=== PATIENT | male | born 1935 | race Caucasian/White ===

== ENCOUNTER 2020-04-25 17:16 | Outpatient (REF) | payer MEDICARE, OTHER, SELFPAY ==
[2020-04-25 17:30] LABS: MANUAL DIFF FLAG NO
[2020-04-25 17:33] LABS: Basophils Percent Auto 0.5 % (0-2); Eosinophils Percent Auto 12.3 % (0-4); Hematocrit 34.7 % (42-52); Hemoglobin 11.3 g/dl (14.0-18.0); Imm Gran Abs Auto 0.02 X10*3/uL (0.00-0.03); Imm Gran Pct Auto 0.3 % (0.0-0.4); Lymphocytes Absolute Auto 1.8 X10*3/uL (1.2-4.9); Lymphocytes Percent Auto 22.7 % (20-40); Mean Corpuscular HGB Conc 32.6 g/dl (31.0-36.0); Mean Corpuscular Hemoglobin 30.3 pg (27.0-33.0); Mean Platelet Volume 9.1 fL (9.4-12.4); Monocytes Absolute Auto 0.8 X10*3/uL (0.1-1.2); Monocytes Percent Auto 10.4 % (2-11); Neutrophils Absolute Auto 4.2 X10*3/uL (2.0-8.3); Neutrophils Percent Auto 53.8 % (45-73); Platelet Count 225 X10*3/uL (160-400); Red Blood Count 3.73 X10*6/uL (4.60-5.80); Red Cell Distribution Width 13.9 % (11.0-16.0); White Blood Count 7.8 X10*3/uL (4.8-10.8)
[2020-04-25 20:28] LABS: Influenza A PCR NEGATIVE (Negative); Influenza B PCR NEGATIVE (Negative)
[2020-04-25 20:31] LABS: SARS COV2 PCR INHOUSE NEGATIVE (Negative)
[2020-04-25 20:32] LABS: Resp Syncy Virus RNA Qual PCR NEGATIVE (Negative)
== END 2020-04-25 17:17 | disposition home or self-care (01) ==
LOC: HO.HSH3N 17:16
PROVIDERS: PCP Internal Medicine Medical Oncology; Visit Provider Internal Medicine Medical Oncology
DX: R50.9 Fever, unspecified (principal)
CPT/HCPCS: 36415; 85025; 87071; 87631; 87635

== ENCOUNTER 2020-05-18 06:49 | Outpatient (REF) | payer MEDICARE, OTHER, SELFPAY ==
[2020-05-18 08:34] LABS: MANUAL DIFF FLAG NO
[2020-05-18 08:38] LABS: Basophils Percent Auto 0.5 % (0-2); Eosinophils Percent Auto 12.2 % (0-4); Hemoglobin 10.8 g/dl (14.0-18.0); Imm Gran Abs Auto 0.02 X10*3/uL (0.00-0.03); Imm Gran Pct Auto 0.3 % (0.0-0.4); Lymphocytes Absolute Auto 1.7 X10*3/uL (1.2-4.9); Lymphocytes Percent Auto 21.7 % (20-40); Mean Corpuscular HGB Conc 32.7 g/dl (31.0-36.0); Mean Corpuscular Hemoglobin 30.8 pg (27.0-33.0); Mean Platelet Volume 9.2 fL (9.4-12.4); Monocytes Absolute Auto 0.8 X10*3/uL (0.1-1.2); Monocytes Percent Auto 10.7 % (2-11); Neutrophils Absolute Auto 4.3 X10*3/uL (2.0-8.3); Neutrophils Percent Auto 54.6 % (45-73); Platelet Count 174 X10*3/uL (160-400); Red Blood Count 3.51 X10*6/uL (4.60-5.80); Red Cell Distribution Width 13.6 % (11.0-16.0); White Blood Count 7.9 X10*3/uL (4.8-10.8)
== END 2020-05-18 06:50 | disposition home or self-care (01) ==
LOC: HO.HSH3N 06:49
PROVIDERS: Visit Provider Internal Medicine
DX: D64.9 Anemia, unspecified (principal)
CPT/HCPCS: 36415; 85025

== ENCOUNTER 2020-05-25 06:20 | Outpatient (REF) | payer MEDICARE, OTHER, SELFPAY ==
[2020-05-25 09:18] LABS: Alanine Aminotransferase 11 U/L (0-40); Albumin Level 3.3 g/dL (3.5-5.0); Alkaline Phosphatase 62 U/L (39-117); Anion Gap 10 (12-20); Aspartate Amino Transferase 17 U/L (5-37); Bilirubin Total 0.5 mg/dL (0.0-1.0); Blood Urea Nitrogen 25 mg/dL (9-16); Calcium 8.5 mg/dL (8.4-10.2); Carbon Dioxide 29 mmol/L (22-29); Chloride 106 mmol/L (96-108); Estimated Glomerular Filt Rate > 60; Glucose Fasting 85 mg/dL (60-99); Potassium 4.4 mmol/l (3.3-5.1); Sodium 141 mmol/L (135-145); Total Protein 6.8 g/dL (6.5-8.0)
== END 2020-05-25 06:21 | disposition home or self-care (01) ==
LOC: HO.HSH3N 06:20
PROVIDERS: Visit Provider Internal Medicine
DX: J44.9 Chronic obstructive pulmonary disease, unspecified (principal)
CPT/HCPCS: 80053

== ENCOUNTER 2020-07-07 08:43 | Outpatient (REF) | payer MEDICARE, OTHER, SELFPAY ==
[2020-07-07 09:07] LABS: Basophils Absolute Auto 0.1 X10*3/uL (0.0-0.2); Basophils Percent Auto 0.2 % (0-2); Eosinophils Absolute Auto 0.1 X10*3/uL (0.0-0.4); Eosinophils Percent Auto 0.5 % (0-4); Hematocrit 34.3 % (42-52); Hemoglobin 11.4 g/dl (14.0-18.0); Imm Gran Abs Auto 0.21 X10*3/uL (0.00-0.03); Imm Gran Pct Auto 0.9 % (0.0-0.4); Lymphocytes Absolute Auto 0.8 X10*3/uL (1.2-4.9); Lymphocytes Percent Auto 3.6 % (20-40); MANUAL DIFF FLAG SCAN; Mean Corpuscular HGB Conc 33.2 g/dl (31.0-36.0); Mean Corpuscular Hemoglobin 30.2 pg (27.0-33.0); Mean Platelet Volume 9.1 fL (9.4-12.4); Monocytes Absolute Auto 1.2 X10*3/uL (0.1-1.2); Monocytes Percent Auto 5.4 % (2-11); Neutrophils Absolute Auto 20.2 X10*3/uL (2.0-8.3); Neutrophils Percent Auto 89.4 % (45-73); Platelet Count 191 X10*3/uL (160-400); Red Blood Count 3.77 X10*6/uL (4.60-5.80); Red Cell Distribution Width 12.8 % (11.0-16.0); SCAN SMEAR FLAG 1; White Blood Count 22.6 X10*3/uL (4.8-10.8)
[2020-07-07 09:47] LABS: Alanine Aminotransferase 11 U/L (0-40); Albumin Level 3.4 g/dL (3.5-5.0); Alkaline Phosphatase 69 U/L (39-117); Anion Gap 12 (12-20); Aspartate Amino Transferase 15 U/L (5-37); Bilirubin Total 0.8 mg/dL (0.0-1.0); Blood Urea Nitrogen 24 mg/dL (9-16); Carbon Dioxide 27 mmol/L (22-29); Chloride 102 mmol/L (96-108); Estimated Glomerular Filt Rate > 60; Glucose Random 102 mg/dL (60-115); Potassium 3.8 mmol/l (3.3-5.1); Sodium 137 mmol/L (135-145); Total Protein 7.1 g/dL (6.5-8.0)
[2020-07-07 10:18] LABS: SLIDE REVIEW VERIFIED
== END 2020-07-07 08:44 | disposition home or self-care (01) ==
LOC: HO.HSH3E 08:43
PROVIDERS: Visit Provider Internal Medicine Medical Oncology
DX: Z13.89 Encounter for screening for other disorder (principal)
CPT/HCPCS: 36415; 80053; 85025

== ENCOUNTER 2020-07-07 12:26 | Inpatient (IN) | payer MEDICARE, OTHER, SELFPAY ==
[2020-07-07 12:49] VITALS: BP 107/49; PULSE 82; RESP 20; TEMP 37.9; O2SAT 96; BMI 20.9
--- NOTE | 2020-07-07 13:00 | XR_ITS ---
EXAMINATION: XR CHEST CLINICAL INFORMATION: Weakness and lethargy. COMPARISON: Chest 03/05/2020 TECHNIQUE: Frontal view of the chest was obtained. FINDINGS: The lungs are well-expanded and clear. The heart size and pulmonary vascularity is normal. There is moderate spondylosis dorsal spine but no lytic process. XR/XR chest 1V IMPRESSION: No acute process seen. There is moderate spondylosis dorsal spine.
--- NOTE | 2020-07-07 13:00 | ECG_ITS ---
Test Reason : WEAKNESS Blood Pressure : / mmHG Vent. Rate : 078 BPM Atrial Rate : 078 BPM P-R Int : 194 ms QRS Dur : 074 ms QT Int : 362 ms P-R-T Axes : 077 059 068 degrees QTc Int : 412 ms Normal sinus rhythm Normal ECG When compared with ECG of 05-MAR-2020 12:12, No significant change was found Referred By: Olinda Gordon Electronically Signed By:LINDA DELATORRE
--- NOTE | 2020-07-07 13:10 | ED.WEAKNESS ---
HPI - Weakness General Chief complaint: Weakness Stated complaint: lethargic,covid recovered Time Seen by Provider: 07/07/20 12:50 Source: EMS Mode of arrival: EMS Limitations: no limitations History of Present Illness HPI Narrative: 84-year-old male coming from the [facility] in [place] with a past medical history of COPD, osteoporosis, dementia, anemia, depression here with lethargy, fever in the last 24 hours. Per nursing report the patient has baseline mental status is alert but confused. Staff was concerned that the patient was more lethargic, falling asleep easily and not as alert as is normal. He received his 1st dose of COVID vaccine yet yesterday 07/06. He was noted to have a low-grade fever 99.9 at the [place] [facility] this morning. He received Tylenol at 10:30. He had outpatient labs done this morning which showed a WBC count of 22.6. MD Complaint: generalized weakness (lethargy) Onset (ago): hour(s) Duration: constant Location: generalized Migration: none Severity: mild Relieving factors: none Exacerbating factors: none Associated symptoms: denies other symptoms Related Data Allergies Allergy/AdvReac Type Severity Reaction Status Date / Time No Known Allergies Allergy Verified 07/07/20 12:59 [No Known Allergies*] Review of Systems Review of Systems: Yes all other systems are reviewed and are negative and Unobtainable due to mental status (limited d/t dementia ) Constitutional: Constitutional: Reports no additional constitutional complaints, Denies body ache(s), Denies chills, Reports fever(s) (low grade, max temp 99.9), Denies headache(s) and Reports weakness Eyes: Eyes: Reports no additional eye complaints and Denies change in vision ENT: Reports system reviewed and no additional complaints, except as documented, Denies dizziness, Denies headache(s), Denies nasal congestion, Denies nasal discharge and Denies neck pain Cardiovascular: Cardiovascular: Reports no additional cardiovascular complaints, Denies chest pain, Denies leg edema and Denies dyspnea Respiratory: Respiratory: Reports no additional respiratory complaints, Denies cough and Denies dyspnea Gastrointestinal: Gastrointestinal: Reports no additional gastrointestinal complaints, Denies abdominal pain, Denies diarrhea, Denies nausea and Denies vomiting Genitourinary: Genitourinary: Denies urinary incontinence Musculoskeletal: Musculoskeletal: Reports no additional musculoskeletal complaints, Denies back pain, Denies arthralgias, Denies joint swelling, Denies neck pain, Denies numbness and Denies tingling Integumentary/Breasts: Skin/Breast: Reports system reviewed and no additional complaints, except as docu and Denies rash Neurologic: Reports system reviewed and no additional complaints, except as documented, Denies Abnormal speech present, Reports confusion, Denies dizziness, Denies headache(s), Denies numbness, Denies tingling and Reports weakness Psychiatric: Psychiatric: Reports confusion [facility] Past Medical History Attestation statement: The following information was validated with the patient. Source: old records reviewed and nursing notes reviewed Medical History COPD (chronic obstructive pulmonary disease) Dementia Major depressive disorder Social History Social History Smoking Status: Unknown if ever smoked Use of substances other than those prescribed or required for medical reasons: Unknown Advance Directives: No Advance Directives Information Provided: No Physical Exam Vital Signs: Vital Signs: Last Vital Signs Temp 100.2 F 07/07/20 12:49 Pulse 82 07/07/20 15:13 Resp 18 07/07/20 15:13 BP 114/59 L 07/07/20 15:13 Pulse Ox 98 07/07/20 15:13 Body Mass Index 20.9 Const: Other: Eyes closed, response to verbal, follows simple commands General: cooperative, comfortable, no acute distress and confusion Orientation/consciousness: oriented to person and confusion Limitations: no limitations HENMT: Head: Yes normal to inspection Ears: hearing grossly normal bilaterally General nose exam: Normal external nose present Face and sinus: Yes normal facial exam Mouth: Normal oral and palatal mucosa present Throat: Yes posterior oropharynx normal Eyes: General: appearance normal, both eyes and all related structures Pupils: Equal, round and reactive pupils present Neck: Neck: Yes normal visual inspection Chest: Chest palpation & inspection: normal inspection of the chest Resp: Effort & Inspection: normal respiratory effort Auscultation: clear to auscultation bilaterally Cardio: Rate: regular rate Rhythm: regular rhythm Peripheral pulses: Peripheral pulses 2+ throughout GI: Inspection: Yes normal to inspection Palpation (GI): Soft to palpation and nontender Auscultation: normal bowel sounds Back/Spine/Pelvis: Thoracic/Lumbar Spine: thoracic and lumbar spine normal to inspection Skin: General skin exam: no rashes or lesions noted Neuro: General: oriented to person, no focal motor deficits, normal sensation to monofilament, confusion and Unable to assess gait Cranial nerves: Yes Equal, round and reactive pupils present Speech: No Abnormal speech present Gait exam (Neuro): Unable to assess gait Sensory Exam: Normal double simultaneous stimulation for sensation Extrem: General: Yes normal to inspection Course Course Course Narrative: 84-year-old male coming from a [place] [facility] with lethargy and low-grade temps for the last 24 hours. On arrival the patient tells me he has a mild headache but he has had this for 5 years. He has no other complaints. He does have his eyes closed toe response to verbal and follows simple commands. He is oriented to self only. No overt neurological deficits. Also noted to have a WBC count 22.6 drawn this morning. Will check labs including blood cultures and lactic acid, chest x-ray, EKG, UA, CT head, respiratory panel. 1600-labs show a white blood cell count 20.7. Slightly improved from earlier. Negative lactic acid. All other labs are unremarkable. Urine and chest x-ray are negative. CT shows some chronic changes but no acute changes. Patient has no complaints. Stable vital signs. No NUGENT, neck pain, rash with mental status which appears to be at baseline so low concern for meningitis. Leukocytosis but no other clinical s/s for sepsis. Likely from a viral source. Ct chest/abdomen and pelvis to r/o underlying infectious process as patient is not a reliable historian. 1999-CT concerning for left lower lobe pneumonia. At this time infection is suspected. Antibiotics ordered. CT also shows a 1.4 centimetre left obstructing kidney stone with moderate to severe hydroureteronephrosis. Normal renal function. UA negative for infection. Patient has no complaints of pain. Discussed with Dr Garrett who accepted admission. MDM - Weakness MDM Narrative Medical decision making narrative: Underlying infectious process (PNA, UTI), Adverse side effect from vaccine Metabolic cause, acs, CVA vs ICH Medical Records Attestation: I reviewed the patient's medical records. Lab Data Attestation: I reviewed the patient's lab results. Result diagrams: 07/07/20 13:35 12/30/20 13:35 Labs: Lab Results 07/07/20 07/07/20 07/07/20 Range/Units 13:35 13:35 13:35 WBC 20.7 H (4.8-10.8) X10*3/uL RBC 3.85 L (4.60-5.80) X10*6/uL Hgb 11.7 L (14.0-18.0) g/dl Hct 35.6 L (42-52) % MCV 92.5 (80-98) fL MCH 30.4 (27.0-33.0) pg MCHC 32.9 (31.0-36.0) g/dl RDW 12.8 (11.0-16.0) % Plt Count 209 (160-400) X10*3/uL MPV 9.1 L (9.4-12.4) fL Immature Gran % (Auto) 0.7 H (0.0-0.4) % Neut % (Auto) 88.9 H (45-73) % Lymph % (Auto) 5.4 L (20-40) % [place] % (Auto) 4.5 (2-11) % Eos % (Auto) 0.3 (0-4) % Baso % (Auto) 0.2 (0-2) % Lymph # (Auto) 1.1 L (1.2-4.9) X10*3/uL [place] # (Auto) 0.9 (0.1-1.2) X10*3/uL Eos # (Auto) 0.1 (0.0-0.4) X10*3/uL Baso # (Auto) 0.1 (0.0-0.2) X10*3/uL Abs Immat Gran (auto) 0.14 H (0.00-0.03) X10*3/uL Absolute Neuts (auto) 18.4 H (2.0-8.3) X10*3/uL Absolute Nucleated RBC 0.000 (0.0-0.012) X10*3/uL Nucleated RBC % (auto) 0.0 (0.0-0.2) /100WBC PT 14.1 H (10.8-13.0) SEC INR 1.2 H (0.9-1.1) Sodium 139 (135-145) mmol/L Potassium 4.0 (3.3-5.1) mmol/l Chloride 102 (96-108) mmol/L Carbon Dioxide 29 (22-29) mmol/L Anion Gap 12 (12-20) BUN 25 H (9-16) mg/dL Creatinine 1.00 (0.5-1.4) mg/dL Estim Creat Clear Calc 58.0 Estimated GFR > 60 Random Glucose 101 (60-115) mg/dL Lactic Acid (0.5-2.0) mmol/L Calcium 9.1 (8.4-10.2) mg/dL Magnesium 1.9 (1.6-2.6) mg/dL Total Bilirubin 0.8 (0.0-1.0) mg/dL Direct Bilirubin 0.4 (0.0-0.5) mg/dL AST 19 (5-37) U/L ALT 14 (0-40) U/L Alkaline Phosphatase 72 (39-117) U/L Troponin I High Sens (<3.5-35.0) ng/L Total Protein 7.2 (6.5-8.0) g/dL Albumin 3.5 (3.5-5.0) g/dL Urine Color Urine Appearance Urine pH (5.0-8.0) Ur Specific [place] (1.005-1.025) Urine Protein (NEG-TRACE) MG/DL Urine Glucose (UA) (NEG) MG/DL Urine Ketones (NEG) MG/DL Urine Blood (NEG) Urine Nitrite (NEG) Ur Leukocyte Esterase (NEG) Urine RBC (0) /HPF Urine WBC (0-4) /HPF Ur Squamous Epith Cells /LPF Urine Bacteria /LPF Coronavirus (PCR) (Negative) Influenza Type A (PCR) (Negative) Influenza Type B (PCR) (Negative) RSV RNA Qual (PCR) (Negative) 07/07/20 07/07/20 07/07/20 Range/Units 13:35 13:35 15:26 WBC (4.8-10.8) X10*3/uL RBC (4.60-5.80) X10*6/uL Hgb (14.0-18.0) g/dl Hct (42-52) % MCV (80-98) fL MCH (27.0-33.0) pg MCHC (31.0-36.0) g/dl RDW (11.0-16.0) % Plt Count (160-400) X10*3/uL MPV (9.4-12.4) fL Immature Gran % (Auto) (0.0-0.4) % Neut % (Auto) (45-73) % Lymph % (Auto) (20-40) % [place] % (Auto) (2-11) % Eos % (Auto) (0-4) % Baso % (Auto) (0-2) % Lymph # (Auto) (1.2-4.9) X10*3/uL [place] # (Auto) (0.1-1.2) X10*3/uL Eos # (Auto) (0.0-0.4) X10*3/uL Baso # (Auto) (0.0-0.2) X10*3/uL Abs Immat Gran (auto) (0.00-0.03) X10*3/uL Absolute Neuts (auto) (2.0-8.3) X10*3/uL Absolute Nucleated RBC (0.0-0.012) X10*3/uL Nucleated RBC % (auto) (0.0-0.2) /100WBC PT (10.8-13.0) SEC INR (0.9-1.1) Sodium (135-145) mmol/L Potassium (3.3-5.1) mmol/l Chloride (96-108) mmol/L Carbon Dioxide (22-29) mmol/L Anion Gap (12-20) BUN (9-16) mg/dL Creatinine (0.5-1.4) mg/dL Estim Creat Clear Calc Estimated GFR Random Glucose (60-115) mg/dL Lactic Acid 1.5 (0.5-2.0) mmol/L Calcium (8.4-10.2) mg/dL Magnesium (1.6-2.6) mg/dL Total Bilirubin (0.0-1.0) mg/dL Direct Bilirubin (0.0-0.5) mg/dL AST (5-37) U/L ALT (0-40) U/L Alkaline Phosphatase (39-117) U/L Troponin I High Sens < 3.5 (<3.5-35.0) ng/L Total Protein (6.5-8.0) g/dL Albumin (3.5-5.0) g/dL Urine Color YELLOW Urine Appearance CLEAR Urine pH 6.5 (5.0-8.0) Ur Specific [place] 1.015 (1.005-1.025) Urine Protein NEG (NEG-TRACE) MG/DL Urine Glucose (UA) NEG (NEG) MG/DL Urine Ketones NEG (NEG) MG/DL Urine Blood 1+ H (NEG) Urine Nitrite NEG (NEG) Ur Leukocyte Esterase NEG (NEG) Urine RBC 5-9 H (0) /HPF Urine WBC 0 (0-4) /HPF Ur Squamous Epith Cells NONE /LPF Urine Bacteria 1+ /LPF Coronavirus (PCR) (Negative) Influenza Type A (PCR) (Negative) Influenza Type B (PCR) (Negative) RSV RNA Qual (PCR) (Negative) 07/07/20 Range/Units 16:53 WBC (4.8-10.8) X10*3/uL RBC (4.60-5.80) X10*6/uL Hgb (14.0-18.0) g/dl Hct (42-52) % MCV (80-98) fL MCH (27.0-33.0) pg MCHC (31.0-36.0) g/dl RDW (11.0-16.0) % Plt Count (160-400) X10*3/uL MPV (9.4-12.4) fL Immature Gran % (Auto) (0.0-0.4) % Neut % (Auto) (45-73) % Lymph % (Auto) (20-40) % [place] % (Auto) (2-11) % Eos % (Auto) (0-4) % Baso % (Auto) (0-2) % Lymph # (Auto) (1.2-4.9) X10*3/uL [place] # (Auto) (0.1-1.2) X10*3/uL Eos # (Auto) (0.0-0.4) X10*3/uL Baso # (Auto) (0.0-0.2) X10*3/uL Abs Immat Gran (auto) (0.00-0.03) X10*3/uL Absolute Neuts (auto) (2.0-8.3) X10*3/uL Absolute Nucleated RBC (0.0-0.012) X10*3/uL Nucleated RBC % (auto) (0.0-0.2) /100WBC PT (10.8-13.0) SEC INR (0.9-1.1) Sodium (135-145) mmol/L Potassium (3.3-5.1) mmol/l Chloride (96-108) mmol/L Carbon Dioxide (22-29) mmol/L Anion Gap (12-20) BUN (9-16) mg/dL Creatinine (0.5-1.4) mg/dL Estim Creat Clear Calc Estimated GFR Random Glucose (60-115) mg/dL Lactic Acid (0.5-2.0) mmol/L Calcium (8.4-10.2) mg/dL Magnesium (1.6-2.6) mg/dL Total Bilirubin (0.0-1.0) mg/dL Direct Bilirubin (0.0-0.5) mg/dL AST (5-37) U/L ALT (0-40) U/L Alkaline Phosphatase (39-117) U/L Troponin I High Sens (<3.5-35.0) ng/L Total Protein (6.5-8.0) g/dL Albumin (3.5-5.0) g/dL Urine Color Urine Appearance Urine pH (5.0-8.0) Ur Specific [place] (1.005-1.025) Urine Protein (NEG-TRACE) MG/DL Urine Glucose (UA) (NEG) MG/DL Urine Ketones (NEG) MG/DL Urine Blood (NEG) Urine Nitrite (NEG) Ur Leukocyte Esterase (NEG) Urine RBC (0) /HPF Urine WBC (0-4) /HPF Ur Squamous Epith Cells /LPF Urine Bacteria /LPF Coronavirus (PCR) NEGATIVE (Negative) Influenza Type A (PCR) NEGATIVE (Negative) Influenza Type B (PCR) NEGATIVE (Negative) RSV RNA Qual (PCR) NEGATIVE (Negative) Imaging Data Chest x-ray: Attestation: I personally reviewed and interpreted this imaging study as follows: Radiologist's impression: [address] [address] XRay Report Signed Patient: Radhames Galan MMR#: [id number] : 8Acct:[id number] Age/Sex: 84 / MADM Date: 07/07/20 Loc: HO.ED Attending Dr: Ordering Physician: RAKEL LUJAN NP Date of Service: 07/07/20 Procedure(s): XR chest 1V Accession Number(s): [id number] cc: RAKEL LUJAN NP~ EXAMINATION: XR CHEST CLINICAL INFORMATION: Weakness and lethargy. COMPARISON: Chest 03/05/2020 TECHNIQUE: Frontal view of the chest was obtained. FINDINGS: The lungs are well-expanded and clear. The heart size and pulmonary vascularity is normal. There is moderate spondylosis dorsal spine but no lytic process. XR/XR chest 1V IMPRESSION: No acute process seen. There is moderate spondylosis dorsal spine. CT scan - head: Attestation: I personally reviewed and interpreted this imaging study as follows: Radiologist's impression: [place] [address] CT Scan Report Signed Patient: Radhames Galan MMR#: [id number] : 8Acct:[id number] Age/Sex: 84 / MADM Date: 07/07/20 Loc: .ED Attending Dr: Ordering Physician: RAKEL LUJAN NP Date of Service: 07/07/20 Procedure(s): CT head/brain wo con Accession Number(s): [id number] cc: RAKEL LUJAN NP~ EXAMINATION: CT HEAD WITHOUT CONTRAST CLINICAL INFORMATION: Headache and AMS. COMPARISON: None TECHNIQUE: Contiguous axial imaging was performed from the skull base to vertex without intravenous administration of contrast. This CT examination was performed using dose optimization techniques as appropriate, variously including the following: *Automated exposure control *Adjustment of mA and/or kV according to patient size (this includes techniques or standardized protocols for targeted exams where dose is matched to indication/reason for exam; i.e. extremities or head) *Use of iterative reconstruction technique DLP: 1287 mGy-cm FINDINGS: There is no evidence of acute intracranial hemorrhage or territorial infarction. No abnormal mass effect or midline shift is seen. Chun to white matter differentiation is well preserved. No extra-axial fluid collections are identified. The lateral ventricles are enlarged but symmetrical. There is diffuse periventricular hypodensity in both cerebral hemispheres without mass effect. The chun to white matter differentiation is maintained. The osseous structures and soft tissues are normal. The mastoid air cells and visualized portions of the paranasal sinuses are well aerated. CT/CT head/brain wo con IMPRESSION: No acute intracranial process seen. Age-related cerebral volume loss with chronic small vessel ischemic changes in both cerebral hemispheres. ECG Data Attestation: I personally reviewed and interpreted this ECG as follows: ECG interpretation date: 07/07/20 ECG interpretation time: 13:26 Interpretation: Normal sinus rhythm rate 78, normal [place], normal QRS, normal QT Discharge Plan Discharge Clinical Impression: Renal colic on left side Pneumonia Qualifiers: Pneumonia type: due to unspecified organism Laterality: left Lung location: lower lobe of lung Qualified Code(s): J18.9 - Pneumonia, unspecified organism Leukocytosis Qualifiers: Leukocytosis type: unspecified Qualified Code(s): D72.829 - Elevated white blood cell count, unspecified Patient Disposition: Admitted As Inpatient
--- NOTE | 2020-07-07 13:43 | PC.NURSE ---
pt's daughter jennifer ahuja ) called [facility] and was updated on pt's status. jennifer is asking that all communication/calls be sent to her. pt aware that his daughter had called.
[2020-07-07 13:44] VITALS: BP 105/51; PULSE 80; RESP 15; O2SAT 95
[2020-07-07 13:57] LABS: MANUAL DIFF FLAG NO
[2020-07-07 14:00] LABS: Basophils Absolute Auto 0.1 X10*3/uL (0.0-0.2); Basophils Percent Auto 0.2 % (0-2); Eosinophils Absolute Auto 0.1 X10*3/uL (0.0-0.4); Eosinophils Percent Auto 0.3 % (0-4); Hematocrit 35.6 % (42-52); Hemoglobin 11.7 g/dl (14.0-18.0); Imm Gran Abs Auto 0.14 X10*3/uL (0.00-0.03); Imm Gran Pct Auto 0.7 % (0.0-0.4); Lymphocytes Absolute Auto 1.1 X10*3/uL (1.2-4.9); Lymphocytes Percent Auto 5.4 % (20-40); Mean Corpuscular HGB Conc 32.9 g/dl (31.0-36.0); Mean Corpuscular Hemoglobin 30.4 pg (27.0-33.0); Mean Corpuscular Volume 92.5 fL (80-98); Mean Platelet Volume 9.1 fL (9.4-12.4); Monocytes Absolute Auto 0.9 X10*3/uL (0.1-1.2); Monocytes Percent Auto 4.5 % (2-11); Neutrophils Absolute Auto 18.4 X10*3/uL (2.0-8.3); Neutrophils Percent Auto 88.9 % (45-73); Platelet Count 209 X10*3/uL (160-400); Red Blood Count 3.85 X10*6/uL (4.60-5.80); Red Cell Distribution Width 12.8 % (11.0-16.0); White Blood Count 20.7 X10*3/uL (4.8-10.8)
[2020-07-07 14:10] LABS: INTERNATIONAL NORM RATIO 1.2 (0.9-1.1); Lactic Acid 1.5 mmol/L (0.5-2.0); Prothrombin Time 14.1 SEC (10.8-13.0)
[2020-07-07 14:32] LABS: Alanine Aminotransferase 14 U/L (0-40); Albumin Level 3.5 g/dL (3.5-5.0); Alkaline Phosphatase 72 U/L (39-117); Anion Gap 12 (12-20); Aspartate Amino Transferase 19 U/L (5-37); Bilirubin Direct 0.4 mg/dL (0.0-0.5); Bilirubin Total 0.8 mg/dL (0.0-1.0); Blood Urea Nitrogen 25 mg/dL (9-16); Calcium 9.1 mg/dL (8.4-10.2); Carbon Dioxide 29 mmol/L (22-29); Chloride 102 mmol/L (96-108); Estimated Glomerular Filt Rate > 60; Glucose Random 101 mg/dL (60-115); Magnesium 1.9 mg/dL (1.6-2.6); Sodium 139 mmol/L (135-145); Total Protein 7.2 g/dL (6.5-8.0)
[2020-07-07 14:34] LABS: Troponin-I High Sensitivity < 3.5 ng/L (<3.5-35.0)
[2020-07-07 15:13] VITALS: BP 114/59; PULSE 82; RESP 18; O2SAT 98
[2020-07-07 15:36] LABS: Glucose Urine UA NEG (NEG); Leukocyte Esterase Urine NEG (NEG); Nitrite Urine NEG (NEG); PH 6.5 (5.0-8.0); Specific Gravity - Urine 1.015 (1.005-1.025); Urine Blood 1+ (NEG); Urine Ketones NEG (NEG); Urine Protein NEG (NEG-TRACE)
[2020-07-07 15:39] LABS: Appearance Urine CLEAR; Color Urine YELLOW
[2020-07-07 15:46] LABS: Bacteria Urine 1+ /LPF; WBC Urine 0 /HPF (0-4)
[2020-07-07 16:23] LABS: Adenovirus PCR Not Detected (Not Detect.); Bordetella parapertussis PCR Not Detected (Not Detect.); Bordetella pertussis PCR Not Detected (Not Detect.); Chlamydia pneumoniae PCR Not Detected (Not Detect.); Coronavirus 229E PCR Not Detected (Not Detect.); Coronavirus HKU1 PCR Not Detected (Not Detect.); Coronavirus NL63 PCR Not Detected (Not Detect.); Coronavirus OC43 PCR Not Detected (Not Detect.); Human metapneumovirus PCR Not Detected (Not Detect.); Influenza A PCR Not Detected (Not Detect.); Influenza B PCR Not Detected (Not Detect.); Mycoplasma pneumoniae PCR Not Detected (Not Detect.); Parainfluenza 1 PCR Not Detected (Not Detect.); Parainfluenza 2 PCR Not Detected (Not Detect.); Parainfluenza 3 PCR Not Detected (Not Detect.); Parainfluenza 4 PCR Not Detected (Not Detect.); RSV PCR Not Detected (Not Detect.); Rhino/Enterovirus PCR Not Detected (Not Detect.); SARS-CoV-2 PCR Not Detected (Not Detect.)
--- NOTE | 2020-07-07 16:30 | PC.NURSE ---
PLAN OF CARE FOR RESP PANEL & D/C BACK TO [facility]
[2020-07-07 17:38] LABS: Influenza A PCR NEGATIVE (Negative); Influenza B PCR NEGATIVE (Negative); Resp Syncy Virus RNA Qual PCR NEGATIVE (Negative); SARS COV2 PCR INHOUSE NEGATIVE (Negative)
--- NOTE | 2020-07-07 17:52 | CT_ITS ---
EXAM: CT scan of the chest, abdomen, and pelvis. INDICATION: Elevated white blood cell count and confusion. Evaluation for infection requested. COMPARISON: Same day chest x-ray TECHNIQUE: Multidetector helical imaging of the chest, abdomen, and pelvis was obtained from the thoracic inlet through the pubic symphysis. Coronal and sagittal reformatted images that were obtained were also reviewed. Today's examination is limited secondary to motion artifact. DLP: 1169 mGy-cm FINDINGS: CHEST: Central airways are patent. Filling defect within the right mainstem bronchus and within segmental and subsegmental airways particularly within the left lower lobe are most suggestive of mucus impaction. Lungs are mildly hyperinflated consistent with emphysematous changes. There is subtle patchy airspace disease of the dependent left lower lobe with trace pleural thickening. There is biapical scarring demonstrated. No lobar consolidation. No pneumothorax. Evaluation for pulmonary nodules is suboptimal given motion artifact. The heart is normal in size. Coronary artery calcifications are present. Mitral annulus calcifications. Mildly prominent main pulmonary artery suggesting pulmonary arterial hypertension. No pericardial effusion. A few mildly prominent but not pathologically enlarged mediastinal lymph nodes are demonstrated. Nonaneurysmal thoracic aorta. ABDOMEN/PELVIS: The liver and gallbladder are normal in appearance. Calcifications within the pancreas are nonspecific but suspected to be vascular in nature. The spleen is unremarkable. Mild hypertrophy of the adrenal glands. There is moderate to severe hydroureteronephrosis of the left kidney secondary to a 1.4 cm stone within the mid left ureter. There are a few subcentimeter nonobstructing calculi of the right kidney without right-sided hydronephrosis. There is approximately 3.8 cm cyst of the right kidney. The stomach is decompressed and therefore not accurately evaluated. Normal caliber loops of small and large bowel. Moderate stool burden throughout the colon. Normal appendix. Nonaneurysmal abdominal aorta which demonstrates moderate to severe atherosclerotic disease. The bladder is decompressed but demonstrates mild diffuse bladder wall thickening. Prostate gland is mildly enlarged. OSSEOUS STRUCTURES Diffuse osteopenia. Scattered moderate to severe degenerative changes of the spine. L4 compression deformity, age indeterminate. CT/CT abdomen pelvis wo con IMPRESSION: 1. Moderate to severe left-sided hydroureteronephrosis secondary to a 1.4 cm stone within the left mid ureter. 2. Nonobstructing calculi of the right kidney. 3. Moderate stool burden throughout the colon suggesting constipation. 4. L4 compression deformity, age indeterminate. 5. Patchy airspace disease dependently within the left lower lobe. Findings are most suggestive of atelectasis, however, developing infiltrate is not excluded. Ultimately, today's examination is suboptimal due to appreciable motion artifact. Follow-up imaging can be obtained as clinically indicated. This CT examination was performed using dose optimization techniques as appropriate, variously including the following: *Automated exposure control *Adjustment of mA and/or kV according to patient size (this includes techniques or standardized protocols for targeted exams where dose is matched to indication/reason for exam; i.e. extremities or head) *Use of iterative reconstruction technique
[2020-07-07 18:00] VITALS: BP 108/51; PULSE 82; RESP 14; TEMP 37.3; O2SAT 98
[2020-07-07 20:00] VITALS: BP 103/51; PULSE 75; RESP 12; O2SAT 97
--- NOTE | 2020-07-07 20:49 | PM.IMHP ---
History of Present Illness Date of Service: 07/07/20 Chief Complaint: Increased lethargy This is a 84-year-old male with past medical history of COPD, dementia, depression who is the [facility] resident presents to the hospital with increased lethargy and leukocytosis. Patient is somnolent but arousable on unable to give much history therefore history is obtained from ED PA and EMR. It appears the patient was more lethargic today at the detention and had increased weakness therefore labs were drawn and his WBC was found to be 22,000. He apparently also had a fever of 100 point no at the detention. Therefore he was brought in to the hospital. I am unable to obtain any review of system otherwise as patient is a poor historian due to baseline dementia and is very somnolent at this time On arrival to the ED hemodynamically stable with a temperature of a 100.2?, pulse rate of 82, respiratory rate 20, blood pressure 107/49 improved to 1 14/59 currently, satting 96% on room air Labs are significant for WBC count 20.7, hemoglobin of 11.7, hematocrit 35.6, PT of 14.1, INR of 1.2, BUN of 25, creatinine of 1.0, sodium of 139, potassium 4.0 UA that is negative for any infection, complete respiratory panel is pending but COVID PCR negative (patient was positive in November 2019) Chest CT shows patchy airspace disease dependently within the left lower lobe as well as abdominal/pelvic CT showing moderate to severe left-sided hydroureteronephrosis secondary to 1.4 cm stone within the left mid ureter Past medical history is obtained from chart as patient is too lethargic/somnolent to give any history and has baseline dementia Past medical history: COPD, dementia, depression, COVID positive in November 2019 Past surgical history: Tonsillectomy Family history: Father of an [place] in his 60s, mother had a history of COPD Social history: The patient resides at [facility], he ambulates with the use of a walker or wheelchair, and he has no history of tobacco alcohol or drug use Review of Systems Review of Systems: Yes Unobtainable due to mental condition and Unobtainable due to mental status Constitutional: Constitutional: Denies headache(s) and Reports weakness ENT: Denies dizziness and Denies headache(s) Musculoskeletal: Musculoskeletal: Denies numbness and Denies tingling Neurologic: Reports system reviewed and no additional complaints, except as documented, Reports confusion, Denies dizziness, Denies headache(s), Denies numbness, Denies tingling and Reports weakness Psychiatric: Psychiatric: Reports confusion PMFSH Medical History COPD (chronic obstructive pulmonary disease) Dementia Major depressive disorder Social History Smoking Status: Unknown if ever smoked Use of substances other than those prescribed or required for medical reasons: Unknown Advance Directives: No Advance Directives Information Provided: No Meds Allergies Allergy/AdvReac Type Severity Reaction Status Date / Time No Known Allergies Allergy Verified 07/07/20 12:59 [No Known Allergies*] Home Medications Medication Instructions Recorded Confirmed Type acetaminophen 650 mg PO BID 07/07/20 07/07/20 History alendronate [Fosamax] 70 mg PO QWEEK 07/07/20 07/07/20 History cholecalciferol (vitamin D3) 25 mcg PO DAILY 07/07/20 07/07/20 History [Vitamin D3] docusate sodium [Colace] 100 mg PO DAILY 07/07/20 07/07/20 History escitalopram oxalate [Lexapro] 5 mg PO DAILY 07/07/20 07/07/20 History fluticasone propion-salmeterol 1 inh INHALATION BID 07/07/20 07/07/20 History [Advair Diskus] ipratropium bromide 1 spray INTRANASAL BID 07/07/20 07/07/20 History levalbuterol tartrate 2 puff INHALATION Q4H PRN 07/07/20 07/07/20 History loratadine [Claritin] 10 mg PO DAILY 07/07/20 07/07/20 History sennosides [senna] 8.6 mg PO BEDTIME 07/07/20 07/07/20 History trazodone 37.5 mg PO DAILY@1400 07/07/20 07/07/20 History Physical Exam Vital Signs and Narrative: Vital Signs: Last Vital Signs Temp 100.2 F 07/07/20 12:49 Pulse 82 07/07/20 15:13 Resp 18 07/07/20 15:13 BP 114/59 L 07/07/20 15:13 Pulse Ox 98 07/07/20 15:13 Body Mass Index 20.9 Const: General: confusion and patient obtunded Orientation/consciousness: confusion and patient obtunded Eyes: General: appearance normal, both eyes and all related structures Resp: Effort & Inspection: normal respiratory effort Cardio: Rate: regular rate Rhythm: regular rhythm GI: Palpation (GI): Soft to palpation Auscultation: normal bowel sounds Neuro: General: confusion and patient obtunded Extrem: General: Yes normal to inspection Results Labs CBC and Chem 7: 07/07/20 13:35 07/07/20 13:35 Labs: Laboratory Results - last 24 hr 07/07/20 07/07/20 07/07/20 13:35 13:35 13:35 MCV 92.5 MCH 30.4 MCHC 32.9 RDW 12.8 Plt Count 209 MPV 9.1 L Immature Gran % (Auto) 0.7 H Neut % (Auto) 88.9 H Lymph % (Auto) 5.4 L [place] % (Auto) 4.5 Eos % (Auto) 0.3 Baso % (Auto) 0.2 Lymph # (Auto) 1.1 L [place] # (Auto) 0.9 Eos # (Auto) 0.1 Baso # (Auto) 0.1 Abs Immat Gran (auto) 0.14 H Absolute Neuts (auto) 18.4 H Absolute Nucleated RBC 0.000 Nucleated RBC % (auto) 0.0 PT 14.1 H INR 1.2 H Anion Gap 12 Estim Creat Clear Calc 58.0 Estimated GFR > 60 Random Glucose 101 Lactic Acid Calcium 9.1 Magnesium 1.9 Total Bilirubin 0.8 Direct Bilirubin 0.4 AST 19 ALT 14 Alkaline Phosphatase 72 Troponin I High Sens Total Protein 7.2 Albumin 3.5 Urine Color Urine Appearance Urine pH Ur Specific [place] Urine Protein Urine Glucose (UA) Urine Ketones Urine Blood Urine Nitrite Ur Leukocyte Esterase Urine RBC Urine WBC Ur Squamous Epith Cells Urine Bacteria Coronavirus (PCR) Influenza Type A (PCR) Influenza Type B (PCR) RSV RNA Qual (PCR) 07/07/20 07/07/20 07/07/20 13:35 13:35 15:26 MCV MCH MCHC RDW Plt Count MPV Immature Gran % (Auto) Neut % (Auto) Lymph % (Auto) [place] % (Auto) Eos % (Auto) Baso % (Auto) Lymph # (Auto) [place] # (Auto) Eos # (Auto) Baso # (Auto) Abs Immat Gran (auto) Absolute Neuts (auto) Absolute Nucleated RBC Nucleated RBC % (auto) PT INR Anion Gap Estim Creat Clear Calc Estimated GFR Random Glucose Lactic Acid 1.5 Calcium Magnesium Total Bilirubin Direct Bilirubin AST ALT Alkaline Phosphatase Troponin I High Sens < 3.5 Total Protein Albumin Urine Color YELLOW Urine Appearance CLEAR Urine pH 6.5 Ur Specific [place] 1.015 Urine Protein NEG Urine Glucose (UA) NEG Urine Ketones NEG Urine Blood 1+ H Urine Nitrite NEG Ur Leukocyte Esterase NEG Urine RBC 5-9 H Urine WBC 0 Ur Squamous Epith Cells NONE Urine Bacteria 1+ Coronavirus (PCR) Influenza Type A (PCR) Influenza Type B (PCR) RSV RNA Qual (PCR) 07/07/20 16:53 MCV MCH MCHC RDW Plt Count MPV Immature Gran % (Auto) Neut % (Auto) Lymph % (Auto) [place] % (Auto) Eos % (Auto) Baso % (Auto) Lymph # (Auto) [place] # (Auto) Eos # (Auto) Baso # (Auto) Abs Immat Gran (auto) Absolute Neuts (auto) Absolute Nucleated RBC Nucleated RBC % (auto) PT INR Anion Gap Estim Creat Clear Calc Estimated GFR Random Glucose Lactic Acid Calcium Magnesium Total Bilirubin Direct Bilirubin AST ALT Alkaline Phosphatase Troponin I High Sens Total Protein Albumin Urine Color Urine Appearance Urine pH Ur Specific [place] Urine Protein Urine Glucose (UA) Urine Ketones Urine Blood Urine Nitrite Ur Leukocyte Esterase Urine RBC Urine WBC Ur Squamous Epith Cells Urine Bacteria Coronavirus (PCR) NEGATIVE Influenza Type A (PCR) NEGATIVE Influenza Type B (PCR) NEGATIVE RSV RNA Qual (PCR) NEGATIVE Imaging Radiologist's Impressions: Impressions Chest X-Ray 07/07/20 13:00 IMPRESSION: No acute process seen. There is moderate spondylosis dorsal spine. Head CT 07/07/20 13:09 IMPRESSION: No acute intracranial process seen. Age-related cerebral volume loss with chronic small vessel ischemic changes in both cerebral hemispheres. Abdomen/Pelvis CT 07/07/20 17:52 IMPRESSION: 1. Moderate to severe left-sided hydroureteronephrosis secondary to a 1.4 cm stone within the left mid ureter. 2. Nonobstructing calculi of the right kidney. 3. Moderate stool burden throughout the colon suggesting constipation. 4. L4 compression deformity, age indeterminate. 5. Patchy airspace disease dependently within the left lower lobe. Findings are most suggestive of atelectasis, however, developing infiltrate is not excluded. Ultimately, today's examination is suboptimal due to appreciable motion artifact. Follow-up imaging can be obtained as clinically indicated. This CT examination was performed using dose optimization techniques as appropriate, variously including the following: *Automated exposure control *Adjustment of mA and/or kV according to patient size (this includes techniques or standardized protocols for targeted exams where dose is matched to indication/reason for exam; i.e. extremities or head) *Use of iterative reconstruction technique Chest CT 07/07/20 17:52 IMPRESSION: 1. Moderate to severe left-sided hydroureteronephrosis secondary to a 1.4 cm stone within the left mid ureter. 2. Nonobstructing calculi of the right kidney. 3. Moderate stool burden throughout the colon suggesting constipation. 4. L4 compression deformity, age indeterminate. 5. Patchy airspace disease dependently within the left lower lobe. Findings are most suggestive of atelectasis, however, developing infiltrate is not excluded. Ultimately, today's examination is suboptimal due to appreciable motion artifact. Follow-up imaging can be obtained as clinically indicated. This CT examination was performed using dose optimization techniques as appropriate, variously including the following: *Automated exposure control *Adjustment of mA and/or kV according to patient size (this includes techniques or standardized protocols for targeted exams where dose is matched to indication/reason for exam; i.e. extremities or head) *Use of iterative reconstruction technique Assessment and Plan (1) Encephalopathy: Status: Acute (2) Pneumonia: Qualifiers: Laterality: left Lung location: lower lobe of lung Pneumonia type: due to unspecified organism Qualified Code(s): J18.9 - Pneumonia, unspecified organism Status: Acute (3) Renal colic on left side: Status: Acute (4) Leukocytosis: Qualifiers: Leukocytosis type: unspecified Qualified Code(s): D72.829 - Elevated white blood cell count, unspecified Status: Acute This is an 84-year-old male with baseline dementia, COPD, who presents from [facility] with increased lethargy and leukocytosis # encephalopathy - secondary to acute infection - has leukocytosis, febrile with a left-sided infiltrate on CT scan - COVID negative Plan: -will stop patient was ceftriaxone and azithromycin - monitor mental status # community-acquired pneumonia - febrile, leukocytosis, has infiltrate on CT scan - unable to obtain complete review of system otherwise - received cefepime and vancomycin in the ED, will start him on ceftriaxone and azithromycin- has had no recent hospitalization - follow blood cultures, complete respiratory panel as well as strep and Legionella urine antigens # leukocytosis - secondary to above - follow CBC # urolithiasis - has a 1.4 cm kidney stone - unable to obtain any history from patient regards to pain - UA is negative and there is no evidence of cystitis or pyelonephritis - will consult Urology DVT prophylaxis: Heparin subQ
[2020-07-07] MEDS: cefEPime HCl 1 GM in 0.9 % Sodium Chloride 50 ML IV (20:56)
[2020-07-07] MEDS: vancomycin HCL 1,000 MG in 0.9 % Sodium Chloride 250 ML 270 MG IV (22:14)
[2020-07-07 23:56] VITALS: BP 120/64; PULSE 74; RESP 14; TEMP 36.8; O2SAT 93
[2020-07-08 03:54] VITALS: BP 105/50; PULSE 66; RESP 18; O2SAT 96
[2020-07-08 06:00] VITALS: BP 124/72; PULSE 75; TEMP 36.8; O2SAT 95
--- NOTE | 2020-07-08 06:48 | PC.NURSE ---
PT EXPERIENCED EPISODE OF INCONTINENCE, PATIENT SKIN CLEANSED, NEW LINEN PLACED AND REPOSITIONED FOR COMFORT.
[2020-07-08 07:22] VITALS: BP 104/51; PULSE 67; RESP 14; TEMP 36.4; O2SAT 97
[2020-07-08 07:42] LABS: Basophils Percent Auto 0.2 % (0-2); Eosinophils Absolute Auto 0.5 X10*3/uL (0.0-0.4); Eosinophils Percent Auto 4.6 % (0-4); Hematocrit 35.9 % (42-52); Hemoglobin 11.9 g/dl (14.0-18.0); Imm Gran Abs Auto 0.02 X10*3/uL (0.00-0.03); Imm Gran Pct Auto 0.2 % (0.0-0.4); Lymphocytes Absolute Auto 1.1 X10*3/uL (1.2-4.9); Lymphocytes Percent Auto 11.2 % (20-40); MANUAL DIFF FLAG NO; Mean Corpuscular HGB Conc 33.1 g/dl (31.0-36.0); Mean Corpuscular Hemoglobin 30.6 pg (27.0-33.0); Mean Corpuscular Volume 92.3 fL (80-98); Mean Platelet Volume 8.6 fL (9.4-12.4); Monocytes Absolute Auto 0.9 X10*3/uL (0.1-1.2); Monocytes Percent Auto 8.6 % (2-11); Neutrophils Absolute Auto 7.6 X10*3/uL (2.0-8.3); Neutrophils Percent Auto 75.2 % (45-73); Platelet Count 168 X10*3/uL (160-400); Red Blood Count 3.89 X10*6/uL (4.60-5.80); Red Cell Distribution Width 13.1 % (11.0-16.0); White Blood Count 10.1 X10*3/uL (4.8-10.8)
[2020-07-08 08:07] LABS: Anion Gap 13 (12-20); Blood Urea Nitrogen 25 mg/dL (9-16); Calcium 8.8 mg/dL (8.4-10.2); Carbon Dioxide 25 mmol/L (22-29); Chloride 104 mmol/L (96-108); Creatinine Clr Calc Pharmacy 63.7; Estimated Glomerular Filt Rate > 60; Glucose Random 85 mg/dL (60-115); Potassium 3.9 mmol/l (3.3-5.1); Sodium 138 mmol/L (135-145)
[2020-07-08] MEDS: cefTRIAXone sodium 1 GM in 0.9 % Sodium Chloride 50 ML IV (08:09)
[2020-07-08] MEDS: Cholecalciferol (Vitamin D3) 25 MCG TABLET PO (08:10)
[2020-07-08] MEDS: Loratadine 10 MG TABLET PO (08:10)
[2020-07-08] MEDS: Docusate Sodium 100 MG CAPSULE PO ×3 (08:10→22:35)
[2020-07-08] MEDS: Escitalopram Oxalate 5 MG TABLET PO (08:10)
[2020-07-08] MEDS: Azithromycin 500 MG in 0.9 % Sodium Chloride 250 ML 125 MG IV (09:22)
--- NOTE | 2020-07-08 12:05 | PC.NURSE ---
pt assisted to use urinal, voided 100cc dark yellow urine
--- NOTE | 2020-07-08 14:31 | PC.NURSE ---
pt cleaned up and repositioned. linen and hospital gown changed.
--- NOTE | 2020-07-08 14:46 | P.PNIM_ITS ---
Subjective Subjective Date of Service: 07/08/20 Interval History: Pneumonia, toxic metabolic encephalopathy. Review of Systems Mental status mazariegos seems improving, denies any shortness of breath or cough or sputum. Physical Exam Vital Signs: Vital Signs: Last Vital Signs Temp 97.5 F 07/08/20 07:22 Pulse 67 07/08/20 07:22 Resp 14 07/08/20 07:22 BP 104/51 L 07/08/20 07:22 Pulse Ox 97 07/08/20 07:22 Body Mass Index 20.9 Physical exam: Constitutional: Not in acute distress, pleasant HEENT: Eyes are anicteric, no discharge Cvs: [id number], [id number] , no murmur res: fair air entry slightly diminshed at bases, no rales or wheezing abd: no rebound or guarding ,nt, bs present. ext pulses present , no cyanosis neuro: nonfocal. Objective Data Current Medications Generic Name Dose Route Start Last Admin Trade Name Freq PRN Reason Stop Dose Admin Acetaminophen 650 mg 07/08/20 06:55 Acetaminophen 325 Mg Tablet PO Q6H PRN Pain, Mild (Pain Scale 1-3) Acetaminophen 650 mg 07/08/20 07:25 Acetaminophen 325 Mg Tablet PO BID PRN pain Alendronate Sodium 70 mg 07/14/20 08:00 Alendronate Sodium 70 Mg Tablet PO We GERALDO Docusate Sodium 100 mg 07/08/20 06:55 Docusate Sodium 100 Mg Capsule PO DAILY PRN Constipation Docusate Sodium 100 mg 07/08/20 09:00 07/08/20 08:10 Docusate Sodium 100 Mg Capsule PO 100 mg DAILY GERALDO Administration Escitalopram Oxalate 5 mg 07/08/20 09:00 07/08/20 08:10 Escitalopram Oxalate 5 Mg Tablet PO 5 mg DAILY GERALDO Administration Fluticasone/Vilanterol 1 puff 07/08/21 08:00 Fluticasone/Vilanterol 100/25 Blst.W.Dev INHALE RDAILY [facility] Heparin Sodium (Porcine) 5,000 unit 07/08/20 06:55 07/08/20 08:19 Heparin Sodium,Porcine 5,000 Unit/Ml Vial SUBCUT Not Given Q12H [facility] Ceftriaxone Sodium 1 gm/ 50 mls @ 100 mls/hr 07/08/20 06:55 07/08/20 08:40 Sodium Chloride IV Infused Q24H GERALDO Infusion Azithromycin 500 mg/ Sodium 250 mls @ 125 mls/hr 07/08/20 06:55 07/08/20 11:21 Chloride IV Infused Q24H GERALDO Infusion Loratadine 10 mg 07/08/20 09:00 07/08/20 08:10 Loratadine 10 Mg Tablet PO 10 mg DAILY GERALDO Administration Ondansetron HCl 4 mg 07/08/20 06:55 Ondansetron Hcl 4 Mg/2 Ml Vial IVPUSH Q8H PRN Nausea and Vomiting Pharmacy Consult 1 each 07/07/20 20:10 Consult Rx Perform Med Rec MISCELLANE ONCE PRN Consult order Senna 8.6 mg 07/08/20 21:00 Sennosides 8.6 Mg Tablet PO BEDTIME GERALDO Sodium Chloride 3 ml 07/08/20 07:25 07/08/20 09:24 0.9 % Sodium Chloride Flush 3 Ml Syringe IVFLUSH Not Given QSHIFT GERALDO Trazodone HCl 37.5 mg 07/08/20 14:00 Trazodone Hcl 50 Mg Tablet PO DAILY@1400 [facility] Vitamin D 25 mcg 07/08/20 09:00 07/08/20 08:10 Cholecalciferol (Vitamin D3) 25 Mcg Tablet PO 25 mcg DAILY GERALDO Administration Labs CBC & Chem 7: 07/08/20 07:36 07/08/20 07:36 Assessment and Plan (1) Pneumonia: Status: Acute (2) Encephalopathy: Status: Acute Assessment and Plan: 84-year-old male with baseline dementia, COPD, who presents from [facility] with increased lethargy and leukocytosis 1 toxic metabolic encephalopathy secondary to acute infection leukocytosis seems to be improved, febrile with a left-sided infiltrate on CT scan Mental status is also improving. 2. community-acquired pneumonia: COVID negative, blood culture pending Overnight had low-grade fever, leukocytosis resolved, has infiltrate on CT scan unable to obtain complete review of system otherwise received cefepime and vancomycin in the ED. on ceftriaxone and azithromycin day1 follow blood cultures, complete respiratory panel as well as strep and Legionella urine antigens 3.leukocytosis secondary to above, resolved. follow CBC 4. urolithiasis- has a 1.4 cm kidney stone unable to obtain any history from patient regards to pain, does not say any pain, renal function seems fine. UA is negative and there is no evidence of cystitis or pyelonephritis consult Urology
--- NOTE | 2020-07-08 16:25 | PC.NURSE ---
CALL TO [facility] FOR REPORT
--- NOTE | 2020-07-08 16:28 | PC.NURSE ---
REPORT GIVEN TO MELE ON MED SURG. DAUGHTER JUSTO MADE AWARE OF TRANSFER TO FLOOR.
[2020-07-08] MEDS: Heparin Sodium,Porcine 5,000 UNIT/ML VIAL 5000 UNIT SUBCUT (18:01)
[2020-07-08] MEDS: polyethylene glycoL 3350 17 GM POWD.PACK PO (18:02)
[2020-07-08 19:16] VITALS: BP 124/81; PULSE 69; RESP 20; TEMP 36.7; O2SAT 97
[2020-07-08] MEDS: Sennosides 8.6 MG TABLET PO (22:34)
[2020-07-09] VITALS (7 sets, daily range): BP systolic 99–151; BP diastolic 58–82; PULSE 63–77; RESP 16–18; TEMP 36.3–36.7; O2SAT 94–98
[2020-07-09] MEDS: 0.9 % Sodium Chloride Flush 3 ML SYRINGE IVFLUSH ×4 (00:03→20:50)
[2020-07-09] MEDS: cefTRIAXone sodium 1 GM in 0.9 % Sodium Chloride 50 ML IV (06:25)
[2020-07-09] MEDS: Docusate Sodium 100 MG CAPSULE PO ×2 (07:50→20:50)
[2020-07-09] MEDS: Heparin Sodium,Porcine 5,000 UNIT/ML VIAL 5000 UNIT SUBCUT ×2 (07:50→17:59)
[2020-07-09] MEDS: Escitalopram Oxalate 5 MG TABLET PO (07:51)
[2020-07-09] MEDS: Azithromycin 500 MG in 0.9 % Sodium Chloride 250 ML 150 MG IV (07:51)
[2020-07-09] MEDS: polyethylene glycoL 3350 17 GM POWD.PACK PO (07:52)
[2020-07-09] MEDS: Cholecalciferol (Vitamin D3) 25 MCG TABLET PO (07:52)
[2020-07-09] MEDS: Loratadine 10 MG TABLET PO (07:52)
--- NOTE | 2020-07-09 07:53 | HO.PM.IMPN ---
Subjective Subjective Date of Service: 07/09/20 Interval History: Pneumonia Review of Systems Shortness of breath improving and denies any chest pain or abdominal pain or fever or chills. Physical Exam Vital Signs: Vital Signs: Last Vital Signs Temp 97.5 F 07/09/20 04:27 Pulse 64 07/09/20 04:27 Resp 18 07/09/20 04:27 BP 114/65 07/09/20 04:27 Pulse Ox 97 07/09/20 04:27 Body Mass Index 20.9 Physical exam: Constitutional: Not in acute distress, pleasant HEENT: Eyes are anicteric, no discharge Cvs: [id number], [id number] , no murmur res: fair air entry slightly diminshed at bases, no rales or wheezing abd: no rebound or guarding ,nt, bs present. ext pulses present , no cyanosis neuro: nonfocal. Objective Data Current Medications Generic Name Dose Route Start Last Admin Trade Name Freq PRN Reason Stop Dose Admin Acetaminophen 650 mg 07/08/20 06:55 Acetaminophen 325 Mg Tablet PO Q6H PRN Pain, Mild (Pain Scale 1-3) Acetaminophen 650 mg 07/08/20 07:25 Acetaminophen 325 Mg Tablet PO BID PRN pain Alendronate Sodium 70 mg 07/14/20 08:00 Alendronate Sodium 70 Mg Tablet PO We GERALDO Docusate Sodium 100 mg 07/08/20 06:55 Docusate Sodium 100 Mg Capsule PO DAILY PRN Constipation Docusate Sodium 100 mg 07/08/20 09:00 07/08/20 08:10 Docusate Sodium 100 Mg Capsule PO 100 mg DAILY GERALDO Administration Docusate Sodium 100 mg 07/08/20 16:06 07/08/20 22:35 Docusate Sodium 100 Mg Capsule PO 100 mg BID GERALDO Administration Escitalopram Oxalate 5 mg 07/08/20 09:00 07/08/20 08:10 Escitalopram Oxalate 5 Mg Tablet PO 5 mg DAILY GERALDO Administration Fluticasone/Vilanterol 1 puff 07/08/21 08:00 Fluticasone/Vilanterol 100/25 Blst.W.Dev INHALE RDAILY GERALDO Heparin Sodium (Porcine) 5,000 unit 07/08/20 06:55 07/08/20 18:01 Heparin Sodium,Porcine 5,000 Unit/Ml Vial SUBCUT 5,000 unit Q12H GERALDO Administration Ceftriaxone Sodium 1 gm/ 50 mls @ 100 mls/hr 07/08/20 06:55 07/09/20 06:25 Sodium Chloride IV 100 mls/hr Q24H GERALDO Administration Azithromycin 500 mg/ Sodium 250 mls @ 125 mls/hr 07/08/20 06:55 07/08/20 11:21 Chloride IV Infused Q24H GERALDO Infusion Loratadine 10 mg 07/08/20 09:00 07/08/20 08:10 Loratadine 10 Mg Tablet PO 10 mg DAILY GERALDO Administration Ondansetron HCl 4 mg 07/08/20 06:55 Ondansetron Hcl 4 Mg/2 Ml Vial IVPUSH Q8H PRN Nausea and Vomiting Pharmacy Consult 1 each 07/07/20 20:10 Consult Rx Perform Med Rec MISCELLANE ONCE PRN Consult order Polyethylene Glycol 17 gm 07/08/20 16:06 07/08/20 18:02 Polyethylene Glycol 3350 17 Gm Powd.Pack PO 17 gm DAILY GERALDO Administration Senna 8.6 mg 07/08/20 21:00 07/08/20 22:34 Sennosides 8.6 Mg Tablet PO 8.6 mg BEDTIME GERALDO Administration Sodium Chloride 3 ml 07/08/20 07:25 07/09/20 00:03 0.9 % Sodium Chloride Flush 3 Ml Syringe IVFLUSH 3 ml QSHIFT GERALDO Administration Trazodone HCl 37.5 mg 07/08/20 14:00 07/08/20 15:18 Trazodone Hcl 50 Mg Tablet PO Not Given DAILY@1400 GERALDO Vitamin D 25 mcg 07/08/20 09:00 07/08/20 08:10 Cholecalciferol (Vitamin D3) 25 Mcg Tablet PO 25 mcg DAILY GERALDO Administration Labs CBC & Chem 7: 07/08/20 07:36 07/08/20 07:36 Microbiology Microbiology Results: Microbiology 07/07/20 13:59 Blood - Venous Blood Culture - Preliminary No growth after 24 hours. 07/07/20 13:37 Blood - Venous Blood Culture - Preliminary No growth after 24 hours. Assessment and Plan (1) Pneumonia: Status: Acute (2) Encephalopathy: Status: Acute Assessment and Plan: 84-year-old male with baseline dementia, COPD, who presents from [facility] with increased lethargy and leukocytosis 1.Toxic metabolic encephalopathy secondary to acute infection leukocytosis seems to be improved, febrile with a left-sided infiltrate on CT scan Mental status is also improving. 2. community-acquired pneumonia: COVID negative, complete respiratory panel -negative. blood culture neg @ 48 hrs. no fevers , leukocytosis resolved, has infiltrate on CT scan unable to obtain complete review of system otherwise received cefepime and vancomycin in the ED. on ceftriaxone and azithromycin day2 3.leukocytosis secondary to above, resolved. follow CBC 4. urolithiasis- has a 1.4 cm kidney stone unable to obtain any history from patient regards to pain, does not say any pain, renal function seems fine. UA is negative and there is no evidence of cystitis or pyelonephritis Urology eval pending (3) Leukocytosis: Status: Acute
--- NOTE | 2020-07-09 11:29 | P.CNUR_ITS ---
History of Present Illness Consult details Consult date: 07/09/20 Narrative: [facility]SP re nephrolithiasis CT with mid/distal left 1.2 cm stone Creatine stable No pain Admit for pneumonia Stone appears chronic - should be addressed Could so procedure Sunday and allow recovery from pneumonia over weekend Review of Systems Constitutional: Constitutional: Denies headache(s) and Reports weakness ENT: Denies dizziness and Denies headache(s) Musculoskeletal: Musculoskeletal: Denies numbness and Denies tingling Neurologic: Reports system reviewed and no additional complaints, except as documented, Denies Abnormal speech present, Reports confusion, Denies dizziness, Denies headache(s), Denies numbness, Denies tingling and Reports weakness Psychiatric: Psychiatric: Reports confusion PMFSH Past Medical History Medical History COPD (chronic obstructive pulmonary disease) Dementia Major depressive disorder Social History Social History Household Members: Caregiver and Other Household Members Other:: snf Housing: Skilled Nursing Do you presently have visiting nurse or other home services: No Smoking Status: Unknown if ever smoked Use of substances other than those prescribed or required for medical reasons: No Currently Displaying Signs/Symptoms of Drug Intoxication Withdrawal: No Have you been hit, kicked, punched, or otherwise hurt by someone within the past year? If so, by whom?: No Do you feel safe in your current relationship?: No Current Relationship Is there a partner from a previous relationship who is making you feel unsafe now?: No Are you made to feel afraid or neglected: No Advance Directives: No Advance Directives Information Provided: No Do you have thoughts of harming others: None Do you have a plan to hurt others: No Plan Recently lost weight without trying: No Meds Allergies Allergy/AdvReac Type Severity Reaction Status Date / Time No Known Allergies Allergy Verified 07/07/20 12:59 [No Known Allergies*] Home Medications Medication Instructions Recorded Confirmed Type acetaminophen 650 mg PO BID PRN 07/07/20 07/07/20 History alendronate [Fosamax] 70 mg PO QWEEK 07/07/20 07/07/20 History cholecalciferol (vitamin D3) 25 mcg PO DAILY 07/07/20 07/07/20 History [Vitamin D3] docusate sodium [Colace] 100 mg PO DAILY 07/07/20 07/07/20 History escitalopram oxalate [Lexapro] 5 mg PO DAILY 07/07/20 07/07/20 History fluticasone propion-salmeterol 1 inh INHALATION BID 07/07/20 07/07/20 History [Advair Diskus] ipratropium bromide 1 spray INTRANASAL BID 07/07/20 07/07/20 History levalbuterol tartrate 2 puff INHALATION Q4H PRN 07/07/20 07/07/20 History loratadine [Claritin] 10 mg PO DAILY 07/07/20 07/07/20 History sennosides [senna] 8.6 mg PO BEDTIME 07/07/20 07/07/20 History trazodone 37.5 mg PO DAILY@1400 07/07/20 07/07/20 History Physical Exam Vital Signs: Vital Signs: Last Vital Signs Temp 97.4 F 07/09/20 08:00 Pulse 77 07/09/20 08:00 Resp 16 07/09/20 08:00 BP 151/82 H 07/09/20 08:00 Pulse Ox 98 07/09/20 08:00 Body Mass Index 20.9 Const: General: confusion Nutritional Appearance: average body habitus Orientation/consciousness: confusion Eyes: General: appearance normal, both eyes and all related structures Chest: Chest palpation & inspection: normal inspection of the chest Resp: Effort & Inspection: normal respiratory effort Cardio: Rate: regular rate GI: Inspection: Yes normal to inspection Skin: Hair: normal Neuro: General: confusion Speech: No Abnormal speech present Extrem: General: Yes normal to inspection Results Labs Result diagrams: 07/08/20 07:36 07/08/20 07:36 Labs: Urine 07/07/20 Range/Units 15:26 Urine Color YELLOW Urine Appearance CLEAR Urine pH 6.5 (5.0-8.0) Ur Specific [place] 1.015 (1.005-1.025) Urine Protein NEG (NEG-TRACE) MG/DL Urine Glucose (UA) NEG (NEG) MG/DL All other labs normal. There is moderate to severe hydroureteronephrosis of the left kidney secondary to a 1.4 cm stone within the mid left ureter. There are a few subcentimeter nonobstructing calculi of the right kidney without right-sided hydronephrosis. There is approximately 3.8 cm cyst of the right kidney. Assessment and Plan (1) Nephrolithiasis: Status: Acute (2) Hydronephrosis: Status: Acute Supportive care for pnx Plan stone intervention for Sunday
[2020-07-09] MEDS: traZODone HCL 50 MG TABLET 37.5 MG PO (14:07)
--- NOTE | 2020-07-09 14:48 | MHC.CM.PN ---
NURSE PHYSICAL THERAPY INSTRUCTOR NOTE ELECTRONIC MEDICAL RECORD REVIEWED ALONG WITH CASE DISCUSSED WITH STAFF NURSE , THE [facility] NURSE RAMILA ON [address] [place] [address] THE UNIT IN WHICH THE PATIENT RESIDES ON. AND HIS DAUGHTER JUSTO [phone] BY PHONE REVIEWED THE MEDICARE MESSAGE WITH HU BY PHONE AND THEN JUSTO CALLED BACK . PATIENT HAS BEEN A RESIDENT OF THE [facility]. 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 HIS DAUGHTER JUSTO IN FORMED ME THAT ON SUNDAY AT 4PM HE RECEIVED THE COVID -19 VACCINE, LABS WERE DONE AND SHE WAS TOLD HE HAD A ELEVATED WHITE BLOOD CELL COUNT, THEN DEVELOPED ALTERED MENTA STATUS AND CONFUSION AND WAS THEN SENT TO THE HOSPITAL. HE HAS BEEN INCONTINENT URINE AND STOOL. DISCHARGE PLAN RETURN TO THE [address] TRANSPORT [facility]IA [facility] AT TIME OF DISCHARGE HEALTH CARE PROXY ON FILE CONFIRMED MEDICARE IMM ADDENDUM PAPERWORK COMPLETED AND WILL BE SENT TO PATIENTS DAUGHTER JUSTO
[2020-07-09] MEDS: Sennosides 8.6 MG TABLET PO (20:49)
[2020-07-10 04:00] VITALS: BP 127/70; PULSE 66; RESP 16; TEMP 36.5; O2SAT 97
[2020-07-10] MEDS: cefTRIAXone sodium 1 GM in 0.9 % Sodium Chloride 50 ML IV (05:53)
[2020-07-10] MEDS: Azithromycin 500 MG in 0.9 % Sodium Chloride 250 ML 125 MG IV (06:38)
[2020-07-10] MEDS: Heparin Sodium,Porcine 5,000 UNIT/ML VIAL 5000 UNIT SUBCUT ×2 (06:43→18:08)
[2020-07-10 07:46] VITALS: BP 130/69; PULSE 63; RESP 18; TEMP 36.8; O2SAT 95
[2020-07-10] MEDS: polyethylene glycoL 3350 17 GM POWD.PACK PO (10:17)
[2020-07-10] MEDS: Cholecalciferol (Vitamin D3) 25 MCG TABLET PO (10:18)
[2020-07-10] MEDS: Escitalopram Oxalate 5 MG TABLET PO (10:18)
[2020-07-10] MEDS: Loratadine 10 MG TABLET PO (10:18)
[2020-07-10] MEDS: 0.9 % Sodium Chloride Flush 3 ML SYRINGE IVFLUSH ×3 (10:18→20:21)
[2020-07-10] MEDS: Docusate Sodium 100 MG CAPSULE PO ×2 (10:18→20:21)
[2020-07-10 11:03] VITALS: BP 109/57; PULSE 62; RESP 18; TEMP 36.6; O2SAT 93
--- NOTE | 2020-07-10 12:47 | HO.PM.IMPN ---
Subjective Subjective Date of Service: 07/10/20 Interval History: pneumonia, toxic / metabolic encephalopathy Physical Exam Vital Signs: Vital Signs: Last Vital Signs Temp 97.9 F 07/10/20 11:03 Pulse 62 07/10/20 11:03 Resp 18 07/10/20 11:03 BP 109/57 L 07/10/20 11:03 Pulse Ox 93 07/10/20 11:03 Body Mass Index 20.9 Physical exam: Constitutional: Not in acute distress, pleasant HEENT: Eyes are anicteric, no discharge Cvs: rrr, [id number] , no murmur res: fair air entry slightly diminshed at bases, no rales or wheezing abd: no rebound or guarding ,nt, bs present. ext pulses present , no cyanosis neuro: more awke knows his name , able to answer simple question,nonfocal. Objective Data Current Medications Generic Name Dose Route Start Last Admin Trade Name Freq PRN Reason Stop Dose Admin Acetaminophen 650 mg 07/08/20 06:55 Acetaminophen 325 Mg Tablet PO Q6H PRN Pain, Mild (Pain Scale 1-3) Acetaminophen 650 mg 07/08/20 07:25 Acetaminophen 325 Mg Tablet PO BID PRN pain Alendronate Sodium 70 mg 07/14/20 08:00 Alendronate Sodium 70 Mg Tablet PO We GERALDO Docusate Sodium 100 mg 07/08/20 06:55 Docusate Sodium 100 Mg Capsule PO DAILY PRN Constipation Docusate Sodium 100 mg 07/08/20 09:00 07/10/20 10:18 Docusate Sodium 100 Mg Capsule PO 100 mg DAILY GERALDO Administration Docusate Sodium 100 mg 07/08/20 16:06 07/10/20 10:18 Docusate Sodium 100 Mg Capsule PO Not Given BID GERALDO Escitalopram Oxalate 5 mg 07/08/20 09:00 07/10/20 10:18 Escitalopram Oxalate 5 Mg Tablet PO 5 mg DAILY GERALDO Administration Fluticasone/Vilanterol 1 puff 07/08/21 08:00 Fluticasone/Vilanterol 100/25 Blst.W.Dev INHALE RDAILY GERALDO Heparin Sodium (Porcine) 5,000 unit 07/08/20 06:55 07/10/20 06:43 Heparin Sodium,Porcine 5,000 Unit/Ml Vial SUBCUT 5,000 unit Q12H GERALDO Administration Ceftriaxone Sodium 1 gm/ 50 mls @ 100 mls/hr 07/08/20 06:55 07/10/20 06:30 Sodium Chloride IV Infused Q24H GERALDO Infusion Azithromycin 500 mg/ Sodium 250 mls @ 125 mls/hr 07/08/20 06:55 07/10/20 10:18 Chloride IV Infused Q24H GERALDO Infusion Loratadine 10 mg 07/08/20 09:00 07/10/20 10:18 Loratadine 10 Mg Tablet PO 10 mg DAILY GERALDO Administration Ondansetron HCl 4 mg 07/08/20 06:55 Ondansetron Hcl 4 Mg/2 Ml Vial IVPUSH Q8H PRN Nausea and Vomiting Pharmacy Consult 1 each 07/07/20 20:10 Consult Rx Perform Med Rec MISCELLANE ONCE PRN Consult order Polyethylene Glycol 17 gm 07/08/20 16:06 07/10/20 10:17 Polyethylene Glycol 3350 17 Gm Powd.Pack PO 17 gm DAILY GERALDO Administration Senna 8.6 mg 07/08/20 21:00 07/09/20 20:49 Sennosides 8.6 Mg Tablet PO 8.6 mg BEDTIME GERALDO Administration Sodium Chloride 3 ml 07/08/20 07:25 07/10/20 10:18 0.9 % Sodium Chloride Flush 3 Ml Syringe IVFLUSH 3 ml QSHIFT GERALDO Administration Trazodone HCl 37.5 mg 07/08/20 14:00 07/09/20 14:07 Trazodone Hcl 50 Mg Tablet PO 37.5 mg DAILY@1400 GERALDO Administration Vitamin D 25 mcg 07/08/20 09:00 07/10/20 10:18 Cholecalciferol (Vitamin D3) 25 Mcg Tablet PO 25 mcg DAILY GERALDO Administration Labs CBC & Chem 7: 07/08/20 07:36 07/08/20 07:36 Microbiology Microbiology Results: Microbiology 07/07/20 13:59 Blood - Venous Blood Culture - Preliminary No growth after 48 hours. 07/07/20 13:37 Blood - Venous Blood Culture - Preliminary No growth after 48 hours. Assessment and Plan (1) Encephalopathy: Status: Acute Assessment and Plan: 84-year-old male with baseline dementia, COPD, who presents from [facility] with increased lethargy and leukocytosis 1.Toxic metabolic encephalopathy secondary to acute infection leukocytosis seems to be improved, febrile with a left-sided infiltrate on CT scan Mental status is also improving. 2. community-acquired pneumonia: COVID negative, complete respiratory panel -negative. blood culture neg @ 48 hrs. no fevers , leukocytosis resolved, has infiltrate on CT scan unable to obtain complete review of system otherwise received cefepime and vancomycin in the ED. on ceftriaxone and azithromycin day3 3.leukocytosis secondary to above, resolved. follow CBC 4. urolithiasis- has a 1.4 cm kidney stone unable to obtain any history from patient regards to pain, does not say any pain, renal function seems fine. UA is negative and there is no evidence of cystitis or pyelonephritis Urology eval noted-planning for procedure on sunday. (2) Pneumonia: Status: Acute (3) Leukocytosis: Status: Acute
[2020-07-10] MEDS: traZODone HCL 50 MG TABLET 37.5 MG PO (14:10)
--- NOTE | 2020-07-10 15:00 | P.CNID_ITS ---
History of Present Illness Data of Consult Service Date: 07/10/20 Primary Care Provider: Unknown Physician HPI Reason for consult: sepsis He presents to hospital with lethargy He has temperature to 100 and tachycardia He has no nausea,vomiting or diarrhea He is [facility] He received COVID vaccine 07/06 He is COVID negative Review of Systems Review of Systems: Yes Unobtainable due to mental status Constitutional: Constitutional: Denies headache(s) and Reports weakness ENT: Denies dizziness and Denies headache(s) Musculoskeletal: Musculoskeletal: Denies numbness and Denies tingling Neurologic: Reports system reviewed and no additional complaints, except as documented, Denies Abnormal speech present, Reports confusion, Denies dizziness, Denies headache(s), Denies numbness, Denies tingling and Reports weakness Psychiatric: Psychiatric: Reports confusion PMFSH Past Medical History Medical History COPD (chronic obstructive pulmonary disease) Dementia Major depressive disorder Family History Family history: reviewed and not pertinent Social History Social History Household Members: Caregiver and Other Household Members Other:: snf Housing: [facility] Do you presently have visiting nurse or other home services: No Smoking Status: Unknown if ever smoked Use of substances other than those prescribed or required for medical reasons: No Currently Displaying Signs/Symptoms of Drug Intoxication Withdrawal: No Have you been hit, kicked, punched, or otherwise hurt by someone within the past year? If so, by whom?: No Do you feel safe in your current relationship?: No Current Relationship Is there a partner from a previous relationship who is making you feel unsafe now?: No Are you made to feel afraid or neglected: No Advance Directives: No Advance Directives Information Provided: No Do you have thoughts of harming others: None Do you have a plan to hurt others: No Plan Recently lost weight without trying: No service: Yes Current occupational status: retired [employer] Allergies Allergy/AdvReac Type Severity Reaction Status Date / Time No Known Allergies Allergy Verified 07/07/20 12:59 [No Known Allergies*] Home Medications Medication Instructions Recorded Confirmed Type acetaminophen 650 mg PO BID PRN 07/07/20 07/07/20 History alendronate [Fosamax] 70 mg PO QWEEK 07/07/20 07/07/20 History cholecalciferol (vitamin D3) 25 mcg PO DAILY 07/07/20 07/07/20 History [Vitamin D3] docusate sodium [Colace] 100 mg PO DAILY 07/07/20 07/07/20 History escitalopram oxalate [Lexapro] 5 mg PO DAILY 07/07/20 07/07/20 History fluticasone propion-salmeterol 1 inh INHALATION BID 07/07/20 07/07/20 History [Advair Diskus] ipratropium bromide 1 spray INTRANASAL BID 07/07/20 07/07/20 History levalbuterol tartrate 2 puff INHALATION Q4H PRN 07/07/20 07/07/20 History loratadine [Claritin] 10 mg PO DAILY 07/07/20 07/07/20 History sennosides [senna] 8.6 mg PO BEDTIME 07/07/20 07/07/20 History trazodone 37.5 mg PO DAILY@1400 07/07/20 07/07/20 History Physical Exam Vital Signs: Vital Signs: Last Vital Signs Temp 97.9 F 07/10/20 11:03 Pulse 62 07/10/20 11:03 Resp 18 07/10/20 11:03 BP 109/57 L 07/10/20 11:03 Pulse Ox 93 07/10/20 11:03 Body Mass Index 20.9 Const: General: confusion Orientation/consciousness: confusion HENMT: Head: Yes normal to inspection Resp: Effort & Inspection: normal respiratory effort Cardio: Rate: regular rate Rhythm: regular rhythm GI: Inspection: Yes normal to inspection Palpation (GI): nontender Skin: General skin exam: no rashes or lesions noted Neuro: General: confusion Speech: No Abnormal speech present Extrem: General: Yes normal to inspection Assessment and Plan (1) Nephrolithiasis: Status: Acute (2) Encephalopathy: Problem details: Likely due to hydronephrosis Urinary infection concern Less likely pneumonia,not on oxygen Not believed reaction to COVID vaccine Status: Acute May use Ceftriaxone Await urine culture Urology help Stop Azithromycin (3) Hydronephrosis: Status: Acute (4) Leukocytosis: Qualifiers: Leukocytosis type: unspecified Qualified Code(s): D72.829 - Elevated white blood cell count, unspecified Status: Acute Results Labs CBC & Chem 7: 07/08/20 07:36 07/08/20 07:36 Microbiology Microbiology Results: Microbiology 07/07/20 13:59 Blood - Venous Blood Culture - Preliminary No growth after 48 hours. 07/07/20 13:37 Blood - Venous Blood Culture - Preliminary No growth after 48 hours.
[2020-07-10 15:47] VITALS: BP 139/79; PULSE 65; RESP 18; TEMP 36.9; O2SAT 96
[2020-07-10 19:18] VITALS: BP 111/62; PULSE 75; RESP 16; TEMP 36.6; O2SAT 96
[2020-07-10] MEDS: Sennosides 8.6 MG TABLET PO (20:21)
[2020-07-10 23:32] VITALS: BP 124/77; PULSE 72; RESP 18; TEMP 36.9; O2SAT 95
[2020-07-11 03:17] VITALS: BP 136/70; PULSE 76; RESP 18; TEMP 36.7; O2SAT 96
[2020-07-11] MEDS: cefTRIAXone sodium 1 GM in 0.9 % Sodium Chloride 50 ML IV (05:55)
[2020-07-11] MEDS: Heparin Sodium,Porcine 5,000 UNIT/ML VIAL 5000 UNIT SUBCUT ×2 (05:55→18:12)
[2020-07-11 07:16] VITALS: BP 107/51; PULSE 62; RESP 18; TEMP 36.5; O2SAT 97
[2020-07-11] MEDS: 0.9 % Sodium Chloride Flush 3 ML SYRINGE IVFLUSH ×3 (07:20→21:19)
[2020-07-11 08:49] LABS: Anion Gap 15 (12-20); Blood Urea Nitrogen 16 mg/dL (9-16); Calcium 8.4 mg/dL (8.4-10.2); Carbon Dioxide 20 mmol/L (22-29); Chloride 107 mmol/L (96-108); Creatinine Clr Calc Pharmacy 72.5; Estimated Glomerular Filt Rate > 60; Glucose Random 81 mg/dL (60-115); Potassium 4.2 mmol/l (3.3-5.1); Sodium 138 mmol/L (135-145)
[2020-07-11] MEDS: Docusate Sodium 100 MG CAPSULE PO (09:00)
[2020-07-11] MEDS: Loratadine 10 MG TABLET PO (09:00)
[2020-07-11] MEDS: Cholecalciferol (Vitamin D3) 25 MCG TABLET PO (09:00)
[2020-07-11] MEDS: Escitalopram Oxalate 5 MG TABLET PO (09:00)
[2020-07-11] MEDS: polyethylene glycoL 3350 17 GM POWD.PACK PO (09:01)
--- NOTE | 2020-07-11 09:38 | HO.PM.IMPN ---
Subjective Subjective Date of Service: 07/11/20 Interval History: Metabolic toxic encephalopathy, pneumonia Review of Systems Seems mental status slowly improving could able to tell his name and could able to answer few simple questions. Denies any chest pain or shortness of breath or abdominal pain Physical Exam Vital Signs: Vital Signs: Last Vital Signs Temp 97.7 F 07/11/20 07:16 Pulse 62 07/11/20 07:16 Resp 18 07/11/20 07:16 BP 107/51 L 07/11/20 07:16 Pulse Ox 97 07/11/20 07:16 Body Mass Index 20.9 Physical exam: Constitutional: Not in acute distress, pleasant HEENT: Eyes are anicteric, no discharge Cvs: rrr, [id number] , no murmur res: fair air entry slightly diminshed at bases, no rales or wheezing abd: no rebound or guarding ,nt, bs present. ext pulses present , no cyanosis neuro: more awake knows his name , able to answer simple questions,nonfocal. Objective Data Current Medications Generic Name Dose Route Start Last Admin Trade Name Zahida PRN Reason Stop Dose Admin Acetaminophen 650 mg 07/08/20 06:55 Acetaminophen 325 Mg Tablet PO Q6H PRN Pain, Mild (Pain Scale 1-3) Acetaminophen 650 mg 07/08/20 07:25 Acetaminophen 325 Mg Tablet PO BID PRN pain Alendronate Sodium 70 mg 07/14/20 08:00 Alendronate Sodium 70 Mg Tablet PO We GERALDO Docusate Sodium 100 mg 07/08/20 06:55 Docusate Sodium 100 Mg Capsule PO DAILY PRN Constipation Docusate Sodium 100 mg 07/08/20 09:00 07/11/20 09:00 Docusate Sodium 100 Mg Capsule PO 100 mg DAILY GERALDO Administration Docusate Sodium 100 mg 07/08/20 16:06 07/11/20 09:00 Docusate Sodium 100 Mg Capsule PO Not Given BID GERALDO Escitalopram Oxalate 5 mg 07/08/20 09:00 07/11/20 09:00 Escitalopram Oxalate 5 Mg Tablet PO 5 mg DAILY GERALDO Administration Fluticasone/Vilanterol 1 puff 07/08/21 08:00 Fluticasone/Vilanterol 100/25 Blst.W.Dev INHALE RDAILY GERALDO Heparin Sodium (Porcine) 5,000 unit 07/08/20 06:55 07/11/20 05:55 Heparin Sodium,Porcine 5,000 Unit/Ml Vial SUBCUT 5,000 unit Q12H GERALDO Administration Ceftriaxone Sodium 1 gm/ 50 mls @ 100 mls/hr 07/08/20 06:55 07/11/20 07:19 Sodium Chloride IV Infused Q24H GERALDO Infusion Loratadine 10 mg 07/08/20 09:00 07/11/20 09:00 Loratadine 10 Mg Tablet PO 10 mg DAILY GERALDO Administration Ondansetron HCl 4 mg 07/08/20 06:55 Ondansetron Hcl 4 Mg/2 Ml Vial IVPUSH Q8H PRN Nausea and Vomiting Pharmacy Consult 1 each 07/07/20 20:10 Consult Rx Perform Med Rec MISCELLANE ONCE PRN Consult order Polyethylene Glycol 17 gm 07/08/20 16:06 07/11/20 09:01 Polyethylene Glycol 3350 17 Gm Powd.Pack PO 17 gm DAILY GERALDO Administration Senna 8.6 mg 07/08/20 21:00 07/10/20 20:21 Sennosides 8.6 Mg Tablet PO 8.6 mg BEDTIME GERALDO Administration Sodium Chloride 3 ml 07/08/20 07:25 07/11/20 07:20 0.9 % Sodium Chloride Flush 3 Ml Syringe IVFLUSH 3 ml QSHIFT GERALDO Administration Trazodone HCl 37.5 mg 07/08/20 14:00 07/10/20 14:10 Trazodone Hcl 50 Mg Tablet PO 37.5 mg DAILY@1400 GERALDO Administration Vitamin D 25 mcg 07/08/20 09:00 07/11/20 09:00 Cholecalciferol (Vitamin D3) 25 Mcg Tablet PO 25 mcg DAILY GERALDO Administration Labs CBC & Chem 7: 07/08/20 07:36 07/11/20 07:49 Microbiology Microbiology Results: Microbiology 07/07/20 13:59 Blood - Venous Blood Culture - Preliminary No growth after 48 hours. 07/07/20 13:37 Blood - Venous Blood Culture - Preliminary No growth after 48 hours. Assessment and Plan (1) Nephrolithiasis: Status: Acute (2) Encephalopathy: Problem details: Likely due to hydronephrosis Urinary infection concern Less likely pneumonia,not on oxygen Not believed reaction to COVID vaccine Status: Acute Assessment and Plan: 84-year-old male with baseline dementia, COPD, who presents from [facility] with increased lethargy and leukocytosis 1.Toxic metabolic encephalopathy secondary to acute infection leukocytosis seems to be improved, febrile with a left-sided infiltrate on CT scan. Mental status is also improving slowly. 2. community-acquired pneumonia: COVID negative, complete respiratory panel -negative. blood culture neg @ 48 hrs. no fevers , leukocytosis resolved, has infiltrate on CT scan unable to obtain complete review of system otherwise received cefepime and vancomycin in the ED. on ceftriaxone and azithromycin day3 3.leukocytosis secondary to above, resolved. follow CBC 4. urolithiasis- has a 1.4 cm kidney stone unable to obtain any history from patient regards to pain, does not say any pain, renal function seems fine. UA is negative and there is no evidence of cystitis or pyelonephritis Urology eval noted-planning for procedure on sunday. family requesting urology to call before procedure. (3) Pneumonia: Status: Acute (4) Leukocytosis: Status: Acute
[2020-07-11 11:41] VITALS: BP 128/71; PULSE 75; RESP 18; TEMP 37; O2SAT 96
--- NOTE | 2020-07-11 12:36 | MHC.CM.PN ---
NURSE PIPE FITTER AMMONIA NOTE ELECTRONIC RECORD REVIEWED , PER DOCUMENTATION DIAGNOSIS (METABOLIC ENCEPHALOPATHY, PNEUMONIA AND RENAL STONE )CASE DISCUSSED WITH STAFF NURSE , PATIENT MORE ALERT TODAY TO HIS NAME AND A FEW SHORT QUESTIONS. PANS ARE FOR PATIENT TO HAVE A UROLOGIC PROCEDURE TOMORROW 07/12/20 FAMILY REQUESTING THAT THE UROLOGIST CALL BEFORE THE PROCEDURE DISCHARGE PLAN RETURN BACK TO [facility] , WILL NEED [facility]SP[facility]
[2020-07-11] MEDS: traZODone HCL 50 MG TABLET 37.5 MG PO (13:33)
[2020-07-11 15:24] VITALS: BP 145/87; PULSE 66; RESP 19; TEMP 36.1; O2SAT 97
[2020-07-11 19:53] VITALS: BP 113/71; PULSE 69; RESP 18; TEMP 36.4; O2SAT 95
[2020-07-11] MEDS: Sennosides 8.6 MG TABLET PO (21:18)
[2020-07-11 23:39] VITALS: BP 106/41; PULSE 86; RESP 19; TEMP 36.9; O2SAT 94
[2020-07-12] VITALS (11 sets, daily range): BP systolic 102–143; BP diastolic 47–74; PULSE 68–98; RESP 10–20; TEMP 36.2–36.9; O2SAT 94–100
[2020-07-12] MEDS: cefTRIAXone sodium 1 GM in 0.9 % Sodium Chloride 50 ML IV (06:38)
[2020-07-12] MEDS: Heparin Sodium,Porcine 5,000 UNIT/ML VIAL 5000 UNIT SUBCUT ×2 (06:38→19:55)
[2020-07-12 07:11] LABS: Anion Gap 16 (12-20); Blood Urea Nitrogen 15 mg/dL (9-16); Calcium 8.4 mg/dL (8.4-10.2); Carbon Dioxide 21 mmol/L (22-29); Chloride 106 mmol/L (96-108); Creatinine Clr Calc Pharmacy 70.7; Estimated Glomerular Filt Rate > 60; Glucose Random 81 mg/dL (60-115); Potassium 3.9 mmol/l (3.3-5.1); Sodium 139 mmol/L (135-145)
--- NOTE | 2020-07-12 07:41 | PC.NURSE ---
Dr. Brandt into see patient, came out and called Ruthie Reese patients daughter, explained procedure to daughter and obtained consent, I also spoke with daughter to sign consent with Dr. Brandt. All of the daughters questions were answered
--- NOTE | 2020-07-12 07:55 | PM.UROPN ---
Subjective Subjective Date of Service: 07/12/20 Interval history: Seen this morning Stable Some recovery from pneumonia Discussed case with daughter planning for left-sided ureteroscopy laser lithotripsy stent placement She is in agreement Consent with 1st Physical Exam Vital Signs: Vital Signs: Last Vital Signs Temp 98.3 F 07/12/20 07:01 Pulse 68 07/12/20 07:01 Resp 18 07/12/20 07:01 BP 105/61 07/12/20 07:01 Pulse Ox 97 07/12/20 07:01 Body Mass Index 20.9 Const: General: cooperative, healthy appearing, comfortable and no acute distress Nutritional Appearance: average body habitus Orientation/consciousness: oriented to person, oriented to place and oriented to time Eyes: General: appearance normal, both eyes and all related structures Chest: Chest palpation & inspection: normal inspection of the chest Resp: Effort & Inspection: normal respiratory effort Cardio: Rate: regular rate GI: Inspection: Yes normal to inspection Skin: Hair: normal Neuro: General: oriented to person, oriented to place and oriented to time Extrem: General: Yes normal to inspection Urology Results Labs CBC & Chem 7: 07/08/20 07:36 07/12/20 06:21 Labs: Laboratory Results - last 24 hr 07/11/20 07/12/20 07:49 06:21 Sodium 138 139 Potassium 4.2 3.9 Chloride 107 106 Carbon Dioxide 20 L 21 L Anion Gap 15 16 BUN 16 15 Creatinine 0.80 0.82 Estim Creat Clear Calc 72.5 70.7 Estimated GFR > 60 > 60 Random Glucose 81 81 Calcium 8.4 8.4 Progress Note: A&P Assessment and plan (1) Nephrolithiasis: Status: Acute Assessment and Plan: Plan for left-sided retrograde ureteroscopy laser lithotripsy stent placement Fall Risk Details Current Medications: Current Medications Generic Name Dose Route Start Last Admin Trade Name Freq PRN Reason Stop Dose Admin Acetaminophen 650 mg 07/08/20 06:55 Acetaminophen 325 Mg Tablet PO Q6H PRN Pain, Mild (Pain Scale 1-3) Acetaminophen 650 mg 07/08/20 07:25 Acetaminophen 325 Mg Tablet PO BID PRN pain Alendronate Sodium 70 mg 07/14/20 08:00 Alendronate Sodium 70 Mg Tablet PO We GERALDO Docusate Sodium 100 mg 07/08/20 06:55 Docusate Sodium 100 Mg Capsule PO DAILY PRN Constipation Docusate Sodium 100 mg 07/08/20 09:00 07/11/20 09:00 Docusate Sodium 100 Mg Capsule PO 100 mg DAILY GERALDO Administration Docusate Sodium 100 mg 07/08/20 16:06 07/11/20 21:24 Docusate Sodium 100 Mg Capsule PO Not Given BID GERALDO Escitalopram Oxalate 5 mg 07/08/20 09:00 07/11/20 09:00 Escitalopram Oxalate 5 Mg Tablet PO 5 mg DAILY GERALDO Administration Fluticasone/Vilanterol 1 puff 07/08/21 08:00 Fluticasone/Vilanterol 100/25 Blst.W.Dev INHALE RDAILY GERALDO Heparin Sodium (Porcine) 5,000 unit 07/08/20 06:55 07/12/20 06:38 Heparin Sodium,Porcine 5,000 Unit/Ml Vial SUBCUT 5,000 unit Q12H GERALDO Administration Ceftriaxone Sodium 1 gm/ 50 mls @ 100 mls/hr 07/08/20 06:55 07/12/20 07:47 Sodium Chloride IV Infused Q24H GERALDO Infusion Loratadine 10 mg 07/08/20 09:00 07/11/20 09:00 Loratadine 10 Mg Tablet PO 10 mg DAILY GERALDO Administration Ondansetron HCl 4 mg 07/08/20 06:55 Ondansetron Hcl 4 Mg/2 Ml Vial IVPUSH Q8H PRN Nausea and Vomiting Pharmacy Consult 1 each 07/07/20 20:10 Consult Rx Perform Med Rec MISCELLANE ONCE PRN Consult order Polyethylene Glycol 17 gm 07/08/20 16:06 07/11/20 09:01 Polyethylene Glycol 3350 17 Gm Powd.Pack PO 17 gm DAILY GERALDO Administration Senna 8.6 mg 07/08/20 21:00 07/11/20 21:18 Sennosides 8.6 Mg Tablet PO 8.6 mg BEDTIME GERALDO Administration Sodium Chloride 3 ml 07/08/20 07:25 07/11/20 21:19 0.9 % Sodium Chloride Flush 3 Ml Syringe IVFLUSH 3 ml QSHIFT GERALDO Administration Trazodone HCl 37.5 mg 07/08/20 14:00 07/11/20 13:33 Trazodone Hcl 50 Mg Tablet PO 37.5 mg DAILY@1400 GERALDO Administration Vitamin D 25 mcg 07/08/20 09:00 07/11/20 09:00 Cholecalciferol (Vitamin D3) 25 Mcg Tablet PO 25 mcg DAILY GERALDO Administration Time Spent With Patient Time: Total time spent is greater than 50% in coordination of care (as documented) at patient's floor/unit and/or counseling patient: Time with patient: less than 15 minutes
[2020-07-12] MEDS: 0.9 % Sodium Chloride Flush 3 ML SYRINGE IVFLUSH ×2 (08:03→17:05)
--- NOTE | 2020-07-12 08:09 | FL_ITS ---
EXAMINATION: XR FLUOROSCOPY WITH IMAGES CLINICAL INFORMATION: Left ureteral stone COMPARISON: Previous CT of the abdomen and pelvis 07/07/2020 TECHNIQUE: Fluoroscopy performed by Dr. Matthew Brandt. Fluoroscopy time: 103 seconds Total dose: 24 mgy Images: 4 FINDINGS: Initial image demonstrates contrast opacification of the left distal ureter. There is question of a stone overlying the left side of the sacrum. Later images demonstrate placement of a left internal ureteral stent in satisfactory position. FL/FL guidance in OR IMPRESSION: Fluoroscopy guidance for left retrograde exam and internal ureteral stent placement.
--- NOTE | 2020-07-12 08:19 | MHC.SHP ---
Pre-Procedural Eval Section A The patient is an INPATIENT: Yes Changes since office visit: Yes Cold of Flu in the past 2 weeks The History & Physical has been completed within 30 days and I have reviewed it.: Yes Section B Chief Complaint: PNA Allergies: Allergies Allergy/AdvReac Type Severity Reaction Status Date / Time No Known Allergies Allergy Verified 07/07/20 12:59 [No Known Allergies*] Plan I have reviewed the history and physical and performed a pertinent physical examination on my patient. No changes have occurred unless specified.
[2020-07-12] MEDS: levoFLOXacin/D5W 500 MG/100 ML PIGGYBACK 100 MG IV (08:20)
--- NOTE | 2020-07-12 08:41 | P.CONAN_ITS ---
[facility] Past Medical History Medical History COPD (chronic obstructive pulmonary disease) Dementia Major depressive disorder Social History Social History Household Members: Caregiver and Other Household Members Other:: snf Housing: Halfway Do you presently have visiting nurse or other home services: No Smoking Status: Unknown if ever smoked Use of substances other than those prescribed or required for medical reasons: No Currently Displaying Signs/Symptoms of Drug Intoxication Withdrawal: No Have you been hit, kicked, punched, or otherwise hurt by someone within the past year? If so, by whom?: No Do you feel safe in your current relationship?: No Current Relationship Is there a partner from a previous relationship who is making you feel unsafe now?: No Are you made to feel afraid or neglected: No Advance Directives: No Advance Directives Information Provided: No Do you have thoughts of harming others: None Do you have a plan to hurt others: No Plan Recently lost weight without trying: No service: Yes Current occupational status: [employer] Allergies Allergy/AdvReac Type Severity Reaction Status Date / Time No Known Allergies Allergy Verified 07/07/20 12:59 [No Known Allergies*] Home Medications Medication Instructions Recorded Confirmed Type acetaminophen 650 mg PO BID PRN 07/07/20 07/07/20 History alendronate [Fosamax] 70 mg PO QWEEK 07/07/20 07/07/20 History cholecalciferol (vitamin D3) 25 mcg PO DAILY 07/07/20 07/07/20 History [Vitamin D3] docusate sodium [Colace] 100 mg PO DAILY 07/07/20 07/07/20 History escitalopram oxalate [Lexapro] 5 mg PO DAILY 07/07/20 07/07/20 History fluticasone propion-salmeterol 1 inh INHALATION BID 07/07/20 07/07/20 History [Advair Diskus] ipratropium bromide 1 spray INTRANASAL BID 07/07/20 07/07/20 History levalbuterol tartrate 2 puff INHALATION Q4H PRN 07/07/20 07/07/20 History loratadine [Claritin] 10 mg PO DAILY 07/07/20 07/07/20 History sennosides [senna] 8.6 mg PO BEDTIME 07/07/20 07/07/20 History trazodone 37.5 mg PO DAILY@1400 07/07/20 07/07/20 History Exam Exam Date and Time: July 12, 2020 0841 Height,Weight and Vital Signs: Height 6 ft 1 in Weight 72 kg Last Vital Signs Temp 98.3 F 07/12/20 07:01 Pulse 68 07/12/20 07:01 Resp 18 07/12/20 07:01 BP 105/61 07/12/20 07:01 Pulse Ox 97 07/12/20 07:01 Pertinent Lab Results Pertinent Lab Results: Laboratory Tests 07/07/20 07/07/20 07/07/20 13:35 13:35 13:35 WBC 20.7 H RBC 3.85 L Hgb 11.7 L Hct 35.6 L MCV 92.5 MCH 30.4 MCHC 32.9 RDW 12.8 Plt Count 209 MPV 9.1 L Immature Gran % (Auto) 0.7 H Neut % (Auto) 88.9 H Lymph % (Auto) 5.4 L Power % (Auto) 4.5 Eos % (Auto) 0.3 Baso % (Auto) 0.2 Lymph # (Auto) 1.1 L Power # (Auto) 0.9 Eos # (Auto) 0.1 Baso # (Auto) 0.1 Abs Immat Gran (auto) 0.14 H Absolute Neuts (auto) 18.4 H Absolute Nucleated RBC 0.000 Nucleated RBC % (auto) 0.0 PT 14.1 H INR 1.2 H Sodium 139 Potassium 4.0 Chloride 102 Carbon Dioxide 29 Anion Gap 12 BUN 25 H Creatinine 1.00 Estim Creat Clear Calc 58.0 Estimated GFR > 60 Random Glucose 101 Lactic Acid Calcium 9.1 Magnesium 1.9 Total Bilirubin 0.8 Direct Bilirubin 0.4 AST 19 ALT 14 Alkaline Phosphatase 72 Troponin I High Sens Total Protein 7.2 Albumin 3.5 Urine Color Urine Appearance Urine pH Ur Specific [place] Urine Protein Urine Glucose (UA) Urine Ketones Urine Blood Urine Nitrite Ur Leukocyte Esterase Urine RBC Urine WBC Ur Squamous Epith Cells Urine Bacteria Respiratory Panel [place] Adenovirus (Rapid PCR) B.pert (TEM-PCR) B.parapertussis DNA PCR C. pneumoniae DNA (PCR) Coronavirus (PCR) Coronavirus OC43 (PCR) Coronavirus HKU1 (PCR) Coronavirus 229E (PCR) Coronavirus NL63 (PCR) Human Metapneumovir PCR Influenza A (RT-PCR) Influenza Type A (PCR) Influenza B (RT-PCR) Influenza Type B (PCR) M. pneumoniae (PCR) Parainfluenza 1 (PCR) Parainfluenza 2 (PCR) Parainfluenza 3 (PCR) Parainfluenza 4 (PCR) RSV (PCR) RSV RNA Qual (PCR) Entero/Rhino (PCR) SARS-CoV-2 RNA (RT-PCR) 07/07/20 07/07/20 07/07/20 13:35 13:35 15:26 WBC RBC Hgb Hct MCV MCH MCHC RDW Plt Count MPV Immature Gran % (Auto) Neut % (Auto) Lymph % (Auto) Power % (Auto) Eos % (Auto) Baso % (Auto) Lymph # (Auto) Power # (Auto) Eos # (Auto) Baso # (Auto) Abs Immat Gran (auto) Absolute Neuts (auto) Absolute Nucleated RBC Nucleated RBC % (auto) PT INR Sodium Potassium Chloride Carbon Dioxide Anion Gap BUN Creatinine Estim Creat Clear Calc Estimated GFR Random Glucose Lactic Acid 1.5 Calcium Magnesium Total Bilirubin Direct Bilirubin AST ALT Alkaline Phosphatase Troponin I High Sens < 3.5 Total Protein Albumin Urine Color YELLOW Urine Appearance CLEAR Urine pH 6.5 Ur Specific [place] 1.015 Urine Protein NEG Urine Glucose (UA) NEG Urine Ketones NEG Urine Blood 1+ H Urine Nitrite NEG Ur Leukocyte Esterase NEG Urine RBC 5-9 H Urine WBC 0 Ur Squamous Epith Cells NONE Urine Bacteria 1+ Respiratory Panel [place] Adenovirus (Rapid PCR) B.pert (TEM-PCR) B.parapertussis DNA PCR C. pneumoniae DNA (PCR) Coronavirus (PCR) Coronavirus OC43 (PCR) Coronavirus HKU1 (PCR) Coronavirus 229E (PCR) Coronavirus NL63 (PCR) Human Metapneumovir PCR Influenza A (RT-PCR) Influenza Type A (PCR) Influenza B (RT-PCR) Influenza Type B (PCR) M. pneumoniae (PCR) Parainfluenza 1 (PCR) Parainfluenza 2 (PCR) Parainfluenza 3 (PCR) Parainfluenza 4 (PCR) RSV (PCR) RSV RNA Qual (PCR) Entero/Rhino (PCR) SARS-CoV-2 RNA (RT-PCR) 07/07/20 07/07/20 07/08/20 16:08 16:53 07:36 WBC 10.1 RBC 3.89 L Hgb 11.9 L Hct 35.9 L MCV 92.3 MCH 30.6 MCHC 33.1 RDW 13.1 Plt Count 168 MPV 8.6 L Immature Gran % (Auto) 0.2 Neut % (Auto) 75.2 H Lymph % (Auto) 11.2 L Power % (Auto) 8.6 Eos % (Auto) 4.6 H Baso % (Auto) 0.2 Lymph # (Auto) 1.1 L Power # (Auto) 0.9 Eos # (Auto) 0.5 H Baso # (Auto) 0.0 Abs Immat Gran (auto) 0.02 Absolute Neuts (auto) 7.6 Absolute Nucleated RBC 0.000 Nucleated RBC % (auto) 0.0 PT INR Sodium Potassium Chloride Carbon Dioxide Anion Gap BUN Creatinine Estim Creat Clear Calc Estimated GFR Random Glucose Lactic Acid Calcium Magnesium Total Bilirubin Direct Bilirubin AST ALT Alkaline Phosphatase Troponin I High Sens Total Protein Albumin Urine Color Urine Appearance Urine pH Ur Specific [place] Urine Protein Urine Glucose (UA) Urine Ketones Urine Blood Urine Nitrite Ur Leukocyte Esterase Urine RBC Urine WBC Ur Squamous Epith Cells Urine Bacteria Respiratory Panel [place] See Note Adenovirus (Rapid PCR) Not Detected B.pert (TEM-PCR) Not Detected B.parapertussis DNA PCR Not Detected C. pneumoniae DNA (PCR) Not Detected Coronavirus (PCR) NEGATIVE Coronavirus OC43 (PCR) Not Detected Coronavirus HKU1 (PCR) Not Detected Coronavirus 229E (PCR) Not Detected Coronavirus NL63 (PCR) Not Detected Human Metapneumovir PCR Not Detected Influenza A (RT-PCR) Not Detected Influenza Type A (PCR) NEGATIVE Influenza B (RT-PCR) Not Detected Influenza Type B (PCR) NEGATIVE M. pneumoniae (PCR) Not Detected Parainfluenza 1 (PCR) Not Detected Parainfluenza 2 (PCR) Not Detected Parainfluenza 3 (PCR) Not Detected Parainfluenza 4 (PCR) Not Detected RSV (PCR) Not Detected RSV RNA Qual (PCR) NEGATIVE Entero/Rhino (PCR) Not Detected SARS-CoV-2 RNA (RT-PCR) Not Detected 07/08/20 07/11/20 07/12/20 07:36 07:49 06:21 WBC RBC Hgb Hct MCV MCH MCHC RDW Plt Count MPV Immature Gran % (Auto) Neut % (Auto) Lymph % (Auto) Power % (Auto) Eos % (Auto) Baso % (Auto) Lymph # (Auto) Power # (Auto) Eos # (Auto) Baso # (Auto) Abs Immat Gran (auto) Absolute Neuts (auto) Absolute Nucleated RBC Nucleated RBC % (auto) PT INR Sodium 138 138 139 Potassium 3.9 4.2 3.9 Chloride 104 107 106 Carbon Dioxide 25 20 L 21 L Anion Gap 13 15 16 BUN 25 H 16 15 Creatinine 0.91 0.80 0.82 Estim Creat Clear Calc 63.7 72.5 70.7 Estimated GFR > 60 > 60 > 60 Random Glucose 85 81 81 Lactic Acid Calcium 8.8 8.4 8.4 Magnesium Total Bilirubin Direct Bilirubin AST ALT Alkaline Phosphatase Troponin I High Sens Total Protein Albumin Urine Color Urine Appearance Urine pH Ur Specific [place] Urine Protein Urine Glucose (UA) Urine Ketones Urine Blood Urine Nitrite Ur Leukocyte Esterase Urine RBC Urine WBC Ur Squamous Epith Cells Urine Bacteria Respiratory Panel [place] Adenovirus (Rapid PCR) B.pert (TEM-PCR) B.parapertussis DNA PCR C. pneumoniae DNA (PCR) Coronavirus (PCR) Coronavirus OC43 (PCR) Coronavirus HKU1 (PCR) Coronavirus 229E (PCR) Coronavirus NL63 (PCR) Human Metapneumovir PCR Influenza A (RT-PCR) Influenza Type A (PCR) Influenza B (RT-PCR) Influenza Type B (PCR) M. pneumoniae (PCR) Parainfluenza 1 (PCR) Parainfluenza 2 (PCR) Parainfluenza 3 (PCR) Parainfluenza 4 (PCR) RSV (PCR) RSV RNA Qual (PCR) Entero/Rhino (PCR) SARS-CoV-2 RNA (RT-PCR) Airway Mallampati Class: II TM Dist: >3cm Neck ROM: Full Denture: Upper and Lower Heart: [id number] Lungs: cta b/l Assessment and Plan Assessment Anesthesia Assessment: Anesthesia Plan Discussed and Chart Reviewed Final Anesthetic Review NPO: Yes ASA Class: III Final Preanesthetic Review: No Changes in Pt Med Stat, Meds/Allgs Chart Reviewed and Anes Risks/Benef Reviewed Patient Risk: Intermediate Procedure Risk: Low Assessment/Block/Sedation in SS: Assess/Block/Sedation-SS Anesthetic Plan Anesthetic Plan: GA Disposition: Standard PACU
--- NOTE | 2020-07-12 08:51 | PC.NURSE ---
ANESTHESIA AWARE OF IV SLIGHTLY REDDENED AND SOME DISCOMFORT. OK'D TO GO IN TO SURGERY WITH IT. NOT WANTED RESTARTED AT THIS TIME.
[2020-07-12] MEDS: Lactated Ringers 1,000 ML 50 ML IVCONT (08:52)
--- NOTE | 2020-07-12 12:05 | P.CDIC_ITS ---
CDI Concurrent Query Service Date: 07/12/20 Documentation Clarification: Please clarify if you are treating a proba ble/suspected/likely or confirmed: Sepsis (txt, rule out, poa) Sirs Please specify if known Provider Response: Sepsis PLEASE DO NOT DELETE/MODIFY EXISTING CONTENT Additional information is needed in order to code to the highest accuracy and appropriate Severity of Illness (SOI). Please clarify the information noted below in your progress notes and discharge summary. Risk Factors/Clinical Indicators/Treatments ID: 07/10 - HPI - Reasons for consult: Sepsis Temp 100.2 WBC 22.6 Tachycardia RR 20 HR 69 BP 106/41 Urinary infection is a concern, Ceftriaxone, Azithromycin. CDS: Cristina Ingram CCS, CDIS Contact Number: [phone] Please Review the information above and exercise your independent professional judgment in responding to the query. If you concur, pleas document in the PROGRESS NOTES and DISCHARGE SUMMARY. If you do not agree with the query, please document in the query above. THIS QUERY IS PART OF THE PERMANENT MEDICAL RECORD
--- NOTE | 2020-07-12 12:20 | PM.OP ---
Brief Operative Note Date of Service: 07/12/20 Pre-op diagnosis: Left mid ureter impacted stone Post-op diagnosis: same Procedure: 1. Cystoscopy left retrograde 2. Dilatation left ureteric orifice with fluoroscopy 3. Left ureteroscopy, laser lithotripsy, stone basketing 4. Left stent placement Implants: Left 6 [place] by 24 cm double-J stent Surgeon: Matthew Brandt MD Anesthesia: GLMA Estimated blood loss (mL): 0 Pathology: other (Stones) Condition: stable Disposition: floor
--- NOTE | 2020-07-12 12:21 | W.PM.OPN ---
Operative Note Operative Note Date of Service: 07/12/20 Narrative: PreOperative Diagnosis: Left mid ureteric stone large 1.4 cm Post Operative Diagnosis: Same Procedure: - cystoscopy, left retrograde - dilatation of ureteric orifice under fluoroscopy - ureteroscopy, laser lithotripsy, stone basketing - left stent placement Surgeon: Dr Matthew Brandt Anesthesia: General Indications for procedure: This is an 82-year-old male. Admitted for pneumonia. On CT scan was found of 1.4 cm stone with hydroureteronephrosis on the left side to the mid ureter. Recommendation was for intervention after pneumonia management Procedure: After informed consent was verified patient was brought to the operating placed in supine position. Anesthesia was administered per protocol. Patient was placed in modified dorsal lithotomy position and prepped and draped in a sterile fashion. Safety pause time-out and side of surgery confirmed. Antibiotics confirmed. Twenty-two [place] cystoscope was inserted per urethra. The bladder was examined it is entirety. Both ureteric orifices normal position. Minimal sized prostate. The left ureteric orifice was cannulated retrograde examination performed. Filling defects seen in mid ureter with no passage of urine. Unable to pass wire passed stone. Wire was left at the level of the stone. Ureter was dilated with internal portion of an access sheath. Semi rigid ureteral scope was placed alongside the wire and stone was encountered. Stone was then slowly broken. This was performed with a 365 nm laser fiber. This took approximately 1 hour which is 100% longer than typical due to the size of the stone. We 1st had to bore a hole through the middle of the stone. We then were able to place the wire up to level renal pelvis. We then went back in slowly removed each edge with stone angling with the semi rigid ureteroscopy. The stone was eventually able to be broken into some small pieces and these were removed with a basket. Six [place] by 24 cm double-J ureteric stent was placed with without difficulty. A string was left so can be removed later. Tolerated procedure well was extubated in the operating room and transferred in stable condition to the recovery area. Pathology: Stones Drains: Stent as described above
--- NOTE | 2020-07-12 12:24 | MHC.CM.PN ---
PER PHYSICIAN ROUNDS, PATIENT HAS UROLOGY PROCEDURE TODAY. PLAN [facility] TO [facility] Sunday07/13/2020
--- NOTE | 2020-07-12 12:33 | MHC.CM.PN ---
PROGRESS NOTES AND VITALS SENT TO [facility] [address] [facility] [facility] ([phone]) ATTENTION : [facility] UNIT CONTACT, SCAR, AWARE THAT PLAN IS FOR PATIENT TO RETURN TOMORROW (07/13/2020)
[2020-07-12] MEDS: traZODone HCL 50 MG TABLET 37.5 MG PO (14:39)
--- NOTE | 2020-07-12 17:09 | HO.PM.IMPN ---
Subjective Subjective Date of Service: 07/12/20 Interval History: went to OR today with Dr Brandt for: - cystoscopy, left retrograde - dilatation of ureteric orifice under fluoroscopy - ureteroscopy, laser lithotripsy, stone basketing - left stent placement postop, pt has no c/o but ROS is limited by dementia Physical Exam Vital Signs: Vital Signs: Last Vital Signs Temp 97.3 F 07/12/20 11:40 Pulse 85 07/12/20 11:40 Resp 18 07/12/20 11:40 BP 130/62 07/12/20 11:40 Pulse Ox 94 07/12/20 11:40 Body Mass Index 20.9 Gen: in no acute distress HEENT: sclera anicteric, moist mucus membranes Neck: supple Lungs: clear to auscultation bilaterally Heart: regular rate and rhythm, no murmurs Abd: soft, non-tender, non-distended Ext: no edema Skin: warm/well-perfused Neuro: disoriented Psych: impaired insight Objective Data Current Medications Generic Name Dose Route Start Last Admin Trade Name Kevinq PRN Reason Stop Dose Admin Acetaminophen 650 mg 07/08/20 06:55 Acetaminophen 325 Mg Tablet PO Q6H PRN Pain, Mild (Pain Scale 1-3) Acetaminophen 650 mg 07/08/20 07:25 Acetaminophen 325 Mg Tablet PO BID PRN pain Alendronate Sodium 70 mg 07/14/20 08:00 Alendronate Sodium 70 Mg Tablet PO We GERALDO Docusate Sodium 100 mg 07/08/20 06:55 Docusate Sodium 100 Mg Capsule PO DAILY PRN Constipation Docusate Sodium 100 mg 07/08/20 09:00 07/12/20 08:40 Docusate Sodium 100 Mg Capsule PO Not Given DAILY GERALDO Docusate Sodium 100 mg 07/08/20 16:06 07/12/20 08:41 Docusate Sodium 100 Mg Capsule PO Not Given BID GERALDO Escitalopram Oxalate 5 mg 07/08/20 09:00 07/12/20 08:41 Escitalopram Oxalate 5 Mg Tablet PO Not Given DAILY GERALDO Fentanyl 25 mcg 07/12/20 08:43 Fentanyl Citrate/Pf 100 Mcg/2 Ml Vial IVPUSH Q5M PRN Pain, Moderate (Pain Scale 4-6 Fluticasone/Vilanterol 1 puff 07/08/21 08:00 Fluticasone/Vilanterol 100/25 Blst.W.Dev INHALE RDAILY [facility] Heparin Sodium (Porcine) 5,000 unit 07/08/20 06:55 07/12/20 06:38 Heparin Sodium,Porcine 5,000 Unit/Ml Vial SUBCUT 5,000 unit Q12H [facility] Administration Ceftriaxone Sodium 1 gm/ 50 mls @ 100 mls/hr 07/08/20 06:55 07/12/20 07:47 Sodium Chloride IV Infused Q24H [facility] Infusion Lactated Ringer's 1,000 mls @ 50 mls/hr 07/12/20 08:45 07/12/20 08:52 Lr IVCONT 50 mls/hr .Q20H GERALDO Administration Loratadine 10 mg 07/08/20 09:00 07/12/20 08:41 Loratadine 10 Mg Tablet PO Not Given DAILY [facility] Ondansetron HCl 4 mg 07/08/20 06:55 Ondansetron Hcl 4 Mg/2 Ml Vial IVPUSH Q8H PRN Nausea and Vomiting Ondansetron HCl 4 mg 07/12/20 08:43 Ondansetron Hcl 4 Mg/2 Ml Vial IVPUSH ONCE PRN Nausea and Vomiting Pharmacy Consult 1 each 07/07/20 20:10 Consult Rx Perform Med Rec MISCELLANE ONCE PRN Consult order Polyethylene Glycol 17 gm 07/08/20 16:06 07/12/20 08:41 Polyethylene Glycol 3350 17 Gm Powd.Pack PO Not Given DAILY [facility] Senna 8.6 mg 07/08/20 21:00 07/11/20 21:18 Sennosides 8.6 Mg Tablet PO 8.6 mg BEDTIME [facility] Administration Sodium Chloride 3 ml 07/08/20 07:25 07/12/20 17:05 0.9 % Sodium Chloride Flush 3 Ml Syringe IVFLUSH 3 ml QSHIFT [facility] Administration Trazodone HCl 37.5 mg 07/08/20 14:00 07/12/20 14:39 Trazodone Hcl 50 Mg Tablet PO 37.5 mg DAILY@1400 [facility] Administration Vitamin D 25 mcg 07/08/20 09:00 07/12/20 08:40 Cholecalciferol (Vitamin D3) 25 Mcg Tablet PO Not Given DAILY [facility] Labs CBC & Chem 7: 07/08/20 07:36 07/12/20 06:21 Microbiology Microbiology Results: Microbiology 07/07/20 13:59 Blood - Venous Blood Culture - Final No growth after 5 days. 07/07/20 13:37 Blood - Venous Blood Culture - Final No growth after 5 days. Assessment and Plan (1) Nephrolithiasis: Status: Acute (2) Encephalopathy: Problem details: Likely due to hydronephrosis Urinary infection concern Less likely pneumonia,not on oxygen Not believed reaction to COVID vaccine Status: Acute Assessment and Plan: hospital d#6 84yo M with dementia, COPD, depression admitted for [facility] with AMS, CAP, urolithiasis # toxic-metabolic encephalopathy - due to infection, superimposed on dementia # CAP - COVID negative [previously positive in November], respiratory virus panel negative - ID following, ceftriaxone d#5, azithromycin d/c'ed. leukocytosis resolved # urolithiasis, 1.4 cm kidney stone - POD #0 intervention # COPD, not in acute exacerbation - continue ICS/LABA # depression - continue escitalopram # dispo - will go back to [facility] (3) Pneumonia: Status: Acute (4) Leukocytosis: Status: Acute
[2020-07-12] MEDS: Docusate Sodium 100 MG CAPSULE PO (19:55)
[2020-07-12] MEDS: Sennosides 8.6 MG TABLET PO (19:55)
[2020-07-12] MEDS: Acetaminophen 325 MG TABLET 650 MG PO (20:00)
[2020-07-13] VITALS (7 sets, daily range): BP systolic 106–148; BP diastolic 48–71; PULSE 64–79; RESP 15–19; TEMP 36.2–36.7; O2SAT 96–98
[2020-07-13] MEDS: Lactated Ringers 1,000 ML 50 ML IVCONT (05:02)
[2020-07-13] MEDS: Heparin Sodium,Porcine 5,000 UNIT/ML VIAL 5000 UNIT SUBCUT ×2 (06:09→20:03)
[2020-07-13] MEDS: cefTRIAXone sodium 1 GM in 0.9 % Sodium Chloride 50 ML IV (06:18)
[2020-07-13 06:51] LABS: MANUAL DIFF FLAG SCAN; PLT CLUMP 1; SCAN SMEAR FLAG 1
[2020-07-13 06:54] LABS: Basophils Percent Auto 0.5 % (0-2); Eosinophils Absolute Auto 0.6 X10*3/uL (0.0-0.4); Eosinophils Percent Auto 9.1 % (0-4); Hematocrit 38.6 % (42-52); Hemoglobin 12.4 g/dl (14.0-18.0); Imm Gran Abs Auto 0.02 X10*3/uL (0.00-0.03); Imm Gran Pct Auto 0.3 % (0.0-0.4); Lymphocytes Absolute Auto 1.1 X10*3/uL (1.2-4.9); Mean Corpuscular HGB Conc 32.1 g/dl (31.0-36.0); Mean Corpuscular Hemoglobin 29.6 pg (27.0-33.0); Mean Corpuscular Volume 92.1 fL (80-98); Monocytes Absolute Auto 0.7 X10*3/uL (0.1-1.2); Monocytes Percent Auto 9.9 % (2-11); Neutrophils Absolute Auto 4.2 X10*3/uL (2.0-8.3); Neutrophils Percent Auto 63.2 % (45-73); Red Blood Count 4.19 X10*6/uL (4.60-5.80); Red Cell Distribution Width 12.6 % (11.0-16.0); White Blood Count 6.6 X10*3/uL (4.8-10.8)
[2020-07-13 07:23] LABS: Anion Gap 17 (12-20); Blood Urea Nitrogen 14 mg/dL (9-16); Calcium 8.2 mg/dL (8.4-10.2); Carbon Dioxide 19 mmol/L (22-29); Chloride 107 mmol/L (96-108); Creatinine Clr Calc Pharmacy 62.3; Estimated Glomerular Filt Rate > 60; Glucose Random 78 mg/dL (60-115); Sodium 139 mmol/L (135-145)
[2020-07-13 08:31] LABS: SLIDE REVIEW VERIFIED
--- NOTE | 2020-07-13 09:41 | PM.UROPN ---
Subjective Subjective Date of Service: 07/13/20 Interval history: Underwent ureteroscopy laser lithotripsy stent placement yesterday Minimal change in laboratories Definitely less confusion this morning Nursing staff tell me significant improvement in orientation Has stent in place Can be removed at [facility] next Sunday or Sunday Can see me in 6 weeks with follow-up ultrasound Physical Exam Vital Signs: Vital Signs: Last Vital Signs Temp 97.4 F 07/13/20 08:00 Pulse 70 07/13/20 08:00 Resp 16 07/13/20 08:00 BP 133/63 07/13/20 08:00 Pulse Ox 98 07/13/20 08:00 Body Mass Index 20.9 Const: General: cooperative, healthy appearing, comfortable and no acute distress Nutritional Appearance: average body habitus Orientation/consciousness: oriented to person, oriented to place and oriented to time Eyes: General: appearance normal, both eyes and all related structures Chest: Chest palpation & inspection: normal inspection of the chest Resp: Effort & Inspection: normal respiratory effort Cardio: Rate: regular rate GI: Inspection: Yes normal to inspection Skin: Hair: normal Neuro: General: oriented to person, oriented to place and oriented to time Extrem: General: Yes normal to inspection Urology Results Labs CBC & Chem 7: 07/13/20 06:16 07/13/20 06:16 Labs: Laboratory Results - last 24 hr 07/13/20 07/13/20 06:16 06:16 WBC 6.6 RBC 4.19 L Hgb 12.4 L Hct 38.6 L MCV 92.1 MCH 29.6 MCHC 32.1 RDW 12.6 Plt Count TNP MPV Not Reportable Immature Gran % (Auto) 0.3 Neut % (Auto) 63.2 Lymph % (Auto) 17.0 L [place] % (Auto) 9.9 Eos % (Auto) 9.1 H Baso % (Auto) 0.5 Lymph # (Auto) 1.1 L [place] # (Auto) 0.7 Eos # (Auto) 0.6 H Baso # (Auto) 0.0 Abs Immat Gran (auto) 0.02 Absolute Neuts (auto) 4.2 Absolute Nucleated RBC 0.000 Nucleated RBC % (auto) 0.0 Smear Tech's Comments VERIFIED Sodium 139 Potassium 4.0 Chloride 107 Carbon Dioxide 19 L Anion Gap 17 BUN 14 Creatinine 0.93 Estim Creat Clear Calc 62.3 Estimated GFR > 60 Random Glucose 78 Calcium 8.2 L Progress Note: A&P Assessment and plan (1) Nephrolithiasis: Problem details: Obstructing stone managed See in 6 weeks for imaging Status: Acute Fall Risk Details Current Medications: Current Medications Generic Name Dose Route Start Last Admin Trade Name Freq PRN Reason Stop Dose Admin Acetaminophen 650 mg 07/08/20 06:55 07/12/20 20:00 Acetaminophen 325 Mg Tablet PO 650 mg Q6H PRN Administration Pain, Mild (Pain Scale 1-3) Acetaminophen 650 mg 07/08/20 07:25 Acetaminophen 325 Mg Tablet PO BID PRN pain Alendronate Sodium 70 mg 07/14/20 08:00 Alendronate Sodium 70 Mg Tablet PO We GERALDO Docusate Sodium 100 mg 07/08/20 06:55 Docusate Sodium 100 Mg Capsule PO DAILY PRN Constipation Docusate Sodium 100 mg 07/08/20 09:00 07/12/20 08:40 Docusate Sodium 100 Mg Capsule PO Not Given DAILY GERALDO Docusate Sodium 100 mg 07/08/20 16:06 07/12/20 19:55 Docusate Sodium 100 Mg Capsule PO 100 mg BID GERALDO Administration Escitalopram Oxalate 5 mg 07/08/20 09:00 07/12/20 08:41 Escitalopram Oxalate 5 Mg Tablet PO Not Given DAILY COUNT INCLUDES THE [facility] Fentanyl 25 mcg 07/12/20 08:43 Fentanyl Citrate/Pf 100 Mcg/2 Ml Vial IVPUSH Q5M PRN Pain, Moderate (Pain Scale 4-6 Fluticasone/Vilanterol 1 puff 07/08/21 08:00 Fluticasone/Vilanterol 100/25 Blst.W.Dev INHALE RDAILY COUNT INCLUDES THE [facility] Heparin Sodium (Porcine) 5,000 unit 07/08/20 06:55 07/13/20 06:09 Heparin Sodium,Porcine 5,000 Unit/Ml Vial SUBCUT 5,000 unit Q12H GERALDO Administration Ceftriaxone Sodium 1 gm/ 50 mls @ 100 mls/hr 07/08/20 06:55 07/13/20 06:49 Sodium Chloride IV Infused Q24H GERALDO Infusion Lactated Ringer's 1,000 mls @ 50 mls/hr 07/12/20 08:45 07/13/20 06:49 Lr IVCONT 50 mls/hr .Q20H GERALDO Infusion Loratadine 10 mg 12/31/20 09:00 07/12/20 08:41 Loratadine 10 Mg Tablet PO Not Given DAILY GERALDO Ondansetron HCl 4 mg 07/08/20 06:55 Ondansetron Hcl 4 Mg/2 Ml Vial IVPUSH Q8H PRN Nausea and Vomiting Ondansetron HCl 4 mg 07/12/20 08:43 Ondansetron Hcl 4 Mg/2 Ml Vial IVPUSH ONCE PRN Nausea and Vomiting Pharmacy Consult 1 each 07/07/20 20:10 Consult Rx Perform Med Rec MISCELLANE ONCE PRN Consult order Polyethylene Glycol 17 gm 07/08/20 16:06 07/12/20 08:41 Polyethylene Glycol 3350 17 Gm Powd.Pack PO Not Given DAILY GERALDO Senna 8.6 mg 07/08/20 21:00 07/12/20 19:55 Sennosides 8.6 Mg Tablet PO 8.6 mg BEDTIME GERALDO Administration Sodium Chloride 3 ml 07/08/20 07:25 07/12/20 23:48 0.9 % Sodium Chloride Flush 3 Ml Syringe IVFLUSH Not Given QSHIFT GERALDO Trazodone HCl 37.5 mg 07/08/20 14:00 07/12/20 14:39 Trazodone Hcl 50 Mg Tablet PO 37.5 mg DAILY@1400 GERALDO Administration Vitamin D 25 mcg 07/08/20 09:00 07/12/20 08:40 Cholecalciferol (Vitamin D3) 25 Mcg Tablet PO Not Given DAILY GERALDO Time Spent With Patient Time: Total time spent is greater than 50% in coordination of care (as documented) at patient's floor/unit and/or counseling patient: Time with patient: less than 15 minutes
[2020-07-13] MEDS: Docusate Sodium 100 MG CAPSULE PO (09:56)
[2020-07-13] MEDS: Loratadine 10 MG TABLET PO (09:56)
[2020-07-13] MEDS: Escitalopram Oxalate 5 MG TABLET PO (09:57)
[2020-07-13] MEDS: Cholecalciferol (Vitamin D3) 25 MCG TABLET PO (09:57)
[2020-07-13] MEDS: polyethylene glycoL 3350 17 GM POWD.PACK PO (09:58)
--- NOTE | 2020-07-13 11:26 | MHC.CM.PN ---
FOLLOWING PHYSICIAN ROUNDS, SON (ETIENNE [phone]) AND [facility] [address] ([phone]) MADE AWARE OF ANTICIPATED DISCHARGE BACK TO FACILITY ON Sunday07/14/2020
--- NOTE | 2020-07-13 13:45 | HO.POSTANES ---
Post Anesthesia Evaluation Post Anesthesia Evaluation Vital Signs: Vital Signs Temp Pulse Resp BP Pulse Ox 07/13/20 11:13 98.0 F 73 15 111/58 L 96 07/13/20 08:00 97.4 F 70 16 133/63 98 07/13/20 04:00 98.1 F 78 19 148/70 H 96 Anesthesia: General Mental Status: Awake Pain Control: Satisfactory Nausea/Vomiting: None Hydration: Adequate Anesthesia-Related Issues: No Anes. Related Issues
--- NOTE | 2020-07-13 14:54 | HO.PM.IMPN ---
Subjective Subjective Date of Service: 07/13/20 Interval History: no new events denies dyspnea or cough but ROS somewhat limited by dementia Physical Exam Vital Signs: Vital Signs: Last Vital Signs Temp 98.0 F 07/13/20 11:13 Pulse 73 07/13/20 11:13 Resp 15 07/13/20 11:13 BP 111/58 L 07/13/20 11:13 Pulse Ox 96 07/13/20 11:13 Body Mass Index 20.9 Gen: in no acute distress HEENT: sclera anicteric, moist mucus membranes Neck: supple Lungs: clear to auscultation bilaterally Heart: regular rate and rhythm, no murmurs Abd: soft, non-tender, non-distended Ext: no edema Skin: warm/well-perfused Neuro: disoriented Psych: impaired insight Objective Data Current Medications Generic Name Dose Route Start Last Admin Trade Name Freq PRN Reason Stop Dose Admin Acetaminophen 650 mg 07/08/20 06:55 07/12/20 20:00 Acetaminophen 325 Mg Tablet PO 650 mg Q6H PRN Administration Pain, Mild (Pain Scale 1-3) Acetaminophen 650 mg 07/08/20 07:25 Acetaminophen 325 Mg Tablet PO BID PRN pain Alendronate Sodium 70 mg 07/14/20 08:00 Alendronate Sodium 70 Mg Tablet PO We GERALDO Docusate Sodium 100 mg 07/08/20 06:55 Docusate Sodium 100 Mg Capsule PO DAILY PRN Constipation Docusate Sodium 100 mg 07/08/20 09:00 07/13/20 09:56 Docusate Sodium 100 Mg Capsule PO Not Given DAILY [facility] Docusate Sodium 100 mg 07/08/20 16:06 07/13/20 09:56 Docusate Sodium 100 Mg Capsule PO 100 mg BID GERALDO Administration Escitalopram Oxalate 5 mg 07/08/20 09:00 07/13/20 09:57 Escitalopram Oxalate 5 Mg Tablet PO 5 mg DAILY GERALDO Administration Fentanyl 25 mcg 07/12/20 08:43 Fentanyl Citrate/Pf 100 Mcg/2 Ml Vial IVPUSH Q5M PRN Pain, Moderate (Pain Scale 4-6 Fluticasone/Vilanterol 1 puff 07/08/21 08:00 Fluticasone/Vilanterol 100/25 Blst.W.Dev INHALE RDAILY [facility] Heparin Sodium (Porcine) 5,000 unit 07/08/20 06:55 07/13/20 06:09 Heparin Sodium,Porcine 5,000 Unit/Ml Vial SUBCUT 5,000 unit Q12H GERALDO Administration Ceftriaxone Sodium 1 gm/ 50 mls @ 100 mls/hr 07/08/20 06:55 07/13/20 06:49 Sodium Chloride IV Infused Q24H GERALDO Infusion Lactated Ringer's 1,000 mls @ 50 mls/hr 07/12/20 08:45 07/13/20 06:49 Lr IVCONT 50 mls/hr .Q20H GERALDO Infusion Loratadine 10 mg 07/08/20 09:00 07/13/20 09:56 Loratadine 10 Mg Tablet PO 10 mg DAILY GERALDO Administration Ondansetron HCl 4 mg 07/08/20 06:55 Ondansetron Hcl 4 Mg/2 Ml Vial IVPUSH Q8H PRN Nausea and Vomiting Ondansetron HCl 4 mg 07/12/20 08:43 Ondansetron Hcl 4 Mg/2 Ml Vial IVPUSH ONCE PRN Nausea and Vomiting Pharmacy Consult 1 each 07/07/20 20:10 Consult Rx Perform Med Rec MISCELLANE ONCE PRN Consult order Polyethylene Glycol 17 gm 07/08/20 16:06 07/13/20 09:58 Polyethylene Glycol 3350 17 Gm Powd.Pack PO 17 gm DAILY GERALDO Administration Senna 8.6 mg 07/08/20 21:00 07/12/20 19:55 Sennosides 8.6 Mg Tablet PO 8.6 mg BEDTIME GERALDO Administration Sodium Chloride 3 ml 07/08/20 07:25 07/13/20 09:58 0.9 % Sodium Chloride Flush 3 Ml Syringe IVFLUSH Not Given QSHIFT GERALDO Trazodone HCl 37.5 mg 07/08/20 14:00 07/12/20 14:39 Trazodone Hcl 50 Mg Tablet PO 37.5 mg DAILY@1400 GERALDO Administration Vitamin D 25 mcg 07/08/20 09:00 07/13/20 09:57 Cholecalciferol (Vitamin D3) 25 Mcg Tablet PO 25 mcg DAILY GERALDO Administration Labs CBC & Chem 7: 07/13/20 06:16 07/13/20 06:16 Microbiology Microbiology Results: Microbiology 07/07/20 13:59 Blood - Venous Blood Culture - Final No growth after 5 days. 07/07/20 13:37 Blood - Venous Blood Culture - Final No growth after 5 days. Assessment and Plan (1) Nephrolithiasis: Status: Acute (2) Encephalopathy: Status: Acute (3) Pneumonia: Status: Acute (4) Leukocytosis: Status: Acute Assessment and Plan: hospital d#7 84yo M with dementia, COPD, depression admitted for [facility] with sepsis + encephalopathy due to CAP + urolithiasis # toxic-metabolic encephalopathy - due to infection, superimposed on dementia. improving. # CAP - COVID negative [previously positive in November], respiratory virus panel negative - ID following, ceftriaxone d#6, azithromycin d/c'ed. leukocytosis resolved # urolithiasis, 1.4 cm kidney stone - POD #1 ureteroscopy, laser lithotripsy, and stent placement; stent removal in 1 wk # COPD, not in acute exacerbation - continue ICS/LABA # depression - continue escitalopram # dispo - will go back to [facility] likely tomorrow
[2020-07-13] MEDS: traZODone HCL 50 MG TABLET 37.5 MG PO (14:59)
[2020-07-14] MEDS: 0.9 % Sodium Chloride Flush 3 ML SYRINGE IVFLUSH ×2 (00:21→09:39)
[2020-07-14] MEDS: Lactated Ringers 1,000 ML 50 ML IVCONT (02:48)
[2020-07-14 03:52] VITALS: BP 117/63; PULSE 72; RESP 16; TEMP 36.3; O2SAT 94
[2020-07-14] MEDS: Heparin Sodium,Porcine 5,000 UNIT/ML VIAL 5000 UNIT SUBCUT (06:17)
[2020-07-14] MEDS: cefTRIAXone sodium 1 GM in 0.9 % Sodium Chloride 50 ML IV (06:17)
[2020-07-14 07:25] VITALS: BP 126/62; PULSE 69; RESP 15; TEMP 36.2; O2SAT 98
[2020-07-14] MEDS: polyethylene glycoL 3350 17 GM POWD.PACK PO (09:38)
[2020-07-14] MEDS: Cholecalciferol (Vitamin D3) 25 MCG TABLET PO (09:39)
[2020-07-14] MEDS: Escitalopram Oxalate 5 MG TABLET PO (09:39)
[2020-07-14] MEDS: Loratadine 10 MG TABLET PO (09:39)
[2020-07-14] MEDS: Docusate Sodium 100 MG CAPSULE PO (09:39)
[2020-07-14 09:45] LABS: Anion Gap 16 (12-20); Blood Urea Nitrogen 13 mg/dL (9-16); Calcium 8.4 mg/dL (8.4-10.2); Carbon Dioxide 22 mmol/L (22-29); Chloride 105 mmol/L (96-108); Creatinine Clr Calc Pharmacy 71.6; Estimated Glomerular Filt Rate > 60; Glucose Random 73 mg/dL (60-115); Potassium 4.4 mmol/l (3.3-5.1); Sodium 139 mmol/L (135-145)
--- NOTE | 2020-07-14 11:15 | MHC.CM.PN ---
PER CONVERSATION WITH SHABNAM OF [facility], 14:00 FROM HERE IS A GOOD TIME FOR TRANSPORT. CURRENTLY AWAITING COVID RESULTS. DC SUMMARY AND RESULTS TO BE FAXED TO [phone] PRIOR TO HIS TRANSPORT. IMM 07/14 IN CHART
[2020-07-14 11:25] VITALS: BP 139/69; PULSE 67; RESP 16; TEMP 36.7; O2SAT 99
[2020-07-14 11:47] LABS: IDNOW Serial# 9DD0AD1C
[2020-07-14 11:48] LABS: COVID-19 Test Negative (Negative)
--- NOTE | 2020-07-14 13:14 | P.DS_ITS ---
DS: Providers Provider Date of Service: 07/14/20 Date of admission: 07/07/20 20:48 Primary care physician: Zia Carmen Consults: 07/08/20 07:24 Consult to Urology Routine Consulting Provider: Christopher Jeffrey III Reason for consultation: urolithiasis Has provider been notified: No 07/09/20 15:41 Consult to Infectious Diseases Routine Consulting Provider: Ashia Nava Reason for consultation: CAP, as per family got covid vaccine on sunday Has provider been notified: No DS: Diagnosis Discharge Diagnosis (1) Nephrolithiasis: Status: Acute (2) Encephalopathy: Status: Acute (3) Pneumonia: Status: Acute (4) Leukocytosis: Status: Acute DS: Medications Discharge Medications Home Medications: Home Medications Medication Instructions Recorded Confirmed acetaminophen 650 mg PO BID PRN 07/07/20 07/07/20 alendronate [Fosamax] 70 mg PO QWEEK 07/07/20 07/07/20 cholecalciferol (vitamin D3) 25 mcg PO DAILY 07/07/20 07/07/20 [Vitamin D3] docusate sodium [Colace] 100 mg PO DAILY 07/07/20 07/07/20 escitalopram oxalate [Lexapro] 5 mg PO DAILY 07/07/20 07/07/20 fluticasone propion-salmeterol 1 inh INHALATION BID 07/07/20 07/07/20 [Advair Diskus] ipratropium bromide 1 spray INTRANASAL BID 07/07/20 07/07/20 levalbuterol tartrate 2 puff INHALATION Q4H PRN 07/07/20 07/07/20 loratadine [Claritin] 10 mg PO DAILY 07/07/20 07/07/20 sennosides [senna] 8.6 mg PO BEDTIME 07/07/20 07/07/20 trazodone 37.5 mg PO DAILY@1400 07/07/20 07/07/20 Previous Rx's Medication Instructions Recorded polyethylene glycol 3350 17 g PO DAILY PRN #30 ea 07/14/20 DS: Summary Hospital Course Hospital Course: The patient was admitted to the medical/surgical floor. He tested negative for COVID by molecular study. He was treated with 7 days of IV ceftriaxone for pneumonia. Blood cultures were negative. He was not hypoxic. Leukocytosis resolved. He underwent ureteroscopy, laser lithotripsy, and stent placement by Dr Matthew Brandt on 07/12/20 and will need the stent removed in one week. He was discharged back to the [facility]. Time Spent with Patient Time attestation: Total time spent providing and/or coordinating discharge services: 40 Physical Exam Vital Signs: Vital Signs: Last Vital Signs Temp 98.0 F 07/14/20 11:25 Pulse 67 07/14/20 11:25 Resp 16 07/14/20 11:25 BP 139/69 07/14/20 11:25 Pulse Ox 99 07/14/20 11:25 Body Mass Index 20.9 Gen: in no acute distress HEENT: sclera anicteric, moist mucus membranes Neck: supple Lungs: clear to auscultation bilaterally Heart: regular rate and rhythm, no murmurs Abd: soft, non-tender, non-distended Ext: no edema Skin: warm/well-perfused Neuro: disoriented Psych: impaired insight DS: Data Data Completed and Pending Completed studies during hospitalization [Text1]: Pending at discharge 07/12/20 10:46 Surgical [PTH] Stat Labs on day of discharge: Laboratory Results WBC 6.6 X10*3/uL (4.8-10.8) 07/13/20 06:16 RBC 4.19 X10*6/uL (4.60-5.80) L 07/13/20 06:16 Hgb 12.4 g/dl (14.0-18.0) L 07/13/20 06:16 Hct 38.6 % (42-52) L 07/13/20 06:16 MCV 92.1 fL (80-98) 07/13/20 06:16 MCH 29.6 pg (27.0-33.0) 07/13/20 06:16 MCHC 32.1 g/dl (31.0-36.0) 07/13/20 06:16 RDW 12.6 % (11.0-16.0) 07/13/20 06:16 Plt Count TNP 07/13/20 06:16 MPV Not Reportable 07/13/20 06:16 Immature Gran % (Auto) 0.3 % (0.0-0.4) 07/13/20 06:16 Neut % (Auto) 63.2 % (45-73) 07/13/20 06:16 Lymph % (Auto) 17.0 % (20-40) L 07/13/20 06:16 [place] % (Auto) 9.9 % (2-11) 07/13/20 06:16 Eos % (Auto) 9.1 % (0-4) H 07/13/20 06:16 Baso % (Auto) 0.5 % (0-2) 07/13/20 06:16 Lymph # (Auto) 1.1 X10*3/uL (1.2-4.9) L 07/13/20 06:16 [place] # (Auto) 0.7 X10*3/uL (0.1-1.2) 07/13/20 06:16 Eos # (Auto) 0.6 X10*3/uL (0.0-0.4) H 07/13/20 06:16 Baso # (Auto) 0.0 X10*3/uL (0.0-0.2) 07/13/20 06:16 Abs Immat Gran (auto) 0.02 X10*3/uL (0.00-0.03) 07/13/20 06:16 Absolute Neuts (auto) 4.2 X10*3/uL (2.0-8.3) 07/13/20 06:16 Absolute Nucleated RBC 0.000 X10*3/uL (0.0-0.012) 07/13/20 06:16 Nucleated RBC % (auto) 0.0 /100WBC (0.0-0.2) 07/13/20 06:16 Smear Tech's Comments VERIFIED 07/13/20 06:16 PT 14.1 SEC (10.8-13.0) H 07/07/20 13:35 INR 1.2 (0.9-1.1) H 07/07/20 13:35 Sodium 139 mmol/L (135-145) 07/14/20 08:52 Potassium 4.4 mmol/l (3.3-5.1) 07/14/20 08:52 Chloride 105 mmol/L (96-108) 07/14/20 08:52 Carbon Dioxide 22 mmol/L (22-29) 07/14/20 08:52 Anion Gap 16 (12-20) 07/14/20 08:52 BUN 13 mg/dL (9-16) 07/14/20 08:52 Creatinine 0.81 mg/dL (0.5-1.4) 07/14/20 08:52 Estim Creat Clear Calc 71.6 07/14/20 08:52 Estimated GFR > 60 07/14/20 08:52 Random Glucose 73 mg/dL (60-115) 07/14/20 08:52 Lactic Acid 1.5 mmol/L (0.5-2.0) 07/07/20 13:35 Calcium 8.4 mg/dL (8.4-10.2) 07/14/20 08:52 Magnesium 1.9 mg/dL (1.6-2.6) 07/07/20 13:35 Total Bilirubin 0.8 mg/dL (0.0-1.0) 07/07/20 13:35 Direct Bilirubin 0.4 mg/dL (0.0-0.5) 07/07/20 13:35 AST 19 U/L (5-37) 07/07/20 13:35 ALT 14 U/L (0-40) 07/07/20 13:35 Alkaline Phosphatase 72 U/L (39-117) 07/07/20 13:35 Troponin I High Sens < 3.5 ng/L (<3.5-35.0) 07/07/20 13:35 Total Protein 7.2 g/dL (6.5-8.0) 07/07/20 13:35 Albumin 3.5 g/dL (3.5-5.0) 07/07/20 13:35 Urine Color YELLOW 07/07/20 15:26 Urine Appearance CLEAR 07/07/20 15:26 Urine pH 6.5 (5.0-8.0) 07/07/20 15:26 Ur Specific [place] 1.015 (1.005-1.025) 07/07/20 15:26 Urine Protein NEG MG/DL (NEG-TRACE) 07/07/20 15:26 Urine Glucose (UA) NEG MG/DL (NEG) 07/07/20 15:26 Urine Ketones NEG MG/DL (NEG) 07/07/20 15:26 Urine Blood 1+ (NEG) H 07/07/20 15:26 Urine Nitrite NEG (NEG) 07/07/20 15:26 Ur Leukocyte Esterase NEG (NEG) 07/07/20 15:26 Urine RBC 5-9 /HPF (0) H 07/07/20 15:26 Urine WBC 0 /HPF (0-4) 07/07/20 15:26 Ur Squamous Epith Cells NONE /LPF 07/07/20 15:26 Urine Bacteria 1+ /LPF 07/07/20 15:26 Respiratory Panel Cardenas See Note 07/07/20 16:08 Adenovirus (Rapid PCR) Not Detected (Not Detect.) 07/07/20 16:08 B.pert (TEM-PCR) Not Detected (Not Detect.) 07/07/20 16:08 B.parapertussis DNA PCR Not Detected (Not Detect.) 07/07/20 16:08 C. pneumoniae DNA (PCR) Not Detected (Not Detect.) 07/07/20 16:08 Coronavirus (PCR) NEGATIVE (Negative) 07/07/20 16:53 Coronavirus OC43 (PCR) Not Detected (Not Detect.) 07/07/20 16:08 Coronavirus HKU1 (PCR) Not Detected (Not Detect.) 07/07/20 16:08 Coronavirus 229E (PCR) Not Detected (Not Detect.) 07/07/20 16:08 COVID-19 (CECELIA) Negative (Negative) 07/14/20 11:20 COVID-19 Clin Com See Note 07/14/20 11:20 Coronavirus NL63 (PCR) Not Detected (Not Detect.) 07/07/20 16:08 Human Metapneumovir PCR Not Detected (Not Detect.) 07/07/20 16:08 Influenza A (RT-PCR) Not Detected (Not Detect.) 07/07/20 16:08 Influenza Type A (PCR) NEGATIVE (Negative) 07/07/20 16:53 Influenza B (RT-PCR) Not Detected (Not Detect.) 07/07/20 16:08 Influenza Type B (PCR) NEGATIVE (Negative) 07/07/20 16:53 M. pneumoniae (PCR) Not Detected (Not Detect.) 07/07/20 16:08 Parainfluenza 1 (PCR) Not Detected (Not Detect.) 07/07/20 16:08 Parainfluenza 2 (PCR) Not Detected (Not Detect.) 07/07/20 16:08 Parainfluenza 3 (PCR) Not Detected (Not Detect.) 07/07/20 16:08 Parainfluenza 4 (PCR) Not Detected (Not Detect.) 07/07/20 16:08 RSV (PCR) Not Detected (Not Detect.) 07/07/20 16:08 RSV RNA Qual (PCR) NEGATIVE (Negative) 07/07/20 16:53 Entero/Rhino (PCR) Not Detected (Not Detect.) 07/07/20 16:08 SARS-CoV-2 RNA (RT-PCR) Not Detected (Not Detect.) 07/07/20 16:08 Impressions Chest X-Ray 07/07/20 13:00 IMPRESSION: No acute process seen. There is moderate spondylosis dorsal spine. Head CT 07/07/20 13:09 IMPRESSION: No acute intracranial process seen. Age-related cerebral volume loss with chronic small vessel ischemic changes in both cerebral hemispheres. Abdomen/Pelvis CT 07/07/20 17:52 IMPRESSION: 1. Moderate to severe left-sided hydroureteronephrosis secondary to a 1.4 cm stone within the left mid ureter. 2. Nonobstructing calculi of the right kidney. 3. Moderate stool burden throughout the colon suggesting constipation. 4. L4 compression deformity, age indeterminate. 5. Patchy airspace disease dependently within the left lower lobe. Findings are most suggestive of atelectasis, however, developing infiltrate is not excluded. Ultimately, today's examination is suboptimal due to appreciable motion artifact. Follow-up imaging can be obtained as clinically indicated. This CT examination was performed using dose optimization techniques as appropriate, variously including the following: *Automated exposure control *Adjustment of mA and/or kV according to patient size (this includes techniques or standardized protocols for targeted exams where dose is matched to indication/reason for exam; i.e. extremities or head) *Use of iterative reconstruction technique Chest CT 07/07/20 17:52 IMPRESSION: 1. Moderate to severe left-sided hydroureteronephrosis secondary to a 1.4 cm stone within the left mid ureter. 2. Nonobstructing calculi of the right kidney. 3. Moderate stool burden throughout the colon suggesting constipation. 4. L4 compression deformity, age indeterminate. 5. Patchy airspace disease dependently within the left lower lobe. Findings are most suggestive of atelectasis, however, developing infiltrate is not excluded. Ultimately, today's examination is suboptimal due to appreciable motion artifact. Follow-up imaging can be obtained as clinically indicated. This CT examination was performed using dose optimization techniques as appropriate, variously including the following: *Automated exposure control *Adjustment of mA and/or kV according to patient size (this includes techniques or standardized protocols for targeted exams where dose is matched to indication/reason for exam; i.e. extremities or head) *Use of iterative reconstruction technique Guidance Fluoroscopy 07/12/20 08:09 IMPRESSION: Fluoroscopy guidance for left retrograde exam and internal ureteral stent placement. Discharge Plan Discharge Anticipated Discharge Date/Time: 07/14/20 13:05 Patient Disposition: Xfer Other Referrals: [facility] [place] [Outside] (PATIENT IS DISCHARGED BACK TO [address] [place] [address] OF [facility]. TIME SCHEDULED FOR 14:00.) Matthew Brandt MD [Physician] - (1 week ) Zia Carmen MD [Physician] - Discharge Medications: New polyethylene glycol 3350 17 gram Powder In Packet 17 g PO DAILY PRN (Reason: constipation) Qty: 30 RF: 0 Continued fluticasone propion-salmeterol [Advair Diskus] 250-50 mcg/dose Blister With Device 1 inh INHALATION BID RF: 0 sennosides [senna] 8.6 mg Tablet 8.6 mg PO BEDTIME RF: 0 acetaminophen 325 mg Tablet 650 mg PO BID PRN (Reason: pain) RF: 0 trazodone 50 mg Tablet 37.5 mg PO DAILY@1400 RF: 0 alendronate [Fosamax] 70 mg Tablet 70 mg PO QWEEK RF: 0 docusate sodium [Colace] 100 mg Capsule 100 mg PO DAILY RF: 0 ipratropium bromide 42 mcg (0.06 %) [place],Non-Aerosol 1 spray INTRANASAL BID RF: 0 loratadine [Claritin] 10 mg Tablet 10 mg PO DAILY RF: 0 escitalopram oxalate [Lexapro] 5 mg Tablet 5 mg PO DAILY RF: 0 levalbuterol tartrate 45 mcg/actuation Hfa Aerosol Inhaler 2 puff INHALATION Q4H PRN (Reason: Shortness Of Breath Or Wheezing) RF: 0 cholecalciferol (vitamin D3) [Vitamin D3] 25 mcg (1,000 unit) Tablet 25 mcg PO DAILY RF: 0 Discharge Orders: Discharge Order (Routine); Ordered 07/14/20 Ordered By: Steph Peterson Diet: advance to usual diet Activity on Discharge: As tolerated Patient Instructions: Kidney Stones (DC), Pneumonia (DC) Visit Report Forms: Patient Portal Discharge page Care Plan Goals: improvement in breathing and mental status Health Concerns: pneumonia, encephalopathy, and kidney stone Plan of Treatment: completed 7 days of antibiotics ureteroscopy, laser lithotripsy, and stent placement done on 07/12/20; follow up with Dr Brandt [Urology] in 1 week for stent removal
[2020-07-14] MEDS: traZODone HCL 50 MG TABLET 37.5 MG PO (13:43)
== END 2020-07-14 18:00 | disposition other institution (70) | DRG 987 ==
LOC: HO.ED 20:13 → HO.S3 07-08 15:52
PROVIDERS: Internal Medicine; Nurse Practitioner Family; Urology; Admitting Provider Internal Medicine; Emergency Provider Emergency Medicine Emergency Medical Services; PCP Family Medicine; Visit Provider Family Medicine
PROC: 0TJB8ZZ Inspection of Bladder, Via Natural or Artificial Opening Endoscopic (ICD-10-PCS; CPT 52000; principal; 2020-07-12 08:30)
DX: J18.9 Pneumonia, unspecified organism (principal); G92 Toxic encephalopathy; N13.2 Hydronephrosis with renal and ureteral calculous obstruction; F03.90 Unspecified dementia, unspecified severity, without behavioral disturbance, psychotic disturbance, mood disturbance, and anxiety; F32.9 Major depressive disorder, single episode, unspecified; D72.89 Other specified disorders of white blood cells; Z86.16 Personal history of COVID-19; Z87.442 Personal history of urinary calculi; Z79.51 Long term (current) use of inhaled steroids; Z79.899 Other long term (current) drug therapy
CPT/HCPCS: 0241U; 36415; 70450; 71045; 71250; 74176; 80048; 80053; 80076; 81001; 82365; 83605; 83735; 84484; 85025; 85610; 87040; 87633; 87635; 88300; 93005; 96365; 99285; C1769; C1894; C2617; J0456; J0692; J0696; J1956; J2405; J3010; J3370; Q9967

== ENCOUNTER → 2020-07-21 12:35 | Outpatient (BNVA) | payer MEDICARE, OTHER, SELFPAY | PROVIDERS: Visit Provider Urology | DX: Z76.89 Persons encountering health services in other specified circumstances (principal) ==

== ENCOUNTER 2020-07-26 11:11 | Day surgery (SDC) | payer MEDICARE, OTHER, SELFPAY ==
[2020-07-26 11:28] VITALS: BP 115/67; PULSE 73; RESP 18; TEMP 37.2; O2SAT 97
--- NOTE | 2020-07-26 12:02 | PC.NURSE ---
PT LOCAL. NO IV NEEDED. CONSENT DONE WITH DTR OVER PHONE WHO IS HCP.
[2020-07-26] MEDS: levoFLOXacin 500 MG TABLET PO (12:03)
--- NOTE | 2020-07-26 13:13 | MHC.SHP ---
Pre-Procedural Eval Section B Chief Complaint: Calculus of kidney Details of Present Illness: Left sided ureteric stent removal Relevant Family History (Specify if Yes): No Relevant Social History: None Present Medications: see Short Stay Collaborative assessment Medical History: Significant History History of Previous Operations: Relevant previous surgery/procedure and date(s) Allergies: Allergies Allergy/AdvReac Type Severity Reaction Status Date / Time No Known Allergies Allergy Verified 07/07/20 12:59 [No Known Allergies*] Review of Systems Sugical H&P ROS: Negative: Constitution, Cardiovascular, Respiratory, Neurological, Psychiatric, Hem-Onc, Allergic/Immunologic, Gastrointestinal, Genitourinary, Musculoskeletal, Integumentary, Endocrine and Eyes/Ears/Nose/Throat Exam Surgical H&P Exam: Normal: HEENT, Normal: Heart, Normal: Lungs, Normal: Extremities, Normal: Abdomen, Normal: Skin and Normal: Neurological Plan Diagnosis/Plan: Unchanged I have reviewed the history and physical and performed a pertinent physical examination on my patient. No changes have occurred unless specified. Plan for flexible cystoscopy with stent removal on OR bed
--- NOTE | 2020-07-26 13:32 | P.OP_ITS ---
Operative Note Operative Note Date of Service: 07/26/20 Narrative: PreOperative Diagnosis: Indwelling left ureteric stent Post Operative Diagnosis: Indwelling left ureteric stent Procedure: Cystoscopy stent removal Surgeon: Dr Matthew Brandt Anesthesia: Local Indications for procedure: 84-year-old male who comes from [facility] is demented. Had prior stone procedure last week and is here for stent removal. Unable to in office as he is not able to get onto the examination table. Procedure: After informed consent was verified the patient was brought to the operating room and placed in a supine position. anesthesia was administered per protocol. Eighteen Turkish flexible cystoscope inserted. The stent had a wire that was visible in the urethra. Was grasped and brought to meatus. The wire was then used to rim moved the stent which came out intact in 1 piece He tolerated procedure and was transported to the recovery area Pathology: None Drains: None
--- NOTE | 2020-07-26 13:32 | PM.OP ---
Brief Operative Note Date of Service: 07/26/20 Pre-op diagnosis: Indwelling ureteric stent Post-op diagnosis: same Procedure: Cystoscopy stent removal Implants: Ureteric stent Surgeon: Matthew Brandt MD Anesthesia: local Estimated blood loss (mL): 0 Pathology: none sent Condition: stable Disposition: same day
[2020-07-26 13:35] VITALS: BP 118/69; PULSE 74; RESP 16; TEMP 36.6; O2SAT 96
== END 2020-07-26 15:08 | disposition home or self-care (01) ==
PROVIDERS: Visit Provider Urology
PROC: (CPT 52310; principal; 2020-07-26 12:20)
DX: N20.0 Calculus of kidney (principal); Z96.0 Presence of urogenital implants; F03.90 Unspecified dementia, unspecified severity, without behavioral disturbance, psychotic disturbance, mood disturbance, and anxiety; G93.40 Encephalopathy, unspecified; F32.9 Major depressive disorder, single episode, unspecified; Z66 Do not resuscitate
CPT/HCPCS: 52310

== ENCOUNTER 2020-08-16 09:58 | Outpatient (REF) | payer MEDICARE, OTHER, SELFPAY ==
--- NOTE | ~2020-08-16 | US_ITS ---
EXAMINATION: US RETROPERITONEAL LIMITED (RENAL ONLY) CLINICAL INFORMATION: Calculus of kidney. COMPARISON: CT abdomen and pelvis 07/07/2020. TECHNIQUE: Real-time imaging of the kidneys. Technically difficult study secondary to the patient's limited mobility, scanning was performed upright in a wheelchair. FINDINGS: RIGHT KIDNEY: 10.7 x 4.7 x 5.5 cm (SAG x AP x TRV). The kidney is normal in size, contour, and echogenicity. Renal cortical thickness is normal. There is a 3.2 x 2.6 x 2.7 cm cyst in the medial midpole. The multiple right renal stones seen by CT June 2020 are not well visualized by ultrasound. No hydronephrosis. LEFT KIDNEY: 11.5 x 5.1 x 5.3 cm (SAG x AP x TRV). The kidney is normal in size, contour, and echogenicity. Renal cortical thickness is normal. There is moderate left hydronephrosis. This is slightly improved compared to previous CT scan. No stone or focal parenchymal lesions. US/US renal BI IMPRESSION: Right: 3 cm medial mid to lower pole cyst. Right renal stones seen by CT are not well visualized by ultrasound. Left: Moderate left hydronephrosis. This is slightly improved from June 2020 exam.
== END 2020-08-16 09:59 | disposition home or self-care (01) ==
LOC: HO.US 09:58
PROVIDERS: Visit Provider Urology
DX: N20.0 Calculus of kidney (principal)
CPT/HCPCS: 76775

== ENCOUNTER → 2020-09-08 11:05 | Outpatient (BNVA) | payer MEDICARE, OTHER, SELFPAY | PROVIDERS: Visit Provider Urology | DX: N20.0 Calculus of kidney (principal) | CPT/HCPCS: 99212 ==

== ENCOUNTER 2020-09-14 19:16 | Inpatient (IN) | payer MEDICARE, OTHER, SELFPAY ==
--- NOTE | ~2020-09-14 | XR_ITS ---
EXAMINATION: CHEST 2 VIEWS CLINICAL INFORMATION: fever cough . COMPARISON: 07/07/2020. TECHNIQUE: PA and lateral views of the chest obtained. FINDINGS: Lungs well-expanded. Patchy airspace disease is seen bilaterally. Some these changes are chronic to the prior study although some are more acute appearing. Early infiltrate versus basilar atelectasis. Small bilateral pleural effusions best seen on the lateral film. No overt edema or pneumothorax. Cardiac and mediastinal silhouettes within normal limits for size. Degenerative changes in the spine and shoulders. XR/XR chest 2V IMPRESSION: Mild patchy airspace disease is seen bilaterally. Some of this is chronic from the prior study. Mild basilar atelectasis would be suspected with tiny effusions best seen on the lateral film.
[2020-09-14 20:00] VITALS: BP 110/54; PULSE 79; RESP 16; TEMP 37.3; O2SAT 94; BMI 23.3
--- NOTE | 2020-09-14 20:06 | PC.NURSE ---
PT TO ED VIA AMBULANCE AFTER HAVING A FEVER SINCE 3PM. PT CONFUSED AT BASELINE. PT ARRIVES ALERT, YOCHA DEHE. PT AWAITING FOR MD'S EVAL.
--- NOTE | 2020-09-14 20:18 | ED_ITS ---
HPI - Fever General Chief Complaint: Fever <Pamela Lloyd PA-C - Last Filed: 09/15/20 17:22> Stated Complaint: AMS <BENITO Lujan Last Filed: 09/15/20 17:22> Time Seen by Provider: 09/14/20 19:59 <BENITO Lujan Last Filed: 09/15/20 17:22> Source: other ([facility]) <BENITO Lujan Last Filed: 09/15/20 17:22> Mode of arrival: EMS <BENITO Lujan Last Filed: 09/15/20 17:22> Limitations: altered mental status <BENITO Lujan Last Filed: 09/15/20 17:22> History of Present Illness HPI Narrative: Patient is an 84-year-old male who has a past med hx of COPD, nephrolithiasis, dementia and depression. He comes from the [facility]. They report he had a fever of 99.6 today so they medicated him with Tylenol. They are requesting labs and a chest x-ray. No other information is available. Patient has no complaints and states that he feels fine <Pamela mccullough PA-C - Last Filed: 09/15/20 17:22> MD elicited complaint: fever <BENITO Lujan Last Filed: 09/15/20 17:22> Related Data Home Medications: Home Medications Medication Instructions Recorded Confirmed acetaminophen 650 mg PO BID 07/07/20 09/15/20 alendronate [Fosamax] 70 mg PO WE@0630 07/07/20 09/15/20 cholecalciferol (vitamin D3) 25 mcg PO DAILY 07/07/20 09/15/20 [Vitamin D3] docusate sodium [Colace] 100 mg PO DAILY 07/07/20 09/15/20 escitalopram oxalate [Lexapro] 5 mg PO DAILY 07/07/20 09/15/20 fluticasone propion-salmeterol 1 inh INHALATION BID 07/07/20 09/15/20 [Advair Diskus] ipratropium bromide 1 spray INTRANASAL BID 07/07/20 09/15/20 levalbuterol tartrate 2 puff INHALATION Q4H PRN 07/07/20 09/15/20 loratadine [Claritin] 10 mg PO DAILY 07/07/20 09/15/20 sennosides [senna] 8.6 mg PO BEDTIME 07/07/20 09/15/20 trazodone 37.5 mg PO DAILY@1400 07/07/20 09/15/20 acetaminophen 325 mg PO Q4H PRN 09/15/20 09/15/20 bisacodyl 10 mg DC DAILY PRN 09/15/20 09/15/20 dextromethorphan-guaifenesin 10 ml PO Q6H PRN 09/15/20 09/15/20 [Guaifenesin DM] magnesium hydroxide [Milk of 30 ml PO BEDTIME PRN 09/15/20 09/15/20 Magnesia] nystatin 1 appl TOPICAL BID PRN 09/15/20 09/15/20 polyethylene glycol 3350 17 g PO DAILY 09/15/20 09/15/20 saliva stimulant comb. no.3 1 appl MUCOUS MEMBRANE Q1H PRN 09/15/20 09/15/20 [Biotene Moisturizing Mouth] saliva stimulant comb. no.3 1 appl MUCOUS MEMBRANE TID 09/15/20 09/15/20 [Biotene Moisturizing Mouth] sodium phosphates [Fleet Enema] 118 ml DC DAILY PRN 09/15/20 09/15/20 <Pamela Lloyd PA-C - Last Filed: 09/15/20 17:22> Allergies/Adverse Reactions: Allergies Allergy/AdvReac Type Severity Reaction Status Date / Time diazepam Allergy Unknown Verified 09/15/20 09:28 lidocaine Allergy Unknown Verified 09/15/20 09:28 lisinopril Allergy Unknown Verified 09/15/20 09:28 <Pamela Lloyd PA-C - Last Filed: 09/15/20 17:22> Review of Systems Review of Systems: Yes all other systems are reviewed and are negative <Pamela Lloyd PA-C - Last Filed: 09/15/20 17:22> PMFSH Past Medical History Medical History: Medical History COPD (chronic obstructive pulmonary disease) Dementia Encephalopathy Hydronephrosis Leukocytosis Major depressive disorder Nephrolithiasis Pneumonia Renal colic on left side <Pamela Lloyd PA-C - Last Filed: 09/15/20 17:22> Social History Social History: Social History (Updated 09/15/20 @ 09:27 by Shelby Aldrich RN) Household Members: Unknown / Unable to assess Housing: Longterm Housing Other:: [facility] Smoking Status: Former smoker Tobacco Type: Cigar Smoked in Last 30 Days: No Use of substances other than those prescribed or required for medical reasons: No Currently Displaying Signs/Symptoms of Drug Intoxication Withdrawal: No Advance Directives Information Provided: Yes Do you have thoughts of harming others: None Do you have a plan to hurt others: No Plan Recently lost weight without trying: Unsure service: Yes Current occupational status: retired <Pamela Lloyd PA-C - Last Filed: 09/15/20 17:22> Physical Exam Vital Signs: Vital Signs: Last Vital Signs Temp 98.4 F 09/15/20 15:41 Pulse 69 09/15/20 15:41 Resp 19 09/15/20 15:41 BP 115/77 09/15/20 15:41 Pulse Ox 90 L 09/15/20 15:41 Body Mass Index 23.3 <Pamela Lloyd PA-C - Last Filed: 09/15/20 17:22> Vital Signs: Last Vital Signs Temp 98.4 F 09/15/20 15:41 Pulse 69 09/15/20 15:41 Resp 19 09/15/20 15:41 BP 115/77 09/15/20 15:41 Pulse Ox 90 L 09/15/20 15:41 Body Mass Index 23.3 <Peggy Medley NP - Last Filed: 09/15/20 01:02> Const: General: healthy appearing, comfortable, no acute distress and well developed <Pamela Lloyd PA-C - Last Filed: 09/15/20 17:22> Orientation/consciousness: oriented to person, oriented to place and No oriented to time <Pamela Lloyd PA-C - Last Filed: 09/15/20 17:22> Limitations: no limitations <Pamela Lloyd PA-C - Last Filed: 09/15/20 17:22> HENMT: Head: Yes normal to inspection <BENITO Lujan Last Fi led: 09/15/20 17:22> Eyes: General: appearance normal, both eyes and all related structures <Pamela Lloyd PA-C - Last Filed: 09/15/20 17:22> Neck: Neck: Yes normal visual inspection and Yes full ROM <Pamela Lloyd PA-C - Last Filed: 09/15/20 17:22> Resp: Effort & Inspection: normal respiratory effort and able to speak in complete sentences <Pamela Lloyd PA-C - Last Filed: 09/15/20 17:22> Auscultation: clear to auscultation bilaterally and wheezes scattered wheezes <Pamela Lloyd PA-C - Last Filed: 09/15/20 17:22> Cardio: Rate: regular rate <Pamela Lloyd PA-C - Last Filed: 09/15/20 17:22> Rhythm: regular rhythm <Pamela Lloyd PA-C - Last Filed: 09/15/20 17:22> Heart sounds: normal S1 and S2 <Pamela Lloyd PA-C - Last Filed: 09/15 17:22> GI: Inspection: Yes normal to inspection <Pamela Lloyd PA-C - Last Filed: 09/15/20 17:22> Palpation (GI): Soft to palpation and nontender <Pamela Lloyd PA-C - Last Filed: 09/15/20 17:22> Skin: General skin exam: no rashes or lesions noted and dry skin <Pamela Lloyd PA-C - Last Filed: 09/15/20 17:22> Neuro: General: oriented to person, oriented to place and No oriented to time <Pamela Lloyd PA-C - Last Filed: 09/15/20 17:22> Extrem: General: Yes normal to inspection <Pamela Lloyd PA-C - Last Filed: 09/15/20 17:22> Course Course Course Narrative: Upon arrival, patient's vital signs are stable and he is afebrile however he was just given Tylenol approximately 4 hours ago. Patient satting at 94% on room air. Will get an lab panel to rule out infection and COVID (will do covid labs as well as PCR test) and CXR. 09/14/2020 9pm Sign out to Peggy Medley NP <Pamela Lloyd PA-C - Last Filed: 09/15/20 17:22> 9:50 p.m. discussion with lost charge card clerk regarding pending urinalysis. Patient does have leukocytosis per past medical history, white count was 6.6 in July and is currently 16.2 today. H&H is 11.0/33.2 which is consistent with prior values. BUN is 25, was 13 in July of 2020. At time 12:22 a.m. urinalysis shows rbc's however patient was straight cathed for urine. <Peggy Medley NP - Last Filed: 09/15/20 01:02> MDM - Fever Differential Diagnosis Differential diagnosis: Likely fever of unknown origin, community acquired pneumonia, pyeloneph ritis, viral infection, sepsis and influenza <Peggy Medley NP - Last Filed: 09/15/20 01:02> Medical Records Attestation: I reviewed the patient's medical records. <Peggy Medley NP - Last F iled: 09/15/20 01:02> Lab Data Attestation: I reviewed the patient's lab results. <Peggy Medley NP - Last Filed: 09/15/20 01:02> Result diagrams: : 09/15/20 09:08 09/14/20 20:29 <Pamela Lloyd PA-C - Last Filed: 09/15/20 17:22> Labs: Lab Results 09/14/20 09/14/20 09/14/20 Range/Units 20:28 20:29 20:29 WBC (4.8-10.8) X10*3/uL RBC (4.60-5.80) X10*6/uL Hgb (14.0-18.0) g/dl Hct (42-52) % MCV (80-98) fL MCH (27.0-33.0) pg MCHC (31.0-36.0) g/dl RDW (11.0-16.0) % Plt Count (160-400) X10*3/uL MPV (9.4-12.4) fL Immature Gran % (Auto) (0.0-0.4) % Neut % (Auto) (45-73) % Lymph % (Auto) (20-40) % [place] % (Auto) (2-11) % Eos % (Auto) (0-4) % Baso % (Auto) (0-2) % Lymph # (Auto) (1.2-4.9) X10*3/uL [place] # (Auto) (0.1-1.2) X10*3/uL Eos # (Auto) (0.0-0.4) X10*3/uL Baso # (Auto) (0.0-0.2) X10*3/uL Abs Immat Gran (auto) (0.00-0.03) X10*3/uL Absolute Neuts (auto) (2.0-8.3) X10*3/uL Absolute Nucleated RBC (0.0-0.012) X10*3/uL Nucleated RBC % (auto) (0.0-0.2) /100WBC PT 14.2 H (10.8-13.0) SEC INR 1.2 H (0.9-1.1) APTT 33.5 (24.1-38.0) SEC Sodium 139 (135-145) mmol/L Potassium 4.1 (3.3-5.1) mmol/L Chloride 102 (96-108) mmol/L Carbon Dioxide 29 (22-29) mmol/L Anion Gap 12 (12-20) BUN 25 H D (9-16) mg/dL Creatinine 0.99 (0.5-1.4) mg/dL Estim Creat Clear Calc 63.1 Estimated GFR > 60 Random Glucose 125 H D (60-115) mg/dL Lactic Acid (0.5-2.0) mmol/L Calcium 9.3 D (8.4-10.2) mg/dL Magnesium 2.1 (1.6-2.6) mg/dL Total Bilirubin 0.5 (0.0-1.0) mg/dL Direct Bilirubin 0.3 (0.0-0.5) mg/dL AST 17 (5-37) U/L ALT 12 (0-40) U/L Alkaline Phosphatase 73 (39-117) U/L Lactate Dehydrogenase 174 (118-273) U/L Total Creatine Kinase (38-174) U/L Troponin I High Sens (<3.5-35.0) ng/L C-Reactive Protein 7.71 H (< or = 0.50) mg/dL Total Protein 7.0 (6.5-8.0) g/dL Albumin 3.3 L (3.5-5.0) g/dL Lipase 14 (8-78) U/L Procalcitonin 0.18 ng/mL Urine Color Urine Appearance Urine pH (5.0-8.0) Ur Specific [place] (1.005-1.025) Urine Protein (NEG-TRACE) MG/DL Urine Glucose (UA) (NEG) MG/DL Urine Ketones (NEG) MG/DL Urine Blood (NEG) Urine Nitrite (NEG) Ur Leukocyte Esterase (NEG) Urine RBC (0) /HPF Urine WBC (0-4) /HPF Ur Squamous Epith Cells /LPF Urine Bacteria /LPF Urine Mucus /LPF COVID-19 ([facility]) (Negative) COVID-19 Clin Com 09/14/20 09/14/20 09/14/20 Range/Units 20:29 20:30 20:30 WBC 16.2 H (4.8-10.8) X10*3/uL RBC 3.61 L (4.60-5.80) X10*6/uL Hgb 11.0 L (14.0-18.0) g/dl Hct 33.2 L (42-52) % MCV 92.0 (80-98) fL MCH 30.5 (27.0-33.0) pg MCHC 33.1 (31.0-36.0) g/dl RDW 13.3 (11.0-16.0) % Plt Count 226 D (160-400) X10*3/uL MPV 9.1 L (9.4-12.4) fL Immature Gran % (Auto) 0.2 (0.0-0.4) % Neut % (Auto) 82.1 H (45-73) % Lymph % (Auto) 7.9 L (20-40) % [place] % (Auto) 8.8 (2-11) % Eos % (Auto) 0.8 (0-4) % Baso % (Auto) 0.2 (0-2) % Lymph # (Auto) 1.3 (1.2-4.9) X10*3/uL [place] # (Auto) 1.4 H (0.1-1.2) X10*3/uL Eos # (Auto) 0.1 (0.0-0.4) X10*3/uL Baso # (Auto) 0.0 (0.0-0.2) X10*3/uL Abs Immat Gran (auto) 0.04 H (0.00-0.03) X10*3/uL Absolute Neuts (auto) 13.3 H (2.0-8.3) X10*3/uL Absolute Nucleated RBC 0.000 (0.0-0.012) X10*3/uL Nucleated RBC % (auto) 0.0 (0.0-0.2) /100WBC PT (10.8-13.0) SEC INR (0.9-1.1) APTT (24.1-38.0) SEC Sodium (135-145) mmol/L Potassium (3.3-5.1) mmol/L Chloride (96-108) mmol/L Carbon Dioxide (22-29) mmol/L Anion Gap (12-20) BUN (9-16) mg/dL Creatinine (0.5-1.4) mg/dL Estim Creat Clear Calc Estimated GFR Random Glucose (60-115) mg/dL Lactic Acid (0.5-2.0) mmol/L Calcium (8.4-10.2) mg/dL Magnesium (1.6-2.6) mg/dL Total Bilirubin (0.0-1.0) mg/dL Direct Bilirubin (0.0-0.5) mg/dL AST (5-37) U/L ALT (0-40) U/L Alkaline Phosphatase (39-117) U/L Lactate Dehydrogenase (118-273) U/L Total Creatine Kinase 107 (38-174) U/L Troponin I High Sens 4.6 (<3.5-35.0) ng/L C-Reactive Protein (< or = 0.50) mg/dL Total Protein (6.5-8.0) g/dL Albumin (3.5-5.0) g/dL Lipase (8-78) U/L Procalcitonin ng/mL Urine Color Urine Appearance Urine pH (5.0-8.0) Ur Specific [place] (1.005-1.025) Urine Protein (NEG-TRACE) MG/DL Urine Glucose (UA) (NEG) MG/DL Urine Ketones (NEG) MG/DL Urine Blood (NEG) Urine Nitrite (NEG) Ur Leukocyte Esterase (NEG) Urine RBC (0) /HPF Urine WBC (0-4) /HPF Ur Squamous Epith Cells /LPF Urine Bacteria /LPF Urine Mucus /LPF COVID-19 ([facility]) (Negative) COVID-19 Clin Com 09/14/20 09/14/20 09/15/20 Range/Units 21:32 21:39 00:22 WBC (4.8-10.8) X10*3/uL RBC (4.60-5.80) X10*6/uL Hgb (14.0-18.0) g/dl Hct (42-52) % MCV (80-98) fL MCH (27.0-33.0) pg MCHC (31.0-36.0) g/dl RDW (11.0-16.0) % Plt Count (160-400) X10*3/uL MPV (9.4-12.4) fL Immature Gran % (Auto) (0.0-0.4) % Neut % (Auto) (45-73) % Lymph % (Auto) (20-40) % [place] % (Auto) (2-11) % Eos % (Auto) (0-4) % Baso % (Auto) (0-2) % Lymph # (Auto) (1.2-4.9) X10*3/uL [place] # (Auto) (0.1-1.2) X10*3/uL Eos # (Auto) (0.0-0.4) X10*3/uL Baso # (Auto) (0.0-0.2) X10*3/uL Abs Immat Gran (auto) (0.00-0.03) X10*3/uL Absolute Neuts (auto) (2.0-8.3) X10*3/uL Absolute Nucleated RBC (0.0-0.012) X10*3/uL Nucleated RBC % (auto) (0.0-0.2) /100WBC PT (10.8-13.0) SEC INR (0.9-1.1) APTT (24.1-38.0) SEC Sodium (135-145) mmol/L Potassium (3.3-5.1) mmol/L Chloride (96-108) mmol/L Carbon Dioxide (22-29) mmol/L Anion Gap (12-20) BUN (9-16) mg/dL Creatinine (0.5-1.4) mg/dL Estim Creat Clear Calc Estimated GFR Random Glucose (60-115) mg/dL Lactic Acid 1.2 (0.5-2.0) mmol/L Calcium (8.4-10.2) mg/dL Magnesium (1.6-2.6) mg/dL Total Bilirubin (0.0-1.0) mg/dL Direct Bilirubin (0.0-0.5) mg/dL AST (5-37) U/L ALT (0-40) U/L Alkaline Phosphatase (39-117) U/L Lactate Dehydrogenase (118-273) U/L Total Creatine Kinase (38-174) U/L Troponin I High Sens (<3.5-35.0) ng/L C-Reactive Protein (< or = 0.50) mg/dL Total Protein (6.5-8.0) g/dL Albumin (3.5-5.0) g/dL Lipase (8-78) U/L Procalcitonin ng/mL Urine Color YELLOW Urine Appearance CLEAR Urine pH 6.5 (5.0-8.0) Ur Specific [place] 1.020 (1.005-1.025) Urine Protein NEG (NEG-TRACE) MG/DL Urine Glucose (UA) NEG (NEG) MG/DL Urine Ketones NEG (NEG) MG/DL Urine Blood TRACE (NEG) Urine Nitrite NEG (NEG) Ur Leukocyte Esterase NEG (NEG) Urine RBC 5-9 H (0) /HPF Urine WBC 1-4 (0-4) /HPF Ur Squamous Epith Cells 1+ /LPF Urine Bacteria 1+ /LPF Urine Mucus 1+ /LPF COVID-19 ([facility]) Negative (Negative) COVID-19 Clin Com See Note <Pamela Lloyd PA-C - Last Filed: 09/15/20 17:22> Lab Results 09/14/20 09/14/20 09/14/20 Range/Units 20:28 20:29 20:29 WBC (4.8-10.8) X10*3/uL RBC (4.60-5.80) X10*6/uL Hgb (14.0-18.0) g/dl Hct (42-52) % MCV (80-98) fL MCH (27.0-33.0) pg MCHC (31.0-36.0) g/dl RDW (11.0-16.0) % Plt Count (160-400) X10*3/uL MPV (9.4-12.4) fL Immature Gran % (Auto) (0.0-0.4) % Neut % (Auto) (45-73) % Lymph % (Auto) (20-40) % [place] % (Auto) (2-11) % Eos % (Auto) (0-4) % Baso % (Auto) (0-2) % Lymph # (Auto) (1.2-4.9) X10*3/uL [place] # (Auto) (0.1-1.2) X10*3/uL Eos # (Auto) (0.0-0.4) X10*3/uL Baso # (Auto) (0.0-0.2) X10*3/uL Abs Immat Gran (auto) (0.00-0.03) X10*3/uL Absolute Neuts (auto) (2.0-8.3) X10*3/uL Absolute Nucleated RBC (0.0-0.012) X10*3/uL Nucleated RBC % (auto) (0.0-0.2) /100WBC PT 14.2 H (10.8-13.0) SEC INR 1.2 H (0.9-1.1) APTT 33.5 (24.1-38.0) SEC Sodium 139 (135-145) mmol/L Potassium 4.1 (3.3-5.1) mmol/L Chloride 102 (96-108) mmol/L Carbon Dioxide 29 (22-29) mmol/L Anion Gap 12 (12-20) BUN 25 H D (9-16) mg/dL Creatinine 0.99 (0.5-1.4) mg/dL Estim Creat Clear Calc 63.1 Estimated GFR > 60 Random Glucose 125 H D (60-115) mg/dL Lactic Acid (0.5-2.0) mmol/L Calcium 9.3 D (8.4-10.2) mg/dL Magnesium 2.1 (1.6-2.6) mg/dL Total Bilirubin 0.5 (0.0-1.0) mg/dL Direct Bilirubin 0.3 (0.0-0.5) mg/dL AST 17 (5-37) U/L ALT 12 (0-40) U/L Alkaline Phosphatase 73 (39-117) U/L Lactate Dehydrogenase 174 (118-273) U/L Total Creatine Kinase (38-174) U/L Troponin I High Sens (<3.5-35.0) ng/L C-Reactive Protein 7.71 H (< or = 0.50) mg/dL Total Protein 7.0 (6.5-8.0) g/dL Albumin 3.3 L (3.5-5.0) g/dL Lipase 14 (8-78) U/L Procalcitonin 0.18 ng/mL Urine Color Urine Appearance Urine pH (5.0-8.0) Ur Specific [place] (1.005-1.025) Urine Protein (NEG-TRACE) MG/DL Urine Glucose (UA) (NEG) MG/DL Urine Ketones (NEG) MG/DL Urine Blood (NEG) Urine Nitrite (NEG) Ur Leukocyte Esterase (NEG) Urine RBC (0) /HPF Urine WBC (0-4) /HPF Ur Squamous Epith Cells /LPF Urine Bacteria /LPF Urine Mucus /LPF COVID-19 ([facility]) (Negative) COVID-19 Clin Com 09/14/20 09/14/20 09/14/20 Range/Units 20:29 20:30 20:30 WBC 16.2 H (4.8-10.8) X10*3/uL RBC 3.61 L (4.60-5.80) X10*6/uL Hgb 11.0 L (14.0-18.0) g/dl Hct 33.2 L (42-52) % MCV 92.0 (80-98) fL MCH 30.5 (27.0-33.0) pg MCHC 33.1 (31.0-36.0) g/dl RDW 13.3 (11.0-16.0) % Plt Count 226 D (160-400) X10*3/uL MPV 9.1 L (9.4-12.4) fL Immature Gran % (Auto) 0.2 (0.0-0.4) % Neut % (Auto) 82.1 H (45-73) % Lymph % (Auto) 7.9 L (20-40) % [place] % (Auto) 8.8 (2-11) % Eos % (Auto) 0.8 (0-4) % Baso % (Auto) 0.2 (0-2) % Lymph # (Auto) 1.3 (1.2-4.9) X10*3/uL [place] # (Auto) 1.4 H (0.1-1.2) X10*3/uL Eos # (Auto) 0.1 (0.0-0.4) X10*3/uL Baso # (Auto) 0.0 (0.0-0.2) X10*3/uL Abs Immat Gran (auto) 0.04 H (0.00-0.03) X10*3/uL Absolute Neuts (auto) 13.3 H (2.0-8.3) X10*3/uL Absolute Nucleated RBC 0.000 (0.0-0.012) X10*3/uL Nucleated RBC % (auto) 0.0 (0.0-0.2) /100WBC PT (10.8-13.0) SEC INR (0.9-1.1) APTT (24.1-38.0) SEC Sodium (135-145) mmol/L Potassium (3.3-5.1) mmol/L Chloride (96-108) mmol/L Carbon Dioxide (22-29) mmol/L Anion Gap (12-20) BUN (9-16) mg/dL Creatinine (0.5-1.4) mg/dL Estim Creat Clear Calc Estimated GFR Random Glucose (60-115) mg/dL Lactic Acid (0.5-2.0) mmol/L Calcium (8.4-10.2) mg/dL Magnesium (1.6-2.6) mg/dL Total Bilirubin (0.0-1.0) mg/dL Direct Bilirubin (0.0-0.5) mg/dL AST (5-37) U/L ALT (0-40) U/L Alkaline Phosphatase (39-117) U/L Lactate Dehydrogenase (118-273) U/L Total Creatine Kinase 107 (38-174) U/L Troponin I High Sens 4.6 (<3.5-35.0) ng/L C-Reactive Protein (< or = 0.50) mg/dL Total Protein (6.5-8.0) g/dL Albumin (3.5-5.0) g/dL Lipase (8-78) U/L Procalcitonin ng/mL Urine Color Urine Appearance Urine pH (5.0-8.0) Ur Specific [place] (1.005-1.025) Urine Protein (NEG-TRACE) MG/DL Urine Glucose (UA) (NEG) MG/DL Urine Ketones (NEG) MG/DL Urine Blood (NEG) Urine Nitrite (NEG) Ur Leukocyte Esterase (NEG) Urine RBC (0) /HPF Urine WBC (0-4) /HPF Ur Squamous Epith Cells /LPF Urine Bacteria /LPF Urine Mucus /LPF COVID-19 ([facility]) (Negative) COVID-19 Clin Com 09/14/20 09/14/20 09/15/20 Range/Units 21:32 21:39 00:22 WBC (4.8-10.8) X10*3/uL RBC (4.60-5.80) X10*6/uL Hgb (14.0-18.0) g/dl Hct (42-52) % MCV (80-98) fL MCH (27.0-33.0) pg MCHC (31.0-36.0) g/dl RDW (11.0-16.0) % Plt Count (160-400) X10*3/uL MPV (9.4-12.4) fL Immature Gran % (Auto) (0.0-0.4) % Neut % (Auto) (45-73) % Lymph % (Auto) (20-40) % [place] % (Auto) (2-11) % Eos % (Auto) (0-4) % Baso % (Auto) (0-2) % Lymph # (Auto) (1.2-4.9) X10*3/uL [place] # (Auto) (0.1-1.2) X10*3/uL Eos # (Auto) (0.0-0.4) X10*3/uL Baso # (Auto) (0.0-0.2) X10*3/uL Abs Immat Gran (auto) (0.00-0.03) X10*3/uL Absolute Neuts (auto) (2.0-8.3) X10*3/uL Absolute Nucleated RBC (0.0-0.012) X10*3/uL Nucleated RBC % (auto) (0.0-0.2) /100WBC PT (10.8-13.0) SEC INR (0.9-1.1) APTT (24.1-38.0) SEC Sodium (135-145) mmol/L Potassium (3.3-5.1) mmol/L Chloride (96-108) mmol/L Carbon Dioxide (22-29) mmol/L Anion Gap (12-20) BUN (9-16) mg/dL Creatinine (0.5-1.4) mg/dL Estim Creat Clear Calc Estimated GFR Random Glucose (60-115) mg/dL Lactic Acid 1.2 (0.5-2.0) mmol/L Calcium (8.4-10.2) mg/dL Magnesium (1.6-2.6) mg/dL Total Bilirubin (0.0-1.0) mg/dL Direct Bilirubin (0.0-0.5) mg/dL AST (5-37) U/L ALT (0-40) U/L Alkaline Phosphatase (39-117) U/L Lactate Dehydrogenase (118-273) U/L Total Creatine Kinase (38-174) U/L Troponin I High Sens (<3.5-35.0) ng/L C-Reactive Protein (< or = 0.50) mg/dL Total Protein (6.5-8.0) g/dL Albumin (3.5-5.0) g/dL Lipase (8-78) U/L Procalcitonin ng/mL Urine Color YELLOW Urine Appearance CLEAR Urine pH 6.5 (5.0-8.0) Ur Specific [place] 1.020 (1.005-1.025) Urine Protein NEG (NEG-TRACE) MG/DL Urine Glucose (UA) NEG (NEG) MG/DL Urine Ketones NEG (NEG) MG/DL Urine Blood TRACE (NEG) Urine Nitrite NEG (NEG) Ur Leukocyte Esterase NEG (NEG) Urine RBC 5-9 H (0) /HPF Urine WBC 1-4 (0-4) /HPF Ur Squamous Epith Cells 1+ /LPF Urine Bacteria 1+ /LPF Urine Mucus 1+ /LPF COVID-19 ([facility]) Negative (Negative) COVID-19 Clin Com See Note <Peggy Medley NP - Last Filed: 09/15/20 01:02> Imaging Data Chest x-ray: Attestation: I personally reviewed and interpreted this imaging study as follows: <Peggy Medley NP - Last Filed: 09/15/20 01:02> Radiologist's impression: EXAMINATION: CHEST 2 VIEWS CLINICAL INFORMATION: fever cough . COMPARISON: 07/07/2020. TECHNIQUE: PA and lateral views of the chest obtained. FINDINGS: Lungs well-expanded. Patchy airspace disease is seen bilaterally. Some these changes are chronic to the prior study although some are more acute appearing. Early infiltrate versus basilar atelectasis. Small bilateral pleural effusions best seen on the lateral film. No overt edema or pneumothorax. Cardiac and mediastinal silhouettes within normal limits for size. Degenerative changes in the spine and shoulders. XR/XR chest 2V IMPRESSION: Mild patchy airspace disease is seen bilaterally. Some of this is chronic from the prior study. Mild basilar atelectasis would be suspected with tiny effusions best seen on the lateral film. <Peggy Medley NP - Last Filed: 09/15/20 01:02> Discharge Plan Discharge Clinical Impression: Pneumonia Qualifiers: Pneumonia type: due to unspecified organism Laterality: bilateral Lung location: unspecified part of lung Qualified Code(s): J18.9 - Pneumonia, unspecified organism <Pamela Lloyd PA-C - Last Filed: 09/15/20 17:22> Patient Disposition: Admitted As Inpatient <Pamela Lloyd PA-C - Last Filed: 09/15/20 17:22> Interventions: Admission Worksheet (ED) Last Done: 09/15/20 08:06 <Pamela Lloyd PA-C - Last Filed: 09/15/20 17:22> Discharge Date/Time: 09/15/20 08:08 <Pamela Lloyd PA-C - Last Filed: 09/15/20 17:22>
[2020-09-14 20:38] LABS: MANUAL DIFF FLAG NO
[2020-09-14 20:42] LABS: Basophils Percent Auto 0.2 % (0-2); Eosinophils Absolute Auto 0.1 X10*3/uL (0.0-0.4); Eosinophils Percent Auto 0.8 % (0-4); Hematocrit 33.2 % (42-52); Imm Gran Abs Auto 0.04 X10*3/uL (0.00-0.03); Imm Gran Pct Auto 0.2 % (0.0-0.4); Lymphocytes Absolute Auto 1.3 X10*3/uL (1.2-4.9); Lymphocytes Percent Auto 7.9 % (20-40); Mean Corpuscular HGB Conc 33.1 g/dl (31.0-36.0); Mean Corpuscular Hemoglobin 30.5 pg (27.0-33.0); Mean Platelet Volume 9.1 fL (9.4-12.4); Monocytes Absolute Auto 1.4 X10*3/uL (0.1-1.2); Monocytes Percent Auto 8.8 % (2-11); Neutrophils Absolute Auto 13.3 X10*3/uL (2.0-8.3); Neutrophils Percent Auto 82.1 % (45-73); Platelet Count 226 X10*3/uL (160-400); Red Blood Count 3.61 X10*6/uL (4.60-5.80); Red Cell Distribution Width 13.3 % (11.0-16.0); White Blood Count 16.2 X10*3/uL (4.8-10.8)
[2020-09-14 20:49] LABS: INTERNATIONAL NORM RATIO 1.2 (0.9-1.1); Prothrombin Time 14.2 SEC (10.8-13.0)
[2020-09-14 20:51] LABS: Partial Thromboplastin Time 33.5 SEC (24.1-38.0)
[2020-09-14 21:23] LABS: Alanine Aminotransferase 12 U/L (0-40); Albumin Level 3.3 g/dL (3.5-5.0); Alkaline Phosphatase 73 U/L (39-117); Anion Gap 12 (12-20); Aspartate Amino Transferase 17 U/L (5-37); Bilirubin Direct 0.3 mg/dL (0.0-0.5); Bilirubin Total 0.5 mg/dL (0.0-1.0); Blood Urea Nitrogen 25 mg/dL (9-16); C Reactive Protein 7.71 mg/dL (< or = 0.50); Calcium 9.3 mg/dL (8.4-10.2); Carbon Dioxide 29 mmol/L (22-29); Chloride 102 mmol/L (96-108); Creatinine Clr Calc Pharmacy 63.1; Estimated Glomerular Filt Rate > 60; Glucose Random 125 mg/dL (60-115); Lactate Dehydrogenase 174 U/L (118-273); Lipase 14 U/L (8-78); Magnesium 2.1 mg/dL (1.6-2.6); Potassium 4.1 mmol/L (3.3-5.1); Sodium 139 mmol/L (135-145)
[2020-09-14 21:31] LABS: Troponin-I High Sensitivity 4.6 ng/L (<3.5-35.0)
--- NOTE | 2020-09-14 21:42 | PC.NURSE ---
iv placed to LAC, labs drawn to lab, pt to CT in stretcher and pt has been sleeping since he returned to room. COVID swab obtained.
[2020-09-14 22:00] LABS: Lactic Acid 1.2 mmol/L (0.5-2.0)
[2020-09-14 22:22] LABS: COVID-19 Test Negative (Negative); IDNOW Serial# 9DD0AD1C
[2020-09-14 22:24] LABS: Procalcitonin 0.18 ng/mL
[2020-09-14 23:46] VITALS: BP 85/65; PULSE 67; RESP 20; O2SAT 97
--- NOTE | 2020-09-14 23:59 | PC.NURSE ---
pt being [facility] at this time. sample sent to lab.
[2020-09-15] VITALS (8 sets, daily range): BP systolic 101–118; BP diastolic 54–77; PULSE 65–75; RESP 16–20; TEMP 36.3–36.9; O2SAT 90–97
[2020-09-15 00:36] LABS: Glucose Urine UA NEG (NEG); Leukocyte Esterase Urine NEG (NEG); Nitrite Urine NEG (NEG); PH 6.5 (5.0-8.0); Urine Blood TRACE (NEG); Urine Ketones NEG (NEG); Urine Protein NEG (NEG-TRACE)
[2020-09-15 00:37] LABS: Appearance Urine CLEAR; Color Urine YELLOW
[2020-09-15 00:41] LABS: Bacteria Urine 1+ /LPF; Mucus Urine 1+ /LPF; Squamous Epithelial Cell Urine 1+ /LPF
--- NOTE | 2020-09-15 06:19 | PM.IMHP ---
History of Present Illness Date of Service: 09/15/20 Chief Complaint: fever, AMS This is an 84-year-old male with past medical history of COPD, nephrolithiasis, dementia and depression who presents to the hospital from [facility] with fever and altered mentation. Patient is very hard of hearing and somewhat slightly confused and therefore unable to get much history from him. History is obtained mostly from ED PA. patient was sent due to fever of 99.6 as well as confusion. Unable to obtain much other history, review of system is difficult to obtain from patient. On arrival to the hospital patient hemodynamically stable with a temp of 99.1?, heart rate of 79, respiratory rate of 16, blood pressure 110/54, satting 94 on room air Labs are significant for WBC count of 16.2, hemoglobin of 11.0, BUN of 25, otherwise unremarkable. Chest x-ray revealed mild patchy airspace disease bilaterally Unable to obtain past medical history from patient therefore history per EMR Review of Systems Review of Systems: Yes all other systems are reviewed and are negative [facility] Medical History (Updated 09/15/20 @ 06:33 by Adrian Garrett MD) COPD (chronic obstructive pulmonary disease) Dementia Encephalopathy Hydronephrosis Leukocytosis Major depressive disorder Nephrolithiasis Pneumonia Renal colic on left side Social History Household Members: Caregiver and Other Housing: [facility] Smoking Status: Unknown if ever smoked Advance Directives: No Advance Directives Information Provided: Yes service: Yes Current occupational status: retired Meds Allergies Allergy/AdvReac Type Severity Reaction Status Date / Time No Known Allergies Allergy Verified 07/07/20 12:59 [No Known Allergies*] Home Medications Medication Instructions Recorded Confirmed Last Taken Type acetaminophen 650 mg PO BID PRN 07/07/20 07/07/20 07/07/20 History alendronate [Fosamax] 70 mg PO QWEEK 07/07/20 07/07/20 07/07/20 History cholecalciferol (vitamin D3) 25 mcg PO DAILY 07/07/20 07/07/20 07/07/20 History [Vitamin D3] docusate sodium [Colace] 100 mg PO DAILY 07/07/20 07/07/20 07/07/20 History escitalopram oxalate [Lexapro] 5 mg PO DAILY 07/07/20 07/07/20 07/07/20 History fluticasone propion-salmeterol 1 inh INHALATION BID 07/07/20 07/07/20 07/07/20 History [Advair Diskus] ipratropium bromide 1 spray INTRANASAL BID 07/07/20 07/07/20 07/07/20 History levalbuterol tartrate 2 puff INHALATION Q4H PRN 07/07/20 07/07/20 Unknown History loratadine [Claritin] 10 mg PO DAILY 07/07/20 07/07/20 07/07/20 History sennosides [senna] 8.6 mg PO BEDTIME 07/07/20 07/07/20 07/06/20 History trazodone 37.5 mg PO DAILY@1400 07/07/20 07/07/20 07/05/20 History Physical Exam Vital Signs and Narrative: Vital Signs: Last Vital Signs Temp 97.9 F 09/15/20 00:29 Pulse 65 09/15/20 06:00 Resp 18 09/15/20 06:00 BP 103/54 L 09/15/20 06:00 Pulse Ox 97 09/15/20 06:00 Body Mass Index 23.3 Const: Other: Oriented to self General: cooperative and no acute distress Eyes: General: appearance normal, both eyes and all related structures Resp: Effort & Inspection: normal respiratory effort Cardio: Rate: regular rate Rhythm: regular rhythm GI: Palpation (GI): Soft to palpation Auscultation: normal bowel sounds Skin: General skin exam: no rashes or lesions noted Neuro: Cognition (Neuro): normal cognition Extrem: General: Yes normal to inspection and Yes no pedal edema Results Labs CBC and Chem 7: 09/14/20 20:30 09/14/20 20:29 Labs: Laboratory Results - last 24 hr 09/14/20 09/14/20 09/14/20 20:28 20:29 20:29 MCV MCH MCHC RDW Plt Count MPV Immature Gran % (Auto) Neut % (Auto) Lymph % (Auto) [place] % (Auto) Eos % (Auto) Baso % (Auto) Lymph # (Auto) [place] # (Auto) Eos # (Auto) Baso # (Auto) Abs Immat Gran (auto) Absolute Neuts (auto) Absolute Nucleated RBC Nucleated RBC % (auto) PT 14.2 H INR 1.2 H APTT 33.5 Anion Gap 12 Estim Creat Clear Calc 63.1 Estimated GFR > 60 Random Glucose 125 H D Lactic Acid Calcium 9.3 D Magnesium 2.1 Total Bilirubin 0.5 Direct Bilirubin 0.3 AST 17 ALT 12 Alkaline Phosphatase 73 Lactate Dehydrogenase 174 Total Creatine Kinase Troponin I High Sens C-Reactive Protein 7.71 H Total Protein 7.0 Albumin 3.3 L Lipase 14 Procalcitonin 0.18 Urine Color Urine Appearance Urine pH Ur Specific [place] Urine Protein Urine Glucose (UA) Urine Ketones Urine Blood Urine Nitrite Ur Leukocyte Esterase Urine RBC Urine WBC Ur Squamous Epith Cells Urine Bacteria Urine Mucus COVID-19 (CECELIA) COVID-19 [employer] 09/14/20 09/14/20 09/14/20 20:29 20:30 20:30 MCV 92.0 MCH 30.5 MCHC 33.1 RDW 13.3 Plt Count 226 D MPV 9.1 L Immature Gran % (Auto) 0.2 Neut % (Auto) 82.1 H Lymph % (Auto) 7.9 L [place] % (Auto) 8.8 Eos % (Auto) 0.8 Baso % (Auto) 0.2 Lymph # (Auto) 1.3 [place] # (Auto) 1.4 H Eos # (Auto) 0.1 Baso # (Auto) 0.0 Abs Immat Gran (auto) 0.04 H Absolute Neuts (auto) 13.3 H Absolute Nucleated RBC 0.000 Nucleated RBC % (auto) 0.0 PT INR APTT Anion Gap Estim Creat Clear Calc Estimated GFR Random Glucose Lactic Acid Calcium Magnesium Total Bilirubin Direct Bilirubin AST ALT Alkaline Phosphatase Lactate Dehydrogenase Total Creatine Kinase 107 Troponin I High Sens 4.6 C-Reactive Protein Total Protein Albumin Lipase Procalcitonin Urine Color Urine Appearance Urine pH Ur Specific [place] Urine Protein Urine Glucose (UA) Urine Ketones Urine Blood Urine Nitrite Ur Leukocyte Esterase Urine RBC Urine WBC Ur Squamous Epith Cells Urine Bacteria Urine Mucus COVID-19 (CECELIA) COVID-19 [employer] 09/14/20 09/14/20 09/15/20 21:32 21:39 00:22 MCV MCH MCHC RDW Plt Count MPV Immature Gran % (Auto) Neut % (Auto) Lymph % (Auto) [place] % (Auto) Eos % (Auto) Baso % (Auto) Lymph # (Auto) [place] # (Auto) Eos # (Auto) Baso # (Auto) Abs Immat Gran (auto) Absolute Neuts (auto) Absolute Nucleated RBC Nucleated RBC % (auto) PT INR APTT Anion Gap Estim Creat Clear Calc Estimated GFR Random Glucose Lactic Acid 1.2 Calcium Magnesium Total Bilirubin Direct Bilirubin AST ALT Alkaline Phosphatase Lactate Dehydrogenase Total Creatine Kinase Troponin I High Sens C-Reactive Protein Total Protein Albumin Lipase Procalcitonin Urine Color YELLOW Urine Appearance CLEAR Urine pH 6.5 Ur Specific [place] 1.020 Urine Protein NEG Urine Glucose (UA) NEG Urine Ketones NEG Urine Blood TRACE Urine Nitrite NEG Ur Leukocyte Esterase NEG Urine RBC 5-9 H Urine WBC 1-4 Ur Squamous Epith Cells 1+ Urine Bacteria 1+ Urine Mucus 1+ COVID-19 ([facility]CELIA) Negative COVID-19 Clin Com See Note Imaging Radiologist's Impressions: Impressions Chest X-Ray 09/14/20 20:12 IMPRESSION: Mild patchy airspace disease is seen bilaterally. Some of this is chronic from the prior study. Mild basilar atelectasis would be suspected with tiny effusions best seen on the lateral film. Assessment and Plan (1) Pneumonia: Qualifiers: Laterality: bilateral Lung location: unspecified part of lung Pneumonia type: due to unspecified organism Qualified Code(s): J18.9 - Pneumonia, unspecified organism Status: Acute (2) Leukocytosis: Qualifiers: Leukocytosis type: unspecified Qualified Code(s): D72.829 - Elevated white blood cell count, unspecified Status: Acute This is an 84-year-old [facility] patient who presents to the hospital with altered mentation as well as fever found to have pneumonia. # community-acquired pneumonia - Meets CURB-65 for admission: 3 - will start him on ceftriaxone and azithromycin - no hypoxia, will monitor resp status # Leukocytosis - 2/2 pna - follow cbc # COPD - No wheezing or significant cough, or sputum production - PRN DUoNEB DVT ppx: heparin subq
--- NOTE | 2020-09-15 07:16 | PC.NURSE ---
REPORT TO TESSIE JOHNS.
--- NOTE | 2020-09-15 07:51 | PC.NURSE ---
PT'S DAUGHTER JUSTO CARUSO ([phone]) CALLED [facility] [place] AND WAS UPDATED ON PT'S STATUS. DAUGHTER IS AWARE THAT PT IS BEING ADMITTED TO HOSP.
[2020-09-15] MEDS: Heparin Sodium,Porcine 5,000 UNIT/ML VIAL 5000 UNIT SUBCUT ×2 (09:13→21:02)
[2020-09-15] MEDS: cefTRIAXone sodium 1 GM in 0.9 % Sodium Chloride 50 ML IV (09:13)
[2020-09-15] MEDS: Azithromycin 500 MG TABLET PO (09:13)
--- NOTE | 2020-09-15 09:14 | MHC.CM.PN ---
Patient is here with AMS and has a diagnosis of Dementia; CM spoke with Daughter/HCP/Ruthie @ [phone]. 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 IMM addressed with Ruthie and original is being mailed certified letter to her and a copy has been placed on the chart. Patient is primarily w/c bound.
[2020-09-15 09:21] LABS: Hematocrit 34.1 % (42-52); Hemoglobin 10.9 g/dl (14.0-18.0); Mean Corpuscular Hemoglobin 29.7 pg (27.0-33.0); Mean Corpuscular Volume 92.9 fL (80-98); Mean Platelet Volume 8.9 fL (9.4-12.4); Platelet Count 205 X10*3/uL (160-400); Red Blood Count 3.67 X10*6/uL (4.60-5.80); Red Cell Distribution Width 13.3 % (11.0-16.0); White Blood Count 10.2 X10*3/uL (4.8-10.8)
--- NOTE | 2020-09-15 09:29 | PC.NURSE ---
Upon [facility], it became known that patient requires the use of a mechanical lift to get OOB and also needs meds crushed.
--- NOTE | 2020-09-15 23:26 | PC.NURSE ---
Pt transferred from [facility] to [place] [address] around 1999. Pt alert to self, pleasant and cooperative. Pt was placed as high fall risk, camera placed in room due to confusion and attempts to swing legs over bed rail.
[2020-09-16 03:41] VITALS: BP 107/63; PULSE 80; RESP 16; TEMP 36.4; O2SAT 96
[2020-09-16 04:31] LABS: MANUAL DIFF FLAG NO
[2020-09-16 04:37] LABS: Basophils Percent Auto 0.4 % (0-2); Eosinophils Absolute Auto 0.5 X10*3/uL (0.0-0.4); Eosinophils Percent Auto 6.4 % (0-4); Hematocrit 33.1 % (42-52); Hemoglobin 10.9 g/dl (14.0-18.0); Imm Gran Abs Auto 0.02 X10*3/uL (0.00-0.03); Imm Gran Pct Auto 0.3 % (0.0-0.4); Lymphocytes Absolute Auto 1.3 X10*3/uL (1.2-4.9); Lymphocytes Percent Auto 16.8 % (20-40); Mean Corpuscular HGB Conc 32.9 g/dl (31.0-36.0); Mean Corpuscular Hemoglobin 30.5 pg (27.0-33.0); Mean Corpuscular Volume 92.7 fL (80-98); Monocytes Absolute Auto 0.9 X10*3/uL (0.1-1.2); Monocytes Percent Auto 11.1 % (2-11); Neutrophils Absolute Auto 5.1 X10*3/uL (2.0-8.3); Platelet Count 203 X10*3/uL (160-400); Red Blood Count 3.57 X10*6/uL (4.60-5.80); Red Cell Distribution Width 13.2 % (11.0-16.0); White Blood Count 7.8 X10*3/uL (4.8-10.8)
[2020-09-16 04:53] LABS: Anion Gap 10 (12-20); Blood Urea Nitrogen 20 mg/dL (9-16); Calcium 8.6 mg/dL (8.4-10.2); Carbon Dioxide 27 mmol/L (22-29); Chloride 104 mmol/L (96-108); Creatinine Clr Calc Pharmacy 74.4; Estimated Glomerular Filt Rate > 60; Glucose Random 85 mg/dL (60-115); Sodium 137 mmol/L (135-145)
[2020-09-16 08:00] VITALS: BP 113/66; PULSE 64; RESP 16; TEMP 36.7; O2SAT 95
[2020-09-16] MEDS: Heparin Sodium,Porcine 5,000 UNIT/ML VIAL 5000 UNIT SUBCUT ×2 (08:18→20:44)
--- NOTE | 2020-09-16 08:18 | P.DS_ITS ---
DS: Providers Provider Date of Service: 09/17/20 Date of admission: 09/15/20 06:19 09/17/20 Primary care physician: Unknown Physician DS: Diagnosis Discharge Diagnosis (1) Pneumonia: Status: Acute (2) Leukocytosis: Status: Acute DS: Medications Discharge Medications Home Medications: Home Medications Medication Instructions Recorded Confirmed acetaminophen 650 mg PO BID 07/07/20 09/15/20 alendronate [Fosamax] 70 mg PO WE@0630 07/07/20 09/15/20 cholecalciferol (vitamin D3) 25 mcg PO DAILY 07/07/20 09/15/20 [Vitamin D3] docusate sodium [Colace] 100 mg PO DAILY 07/07/20 09/15/20 escitalopram oxalate [Lexapro] 5 mg PO DAILY 07/07/20 09/15/20 fluticasone propion-salmeterol 1 inh INHALATION BID 07/07/20 09/15/20 [Advair Diskus] ipratropium bromide 1 spray INTRANASAL BID 07/07/20 09/15/20 levalbuterol tartrate 2 puff INHALATION Q4H PRN 07/07/20 09/15/20 loratadine [Claritin] 10 mg PO DAILY 07/07/20 09/15/20 sennosides [senna] 8.6 mg PO BEDTIME 07/07/20 09/15/20 trazodone 37.5 mg PO DAILY@1400 07/07/20 09/15/20 acetaminophen 325 mg PO Q4H PRN 09/15/20 09/15/20 bisacodyl 10 mg ND DAILY PRN 09/15/20 09/15/20 dextromethorphan-guaifenesin 10 ml PO Q6H PRN 09/15/20 09/15/20 [Guaifenesin DM] magnesium hydroxide [Milk of 30 ml PO BEDTIME PRN 09/15/20 09/15/20 Magnesia] nystatin 1 appl TOPICAL BID PRN 09/15/20 09/15/20 polyethylene glycol 3350 17 g PO DAILY 09/15/20 09/15/20 saliva stimulant comb. no.3 1 appl MUCOUS MEMBRANE Q1H PRN 09/15/20 09/15/20 [Biotene Moisturizing Mouth] saliva stimulant comb. no.3 1 appl MUCOUS MEMBRANE TID 09/15/20 09/15/20 [Biotene Moisturizing Mouth] sodium phosphates [Fleet Enema] 118 ml ND DAILY PRN 09/15/20 09/15/20 DS: Summary Hospital Course Hospital Course: Date of Admission: 09/15/20 Discharge: 09/17/2020 Chief Complaint: fever, AMS This is an 84-year-old male with past medical history of COPD, nephrolithiasis, dementia and depression who presents to the hospital from [facility] with fever and altered mentation. Patient is very hard of hearing and somewhat slightly confused and therefore unable to get much history from him. History is obtained mostly from ED PA. patient was sent due to fever of 99.6 as well as confusion. Unable to obtain much other history, review of system is difficult to obtain from patient. On arrival to the hospital patient hemodynamically stable with a temp of 99.1?, heart rate of 79, respiratory rate of 16, blood pressure 110/54, satting 94 on room air Labs are significant for WBC count of 16.2, hemoglobin of 11.0, BUN of 25, otherwise unremarkable. Chest x-ray revealed mild patchy airspace disease bilaterally Hospital course: Patient was admitted for pneumonia causing alteration in mental status and increased WBC, once initiated on IV antibiotics, he made a quick r ecovery, quicker than anticipated. His WBC has returned to normal at 7.8 down from 16. He has no respiratory distress and his oxygen saturation is 95% on room air. He has been switched to oral Augmentin for 5 more days upon discharge and to follow up with PCP within 7 days. Time Spent with Patient Time attestation: Total time spent providing and/or coordinating discharge services: Discharge coordination time: Greater than 30 minutes Physical Exam Vital Signs: Vital Signs: Last Vital Signs Body Mass Index 23.3 Selected Entries 09/17/20 07:43 Temperature 98.3 F Pulse Rate 65 Respiratory Rate 17 Blood Pressure 110/67 Pulse Oximetry 96 Oxygen Delivery Me thod Room Air General: AO X 2, no acute distress Resp: CTA bilateral CVS: S1,S2,RRR GI: +BS, NT, no distention Skin: No rash Neuro: motor grossly intact Psych: appropriate affect DS: Data Data Completed and Pending Completed studies during hospitalization [Text1]: Procedures Dilation of Left Ureter with Intraluminal Device, Via Natural or Artificial Opening Endoscopic (07/07/20) Extirpation of Matter from Left Ureter, Via Natural or Artificial Opening Endoscopic (07/07/20) Fluoroscopy of Left Kidney, Ureter and Bladder (07/07/20) Labs on day of discharge: Laboratory Results - last 24 hr 09/15/20 09/16/20 09/16/20 09:08 04:22 04:22 WBC 10.2 7.8 RBC 3.67 L 3.57 L Hgb 10.9 L 10.9 L Hct 34.1 L 33.1 L MCV 92.9 92.7 MCH 29.7 30.5 MCHC 32.0 32.9 RDW 13.3 13.2 Plt Count 205 203 MPV 8.9 L 9.0 L Immature Gran % (Auto) 0.3 Neut % (Auto) 65.0 Lymph % (Auto) 16.8 L [place] % (Auto) 11.1 H Eos % (Auto) 6.4 H Baso % (Auto) 0.4 Lymph # (Auto) 1.3 [place] # (Auto) 0.9 Eos # (Auto) 0.5 H Baso # (Auto) 0.0 Abs Immat Gran (auto) 0.02 Absolute Neuts (auto) 5.1 Absolute Nucleated RBC 0.000 0.000 Nucleated RBC % (auto) 0.0 0.0 Sodium 137 Potassium 4.0 Chloride 104 Carbon Dioxide 27 Anion Gap 10 L BUN 20 H Creatinine 0.84 Estim Creat Clear Calc 74.4 Estimated GFR > 60 Random Glucose 85 Calcium 8.6 D Preliminary micro results at discharge 09/14/20 21:32 Blood Culture - Preliminary Blood - Venous No growth after 24 hours. 09/14/20 20:29 Blood Culture - Preliminary Blood - Venous No growth after 24 hours. Discharge Plan Discharge Anticipated Discharge Date/Time: 09/17/20 09:38 Patient Disposition: Xfer SNF Referrals: [facility] [Outside] Physician,Unknown [Primary Care Provider] - Discharge Medications: New amoxicillin-pot clavulanate 875-125 mg Tablet 875 mg PO Q12H Qty: 10 RF: 0 Continued fluticasone propion-salmeterol [Advair Diskus] 250-50 mcg/dose Blister With Device 1 inh INHALATION BID RF: 0 sennosides [senna] 8.6 mg Tablet 8.6 mg PO BEDTIME RF: 0 acetaminophen 325 mg Tablet 650 mg PO BID RF: 0 trazodone 50 mg Tablet 37.5 mg PO DAILY@1400 RF: 0 alendronate [Fosamax] 70 mg Tablet 70 mg PO WE@0630 RF: 0 docusate sodium [Colace] 100 mg Capsule 100 mg PO DAILY RF: 0 ipratropium bromide 42 mcg (0.06 %) [place],Non-Aerosol 1 spray INTRANASAL BID RF: 0 loratadine [Claritin] 10 mg Tablet 10 mg PO DAILY RF: 0 escitalopram oxalate [Lexapro] 5 mg Tablet 5 mg PO DAILY RF: 0 levalbuterol tartrate 45 mcg/actuation Hfa Aerosol Inhaler 2 puff INHALATION Q4H PRN (Reason: Shortness Of Breath Or Wheezing) RF: 0 cholecalciferol (vitamin D3) [Vitamin D3] 25 mcg (1,000 unit) Tablet 25 mcg PO DAILY RF: 0 acetaminophen 325 mg Tablet 325 mg PO Q4H PRN (Reason: pain/fever) RF: 0 dextromethorphan-guaifenesin 10-100 mg/5 mL Syrup 10 ml PO Q6H PRN (Reason: Cough) RF: 0 magnesium hydroxide [Milk of Magnesia] 400 mg/5 mL Suspension 30 ml PO BEDTIME PRN (Reason: Constipation) RF: 0 bisacodyl 10 mg Suppository 10 mg ND DAILY PRN (Reason: Constipation) RF: 0 Fleet Enema 19-7 gram/118 mL Enema 118 ml ND DAILY PRN (Reason: Constipation) RF: 0 nystatin 100,000 unit/gram Powder 1 appl TOPICAL BID PRN (Reason: Rash) RF: 0 Biotene Moisturizing Mouth [place],Non-Aerosol 1 appl MUCOUS MEMBRANE TID RF: 0 polyethylene glycol 3350 17 gram powder in packet 17 g PO DAILY RF: 0 Biotene Moisturizing Mouth [place],Non-Aerosol 1 appl MUCOUS MEMBRANE Q1H PRN (Reason: Dry Mouth) RF: 0 Discharge Orders: Discharge Order (Routine); Ordered 09/17/20 Ordered By: Lavell Barclay Diet: advance to usual diet Activity on Discharge: As tolerated Stand Alone Forms: Patient Portal Discharge page Care Plan Goals: Full recovery from pneumonia. Health Concerns: Pneumonia Plan of Treatment: Take Augmentin as recommended and follow up with her primary care doctor within a week, call for appointment.
--- NOTE | 2020-09-16 09:38 | HO.PM.IMPN ---
Subjective Subjective Date of Service: 09/16/20 Interval History: Seen in f/u for PNA. doing well. No sob. No cough Review of Systems Gen: no fever Resp: no sob, no cough CV: no chest, no CARR, no leg edema GI: No n/v, no abd pain Neuro: No confusion Physical Exam Vital Signs: Vital Signs: Last Vital Signs Temp 98.3 F 09/17/20 07:43 Pulse 65 09/17/20 07:43 Resp 17 09/17/20 07:43 BP 110/67 09/17/20 07:43 Pulse Ox 96 09/17/20 07:43 Body Mass Index 23.3 Objective Data Current Medications Generic Name Dose Route Start Last Admin Trade Name Freq PRN Reason Stop Dose Admin Acetaminophen 650 mg 09/15/20 07:45 Acetaminophen 325 Mg Tablet PO Q6H PRN Pain, Mild (Pain Scale 1-3) Amoxicillin/Clavulanate Potassium 875 mg 09/16/20 09:00 09/17/20 07:57 Amoxicillin/Potassium Clav 875 Mg Tablet PO 875 mg Q12H GERALDO Administration Docusate Sodium 100 mg 09/15/20 07:45 Docusate Sodium 100 Mg Capsule PO DAILY PRN Constipation Heparin Sodium (Porcine) 5,000 unit 09/15/20 07:45 09/17/20 07:55 Heparin Sodium,Porcine 5,000 Unit/Ml Vial SUBCUT 5,000 unit Q12H GERALDO Administration Ondansetron HCl 4 mg 09/15/20 07:45 Ondansetron Hcl 4 Mg/2 Ml Vial IVPUSH Q8H PRN Nausea and Vomiting Labs CBC & Chem 7: 09/16/20 04:22 09/16/20 04:22 Microbiology Microbiology Results: Microbiology 09/14/20 21:32 Blood - Venous Blood Culture - Preliminary No growth after 48 hours. 09/14/20 20:29 Blood - Venous Blood Culture - Preliminary No growth after 48 hours. Assessment and Plan (1) Pneumonia: Status: Acute (2) Leukocytosis: Status: Acute Assessment and Plan: 84-year-old [facility] patient who presents to the hospital with altered mentation as well as fever found to have pneumonia. # community-acquired pneumonia w/ no hypoxia, change to PO Augmentin # Leukocytosis - 2/2 pna - resolved # COPD - No wheezing or significant cough, or sputum production - PRN DUoNEB DVT ppx: heparin subq
[2020-09-16] MEDS: Amoxicillin/Potassium Clav 875 MG TABLET PO ×2 (10:20→20:44)
[2020-09-16 12:00] VITALS: BP 129/66; RESP 18; TEMP 36.5; O2SAT 97
[2020-09-16 15:47] VITALS: BP 134/74; PULSE 69; RESP 18; TEMP 36.8; O2SAT 95
[2020-09-16 19:41] VITALS: BP 121/70; PULSE 71; RESP 20; TEMP 36.6; O2SAT 94
[2020-09-16 23:58] VITALS: BP 120/63; PULSE 70; RESP 18; TEMP 36.3; O2SAT 94
[2020-09-17 04:00] VITALS: BP 120/57; PULSE 67; RESP 18; TEMP 36.2; O2SAT 95
[2020-09-17 07:43] VITALS: BP 110/67; PULSE 65; RESP 17; TEMP 36.8; O2SAT 96
[2020-09-17] MEDS: Heparin Sodium,Porcine 5,000 UNIT/ML VIAL 5000 UNIT SUBCUT (07:55)
[2020-09-17] MEDS: Amoxicillin/Potassium Clav 875 MG TABLET PO (07:57)
--- NOTE | 2020-09-17 11:32 | MHC.CM.PN ---
NURSE PROVIDER ENROLLMENT SPECIALIST NOTE ELECTRONIC MEDICAL RECORD REVIEWED ALONG WITH CASE DISCUSSED ON MULTIPLE DISCIPLINARY ROUNDS , PATIENT WILL BE DISCHARGED TODAY TO THE [address] HE IS AWARE OF THIS, I SPOKE WITH SHABNAM THEIR NURSING WOODYARD OPERATOR WITH UPDATE CLINICALS FAXED TO HIM [phone] SPoKE WITH STAFF NURSE, CALLED TO PATIENTS DAUGHTER JUSTO [phone] SHE WAS AT WORK ANBD I SPOKE WITH HER CAN INFOrmING HIM F PATIENTS DISCHARGE TODAY AND ROUTE/TIME OF TRANSPORT. DISCHARGE P[LEILANI RETURN BACK TO THE [facility] CONFIRMED WITH NURSING WOODYARD OPERATOR SHABNAM RICK AND CLINICAL UPDATE FAXED TO HIM, CONFIRMED TRANSPORT TIME AT 13;00 today . referral to action bls today 13;00
== END 2020-09-17 13:32 | disposition skilled nursing facility (03) | DRG 194 ==
LOC: HO.ED 09-15 06:23 → HO.EDOVER 09-15 06:26 → HO.IMC 09-15 06:39 → HO.S3 09-15 18:23
PROVIDERS: Physician Assistant; Admitting Provider Internal Medicine; Emergency Provider Emergency Medicine; PCP Family Medicine; Visit Provider Internal Medicine
DX: J18.9 Pneumonia, unspecified organism (principal); J44.0 Chronic obstructive pulmonary disease with (acute) lower respiratory infection; D72.829 Elevated white blood cell count, unspecified; Z20.822 Contact with and (suspected) exposure to COVID-19; F03.90 Unspecified dementia, unspecified severity, without behavioral disturbance, psychotic disturbance, mood disturbance, and anxiety; Z87.442 Personal history of urinary calculi; Z87.891 Personal history of nicotine dependence; Z79.52 Long term (current) use of systemic steroids; Z79.899 Other long term (current) drug therapy
CPT/HCPCS: 36415; 71046; 80048; 80076; 81001; 82550; 83605; 83615; 83690; 83735; 84145; 84484; 85025; 85027; 85610; 85730; 86140; 87040; 87635; 96365; 97162; 99285; J0696

== ENCOUNTER 2021-01-13 17:09 | Outpatient (REF) | payer MEDICARE, OTHER, SELFPAY ==
[2021-01-13 17:20] LABS: MANUAL DIFF FLAG NO
[2021-01-13 17:23] LABS: Basophils Percent Auto 0.2 % (0-2); Eosinophils Absolute Auto 0.1 X10*3/uL (0.0-0.4); Eosinophils Percent Auto 0.5 % (0-4); Hematocrit 36.7 % (42-52); Hemoglobin 12.3 g/dl (14.0-18.0); Imm Gran Abs Auto 0.06 X10*3/uL (0.00-0.03); Imm Gran Pct Auto 0.5 % (0.0-0.4); Lymphocytes Absolute Auto 0.8 X10*3/uL (1.2-4.9); Mean Corpuscular HGB Conc 33.5 g/dl (31.0-36.0); Mean Corpuscular Hemoglobin 31.2 pg (27.0-33.0); Mean Corpuscular Volume 93.1 fL (80-98); Mean Platelet Volume 9.6 fL (9.4-12.4); Monocytes Percent Auto 7.8 % (2-11); Neutrophils Absolute Auto 11.1 X10*3/uL (2.0-8.3); Platelet Count 177 X10*3/uL (160-400); Red Blood Count 3.94 X10*6/uL (4.60-5.80); Red Cell Distribution Width 13.6 % (11.0-16.0); White Blood Count 13.1 X10*3/uL (4.8-10.8)
[2021-01-13 17:54] LABS: Anion Gap 14 (12-20); Blood Urea Nitrogen 27 mg/dL (9-16); Calcium 8.9 mg/dL (8.4-10.2); Carbon Dioxide 25 mmol/L (22-29); Chloride 102 mmol/L (96-108); Estimated Glomerular Filt Rate 55; Glucose Random 138 mg/dL (60-115); Potassium 3.9 mmol/L (3.3-5.1); Sodium 137 mmol/L (135-145)
== END 2021-01-13 17:10 | disposition home or self-care (01) ==
LOC: HO.HSH3N 17:09
PROVIDERS: Visit Provider Nurse Practitioner Acute Care
DX: Z13.89 Encounter for screening for other disorder (principal)
CPT/HCPCS: 36415; 80048; 85025

== ENCOUNTER 2021-01-13 21:45 | Outpatient (REF) | payer MEDICARE, OTHER, SELFPAY ==
[2021-01-14 08:27] LABS: Glucose Urine UA NEG (NEG); Leukocyte Esterase Urine NEG (NEG); Nitrite Urine NEG (NEG); Urine Blood NEG (NEG); Urine Ketones 5 MG/DL (NEG); Urine Protein TRACE MG/DL (NEG-TRACE)
[2021-01-14 08:28] LABS: Appearance Urine CLEAR; Color Urine YELLOW
== END 2021-01-13 21:46 | disposition home or self-care (01) ==
LOC: HO.HSH3N 21:45
PROVIDERS: Visit Provider Nurse Practitioner Acute Care
DX: N39.0 Urinary tract infection, site not specified (principal)
CPT/HCPCS: 36415; 80048; 81003; 85025

== ENCOUNTER 2021-01-31 10:21 | Inpatient (IN) | payer MEDICARE, OTHER, SELFPAY ==
[2021-01-31] VITALS (9 sets, daily range): BP systolic 99–119; BP diastolic 35–62; PULSE 77–99; RESP 16–19; TEMP 37.1–39; O2SAT 90–98; BMI 23.0; BMI 23.7
--- NOTE | 2021-01-31 | ECG_ITS ---
Test Reason : SEPSIS Blood Pressure : / mmHG Vent. Rate : 094 BPM Atrial Rate : 094 BPM P-R Int : 176 ms QRS Dur : 076 ms QT Int : 354 ms P-R-T Axes : 073 048 069 degrees QTc Int : 442 ms Sinus rhythm with Premature supraventricular complexes Otherwise normal ECG When compared with ECG of 07-JUL-2020 13:26, Premature supraventricular complexes are now Present Referred By: Anton Edmonds Electronically Signed By:LINDA DELATORRE
--- NOTE | ~2021-01-31 | XR_ITS ---
EXAMINATION: XR CHEST CLINICAL INFORMATION: Left-sided opacity COMPARISON: January 31, 2021, September 14, 2020, and CT scan of July 07, 2020. TECHNIQUE: AP portable view of the chest was obtained. FINDINGS: There is again noted to be a region of parenchymal disease within the left lower lobe which is mildly more prominent than on prior study where the retrocardiac region appears denser and there is partial obscuration of the medial aspect of the left hemidiaphragm. Heart normal size. No evidence of pulmonary edema. No pneumothorax or significant pleural effusion. XR/XR chest 1V IMPRESSION: Persistent left lower lobe disease which appears slightly more prominent than prior study of January 31, 2021
--- NOTE | ~2021-01-31 | XR_ITS ---
EXAMINATION: XR CHEST CLINICAL INFORMATION: Fever COMPARISON: Previous chest x-ray most recent September 2020 TECHNIQUE: Frontal view of the chest was obtained. FINDINGS: The cardiac and mediastinal contours are stable. The lungs are well-inflated suggestive of COPD. There is biapical pleural thickening. There is a left perihilar airspace disease probably representing pneumonia. The right lung is clear. There is no pleural effusion or pneumothorax. There are degenerative changes of the spine and curvature of the midthoracic spine to the right. XR/XR chest 1V IMPRESSION: Left perihilar airspace disease probably representing pneumonia.
--- NOTE | 2021-01-31 11:23 | PC.NURSE ---
iv inserted, labs drawn, field software engineer applied-nsr with occasional pvcs 80s, hob 30 degrees, 2l o2 nc, ruiz swab performed, will continue to monitor
[2021-01-31 11:27] LABS: Basophils Percent Auto 0.2 % (0-2); Eosinophils Percent Auto 0.2 % (0-4); Hemoglobin 13.8 g/dl (14.0-18.0); Imm Gran Abs Auto 0.04 X10*3/uL (0.00-0.03); Imm Gran Pct Auto 0.3 % (0.0-0.4); Lymphocytes Absolute Auto 0.5 X10*3/uL (1.2-4.9); Lymphocytes Percent Auto 3.5 % (20-40); MANUAL DIFF FLAG SCAN; Mean Corpuscular HGB Conc 33.7 g/dl (31.0-36.0); Mean Corpuscular Hemoglobin 31.1 pg (27.0-33.0); Mean Corpuscular Volume 92.3 fL (80-98); Monocytes Absolute Auto 0.6 X10*3/uL (0.1-1.2); Monocytes Percent Auto 4.3 % (2-11); Neutrophils Absolute Auto 11.6 X10*3/uL (2.0-8.3); Neutrophils Percent Auto 91.5 % (45-73); Platelet Count 218 X10*3/uL (160-400); Red Blood Count 4.44 X10*6/uL (4.60-5.80); Red Cell Distribution Width 13.4 % (11.0-16.0); SCAN SMEAR FLAG 1; White Blood Count 12.7 X10*3/uL (4.8-10.8)
--- NOTE | 2021-01-31 11:28 | PC.NURSE ---
daughter/hcp phone number jennifer- [phone]- daughter wishes to be called with an update
[2021-01-31 11:45] LABS: COVID-19 Test Negative (Negative); IDNOW Serial# 08D9AD1C
[2021-01-31 11:47] LABS: Lactic Acid 1.8 mmol/L (0.5-2.0)
[2021-01-31 11:48] LABS: Alanine Aminotransferase 11 U/L (0-40); Albumin Level 3.7 g/dL (3.5-5.0); Alkaline Phosphatase 92 U/L (39-117); Anion Gap 12 (12-20); Aspartate Amino Transferase 15 U/L (5-37); Bilirubin Direct 0.5 mg/dL (0.0-0.5); Bilirubin Total 1.1 mg/dL (0.0-1.0); Blood Urea Nitrogen 20 mg/dL (9-16); Calcium 9.5 mg/dL (8.4-10.2); Carbon Dioxide 28 mmol/L (22-29); Chloride 104 mmol/L (96-108); Estimated Glomerular Filt Rate > 60; Glucose Random 94 mg/dL (60-115); Lipase 13 U/L (8-78); Potassium 4.4 mmol/L (3.3-5.1); Sodium 140 mmol/L (135-145); Total Protein 7.7 g/dL (6.5-8.0)
[2021-01-31 11:51] LABS: Troponin-I High Sensitivity 3.5 ng/L (<3.5-35.0)
[2021-01-31] MEDS: 0.9 % Sodium Chloride 1,000 ML 999 ML IV ×2 (11:55→12:55)
--- NOTE | 2021-01-31 12:22 | PHA.MEDREC ---
Pharmacy Consult ? Medication Reconciliation Pharmacy has completed the medication reconciliation.
[2021-01-31] MEDS: Azithromycin 500 MG in 0.9 % Sodium Chloride 250 ML 125 MG IV (12:34)
[2021-01-31] MEDS: Acetaminophen Supp 650 MG SUPP.RECT PR (12:34)
[2021-01-31] MEDS: Albuterol/Iprat 2.5/0.5MG 3 ML AMPUL.NEB INHALE (13:13)
[2021-01-31 13:14] LABS: SLIDE REVIEW VERIFIED
[2021-01-31] MEDS: methylPREDNISolone Sod Succ 125 MG/2 ML VIAL IVPUSH (13:44)
[2021-01-31] MEDS: Magnesium Sulfate/H2O 2 GM/50 ML PIGGYBACK IV (13:47)
--- NOTE | 2021-01-31 15:32 | ED_ITS ---
HPI - General Adult General Chief complaint: Fever Stated complaint: N/V/FEVER Time Seen by Provider: 01/31/21 11:15 Source: patient Mode of arrival: ambulatory Limitations: no limitations History of Present Illness HPI narrative: Patient sent to the ED for hypoxia, fever and Nephrology. Patient was recently being treated for right-sided pneumonia with Augmentin. Patient himself cannot give any history. Related Data Home Medications Medication Instructions Recorded Confirmed acetaminophen 650 mg PO BID 07/07/20 01/31/21 alendronate [Fosamax] 70 mg PO WE@0630 07/07/20 01/31/21 cholecalciferol (vitamin D3) 25 mcg PO DAILY 07/07/20 01/31/21 [Vitamin D3] docusate sodium [Colace] 100 mg PO DAILY 07/07/20 01/31/21 escitalopram oxalate [Lexapro] 5 mg PO DAILY 07/07/20 01/31/21 fluticasone propion-salmeterol 1 inh INHALATION BID 07/07/20 01/31/21 [Advair Diskus] ipratropium bromide 1 spray INTRANASAL BID 07/07/20 01/31/21 levalbuterol tartrate 2 puff INHALATION Q4H PRN 07/07/20 01/31/21 loratadine [Claritin] 10 mg PO DAILY 07/07/20 01/31/21 sennosides [senna] 8.6 mg PO BEDTIME 07/07/20 01/31/21 trazodone 37.5 mg PO DAILY 07/07/20 01/31/21 Fleet Enema 118 ml [place] DAILY PRN 09/15/20 01/31/21 acetaminophen 325 mg PO Q4H PRN 09/15/20 01/31/21 bisacodyl 10 mg [place] DAILY PRN 09/15/20 01/31/21 dextromethorphan-guaifenesin 10 ml PO Q6H PRN 09/15/20 01/31/21 magnesium hydroxide [Milk of 30 ml PO BEDTIME PRN 09/15/20 01/31/21 Magnesia] nystatin 1 appl TOPICAL BID PRN 09/15/20 01/31/21 polyethylene glycol 3350 17 g PO DAILY 09/15/20 01/31/21 Allergies Allergy/AdvReac Type Severity Reaction Status Date / Time diazepam Allergy Unknown Verified 09/15/20 09:28 lidocaine Allergy Unknown Verified 09/15/20 09:28 lisinopril Allergy Unknown Verified 09/15/20 09:28 Review of Systems Review of Systems: Dementia [facility] Past Medical History Medical History COPD (chronic obstructive pulmonary disease) Dementia Encephalopathy Hydronephrosis Leukocytosis Major depressive disorder Nephrolithiasis Pneumonia Renal colic on left side Social History Social History Household Members: Unknown / Unable to assess Household Members Other:: snf Housing: Skilled Nursing Housing Other:: 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 home Do you presently have visiting nurse or other home services: No Advance Directives: Yes Advance Directives on File: Yes Advance Directives Date on File: 07/08/20 service: Yes Current occupational status: retired Physical Exam Vital Signs: Vital Signs: Last Vital Signs Temp 98.8 F 01/31/21 16:00 Pulse 91 01/31/21 16:00 Resp 18 01/31/21 16:15 BP 99/61 01/31/21 16:15 Pulse Ox 95 01/31/21 16:15 Oxygen Flow Rate 1 01/31/21 10:48 Body Mass Index 23.0 Const: Other: Looks sick Orientation/consciousness: patient oriented x3 HENMT: Head: Yes normal to inspection, Yes No palpable skull fracture present, Yes normocephalic, Yes atraumatic and No abrasion Eyes: General: appearance normal, both eyes and all related structures Neck: Neck: Yes normal visual inspection, Yes full ROM, Yes no ly mphadenopathy, Yes no meningeal signs, Yes trachea midline, Yes supple and No tender Chest: Chest palpation & inspection: normal inspection of the chest and normal palpation of entire chest wall Resp: Other: Dementia Effort & Inspection: normal respiratory effort Auscultation: diminished lung sounds Cardio: Jugular venous distension: no JVD Heart sounds: S1 normal heart sound present and S2 normal heart sound present GI: Inspection: Yes normal to inspection and No abdominal wall ecchymosis Palpation (GI): Soft to palpation, not firm, nontender, no guarding and not rigid : General: No CVA tenderness and Yes no CVA tenderness Back/Spine/Pelvis: Back: no CVA tenderness, No CVA tenderness and No back tenderness Skin: General skin exam: no rashes or lesions noted and elasticity normal Neuro: General: patient oriented x3, gait normal, no meningeal signs and CN's II-XI intact bilaterally Cranial nerves: Yes CN's II-XII intact bilaterally Extrem: Other: Lower extremities negative for swelling, pitting edema, calf tenderness Psych: Appearance: grossly normal, well kempt and not disheveled Course Course Course Narrative: Patient is hypoxic will be placed on nasal cannula 3 L. patient will have medical evaluation Reevaluation(s) Reevaluation #1: Chest x-ray now shows left-sided pneumonia. Patient's troponin negative. Patient's COVID swab came back negative. Patient started on antibiotics, magnesium, Solu-Medrol, and albuterol. Admitted for pneumonia COPD exacerbation Time: 11:15 Reevaluation #2: Case presented to hospitalist Dr. Barclay who accepted admission. Time: 17:14 Medical Decision Making MDM Narrative Medical decision making narrative: Pneumonia COPD exacerbation Lab Data Result diagrams: 01/31/21 11:15 01/31/21 11:15 Labs: Lab Results 01/31/21 01/31/21 01/31/21 Range/Units 11:15 11:15 11:15 WBC 12.7 H (4.8-10.8) X10*3/uL RBC 4.44 L (4.60-5.80) X10*6/uL Hgb 13.8 L (14.0-18.0) g/dl Hct 41.0 L (42-52) % MCV 92.3 (80-98) fL MCH 31.1 (27.0-33.0) pg MCHC 33.7 (31.0-36.0) g/dl RDW 13.4 (11.0-16.0) % Plt Count 218 (160-400) X10*3/uL MPV 9.0 L (9.4-12.4) fL Immature Gran % (Auto) 0.3 (0.0-0.4) % Neut % (Auto) 91.5 H (45-73) % Lymph % (Auto) 3.5 L (20-40) % [place] % (Auto) 4.3 (2-11) % Eos % (Auto) 0.2 (0-4) % Baso % (Auto) 0.2 (0-2) % Lymph # (Auto) 0.5 L (1.2-4.9) X10*3/uL [place] # (Auto) 0.6 (0.1-1.2) X10*3/uL Eos # (Auto) 0.0 (0.0-0.4) X10*3/uL Baso # (Auto) 0.0 (0.0-0.2) X10*3/uL Abs Immat Gran (auto) 0.04 H (0.00-0.03) X10*3/uL Absolute Neuts (auto) 11.6 H (2.0-8.3) X10*3/uL Absolute Nucleated RBC 0.000 (0.0-0.012) X10*3/uL Nucleated RBC % (auto) 0.0 (0.0-0.2) /100WBC Smear Tech's Comments VERIFIED Sodium 140 (135-145) mmol/L Potassium 4.4 (3.3-5.1) mmol/L Chloride 104 (96-108) mmol/L Carbon Dioxide 28 (22-29) mmol/L Anion Gap 12 (12-20) BUN 20 H (9-16) mg/dL Creatinine 1.00 (0.5-1.4) mg/dL Estim Creat Clear Calc 61.0 Estimated GFR > 60 Random Glucose 94 (60-115) mg/dL Lactic Acid (0.5-2.0) mmol/L Calcium 9.5 D (8.4-10.2) mg/dL Total Bilirubin 1.1 H (0.0-1.0) mg/dL Direct Bilirubin 0.5 (0.0-0.5) mg/dL AST 15 (5-37) U/L ALT 11 (0-40) U/L Alkaline Phosphatase 92 D (39-117) U/L Troponin I High Sens 3.5 (<3.5-35.0) ng/L Total Protein 7.7 (6.5-8.0) g/dL Albumin 3.7 (3.5-5.0) g/dL Lipase 13 (8-78) U/L COVID-19 ([facility]) (Negative) COVID-19 Clin Com 01/31/21 01/31/21 Range/Units 11:15 11:20 WBC (4.8-10.8) X10*3/uL RBC (4.60-5.80) X10*6/uL Hgb (14.0-18.0) g/dl Hct (42-52) % MCV (80-98) fL MCH (27.0-33.0) pg MCHC (31.0-36.0) g/dl RDW (11.0-16.0) % Plt Count (160-400) X10*3/uL MPV (9.4-12.4) fL Immature Gran % (Auto) (0.0-0.4) % Neut % (Auto) (45-73) % Lymph % (Auto) (20-40) % [place] % (Auto) (2-11) % Eos % (Auto) (0-4) % Baso % (Auto) (0-2) % Lymph # (Auto) (1.2-4.9) X10*3/uL [place] # (Auto) (0.1-1.2) X10*3/uL Eos # (Auto) (0.0-0.4) X10*3/uL Baso # (Auto) (0.0-0.2) X10*3/uL Abs Immat Gran (auto) (0.00-0.03) X10*3/uL Absolute Neuts (auto) (2.0-8.3) X10*3/uL Absolute Nucleated RBC (0.0-0.012) X10*3/uL Nucleated RBC % (auto) (0.0-0.2) /100WBC Smear Tech's Comments Sodium (135-145) mmol/L Potassium (3.3-5.1) mmol/L Chloride (96-108) mmol/L Carbon Dioxide (22-29) mmol/L Anion Gap (12-20) BUN (9-16) mg/dL Creatinine (0.5-1.4) mg/dL Estim Creat Clear Calc Estimated GFR Random Glucose (60-115) mg/dL Lactic Acid 1.8 (0.5-2.0) mmol/L Calcium (8.4-10.2) mg/dL Total Bilirubin (0.0-1.0) mg/dL Direct Bilirubin (0.0-0.5) mg/dL AST (5-37) U/L ALT (0-40) U/L Alkaline Phosphatase (39-117) U/L Troponin I High Sens (<3.5-35.0) ng/L Total Protein (6.5-8.0) g/dL Albumin (3.5-5.0) g/dL Lipase (8-78) U/L COVID-19 ([facility]) Negative (Negative) COVID-19 Clin Com See Note ECG Data Interpretation: Sinus rhythm with PVCs. Ventricular rate 94. Pr interval 176. Care at 76. QTC 442. Negative STEMI Critical Care Time Critical Care Time Critical Care Time: Yes Total Critical Care Time: 60 Attestation: Hypoxic. Given fluids. Antibiotics. And COPD meds Discharge Plan Discharge Clinical Impression: Pneumonia, COPD exacerbation Patient Disposition: Admitted As Inpatient
--- NOTE | 2021-01-31 15:53 | PM.IMHP ---
History of Present Illness Date of Service: 01/31/21 Chief Complaint: ams, fever 85[facility], who was being treated for aspiration pneumonia was sent to ED for AMS, fever, hypoxia of 74% on rooms air. patient himself is obtunded and unable to give history. he had pneumonia 01-13-21 and had been treated with augmentin. he has dysphagia on pureed and thin liquid diet. in ED noted to be hypoxic, febrile to 102, cxr with Left perihilar space disease. given rocephin and azithro. Review of Systems Review of Systems: unable to obtain due to ams [facility] Medical History COPD (chronic obstructive pulmonary disease) Dementia Encephalopathy Hydronephrosis Leukocytosis Major depressive disorder Nephrolithiasis Pneumonia Renal colic on left side Family history: reviewed and not pertinent Social History Household Members: Unknown / Unable to assess Household Members Other:: snf Housing: [facility] Housing Other:: [facility] home Do you presently have visiting nurse or other home services: No Advance Directives: Yes Advance Directives on File: Yes Advance Directives Date on File: 07/08/20 service: Yes Current occupational status: retired Meds Allergies Allergy/AdvReac Type Severity Reaction Status Date / Time diazepam Allergy Unknown Verified 09/15/20 09:28 lidocaine Allergy Unknown Verified 09/15/20 09:28 lisinopril Allergy Unknown Verified 09/15/20 09:28 Active Medications: Current Medications Generic Name Dose Route Start Last Admin Trade Name Freq PRN Reason Stop Dose Admin Acetaminophen 650 mg 01/31/21 15:48 Acetaminophen 325 Mg Tablet PO Q6H PRN Pain, Mild (Pain Scale 1-3) Enoxaparin Sodium 40 mg 01/31/21 16:00 Enoxaparin Sodium 40 Mg/0.4 Ml Syringe SUBCUT Q24H [facility] Escitalopram Oxalate 5 mg 02/01/21 09:00 Escitalopram Oxalate 5 Mg Tablet PO DAILY [facility] Fluticasone/Vilanterol 1 puff 02/01/21 08:00 Fluticasone/Vilanterol 100/25 Blst.W.Dev INHALE RDAILY [facility] Ceftriaxone Sodium 1 gm/ 50 mls @ 100 mls/hr 02/01/21 07:00 Sodium Chloride IV Q24H [facility] Dextrose/Sodium Chloride 1,000 mls @ 70 mls/hr 01/31/21 16:00 D51/2ns IVCONT .[id number] [facility] Loratadine 10 mg 02/01/21 09:00 Loratadine 10 Mg Tablet PO DAILY [facility] Pharmacy Consult 1 each 01/31/21 11:45 Consult Rx Perform Med Rec MISCELLANE ONCE PRN Consult order Polyethylene Glycol 17 gm 02/01/21 09:00 Polyethylene Glycol 3350 17 Gm Powd.Pack PO DAILY [facility] Sodium Chloride 3 ml 01/31/21 16:00 0.9 % Sodium Chloride Flush 3 Ml Syringe IVFLUSH QSHIFT [facility] Trazodone HCl 37.5 mg 02/01/21 09:00 Trazodone Hcl 50 Mg Tablet PO DAILY [facility] Home Medications Medication Instructions Recorded Confirmed Last Taken Type acetaminophen 650 mg PO BID 07/07/20 01/31/21 01/31/21 History alendronate [Fosamax] 70 mg PO WE@0630 07/07/20 01/31/21 01/26/21 History cholecalciferol (vitamin D3) 25 mcg PO DAILY 07/07/20 01/31/21 01/31/21 History [Vitamin D3] docusate sodium [Colace] 100 mg PO DAILY 07/07/20 01/31/21 01/31/21 History escitalopram oxalate [Lexapro] 5 mg PO DAILY 07/07/20 01/31/21 01/31/21 History fluticasone propion-salmeterol 1 inh INHALATION BID 07/07/20 01/31/21 01/30/21 History [Advair Diskus] ipratropium bromide 1 spray INTRANASAL BID 07/07/20 01/31/21 01/30/21 History levalbuterol tartrate 2 puff INHALATION Q4H PRN 07/07/20 01/31/21 Unknown History loratadine [Claritin] 10 mg PO DAILY 07/07/20 01/31/21 01/31/21 History sennosides [senna] 8.6 mg PO BEDTIME 07/07/20 01/31/21 01/30/21 History trazodone 37.5 mg PO DAILY 07/07/20 01/31/21 01/30/21 History Fleet Enema 118 ml [place] DAILY PRN 09/15/20 01/31/21 Unknown History acetaminophen 325 mg PO Q4H PRN 09/15/20 01/31/21 Unknown History bisacodyl 10 mg [place] DAILY PRN 09/15/20 01/31/21 Unknown History dextromethorphan-guaifenesin 10 ml PO Q6H PRN 09/15/20 01/31/21 Unknown History magnesium hydroxide [Milk of 30 ml PO BEDTIME PRN 09/15/20 01/31/21 Unknown History Magnesia] nystatin 1 appl TOPICAL BID PRN 09/15/20 01/31/21 Unknown History polyethylene glycol 3350 17 g PO DAILY 09/15/20 01/31/21 01/31/21 History Physical Exam Vital Signs and Narrative: Vital Signs: Last Vital Signs Temp 99.4 F 01/31/21 13:50 Pulse 99 01/31/21 13:50 Resp 19 01/31/21 13:50 BP 114/62 01/31/21 13:50 Pulse Ox 93 01/31/21 13:50 Oxygen Flow Rate 1 01/31/21 10:48 Body Mass Index 23.0 General: obtunded, ill appearing HEENT: atraumatic Neck: normal to visual inspection CVS: S1, S2, RRR Resp: rhonchi Chest: non tender GI: soft, non tender, non distended : no CVA tenderness Skin: no rashes Extremities: no edema Neuro: obtunded Psych: impaired insight Results Labs CBC and Chem 7: 01/31/21 11:15 01/31/21 11:15 Labs: Laboratory Results - last 24 hr 01/31/21 01/31/21 01/31/21 11:15 11:15 11:15 MCV 92.3 MCH 31.1 MCHC 33.7 RDW 13.4 Plt Count 218 MPV 9.0 L Immature Gran % (Auto) 0.3 Neut % (Auto) 91.5 H Lymph % (Auto) 3.5 L [place] % (Auto) 4.3 Eos % (Auto) 0.2 Baso % (Auto) 0.2 Lymph # (Auto) 0.5 L [place] # (Auto) 0.6 Eos # (Auto) 0.0 Baso # (Auto) 0.0 Abs Immat Gran (auto) 0.04 H Absolute Neuts (auto) 11.6 H Absolute Nucleated RBC 0.000 Nucleated RBC % (auto) 0.0 Smear Tech's Comments VERIFIED Anion Gap 12 Estim Creat Clear Calc 61.0 Estimated GFR > 60 Random Glucose 94 Lactic Acid Calcium 9.5 D Total Bilirubin 1.1 H Direct Bilirubin 0.5 AST 15 ALT 11 Alkaline Phosphatase 92 D Troponin I High Sens 3.5 Total Protein 7.7 Albumin 3.7 Lipase 13 COVID-19 ([facility]) COVID-19 Clin Com 01/31/21 01/31/21 11:15 11:20 MCV MCH MCHC RDW Plt Count MPV Immature Gran % (Auto) Neut % (Auto) Lymph % (Auto) [place] % (Auto) Eos % (Auto) Baso % (Auto) Lymph # (Auto) [place] # (Auto) Eos # (Auto) Baso # (Auto) Abs Immat Gran (auto) Absolute Neuts (auto) Absolute Nucleated RBC Nucleated RBC % (auto) Smear Tech's Comments Anion Gap Estim Creat Clear Calc Estimated GFR Random Glucose Lactic Acid 1.8 Calcium Total Bilirubin Direct Bilirubin AST ALT Alkaline Phosphatase Troponin I High Sens Total Protein Albumin Lipase COVID-19 ([facility]) Negative COVID-19 Clin Com See Note Imaging Radiologist's Impressions: Impressions Chest X-Ray 01/31/21 11:35 IMPRESSION: Left perihilar airspace disease probably representing pneumonia. 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
--- NOTE | 2021-01-31 16:06 | PC.NURSE ---
pt sleeping, wakes to verbal stimulus, confused at baseline, shelter monitor nsr 80s-90s with occasional pvcs, vitals obtained, will continue to monitor
[2021-01-31] MEDS: Enoxaparin Sodium 40 MG/0.4 ML SYRINGE SUBCUT (16:14)
[2021-01-31] MEDS: 0.9 % Sodium Chloride Flush 3 ML SYRINGE IVFLUSH (16:14)
[2021-01-31] MEDS: Dextrose 5 % and 0.45 % NaCl 1,000 ML 70 ML IVCONT (16:15)
--- NOTE | 2021-01-31 17:09 | MHC.SL.SWA ---
Speech Pathologist Impression: Risk of Aspiration Oralpharyngeal Dysphagia Risk of Aspiration Due to: History of Pneumonia Reduced Cognition Dysphasia Diet Status: Downgrade Liquid Consistency and Strategies for Safe Swallow: Liquid Intake Recommendation: Honey Thick Liquid Intake Strategies: Liquids by Teaspoon Only Solid Food Consistency: Dietary Recommendations: Pureed (NDD1) Additional Modifications to Solid Foods: Oral Medication Intake: Crushed with Puree Compensatory Strategies and Precautions to be Taken for Safe Swallow: Sitting Upright (90 deg) Liquids from Spoon Small Bites and Sips Alternate Liquids/Solids Supervision While Eating and Drinking for Safe Swallow: Total Assistance Foods to Avoid: Swallowing Recommended Treatments: Recommendation for Speech: Inpatient Speech Therapy Comment: Frequency/Duration: Date Range for Service Req: Timeline to reassess: Batch Plant Operator Clinican/Clinical Fellow: No Supervisory Statement: I have reviewed and agree with the student/clinical fellow's documentation: N/A Speech Language Pathologist: Marcelle Ordaz M.A. CCC-GRADUATE RN
--- NOTE | 2021-01-31 18:07 | MHC.CM.PN ---
CM initially met with pt, who was not responsive to name, however when CM returned to his room, the pt did open his eyes to his name and CM was able to speak with pt. Pt has dementia and CM was unable to have any meaningful conversation with pt. CM spoke with Ruthie Reese ([phone]) who is his contact and alternate HCP. Reviewed IMM and updated Ruthie on pt condition and admission, with bed assignment pending. Pt lives at [facility]. Pt has dementia.D/C plan is to return to [facility] via BLS. CM to follow for d/c needs.
--- NOTE | 2021-01-31 19:09 | PC.NURSE ---
patient incontinent of stool, bed change performed, ivf running per order, panel monitor nsr 80s, will continue to monitor.
--- NOTE | 2021-01-31 20:10 | PC.NURSE ---
patient wakes to verbal stimulus, family at bedside- notified of patients room number, personnel monitor nsr 70s, vss, will continue to monitor.
[2021-01-31 20:43] LABS: Glucose Urine UA NEG (NEG); Leukocyte Esterase Urine NEG (NEG); Nitrite Urine NEG (NEG); Urine Blood NEG (NEG); Urine Ketones 5 MG/DL (NEG); Urine Protein NEG (NEG-TRACE)
[2021-01-31 20:52] LABS: Appearance Urine CLEAR; Color Urine YELLOW
[2021-02-01] VITALS: BP 96/56; PULSE 76; RESP 16; TEMP 36.6; O2SAT 97
[2021-02-01 03:55] VITALS: PULSE 112; RESP 16; TEMP 36.2; O2SAT 92
[2021-02-01] MEDS: cefTRIAXone sodium 1 GM in 0.9 % Sodium Chloride 50 ML IV (06:17)
[2021-02-01] MEDS: Dextrose 5 % and 0.45 % NaCl 1,000 ML 70 ML IVCONT (06:17)
[2021-02-01 07:38] VITALS: BP 123/68; PULSE 85; RESP 17; TEMP 37.1; O2SAT 95
[2021-02-01] MEDS: Escitalopram Oxalate 5 MG TABLET PO (09:34)
[2021-02-01] MEDS: Loratadine 10 MG TABLET PO (09:34)
[2021-02-01] MEDS: traZODone HCL 50 MG TABLET 37.5 MG PO (09:34)
--- NOTE | 2021-02-01 10:59 | MHC.SL.DTX ---
Pre-Treatment Diet: PUREED SOLIDS (NDD1) HONEY THICK LIQUIDS PILLS CRUSHED IN PUREE Subjective: Changes made to current diet?:: NO Dysphasia Diet Status: NO CHANGE Liquid Consistency and Strategies: Liquid Intake Recommendation: Honey Thick Compensatory Strategies for Safe Swallow: Small Sips No Straws Compensatory Strategies for Safe Swallow(b): Sitting Upright (90 deg) No Straw Liquids from Cup Liquids from Spoon Small Bites and Sips Alternate Liquids/Solids Solid Food Consistency: Dietary Recommendations: Pureed (NDD1) Additional Modifications to Solids: Oral Medication Intake: Crushed with Puree Strategies and Precautions to be Taken for Safe Swallow: Compensatory Swallowing Status: Sitting Upright (90 deg) No Straw Liquids from Cup Liquids from Spoon Small Bites and Sips Alternate Liquids/Solids Supervision While Eating and/Drinking: Total Assistance Foods to Avoid: Swallowing Recommended Treatments: Level of Impact on: Daily activities: Moderate Interpersonal interactions: Moderate Education: None Employment: None Community: Moderate Prognosis for Improvement: Guarded Recommendation for Speech: Inpatient Speech Therapy Comment: Frequency/Duration: Date Range for Service Req: Timeline to reassess: Additional Comments: Treatment: Pt was seen this morning for dysphagia follow up. Pt's son at bedside helping pt with breakfast. Pt much more awake and alert this morning. Pt remains pleasantly confused. Pt displayed overt s/s aspiration with thin liquids via tsp and cup sip. When given nectar thick liquids via tsp, pt displayed delayed throat clear. When given a subsequent sip, productive cough noted in which pt expelled liquid. Pt tolerated honey thick liquids without difficulty. It is noted that pt would talk before swallowing with food/liquid in his mouth. No difficulties observed with pureed solids. Pt required total assistance. Assessment: Ensemble Member Clinican/Clinical Fellow: No Supervisory Statement: I have reviewed and agree with the student/clinical fellow's documentation: N/A Speech Language Pathologist: Marcelle Ordaz M.A. [facility]
--- NOTE | 2021-02-01 11:27 | HO.PM.IMPN ---
Subjective Subjective Date of Service: 02/01/21 Interval History: much better, no complaints Cardiovascular Cardiovascular: Reports no additional cardiovascular complaints Gastrointestinal Gastrointestinal: Reports no additional gastrointestinal complaints Physical Exam Vital Signs: Vital Signs: Last Vital Signs Temp 98.7 F 02/01/21 07:38 Pulse 85 02/01/21 07:38 Resp 17 02/01/21 07:38 BP 123/68 02/01/21 07:38 Pulse Ox 95 02/01/21 07:38 Oxygen Flow Rate 1 01/31/21 10:48 Body Mass Index 23.7 General: AO X 1, no acute distress Resp: CTA bilateral CVS: S1,S2,RRR GI: soft, non tender, non distended Neuro: motor grossly intact Psych: appropriate affect Objective Data Current Medications Generic Name Dose Route Start Last Admin Trade Name Freq PRN Reason Stop Dose Admin Acetaminophen 650 mg 01/31/21 15:48 Acetaminophen 325 Mg Tablet PO Q6H PRN Pain, Mild (Pain Scale 1-3) Enoxaparin Sodium 40 mg 01/31/21 16:00 01/31/21 16:14 Enoxaparin Sodium 40 Mg/0.4 Ml Syringe SUBCUT 40 mg Q24H GERALDO Administration Escitalopram Oxalate 5 mg 02/01/21 09:00 02/01/21 09:34 Escitalopram Oxalate 5 Mg Tablet PO 5 mg DAILY GERALDO Administration Fluticasone/Vilanterol 1 puff 02/01/21 08:00 02/01/21 08:06 Fluticasone/Vilanterol 100/25 Blst.W.Dev INHALE Not Given RDAILY GERALDO Ceftriaxone Sodium 1 gm/ 50 mls @ 100 mls/hr 02/01/21 07:00 02/01/21 06:52 Sodium Chloride IV Infused Q24H GERALDO Infusion Loratadine 10 mg 02/01/21 09:00 02/01/21 09:34 Loratadine 10 Mg Tablet PO 10 mg DAILY GERALDO Administration Pharmacy Consult 1 each 01/31/21 11:45 Consult Rx Perform Med Rec MISCELLANE ONCE PRN Consult order Polyethylene Glycol 17 gm 02/01/21 09:00 02/01/21 09:33 Polyethylene Glycol 3350 17 Gm Powd.Pack PO 17 gm DAILY GERALDO Administration Sodium Chloride 3 ml 01/31/21 16:00 02/01/21 07:21 0.9 % Sodium Chloride Flush 3 Ml Syringe IVFLUSH Not Given QSHIFT [facility] Trazodone HCl 37.5 mg 02/01/21 09:00 02/01/21 09:34 Trazodone Hcl 50 Mg Tablet PO 37.5 mg DAILY GERALDO Administration Labs CBC & Chem 7: 01/31/21 11:15 01/31/21 11:15 Labs: Laboratory Results - last 24 hr 01/31/21 01/31/21 01/31/21 11:15 11:15 11:15 WBC 12.7 H RBC 4.44 L Hgb 13.8 L Hct 41.0 L MCV 92.3 MCH 31.1 MCHC 33.7 RDW 13.4 Plt Count 218 MPV 9.0 L Immature Gran % (Auto) 0.3 Neut % (Auto) 91.5 H Lymph % (Auto) 3.5 L Irion % (Auto) 4.3 Eos % (Auto) 0.2 Baso % (Auto) 0.2 Lymph # (Auto) 0.5 L Irion # (Auto) 0.6 Eos # (Auto) 0.0 Baso # (Auto) 0.0 Abs Immat Gran (auto) 0.04 H Absolute Neuts (auto) 11.6 H Absolute Nucleated RBC 0.000 Nucleated RBC % (auto) 0.0 Smear Tech's Comments VERIFIED Sodium 140 Potassium 4.4 Chloride 104 Carbon Dioxide 28 Anion Gap 12 BUN 20 H Creatinine 1.00 Estim Creat Clear Calc 61.0 Estimated GFR > 60 Random Glucose 94 Lactic Acid Calcium 9.5 D Total Bilirubin 1.1 H Direct Bilirubin 0.5 AST 15 ALT 11 Alkaline Phosphatase 92 D Troponin I High Sens 3.5 Total Protein 7.7 Albumin 3.7 Lipase 13 Urine Color Urine Appearance Urine pH Ur Specific [place] Urine Protein Urine Glucose (UA) Urine Ketones Urine Blood Urine Nitrite Ur Leukocyte Esterase COVID-19 ([facility]) COVID-19 Clin Com 01/31/21 01/31/21 01/31/21 11:15 11:20 20:32 WBC RBC Hgb Hct MCV MCH MCHC RDW Plt Count MPV Immature Gran % (Auto) Neut % (Auto) Lymph % (Auto) [place] % (Auto) Eos % (Auto) Baso % (Auto) Lymph # (Auto) [place] # (Auto) Eos # (Auto) Baso # (Auto) Abs Immat Gran (auto) Absolute Neuts (auto) Absolute Nucleated RBC Nucleated RBC % (auto) Smear Tech's Comments Sodium Potassium Chloride Carbon Dioxide Anion Gap BUN Creatinine Estim Creat Clear Calc Estimated GFR Random Glucose Lactic Acid 1.8 Calcium Total Bilirubin Direct Bilirubin AST ALT Alkaline Phosphatase Troponin I High Sens Total Protein Albumin Lipase Urine Color YELLOW Urine Appearance CLEAR Urine pH 6.0 Ur Specific [place] 1.020 Urine Protein NEG Urine Glucose (UA) NEG Urine Ketones 5 Urine Blood NEG Urine Nitrite NEG Ur Leukocyte Esterase NEG COVID-19 ([facility]CELIA) Negative COVID-19 Clin Com See Note Assessment and Plan (1) Pneumonia: Status: Acute Assessment and Plan: 85M presented with hypoxia, fever, ams, found to have pneumonia sepsis present on admission, metabolic encephlaopathy, and acute hypoxic respiratory failure due to aspiration pneumonia sepsis, encephalopathy, hypoxia all resolved continue ceftriaxone dysphagia - pureed solids, honey thick liquids, 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
[2021-02-01 11:56] VITALS: BP 101/65; PULSE 80; RESP 18; TEMP 36.7; O2SAT 94
[2021-02-01 16:00] VITALS: BP 121/55; PULSE 84; RESP 16; TEMP 36.1; O2SAT 97
[2021-02-01 20:00] VITALS: BP 132/71; PULSE 80; RESP 16; TEMP 37; O2SAT 97
[2021-02-01] MEDS: 0.9 % Sodium Chloride Flush 3 ML SYRINGE IVFLUSH (20:05)
[2021-02-02] VITALS (8 sets, daily range): BP systolic 129–156; BP diastolic 53–78; PULSE 69–84; RESP 16–20; TEMP 36.3–37.1; O2SAT 94–98; BMI 23.7
[2021-02-02] MEDS: cefTRIAXone sodium 1 GM in 0.9 % Sodium Chloride 50 ML IV (06:11)
[2021-02-02 07:24] LABS: Hematocrit 34.4 % (42-52); Hemoglobin 11.3 g/dl (14.0-18.0); Mean Corpuscular HGB Conc 32.8 g/dl (31.0-36.0); Mean Corpuscular Hemoglobin 30.6 pg (27.0-33.0); Mean Corpuscular Volume 93.2 fL (80-98); Platelet Count 166 X10*3/uL (160-400); Red Blood Count 3.69 X10*6/uL (4.60-5.80); Red Cell Distribution Width 13.4 % (11.0-16.0); White Blood Count 11.4 X10*3/uL (4.8-10.8)
[2021-02-02 07:50] LABS: Anion Gap 12 (12-20); Blood Urea Nitrogen 23 mg/dL (9-16); Calcium 8.2 mg/dL (8.4-10.2); Carbon Dioxide 21 mmol/L (22-29); Chloride 108 mmol/L (96-108); Creatinine Clr Calc Pharmacy 74.9; Estimated Glomerular Filt Rate > 60; Glucose Fasting 81 mg/dL (60-99); Sodium 137 mmol/L (135-145)
[2021-02-02] MEDS: Fluticasone/Vilanterol 100/25 BLST.W.DEV 1 PUFF INHALE (09:04)
[2021-02-02] MEDS: 0.9 % Sodium Chloride Flush 3 ML SYRINGE IVFLUSH ×3 (09:08→23:18)
[2021-02-02] MEDS: Doxycycline Hyclate 100 MG in 0.9 % Sodium Chloride 250 ML 166.67 MG IV ×2 (09:09→21:14)
--- NOTE | 2021-02-02 09:09 | ECG_ITS ---
Test Reason : SEPSIS Blood Pressure : / mmHG Vent. Rate : 072 BPM Atrial Rate : 072 BPM P-R Int : 188 ms QRS Dur : 084 ms QT Int : 376 ms P-R-T Axes : 071 035 057 degrees QTc Int : 411 ms Sinus rhythm with Premature atrial complexes Otherwise normal ECG When compared with ECG of 31-JAN-2021 10:48, No significant change was found Referred By: Abdelrahman Rangel Electronically Signed By:LINDA DELATORRE
[2021-02-02] MEDS: Loratadine 10 MG TABLET PO (09:13)
[2021-02-02] MEDS: Escitalopram Oxalate 5 MG TABLET PO (09:13)
[2021-02-02] MEDS: traZODone HCL 50 MG TABLET 37.5 MG PO (09:13)
[2021-02-02] MEDS: guaiFENesin 200 MG/10 ML 10 ML LIQUID PO ×4 (12:37→23:18)
--- NOTE | 2021-02-02 13:18 | MHC.CM.PN ---
Addendum entered by Marcelle Borden RN 02/02/21 14:37: CM ATTEMPTED TO CONTACT ADMISSION COORDINATOR JAMAR AT 2:30PM [phone] AND [phone], MESSAGE LEFT AT FIRST NUMBER. Original Note: EMR REVIEWED, PT'S REPEAT CXR SHOWED MORE PROMINENT LEFT LOWER LOBE PNA, PER HOSPITALIST PT WILL REMAIN INPT 1-2 MORE DAYS, HSH TO BE UPDATED AFTER NSG RECIEVED MESSAGE FROM ADMISSIONS NURSE JAMAR REQUESTING A D/C TIME BY 1PM ONCE PT IS MEDICALLY CLEARED. CM WILL CONT TO FOLLOW D/C NEEDS.
--- NOTE | 2021-02-02 14:05 | P.PNIM_ITS ---
Subjective Subjective Date of Service: 02/02/21 Interval History: the patient was seen and evaluated this morning Laying in bed, not in distress Complaining of cough and thick mucus Denies any fever, chills or shortness of breath No reported other overnight events. Systemic review: No fever, chills , but reported confusion No chest pain, palpitation Dyspnea on exertion and productive cough No abdominal pain, nausea or vomiting No urinary symptoms No any rash or wounds Physical Exam Vital Signs: Vital Signs: Last Vital Signs Temp 98.8 F 02/02/21 11:25 Pulse 78 02/02/21 11:25 Resp 17 02/02/21 11:25 BP 147/76 H 02/02/21 11:25 Pulse Ox 98 02/02/21 11:25 Oxygen Flow Rate 1 01/31/21 10:48 Body Mass Index 23.7 Const: Other: Constitutional : Alert, disoriented, not in distress Neck : Normal inspection, Supple Cardiovascular : RRR, S1 S2, trace bilateral lower extremity edema Respiratory : Decreased bilateral air entry, bilateral basal crackles, no wheezes Gastrointestinal: soft, lax, Normal bowel sounds, Non tender Skin : Warm/Dry, No rash Neurological : Alert & oriented to self only otherwise disoriented No focal deficit Objective Data Current Medications Generic Name Dose Route Start Last Admin Trade Name Freq PRN Reason Stop Dose Admin Acetaminophen 650 mg 01/31/21 15:48 Acetaminophen 325 Mg Tablet PO Q6H PRN Pain, Mild (Pain Scale 1-3) Enoxaparin Sodium 40 mg 01/31/21 16:00 02/01/21 17:41 Enoxaparin Sodium 40 Mg/0.4 Ml Syringe SUBCUT Not Given Q24H GERALDO Escitalopram Oxalate 5 mg 02/01/21 09:00 02/02/21 09:13 Escitalopram Oxalate 5 Mg Tablet PO 5 mg DAILY GERALDO Administration Fluticasone/Vilanterol 1 puff 02/01/21 08:00 02/02/21 09:04 Fluticasone/Vilanterol 100/25 Blst.W.Dev INHALE 1 puff RDAILY GERALDO Administration Guaifenesin 10 ml 02/02/21 11:30 02/02/21 12:37 Guaifenesin 200 Mg/10 Ml 10 Ml Liquid PO 10 ml Q4H GERALDO Administration Ceftriaxone Sodium 1 gm/ 50 mls @ 100 mls/hr 02/01/21 07:00 02/02/21 07:03 Sodium Chloride IV Infused Q24H GERALDO Infusion Doxycycline Hyclate 100 mg/ 250 mls @ 166.67 mls/hr 02/02/21 09:00 02/02/21 11:01 Sodium Chloride IV Infused Q12H GERALDO Infusion Loratadine 10 mg 02/01/21 09:00 02/02/21 09:13 Loratadine 10 Mg Tablet PO 10 mg DAILY GERALDO Administration Pharmacy Consult 1 each 01/31/21 11:45 Consult Rx Perform Med Rec MISCELLANE ONCE PRN Consult order Polyethylene Glycol 17 gm 02/01/21 09:00 02/02/21 09:13 Polyethylene Glycol 3350 17 Gm Powd.Pack PO 17 gm DAILY GERALDO Administration Sodium Chloride 3 ml 01/31/21 16:00 02/02/21 09:08 0.9 % Sodium Chloride Flush 3 Ml Syringe IVFLUSH 3 ml QSHIFT GERALDO Administration Trazodone HCl 37.5 mg 02/01/21 09:00 02/02/21 09:13 Trazodone Hcl 50 Mg Tablet PO 37.5 mg DAILY GERALDO Administration Labs CBC & Chem 7: 02/02/21 06:05 02/02/21 06:05 Labs: Laboratory Results - last 24 hr 02/02/21 02/02/21 06:05 06:05 WBC 11.4 H RBC 3.69 L Hgb 11.3 L Hct 34.4 L MCV 93.2 MCH 30.6 MCHC 32.8 RDW 13.4 Plt Count 166 MPV 10.0 Absolute Nucleated RBC 0.000 Nucleated RBC % (auto) 0.0 Sodium 137 Potassium 4.0 Chloride 108 Carbon Dioxide 21 L Anion Gap 12 BUN 23 H Creatinine 0.82 Estim Creat Clear Calc 74.9 Estimated GFR > 60 Fasting Glucose 81 Calcium 8.2 L D Microbiology Microbiology Results: Microbiology 01/31/21 11:15 Blood Culture - Preliminary Blood - Venous No growth after 48 hours. 01/31/21 11:15 Blood Culture - Preliminary Blood - Venous No growth after 48 hours. Assessment and Plan (1) Pneumonia: Status: Acute (2) Sepsis: Status: Acute (3) Acute respiratory failure with hypoxia: Status: Acute (4) Acute metabolic encephalopathy: Status: Acute Assessment and Plan: 85M presented with hypoxia, fever, ams, found to have pneumonia sepsis present on admission, acute hypoxic respiratory failure due to aspiration pneumonia metabolic encephlaopathy, sepsis, encephalopathy, hypoxia all resolved continue ceftriaxone and doxycycline Cough medication Cultures pending, negative until now Repeated CXR this morning showing more prominent left lower lobe infiltrates dysphagia pureed solids, honey thick liquids, 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
[2021-02-02] MEDS: Enoxaparin Sodium 40 MG/0.4 ML SYRINGE SUBCUT (16:47)
[2021-02-03 03:28] VITALS: BP 143/67; PULSE 61; RESP 16; TEMP 36.8; O2SAT 95
[2021-02-03 06:27] LABS: Hematocrit 33.5 % (42-52); Hemoglobin 11.3 g/dl (14.0-18.0); Mean Corpuscular HGB Conc 33.7 g/dl (31.0-36.0); Mean Corpuscular Volume 91.8 fL (80-98); Mean Platelet Volume 9.4 fL (9.4-12.4); Platelet Count 167 X10*3/uL (160-400); Red Blood Count 3.65 X10*6/uL (4.60-5.80); Red Cell Distribution Width 13.2 % (11.0-16.0); White Blood Count 8.7 X10*3/uL (4.8-10.8)
[2021-02-03 07:14] LABS: Anion Gap 12 (12-20); Blood Urea Nitrogen 19 mg/dL (9-16); Calcium 8.5 mg/dL (8.4-10.2); Carbon Dioxide 22 mmol/L (22-29); Chloride 108 mmol/L (96-108); Creatinine Clr Calc Pharmacy 79.7; Estimated Glomerular Filt Rate > 60; Glucose Random 86 mg/dL (60-115); Potassium 3.6 mmol/L (3.3-5.1); Sodium 138 mmol/L (135-145)
[2021-02-03] MEDS: Fluticasone/Vilanterol 100/25 BLST.W.DEV 1 PUFF INHALE (07:46)
[2021-02-03 07:54] VITALS: BP 145/81; PULSE 73; RESP 17; TEMP 37; O2SAT 96
[2021-02-03] MEDS: Escitalopram Oxalate 5 MG TABLET PO (09:10)
[2021-02-03] MEDS: cefTRIAXone sodium 1 GM in 0.9 % Sodium Chloride 50 ML IV (09:10)
[2021-02-03] MEDS: guaiFENesin 200 MG/10 ML 10 ML LIQUID PO (09:10)
[2021-02-03] MEDS: 0.9 % Sodium Chloride Flush 3 ML SYRINGE IVFLUSH (09:10)
[2021-02-03] MEDS: traZODone HCL 50 MG TABLET 37.5 MG PO (09:11)
[2021-02-03] MEDS: Loratadine 10 MG TABLET PO (09:11)
[2021-02-03] MEDS: Doxycycline Hyclate 100 MG in 0.9 % Sodium Chloride 250 ML 166.67 MG IV (09:12)
--- NOTE | 2021-02-03 10:52 | MHC.SLORD ---
Speech Language Pathology Order Status: Attempted to see patient this AM for PO trials. Patient was sleeping and awoke momentarily to sternal rub, but did not stay awake for more than a few seconds at a time. Due to lethargic state, not appropriate for dysphagia treatment. Patient is on pureed solids (NDD1) and nectar thick liquids. RN reports that patient has been tolerating current diet recommendations.
[2021-02-03 11:12] LABS: IDNOW Serial# 9DD0AD1C
[2021-02-03 11:13] LABS: COVID-19 Test Negative (Negative)
--- NOTE | 2021-02-03 11:15 | P.DS_ITS ---
DS: Providers Provider Date of Service: 02/03/21 Date of admission: 01/31/21 15:51 Primary care physician: Jorge Orosco MD DS: Diagnosis Discharge Diagnosis (1) Pneumonia: Status: Acute (2) Sepsis: Status: Acute (3) Acute respiratory failure with hypoxia: Status: Acute (4) Acute metabolic encephalopathy: Status: Acute DS: Medications Discharge Medications Home Medications: Home Medications Medication Instructions Recorded Confirmed acetaminophen 325 mg tablet 650 mg PO BID 07/07/20 01/31/21 alendronate 70 mg tablet (Fosamax) 70 mg PO WE@0630 07/07/20 01/31/21 cholecalciferol (vitamin D3) 25 25 mcg PO DAILY 07/07/20 01/31/21 mcg (1,000 unit) tablet (Vitamin D3) docusate sodium 100 mg capsule 100 mg PO DAILY 07/07/20 01/31/21 (Colace) escitalopram oxalate 5 mg tablet 5 mg PO DAILY 07/07/20 01/31/21 (Lexapro) fluticasone 250 mcg-salmeterol 50 1 inh INHALATION BID 07/07/20 01/31/21 mcg/dose blistr powdr for inhalation (Advair Diskus) ipratropium bromide 42 mcg (0.06 1 spray INTRANASAL BID 07/07/20 01/31/21 %) nasal spray levalbuterol tartrate 45 2 puff INHALATION Q4H PRN 07/07/20 01/31/21 mcg/actuation aerosol inhaler loratadine 10 mg tablet (Claritin) 10 mg PO DAILY 07/07/20 01/31/21 sennosides 8.6 mg tablet (senna) 8.6 mg PO BEDTIME 07/07/20 01/31/21 trazodone 50 mg tablet 37.5 mg PO DAILY 07/07/20 01/31/21 acetaminophen 325 mg tablet 325 mg PO Q4H PRN 09/15/20 01/31/21 bisacodyl 10 mg rectal suppository [address] DAILY PRN 09/15/20 01/31/21 dextromethorphan-guaifenesin 10 10 ml PO Q6H PRN 09/15/20 01/31/21 mg-100 mg/5 mL oral syrup magnesium hydroxide 400 mg/5 mL 30 ml PO BEDTIME PRN 09/15/20 01/31/21 oral suspension (Milk of Magnesia) nystatin 100,000 unit/gram topical 1 appl TOPICAL BID PRN 09/15/20 01/31/21 powder polyethylene glycol 3350 17 gram 17 g PO DAILY 09/15/20 01/31/21 oral powder packet sodium phosphates 19 gram-[address] DAILY PRN 09/15/20 01/31/21 gram/118 mL enema (Fleet Enema) Previous Rx's Medication Instructions Recorded cefuroxime axetil 500 mg tablet 500 mg PO Q12H #8 tab 02/03/21 doxycycline monohydrate 100 mg 100 mg PO BID #8 tab 02/03/21 tablet DS: Summary Hospital Course Hospital Course: [facility] 85[facility] for aspiration pneumonia was sent to ED for AMS, fever, hypoxia of 74% on rooms air. patient himself is obtunded and unable to give history. he had pneumonia 01-13-21 and had been treated with augmentin. he has dysphagia on pureed and thin liquid diet. in ED noted to be hypoxic, febrile to 102, cxr with Left perihilar space disease. given rocephin and azithro. Hospital course Patient was admitted for treatment of altered mentation and hypoxia believed to be secondary to aspiration pneumonia as the patient presented with sepsis picture. Treated with IV antibiotics of doxycycline and ceftriaxone as blood cultures remain negative. Repeated x-ray showed worsening infiltrates. He was weaned off the oxygen and able to participate in swallowing evaluation with recommendations for modified diet of pureed and nectar thick fluids with aspiration precautions and total public aid eligibility assistant with meals. Mentation improved significantly during the daytime as the patient is sharp and able to to interact well but seems to have more symptoms of sundowning and hypoactive delirium by the end of the day were he reports hallucinations but no aggressiveness reported. [facility] 4 more days of oral antibiotics Time Spent with Patient Time attestation: Total time spent providing and/or coordinating discharge services: Discharge coordination time: Greater than 30 minutes Quality: Stroke Does the patient have a stroke diagnosis?: No Physical Exam Vital Signs: Vital Signs: Last Vital Signs Temp 98.6 F 02/03/21 07:54 Pulse 73 02/03/21 07:54 Resp 17 02/03/21 07:54 BP 145/81 H 07/29/21 07:54 Pulse Ox 96 02/03/21 07:54 Oxygen Flow Rate 1 01/31/21 10:48 Body Mass Index 23.7 Const: Other: Constitutional : Alert, disoriented, not in distress Neck : Normal inspection, Supple Cardiovascular : RRR, S1 S2, trace bilateral lower extremity edema Respiratory : Decreased bilateral air entry, bilateral basal crackles, no wheezes Gastrointestinal: soft, lax, Normal bowel sounds, Non tender Skin : Warm/Dry, No rash Neurological : Alert & oriented to self only otherwise disoriented No focal deficit DS: Data Data Completed and Pending Completed studies during hospitalization [Text1]: Procedures Dilation of Left Ureter with Intraluminal Device, Via Natural or Artificial Opening Endoscopic (07/07/20) Extirpation of Matter from Left Ureter, Via Natural or Artificial Opening Endoscopic (07/07/20) Fluoroscopy of Left Kidney, Ureter and Bladder (07/07/20) Labs on day of discharge: Laboratory Results - last 24 hr 02/03/21 02/03/21 02/03/21 06:13 06:13 10:44 WBC 8.7 RBC 3.65 L Hgb 11.3 L Hct 33.5 L MCV 91.8 MCH 31.0 MCHC 33.7 RDW 13.2 Plt Count 167 MPV 9.4 Absolute Nucleated RBC 0.000 Nucleated RBC % (auto) 0.0 Sodium 138 Potassium 3.6 Chloride 108 Carbon Dioxide 22 Anion Gap 12 BUN 19 H Creatinine 0.77 Estim Creat Clear Calc 79.7 Estimated GFR > 60 Random Glucose 86 Calcium 8.5 COVID-19 ([facility]) Negative COVID-19 Clin Com See Note Preliminary micro results at discharge 01/31/21 11:15 Blood Culture - Preliminary Blood - Venous No growth after 48 hours. 01/31/21 11:15 Blood Culture - Preliminary Blood - Venous No growth after 48 hours. Discharge Plan Discharge Patient Disposition: [facility] Discharge Diagnosis: Sepsis Aspiration pneumonia Referrals: Jorge Orosco MD [Primary Care Provider] - 1 Week Discharge Medications: New doxycycline monohydrate 100 mg tablet 100 mg PO BID Qty: 8 RF: 0 cefuroxime axetil 500 mg tablet 500 mg PO Q12H Qty: 8 RF: 0 Continued fluticasone propion-salmeterol [Advair Diskus] 250-50 mcg/dose Blister With Device 1 inh INHALATION BID RF: 0 sennosides [senna] 8.6 mg Tablet 8.6 mg PO BEDTIME RF: 0 acetaminophen 325 mg Tablet 650 mg PO BID RF: 0 trazodone 50 mg Tablet 37.5 mg PO DAILY RF: 0 alendronate [Fosamax] 70 mg Tablet 70 mg PO WE@0630 RF: 0 docusate sodium [Colace] 100 mg Capsule 100 mg PO DAILY RF: 0 ipratropium bromide 42 mcg (0.06 %) Melrude,Non-Aerosol 1 spray INTRANASAL BID RF: 0 loratadine [Claritin] 10 mg Tablet 10 mg PO DAILY RF: 0 escitalopram oxalate [Lexapro] 5 mg Tablet 5 mg PO DAILY RF: 0 levalbuterol tartrate 45 mcg/actuation Hfa Aerosol Inhaler 2 puff INHALATION Q4H PRN (Reason: Shortness Of Breath Or Wheezing) RF: 0 cholecalciferol (vitamin D3) [Vitamin D3] 25 mcg (1,000 unit) Tablet 25 mcg PO DAILY RF: 0 acetaminophen 325 mg Tablet 325 mg PO Q4H PRN (Reason: pain/fever) RF: 0 dextromethorphan-guaifenesin 10-100 mg/5 mL Syrup 10 ml PO Q6H PRN (Reason: Cough) RF: 0 magnesium hydroxide [Milk of Magnesia] 400 mg/5 mL Suspension 30 ml PO BEDTIME PRN (Reason: Constipation) RF: 0 bisacodyl 10 mg Suppository [address] DAILY PRN (Reason: Constipation) RF: 0 Fleet Enema 19-7 gram/118 mL Enema [address] DAILY PRN (Reason: Constipation) RF: 0 nystatin 100,000 unit/gram Powder 1 appl TOPICAL BID PRN (Reason: Rash) RF: 0 polyethylene glycol 3350 17 gram powder in packet 17 g PO DAILY RF: 0 Discharge Orders: Discharge Order (Routine); Ordered 02/03/21 Ordered By: Anton Edmonds Diet: advance to usual diet Activity on Discharge: As tolerated Stand Alone Forms: Patient Portal Discharge page Care Plan Goals: Read below Health Concerns: Read below Plan of Treatment: You were admitted to the hospital for altered mentation and evidence of difficulty breathing and low oxygen level. Found to have pneumonia secondary to aspiration treated with IV antibiotics and oxygen supplement with good response over the course of hospital stay. Your mentation improved back almost baseline. Assessment: Continue doxycycline and Ceftin for 4 more days Aspiration precautions Modified diet pureed diet with nectar thick fluids
[2021-02-03 11:17] VITALS: BP 119/63; PULSE 65; RESP 17; TEMP 36.6; O2SAT 100
--- NOTE | 2021-02-03 11:28 | MHC.CM.PN ---
IMM 02/03/2021, IMM REVIEWED W/PT'S SON-IN-LAW JOSELINE JAVIER, FAMILY PLEASED W/D/C PLAN, WILL SEND VIA CERTIFIED MALE, CM CONTACTD & VERIFIED D/C PLAN W/[facility] SENIOR SOFTWARE ENGINEERING MANAGER JAMAR AT 11:25AM, CM TO FAX D/C SUMMARY TO [phone]. D/C PLAN RETURN TO HS AT 1PM, ACTION FOR BLS TRANSPORT HS AWARE PT WILL D/C ON 2 ORAL ABX, MEDICATION ORDERS REVIEWED DURING 11:25AM CALL.
== END 2021-02-03 13:14 | disposition home or self-care (01) | DRG 871 ==
LOC: HO.ED 11:34 → HO.EDOVER 16:11 → HO.S3 19:58
PROVIDERS: Physician Assistant; Admitting Provider Internal Medicine; Emergency Provider Emergency Medicine Emergency Medical Services; PCP Internal Medicine; Visit Provider Student in an Organized Health Care Education/Training Program
DX: A41.9 Sepsis, unspecified organism (principal); J18.9 Pneumonia, unspecified organism; G93.41 Metabolic encephalopathy; J44.0 Chronic obstructive pulmonary disease with (acute) lower respiratory infection; J44.1 Chronic obstructive pulmonary disease with (acute) exacerbation; R13.10 Dysphagia, unspecified; F03.90 Unspecified dementia, unspecified severity, without behavioral disturbance, psychotic disturbance, mood disturbance, and anxiety; Z20.822 Contact with and (suspected) exposure to COVID-19; Z79.51 Long term (current) use of inhaled steroids; Z79.899 Other long term (current) drug therapy; Z66 Do not resuscitate
CPT/HCPCS: 36415; 71045; 80048; 80076; 81003; 83605; 83690; 84484; 85025; 85027; 87040; 87635; 92610; 93005; 94640; 99285; J0456; J0696; J1650; J2930; J3475

== ENCOUNTER 2021-03-08 12:52 | Outpatient (REF) | payer MEDICARE, OTHER, SELFPAY ==
--- NOTE | ~2021-03-08 | US_ITS ---
EXAMINATION: US RETROPERITONEAL LIMITED (RENAL ONLY) CLINICAL INFORMATION: Calculus of kidney. COMPARISON: Renal ultrasound 08/16/2020. CT abdomen and pelvis 07/07/2020. TECHNIQUE: Real-time imaging of the kidneys. Technically difficult study secondary to scanning performed in the wheelchair and patient unable to move arms. FINDINGS: RIGHT KIDNEY: 10.3 x 4.9 x 7.0 cm (SAG x AP x TRV). The kidney is normal in size, contour, and echogenicity. Renal cortical thickness is normal. There is a 3.5 x 2.7 cm cyst in the posterior mid pole. Right upper pole renal stone seen on CT is not appreciated. No hydronephrosis or renal mass. LEFT KIDNEY: 10.0 x 4.7 x 4.4 cm (SAG x AP x TRV). The kidney is normal in size, contour, and echogenicity. Renal cortical thickness is normal. Hydronephrosis is no longer seen. There is a 1.4 x 0.7 x 0.8 cm echogenic density in the upper pole questionable for a stone. There is no renal mass. US/US renal BI IMPRESSION: Very limited exam. Right renal cyst. Previously identified right upper pole renal stone is not appreciated. No left hydronephrosis. Probable left upper pole renal stone.
== END 2021-03-08 12:53 | disposition home or self-care (01) ==
LOC: HO.US 12:52
PROVIDERS: Visit Provider Urology
DX: N20.0 Calculus of kidney (principal)
CPT/HCPCS: 76775

== ENCOUNTER 2021-05-02 07:04 | Outpatient (REF) | payer MEDICARE, OTHER, SELFPAY ==
[2021-05-02 07:49] LABS: MANUAL DIFF FLAG NO
[2021-05-02 07:54] LABS: Basophils Percent Auto 0.6 % (0-2); Eosinophils Absolute Auto 0.5 X10*3/uL (0.0-0.4); Eosinophils Percent Auto 7.1 % (0-4); Hematocrit 37.3 % (42-52); Hemoglobin 12.5 g/dl (14.0-18.0); Imm Gran Abs Auto 0.02 X10*3/uL (0.00-0.03); Imm Gran Pct Auto 0.3 % (0.0-0.4); Lymphocytes Absolute Auto 1.4 X10*3/uL (1.2-4.9); Lymphocytes Percent Auto 20.1 % (20-40); Mean Corpuscular HGB Conc 33.5 g/dl (31.0-36.0); Mean Corpuscular Hemoglobin 31.1 pg (27.0-33.0); Mean Corpuscular Volume 92.8 fL (80-98); Mean Platelet Volume 9.4 fL (9.4-12.4); Monocytes Absolute Auto 0.9 X10*3/uL (0.1-1.2); Monocytes Percent Auto 12.4 % (2-11); Neutrophils Absolute Auto 4.1 X10*3/uL (2.0-8.3); Neutrophils Percent Auto 59.5 % (45-73); Platelet Count 188 X10*3/uL (160-400); Red Blood Count 4.02 X10*6/uL (4.60-5.80); Red Cell Distribution Width 13.1 % (11.0-16.0); White Blood Count 6.9 X10*3/uL (4.8-10.8)
[2021-05-02 08:02] LABS: Alanine Aminotransferase 9 U/L (0-40); Albumin Level 3.4 g/dL (3.5-5.0); Alkaline Phosphatase 73 U/L (39-117); Anion Gap 11 (12-20); Aspartate Amino Transferase 14 U/L (5-37); Bilirubin Total 0.5 mg/dL (0.0-1.0); Blood Urea Nitrogen 19 mg/dL (9-16); Calcium 9.2 mg/dL (8.4-10.2); Carbon Dioxide 29 mmol/L (22-29); Chloride 105 mmol/L (96-108); Estimated Glomerular Filt Rate > 60; Glucose Random 87 mg/dL (60-115); Iron 47 mcg/dL (45-160); Percent Iron Saturation 19 % (15-50); Potassium 4.3 mmol/L (3.3-5.1); Sodium 141 mmol/L (135-145); Total Iron Binding Capacity 248 mcg/dL (228-428); Total Protein 6.9 g/dL (6.5-8.0); Unsaturated Iron Binding 201 ug/dL
[2021-05-02 08:21] LABS: Thyroid Stimulating Hormone 1.15 uIU/mL (0.32-4.0); Vitamin D 25-OH Total 37.3 ng/mL (>30)
[2021-05-02 09:27] LABS: Vitamin B12 494 pg/mL (200-900)
== END 2021-05-02 07:05 | disposition home or self-care (01) ==
LOC: HO.HSH3N 07:04
PROVIDERS: Visit Provider Nurse Practitioner Acute Care
DX: G30.9 Alzheimer's disease, unspecified (principal)
CPT/HCPCS: 36415; 80053; 82306; 82607; 82746; 83540; 84443; 85025

== ENCOUNTER → 2021-05-03 10:41 | Outpatient (BNVA) | payer MEDICARE, OTHER, SELFPAY | PROVIDERS: PCP Internal Medicine; Visit Provider Urology | DX: N20.0 Calculus of kidney (principal) | CPT/HCPCS: Q3014 ==

== ENCOUNTER 2021-05-13 11:01 | Outpatient (REF) | payer MEDICARE, OTHER, SELFPAY ==
[2021-05-13 11:17] LABS: MANUAL DIFF FLAG NO
[2021-05-13 11:20] LABS: Basophils Percent Auto 0.1 % (0-2); Eosinophils Absolute Auto 0.1 X10*3/uL (0.0-0.4); Eosinophils Percent Auto 0.4 % (0-4); Hematocrit 37.7 % (42.0-52.0); Imm Gran Abs Auto 0.04 X10*3/uL (0.00-0.03); Imm Gran Pct Auto 0.3 % (0.0-0.4); Lymphocytes Absolute Auto 0.8 X10*3/uL (1.2-4.9); Lymphocytes Percent Auto 5.7 % (20-40); Mean Corpuscular HGB Conc 34.5 g/dl (31.0-36.0); Mean Corpuscular Hemoglobin 31.2 pg (27.0-33.0); Mean Corpuscular Volume 90.4 fL (80.0-98.0); Mean Platelet Volume 9.1 fL (9.4-12.4); Monocytes Absolute Auto 0.9 X10*3/uL (0.1-1.2); Neutrophils Absolute Auto 11.6 x10*3/uL (2.0-8.3); Neutrophils Percent Auto 86.5 % (45-73); Platelet Count 175 X10*3/uL (160-400); Red Blood Count 4.17 X10*6/uL (4.60-5.80); Red Cell Distribution Width 12.9 % (11.0-16.0); White Blood Count 13.5 X10*3/uL (4.8-10.8)
[2021-05-13 11:33] LABS: Anion Gap 12 (12-20); Blood Urea Nitrogen 19 mg/dL (9-16); Calcium 8.9 mg/dL (8.4-10.2); Carbon Dioxide 26 mmol/L (22-29); Chloride 104 mmol/L (96-108); Estimated Glomerular Filt Rate > 60; Glucose Random 99 mg/dL (60-115); Potassium 3.8 mmol/L (3.3-5.1); Sodium 138 mmol/L (135-145)
== END 2021-05-13 11:02 | disposition home or self-care (01) ==
LOC: HO.HSH3N 11:01
PROVIDERS: Visit Provider Nurse Practitioner Acute Care
DX: R09.3 Abnormal sputum (principal)
CPT/HCPCS: 36415; 80048; 85025; 87070; 87205

== ENCOUNTER 2022-01-13 05:24 | Inpatient (IN) | payer MEDICARE, OTHER, SELFPAY ==
[2022-01-13] VITALS (13 sets, daily range): BP systolic 90–113; BP diastolic 50–74; PULSE 71–81; RESP 12–18; TEMP 36.4–37.3; O2SAT 94–98; BMI 26.6
--- NOTE | ~2022-01-13 | XR_ITS ---
EXAMINATION: XR CHEST CLINICAL INFORMATION: Cough COMPARISON: 02/02/2021 TECHNIQUE: Frontal view of the chest was obtained. FINDINGS: The lungs are well expanded. There is no focal consolidation, edema, or effusion. Bronchial wall thickening. No pneumothorax. The cardiomediastinal silhouette is within normal limits of size with a calcified aorta. No acute osseous abnormality. XR/XR chest 1V IMPRESSION: No dense consolidation. Bronchial wall thickening can be seen with a small airways process such as asthma or atypical/viral infection.
--- NOTE | 2022-01-13 05:44 | ECG_ITS ---
Test Reason : GI BLEED Blood Pressure : / mmHG Vent. Rate : 084 BPM Atrial Rate : 084 BPM P-R Int : 194 ms QRS Dur : 072 ms QT Int : 370 ms P-R-T Axes : 067 029 037 degrees QTc Int : 437 ms Normal sinus rhythm Normal ECG When compared with ECG of 02-FEB-2021 09:49, Premature atrial complexes are no longer Present Referred By: Sagrario Paige Electronically Signed By:Larry Gutiérrez
[2022-01-13 05:57] LABS: MANUAL DIFF FLAG NO
[2022-01-13 05:58] LABS: Basophils Percent Auto 0.2 % (0-2); Eosinophils Absolute Auto 0.1 X10*3/uL (0.0-0.4); Hematocrit 31.3 % (42.0-52.0); Hemoglobin 9.8 g/dl (14.0-18.0); Imm Gran Abs Auto 0.05 X10*3/uL (0.00-0.03); Imm Gran Pct Auto 0.4 % (0.0-0.4); Lymphocytes Absolute Auto 0.9 X10*3/uL (1.2-4.9); Lymphocytes Percent Auto 6.7 % (20-40); Mean Corpuscular HGB Conc 31.3 g/dl (31.0-36.0); Mean Corpuscular Hemoglobin 25.5 pg (27.0-33.0); Mean Corpuscular Volume 81.5 fL (80.0-98.0); Mean Platelet Volume 9.5 fL (9.4-12.4); Monocytes Absolute Auto 0.8 X10*3/uL (0.1-1.2); Monocytes Percent Auto 6.2 % (2-11); Neutrophils Absolute Auto 11.1 x10*3/uL (2.0-8.3); Neutrophils Percent Auto 85.5 % (45-73); Platelet Count 275 X10*3/uL (160-400); Red Blood Count 3.84 X10*6/uL (4.60-5.80); White Blood Count 12.9 X10*3/uL (4.8-10.8)
[2022-01-13 06:10] LABS: Lactic Acid 1.4 mmol/L (0.5-2.0)
[2022-01-13 06:13] LABS: OBS Int Ctl Valid YES; OBS1 POSITIVE (NEGATIVE)
[2022-01-13 06:18] LABS: INTERNATIONAL NORM RATIO 1.1 (0.9-1.1); Prothrombin Time 13.1 SEC (10.0-13.1)
[2022-01-13 06:19] LABS: Alanine Aminotransferase 17 U/L (0-40); Albumin Level 3.7 g/dL (3.5-5.0); Alkaline Phosphatase 77 U/L (39-117); Anion Gap 13 (12-20); Aspartate Amino Transferase 27 U/L (5-37); Bilirubin Total < 0.2 mg/dL (0.0-1.0); Blood Urea Nitrogen 25 mg/dL (9-16); Calcium 8.8 mg/dL (8.4-10.2); Carbon Dioxide 26 mmol/L (22-29); Chloride 103 mmol/L (96-108); Creatinine Clr Calc Pharmacy 49.8; Estimated Glomerular Filt Rate 57; Glucose Random 107 mg/dL (60-115); Potassium 4.4 mmol/L (3.3-5.1); Sodium 138 mmol/L (135-145); Total Protein 7.9 g/dL (6.5-8.0)
[2022-01-13 06:37] LABS: COVID-19 Test Negative (Negative); IDNOW Serial# 16C4AD1C
--- NOTE | 2022-01-13 06:37 | ED.GIBLEED ---
HPI - GI Bleed General Chief complaint: GI Bleed Stated complaint: possible gi bleed ?coffee ground spetum Time Seen by Provider: 01/13/22 05:44 Source: patient Mode of arrival: EMS Limitations: other (poor historian) History of Present Illness HPI Narrative: 86 yo male with hx of pneumonia, dementia, COPD not on blood thinners, confused at baseline, DNR/DNI reportedly had 500mL at SNF of coffee ground emesis. He has no complaints now but he isn't really answering questions and is feisty and is does not want to be bothered complaint: coffee ground emesis Onset (ago): hour(s) (5am) Pain Consistency: now resolved Severity: mild Relieving factors: none Exacerbating factors: none Associated symptoms: nausea and vomiting Treatments Prior to Arrival: none Related Data Home Medications Medication Instructions Recorded Confirmed acetaminophen 325 mg tablet 650 mg PO BID 07/07/20 01/31/21 alendronate 70 mg tablet (Fosamax) 70 mg PO WE@0630 07/07/20 01/31/21 cholecalciferol (vitamin D3) 25 25 mcg PO DAILY 07/07/20 01/31/21 mcg (1,000 unit) tablet (Vitamin D3) docusate sodium 100 mg capsule 100 mg PO DAILY 07/07/20 01/31/21 (Colace) escitalopram oxalate 5 mg tablet 5 mg PO DAILY 07/07/20 01/31/21 (Lexapro) fluticasone 250 mcg-salmeterol 50 1 inh inhalation BID 07/07/20 01/31/21 mcg/dose blistr powdr for inhalation (Advair Diskus) ipratropium bromide 42 mcg (0.06 1 spray intranasal BID 07/07/20 01/31/21 %) nasal spray levalbuterol tartrate 45 2 puff inhalation Q4H PRN 07/07/20 01/31/21 mcg/actuation aerosol inhaler Shortness Of Breath Or Wheezing loratadine 10 mg tablet (Claritin) 10 mg PO DAILY 07/07/20 01/31/21 sennosides 8.6 mg tablet (senna) 8.6 mg PO BEDTIME 07/07/20 01/31/21 trazodone 50 mg tablet 37.5 mg PO DAILY 07/07/20 01/31/21 acetaminophen 325 mg tablet 325 mg PO Q4H PRN pain/fever 09/15/20 01/31/21 bisacodyl 10 mg rectal suppository 10 mg VA DAILY PRN Constipation 09/15/20 01/31/21 dextromethorphan-guaifenesin 10 10 ml PO Q6H PRN Cough 09/15/20 01/31/21 mg-100 mg/5 mL oral syrup magnesium hydroxide 400 mg/5 mL 30 ml PO BEDTIME PRN Constipation 09/15/20 01/31/21 oral suspension (Milk of Magnesia) nystatin 100,000 unit/gram topical 1 appl topical BID PRN Rash 09/15/20 01/31/21 powder polyethylene glycol 3350 17 gram 17 g PO DAILY 09/15/20 01/31/21 oral powder packet sodium phosphates 19 gram-7 118 ml VA DAILY PRN Constipation 09/15/20 01/31/21 gram/118 mL enema (Fleet Enema) Previous Rx's Medication Instructions Recorded cefuroxime axetil 500 mg tablet 500 mg PO Q12H #8 tabs 02/03/21 doxycycline monohydrate 100 mg 100 mg PO BID #8 tabs 02/03/21 tablet pyridoxine (vitamin B6) 100 mg 100 mg PO DAILY 90 days #90 tabs 05/03/21 tablet Allergies Allergy/AdvReac Type Severity Reaction Status Date / Time diazepam Allergy Unknown Verified 05/03/21 11:05 lidocaine Allergy Unknown Verified 05/03/21 11:05 lisinopril Allergy Unknown Verified 05/03/21 11:05 Review of Systems Review of Systems: ROS unable to be obtained due to baseline confusion PMFSH Past Medical History Attestation statement: The following information was validated with the patient. 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 Confused. No acute distress. Eyes: Pupils equal, round and reactive to light. ENT: Pharynx mildly dry MM Neck: Normal inspection. Neck supple. CVS: Normal heart rate and rhythm. Pulses normal. Respiratory: No respiratory distress. Breath sounds normal. Abdomen: Soft and non-tender. Don't touch by belly. Rectal: black digital exam reported Skin: Skin warm and dry. Normal skin color. Normal skin turgor. Extremities: No lower extremity edema. Neuro: Confused and slightly annoyed with questions. No motor deficit. No sensory deficit. Course Course Course Narrative: repeat CBC pending no active bleeding here will transfuse one unit of blood here GI aware family hesitant to do EGD at this time MDM - GI Bleed MDM Narrative Medical decision making narrative: 86 yo male with hx of pneumonia, dementia, COPD not on blood thinners here with c/o coffee ground emesis at SNF - at this time will need basic labs, IV protonix, he did have a drop in his hemoglobin will repeat CBC at 8am. Likely admit pending CBC trend. Lab Data Result diagrams: 01/13/22 08:09 01/13/22 05:52 Labs: Lab Results 01/13/22 01/13/22 01/13/22 Range/Units 05:52 05:52 05:52 WBC 12.9 H (4.8-10.8) X10*3/uL RBC 3.84 L (4.60-5.80) X10*6/uL Hgb 9.8 L D (14.0-18.0) g/dl Hct 31.3 L (42.0-52.0) % MCV 81.5 (80.0-98.0) fL MCH 25.5 L (27.0-33.0) pg MCHC 31.3 (31.0-36.0) g/dl RDW 15.0 (11.0-16.0) % Plt Count 275 D (160-400) X10*3/uL MPV 9.5 (9.4-12.4) fL Immature Gran % (Auto) 0.4 (0.0-0.4) % Neut % (Auto) 85.5 H (45-73) % Lymph % (Auto) 6.7 L (20-40) % [place] % (Auto) 6.2 (2-11) % Eos % (Auto) 1.0 (0-4) % Baso % (Auto) 0.2 (0-2) % Lymph # (Auto) 0.9 L (1.2-4.9) X10*3/uL [place] # (Auto) 0.8 (0.1-1.2) X10*3/uL Eos # (Auto) 0.1 (0.0-0.4) X10*3/uL Baso # (Auto) 0.0 (0.0-0.2) X10*3/uL Abs Immat Gran (auto) 0.05 H (0.00-0.03) X10*3/uL Absolute Neuts (auto) 11.1 H (2.0-8.3) x10*3/uL Absolute Nucleated RBC 0.000 (0.0-0.012) X10*3/uL Nucleated RBC % (auto) 0.0 (0.0-0.2) /100WBC PT (10.0-13.1) SEC INR (0.9-1.1) Sodium 138 (135-145) mmol/L Potassium 4.4 (3.3-5.1) mmol/L Chloride 103 (96-108) mmol/L Carbon Dioxide 26 (22-29) mmol/L Anion Gap 13 (12-20) BUN 25 H (9-16) mg/dL Creatinine 1.21 (0.5-1.4) mg/dL Estim Creat Clear Calc 49.8 Estimated GFR 57 Random Glucose 107 (60-115) mg/dL Lactic Acid 1.4 (0.5-2.0) mmol/L Calcium 8.8 (8.4-10.2) mg/dL Total Bilirubin < 0.2 (0.0-1.0) mg/dL AST 27 D (5-37) U/L ALT 17 (0-40) U/L Alkaline Phosphatase 77 (39-117) U/L Total Protein 7.9 (6.5-8.0) g/dL Albumin 3.7 (3.5-5.0) g/dL Stool Occult Blood (NEGATIVE) COVID-19 (CECELIA) (Negative) COVID-19 Clin Com Blood Type Antibody Screen Crossmatch 01/13/22 01/13/22 01/13/22 Range/Units 05:58 06:05 06:05 WBC (4.8-10.8) X10*3/uL RBC (4.60-5.80) X10*6/uL Hgb (14.0-18.0) g/dl Hct (42.0-52.0) % MCV (80.0-98.0) fL MCH (27.0-33.0) pg MCHC (31.0-36.0) g/dl RDW (11.0-16.0) % Plt Count (160-400) X10*3/uL MPV (9.4-12.4) fL Immature Gran % (Auto) (0.0-0.4) % Neut % (Auto) (45-73) % Lymph % (Auto) (20-40) % [place] % (Auto) (2-11) % Eos % (Auto) (0-4) % Baso % (Auto) (0-2) % Lymph # (Auto) (1.2-4.9) X10*3/uL [place] # (Auto) (0.1-1.2) X10*3/uL Eos # (Auto) (0.0-0.4) X10*3/uL Baso # (Auto) (0.0-0.2) X10*3/uL Abs Immat Gran (auto) (0.00-0.03) X10*3/uL Absolute Neuts (auto) (2.0-8.3) x10*3/uL Absolute Nucleated RBC (0.0-0.012) X10*3/uL Nucleated RBC % (auto) (0.0-0.2) /100WBC PT 13.1 (10.0-13.1) SEC INR 1.1 (0.9-1.1) Sodium (135-145) mmol/L Potassium (3.3-5.1) mmol/L Chloride (96-108) mmol/L Carbon Dioxide (22-29) mmol/L Anion Gap (12-20) BUN (9-16) mg/dL Creatinine (0.5-1.4) mg/dL Estim Creat Clear Calc Estimated GFR Random Glucose (60-115) mg/dL Lactic Acid (0.5-2.0) mmol/L Calcium (8.4-10.2) mg/dL Total Bilirubin (0.0-1.0) mg/dL AST (5-37) U/L ALT (0-40) U/L Alkaline Phosphatase (39-117) U/L Total Protein (6.5-8.0) g/dL Albumin (3.5-5.0) g/dL Stool Occult Blood POSITIVE (NEGATIVE) COVID-19 (CECELIA) (Negative) COVID-19 Clin Com Blood Type A Positive Antibody Screen NEGATIVE Crossmatch See Detail 01/13/22 01/13/22 Range/Units 06:10 08:09 WBC 11.0 H (4.8-10.8) X10*3/uL RBC 3.16 L (4.60-5.80) X10*6/uL Hgb 8.1 L (14.0-18.0) g/dl Hct 26.0 L (42.0-52.0) % MCV 82.3 (80.0-98.0) fL MCH 25.6 L (27.0-33.0) pg MCHC 31.2 (31.0-36.0) g/dl RDW 14.9 (11.0-16.0) % Plt Count 210 (160-400) X10*3/uL MPV 9.4 (9.4-12.4) fL Immature Gran % (Auto) (0.0-0.4) % Neut % (Auto) (45-73) % Lymph % (Auto) (20-40) % [place] % (Auto) (2-11) % Eos % (Auto) (0-4) % Baso % (Auto) (0-2) % Lymph # (Auto) (1.2-4.9) X10*3/uL [place] # (Auto) (0.1-1.2) X10*3/uL Eos # (Auto) (0.0-0.4) X10*3/uL Baso # (Auto) (0.0-0.2) X10*3/uL Abs Immat Gran (auto) (0.00-0.03) X10*3/uL Absolute Neuts (auto) (2.0-8.3) x10*3/uL Absolute Nucleated RBC 0.000 (0.0-0.012) X10*3/uL Nucleated RBC % (auto) 0.0 (0.0-0.2) /100WBC PT (10.0-13.1) SEC INR (0.9-1.1) Sodium (135-145) mmol/L Potassium (3.3-5.1) mmol/L Chloride (96-108) mmol/L Carbon Dioxide (22-29) mmol/L Anion Gap (12-20) BUN (9-16) mg/dL Creatinine (0.5-1.4) mg/dL Estim Creat Clear Calc Estimated GFR Random Glucose (60-115) mg/dL Lactic Acid (0.5-2.0) mmol/L Calcium (8.4-10.2) mg/dL Total Bilirubin (0.0-1.0) mg/dL AST (5-37) U/L ALT (0-40) U/L Alkaline Phosphatase (39-117) U/L Total Protein (6.5-8.0) g/dL Albumin (3.5-5.0) g/dL Stool Occult Blood (NEGATIVE) COVID-19 (CECELIA) Negative (Negative) COVID-19 Clin Com See Note Blood Type Antibody Screen Crossmatch ECG Data Attestation: I personally reviewed and interpreted this ECG as follows: ECG interpretation date: 01/13/22 ECG interpretation time: 06:39 Interpretation: Rate: 84 Rhythm: NSR [place]: normal Normal P waves. Normal [place]. Normal QRS complex. ST T wave : normal no TERRI qTC: normal prior studies: no acute ischemia artifact noted The study has been interpreted contemporaneously by me. . Critical Care Time Critical Care Time Critical Care Time: Yes Total Critical Care Time: 45 Attestation: IVF, family discussion, medical consult, transfusion of blood I attest to this time spent taking care of the patient Discharge Plan Discharge Clinical Impression: Upper gastrointestinal hemorrhage, Acute blood loss anemia Patient Disposition: Admitted As Inpatient Prescriptions: No Action fluticasone propion-salmeterol [Advair Diskus] 250-50 mcg/dose Blister With Device 1 inh INHALATION BID sennosides [senna] 8.6 mg Tablet 8.6 mg PO BEDTIME acetaminophen 325 mg Tablet 650 mg PO BID trazodone 50 mg Tablet 37.5 mg PO DAILY alendronate [Fosamax] 70 mg Tablet 70 mg PO WE@0630 docusate sodium [Colace] 100 mg Capsule 100 mg PO DAILY ipratropium bromide 42 mcg (0.06 %) [place],Non-Aerosol 1 spray INTRANASAL BID loratadine [Claritin] 10 mg Tablet 10 mg PO DAILY escitalopram oxalate [Lexapro] 5 mg Tablet 5 mg PO DAILY levalbuterol tartrate 45 mcg/actuation Hfa Aerosol Inhaler 2 puff INHALATION Q4H PRN (Reason: Shortness Of Breath Or Wheezing) cholecalciferol (vitamin D3) [Vitamin D3] 25 mcg (1,000 unit) Tablet 25 mcg PO DAILY doxycycline monohydrate 100 mg tablet 100 mg PO BID Qty: 8 0RF cefuroxime axetil 500 mg tablet 500 mg PO Q12H Qty: 8 0RF acetaminophen 325 mg Tablet 325 mg PO Q4H PRN (Reason: pain/fever) dextromethorphan-guaifenesin 10-100 mg/5 mL Syrup 10 ml PO Q6H PRN (Reason: Cough) magnesium hydroxide [Milk of Magnesia] 400 mg/5 mL Suspension 30 ml PO BEDTIME PRN (Reason: Constipation) Rx Instructions: IF NO BM IN 3 DAYS OR 9 SHIFTS AND HARD STOOL IN RECTUM bisacodyl 10 mg Suppository 10 mg VA DAILY PRN (Reason: Constipation) Rx Instructions: IF NO BM IN 3 DAYS OR 9 SHIFTS AND HARD STOOL IN RECTUM Fleet Enema 19-7 gram/118 mL Enema 118 ml VA DAILY PRN (Reason: Constipation) Rx Instructions: IF NO BM IN 3 DAYS OR 9 SHIFTS AND HARD STOOL IN RECTUM nystatin 100,000 unit/gram Powder 1 appl TOPICAL BID PRN (Reason: Rash) polyethylene glycol 3350 17 gram powder in packet 17 g PO DAILY pyridoxine (vitamin B6) 100 mg tablet 100 mg PO DAILY 90 Days Qty: 90 1RF
--- NOTE | 2022-01-13 07:05 | PC.NURSE ---
Assumed care of this pt. and received report from Africa Godfrey RN
[2022-01-13] MEDS: Pantoprazole Sodium 40 MG/10 ML VIAL IVPUSH (07:14)
[2022-01-13] MEDS: ondansetron HCL 4 MG/2 ML VIAL IVPUSH (07:18)
[2022-01-13] MEDS: Pantoprazole Sodium 80 MG in 0.9 % Sodium Chloride 80 ML 10 MG IV ×2 (07:22→16:07)
[2022-01-13] MEDS: 0.9 % Sodium Chloride 1,000 ML 999 ML IV (07:28)
[2022-01-13 08:43] LABS: Hemoglobin 8.1 g/dl (14.0-18.0); Mean Corpuscular HGB Conc 31.2 g/dl (31.0-36.0); Mean Corpuscular Hemoglobin 25.6 pg (27.0-33.0); Mean Corpuscular Volume 82.3 fL (80.0-98.0); Mean Platelet Volume 9.4 fL (9.4-12.4); Platelet Count 210 X10*3/uL (160-400); Red Blood Count 3.16 X10*6/uL (4.60-5.80); Red Cell Distribution Width 14.9 % (11.0-16.0)
--- NOTE | 2022-01-13 11:24 | PHA.MEDREC ---
Pharmacy Consult ? Medication Reconciliation Pharmacy has completed the medication reconciliation. Pt had list sent from [place].
--- NOTE | 2022-01-13 11:47 | PM.IMHP ---
History of Present Illness Date of Service: 01/13/22 Chief Complaint: coffee ground emesis ? 86 -year-old male with past medical history of COPD that is stable,, nephrolithiasis, dementia that appear stable , and depression with SI who presents to the hospital [facility] with fever with coffee ground emesis? and hemoglobin of 8, last documented hemoglobin in May last year was 13--he is not blood thiners and not actively bleeding, and is hemodynamically stable with and no tachycardia. Given IV PPI in ED and is being admitted for further evalution and treatement . Spoke to son who is HCP at bedside and he doesn't want EGD at this time. Patient given 1 unit of RBC Review of Systems Review of Systems: Gen: no fever Resp: no sob, no cough CV: no chest, no CARR, no leg edema GI: No n/v, no abd pain Neuro: No confusion [facility] Medical History COPD (chronic obstructive pulmonary disease) Dementia Encephalopathy Hydronephrosis Leukocytosis Major depressive disorder Nephrolithiasis Pneumonia Renal colic on left side Social History Household Members: Unknown / Unable to assess Household Members Other:: snf Housing: Longterm Housing 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 Do you presently have visiting nurse or other home services: No Unable to assess alcohol history related to: Unknown Patient Tobacco Use Status: Tobacco use Unknown Advance Directives: Yes Advance Directives on File: Yes Advance Directives Date on File: 07/08/20 service: Yes Current occupational status: retired Meds Allergies Allergy/AdvReac Type Severity Reaction Status Date / Time diazepam Allergy Unknown Verified 05/03/21 11:05 lidocaine Allergy Unknown Verified 05/03/21 11:05 lisinopril Allergy Unknown Verified 05/03/21 11:05 Active Medications: Current Medications Pantoprazole Sodium 80 mg/ (Sodium Chloride) 100 mls @ 10 mls/hr IV .Q10H GERALDO Last Admin: 01/13/22 07:22 Dose: 8 mg/hr, 10 mls/hr Home Medications Medication Instructions Recorded Confirmed Last Taken Type acetaminophen 325 mg tablet 650 mg PO BID 07/07/20 01/13/22 12/13/21 History alendronate 70 mg tablet (Fosamax) 70 mg PO WE@0630 07/07/20 01/13/22 01/11/22 History cholecalciferol (vitamin D3) 25 25 mcg PO DAILY 07/07/20 01/13/22 01/12/22 History mcg (1,000 unit) tablet (Vitamin D3) docusate sodium 100 mg capsule 100 mg PO DAILY 07/07/20 01/13/22 01/12/22 History (Colace) escitalopram oxalate 5 mg tablet 5 mg PO DAILY 07/07/20 01/13/22 01/12/22 History (Lexapro) fluticasone 250 mcg-salmeterol 50 1 inh inhalation BID 07/07/20 01/13/22 01/12/22 History mcg/dose blistr powdr for inhalation (Advair Diskus) ipratropium bromide 42 mcg (0.06 1 spray intranasal BID 07/07/20 01/13/22 01/12/22 History %) nasal spray levalbuterol tartrate 45 2 puff inhalation Q4H PRN 07/07/20 01/13/22 Unknown History mcg/actuation aerosol inhaler Shortness Of Breath Or Wheezing loratadine 10 mg tablet (Claritin) 10 mg PO DAILY 07/07/20 01/13/22 01/12/22 History sennosides 8.6 mg tablet (senna) 8.6 mg PO BEDTIME 07/07/20 01/13/22 01/12/22 History trazodone 50 mg tablet 37.5 mg PO DAILY@1400 07/07/20 01/13/22 01/12/22 History calcium polycarbophil 625 mg tablet 625 mg PO DAILY 01/13/22 01/13/22 01/12/22 History chlorhexidine gluconate 0.12 % 15 ml buccal BID 01/13/22 01/13/22 01/12/22 History mouthwash (Periogard) melatonin 3 mg tablet 3 mg PO BEDTIME 01/13/22 01/13/22 01/12/22 History Physical Exam Vital Signs and Narrative: Vital Signs: Last Vital Signs Temp 98.0 F 01/13/22 11:26 Pulse 78 01/13/22 11:26 Resp 14 01/13/22 11:26 BP 107/62 01/13/22 11:26 Pulse Ox 97 01/13/22 11:26 O2 Del Method 01/13/22 11:26 BMI result Body Mass Index 26.6 Results Labs CBC and Chem 7: 01/13/22 08:09 01/13/22 05:52 Labs: Laboratory Results - last 24 hr 01/13/22 01/13/22 01/13/22 05:52 05:52 05:52 MCV 81.5 MCH 25.5 L MCHC 31.3 RDW 15.0 Plt Count 275 D MPV 9.5 Immature Gran % (Auto) 0.4 Neut % (Auto) 85.5 H Lymph % (Auto) 6.7 L [place] % (Auto) 6.2 Eos % (Auto) 1.0 Baso % (Auto) 0.2 Lymph # (Auto) 0.9 L [place] # (Auto) 0.8 Eos # (Auto) 0.1 Baso # (Auto) 0.0 Abs Immat Gran (auto) 0.05 H Absolute Neuts (auto) 11.1 H Absolute Nucleated RBC 0.000 Nucleated RBC % (auto) 0.0 PT INR Anion Gap 13 Estim Creat Clear Calc 49.8 Estimated GFR 57 Random Glucose 107 Lactic Acid 1.4 Calcium 8.8 Total Bilirubin < 0.2 AST 27 D ALT 17 Alkaline Phosphatase 77 Total Protein 7.9 Albumin 3.7 Stool Occult Blood COVID-19 (CECELIA) COVID-19 Clin Com Blood Type Antibody Screen Crossmatch 01/13/22 01/13/22 01/13/22 05:58 06:05 06:05 MCV MCH MCHC RDW Plt Count MPV Immature Gran % (Auto) Neut % (Auto) Lymph % (Auto) [place] % (Auto) Eos % (Auto) Baso % (Auto) Lymph # (Auto) [place] # (Auto) Eos # (Auto) Baso # (Auto) Abs Immat Gran (auto) Absolute Neuts (auto) Absolute Nucleated RBC Nucleated RBC % (auto) PT 13.1 INR 1.1 Anion Gap Estim Creat Clear Calc Estimated GFR Random Glucose Lactic Acid Calcium Total Bilirubin AST ALT Alkaline Phosphatase Total Protein Albumin Stool Occult Blood POSITIVE COVID-19 (CECELIA) COVID-19 Clin Com Blood Type A Positive Antibody Screen NEGATIVE Crossmatch See Detail 01/13/22 01/13/22 06:10 08:09 MCV 82.3 MCH 25.6 L MCHC 31.2 RDW 14.9 Plt Count 210 MPV 9.4 Immature Gran % (Auto) Neut % (Auto) Lymph % (Auto) [place] % (Auto) Eos % (Auto) Baso % (Auto) Lymph # (Auto) [place] # (Auto) Eos # (Auto) Baso # (Auto) Abs Immat Gran (auto) Absolute Neuts (auto) Absolute Nucleated RBC 0.000 Nucleated RBC % (auto) 0.0 PT INR Anion Gap Estim Creat Clear Calc Estimated GFR Random Glucose Lactic Acid Calcium Total Bilirubin AST ALT Alkaline Phosphatase Total Protein Albumin Stool Occult Blood COVID-19 (CECELIA) Negative COVID-19 Clin Com See Note Blood Type Antibody Screen Crossmatch Imaging Radiologist's Impressions: Impressions Chest X-Ray 01/13/22 06:40 IMPRESSION: No dense consolidation. Bronchial wall thickening can be seen with a small airways process such as asthma or atypical/viral infection. Assessment and Plan (1) Upper gastrointestinal hemorrhage: Status: Acute (2) Acute blood loss anemia: Status: Acute (3) Pneumonia: Status: Resolved Plan 86/m with coffee ground emesis and acute blood blood loss anemia DDx: PUD, malignancy, MWT, gastritis plan: Observe, IV PPI, no intervention at this time. Continue chronic meds. Lliquid diet to start then dysphagia diet, has history of aspirations and is on puree diet Admission to span at least 2 midnights for management of upper GIB with acute blood loss anemia, need IV PPI and RBC DNR/DNI confirmed with [facility] Quality Stroke Does the patient have a stroke diagnosis?: No VTE Prior VTE?: No VTE Risk Level:: Medical - moderate - high VTE Device Contraindication: N/A - Device Ordered VTE Drug Contraindication: Treatment Not Tolerated
--- NOTE | 2022-01-13 14:06 | PC.NURSE ---
Pt cleaned and repositioned. VSS. Resting quietly. Protonix drip infusing.
[2022-01-13] MEDS: 0.9 % Sodium Chloride 1,000 ML 80 ML IVCONT (16:13)
[2022-01-13] MEDS: 0.9 % Sodium Chloride Flush 3 ML SYRINGE IVFLUSH ×2 (16:14→23:17)
[2022-01-13 17:28] LABS: Hematocrit 35.5 % (42.0-52.0); Mean Corpuscular Hemoglobin 26.5 pg (27.0-33.0); Mean Corpuscular Volume 85.5 fL (80.0-98.0); Mean Platelet Volume 9.7 fL (9.4-12.4); Platelet Count 243 X10*3/uL (160-400); Red Blood Count 4.15 X10*6/uL (4.60-5.80)
--- NOTE | 2022-01-13 18:19 | PC.NURSE ---
THIS [employer] BUSINESS ANALYST ASSUMED CARE OF THIS PT AT 1800. PROTONIX RUNNING AT 8 ML/HR. NS RUNNING AT 80 ML/HR.
[2022-01-13 18:49] LABS: Appearance Urine CLEAR; Color Urine YELLOW; Glucose Urine UA NEG (NEG); Leukocyte Esterase Urine NEG (NEG); Nitrite Urine NEG (NEG); PH 5.5 (5.0-8.0); Specific Gravity - Urine 1.025 (1.005-1.025); Urine Blood NEG (NEG); Urine Ketones NEG (NEG); Urine Protein NEG (NEG-TRACE)
--- NOTE | 2022-01-13 18:53 | PC.NURSE ---
PATIENT WAS INC OF MODERATE AMOUNT OF LOOSE BOWEL MOVEMENT ,CARE GIVE BEDDING CHANGE ,PATIENT REPOSITION WITH PILLOWS OF BOTTOM AND BETWEEN LEGS AND UNDER ARMS , PATIENT RESTING TALKING TO HIMSELF AND LOOKING AT THE TELEVISION .
[2022-01-13 22:44] LABS: Amphetamine Screen Urine Not Detected (Not Detect); Barbiturates, Urine Not Detected (Not Detect); Benzodiazepines Screen Urine Not Detected (Not Detect); Cannabinoid Screen Urine Not Detected (Not Detect); Cocaine Screen Urine Not Detected (Not Detect); Fentanyl, urine Not Detected (Not Detect); Opiate Screen Urine Not Detected (Not Detect); Phencyclidine Screen Urine Not Detected (Not Detect)
[2022-01-13] MEDS: Acetaminophen 325 MG TABLET 650 MG PO (23:15)
[2022-01-13] MEDS: Ipratropium Bromide Nas 0.06 % 15 ML SPRAY 1 SPRAY NOSTRIL-B (23:16)
[2022-01-13] MEDS: Melatonin 3 MG TABLET PO (23:16)
[2022-01-13] MEDS: Sennosides 8.6 MG TABLET PO (23:16)
--- NOTE | 2022-01-14 01:21 | CONS_ITS ---
DATE OF SERVICE: 01/13/2022 REFERRING PHYSICIAN: Lalo Huertas MD REASON FOR CONSULTATION: Upper gastrointestinal bleeding. HISTORY OF PRESENT ILLNESS: The patient is an 86-year-old [facility] resident, who was brought to the emergency room for vomiting coffee-grounds. He provides no history, because of dementia. It was reported that he had vomited 500 mL of coffee-grounds, but no bright red blood. There was no reported melena. He was evaluated in the emergency department and found to be anemic with a hematocrit on admission on initial evaluation of 31. After IV fluids were given, this dropped to 26. He has been hemodynamically stable. Rectal examination reportedly revealed black stool. Transfusion of blood products was begun. Discussion with the patient's son and Dr. Huertas resulted in a decision to not proceed with endoscopy based on his overall clinical status and treat noninvasively. There is no history of use of blood thinners or NSAIDs, and he is not reported to smoke or abuse alcohol. PAST MEDICAL HISTORY: 1. COPD. 2. Kidney stones. 3. Dementia. 4. Depression/encephalopathy. 5. Pneumonia. CURRENT MEDICATIONS: His current medication list is reviewed in the chart. ALLERGIES: MULTIPLE MEDICATION ALLERGIES ARE REVIEWED. FAMILY HISTORY: Reviewed in the electronic medical record. SOCIAL HISTORY: Reviewed in the electronic medical record. REVIEW OF SYSTEMS: This is not obtainable. PHYSICAL EXAMINATION: GENERAL: Shows an elderly male, who provides no useful history. He indicates he is not in pain when asked. VITAL SIGNS: In the emergency department are reviewed and are stable. SKIN: Pale. HEENT: Shows no scleral icterus. NECK: Without lymphadenopathy or thyromegaly. LUNGS: Clear with decreased breath sounds bilaterally. HEART: Shows a regular rate and rhythm. S1, S2. No murmur. ABDOMEN: Soft with focal masses or tenderness. Bowel sounds are present. No organomegaly is noted. EXTREMITIES: Without edema. LABORATORY DATA: Reviewed. IMPRESSION: Upper gastrointestinal bleeding. The differential diagnosis for this includes peptic ulcer disease, gastritis, arteriovenous malformations, and erosive esophagitis. At this time, he does not appear to be actively bleeding, but his hematocrit is significantly lower than it was previously. I agree with treating him with blood products and Protonix. The patient's family has decided not to pursue invasive therapy with endoscopy. Thanks for asking me to see him. I will follow him in the hospital as needed. MD KATELYN Dorsey/MARLENE / [phone]
[2022-01-14] MEDS: Pantoprazole Sodium 80 MG in 0.9 % Sodium Chloride 80 ML 10 MG IV ×3 (03:03→23:12)
[2022-01-14] MEDS: 0.9 % Sodium Chloride 1,000 ML 80 ML IVCONT ×2 (04:13→15:39)
[2022-01-14 07:50] VITALS: BP 129/60; PULSE 66; RESP 18; TEMP 37.1; O2SAT 95
[2022-01-14] MEDS: Fluticasone/Vilanterol 100/25 BLST.W.DEV 1 PUFF INHALE (08:07)
[2022-01-14 08:08] VITALS: PULSE 85; RESP 16; O2SAT 96
[2022-01-14 08:59] LABS: Hematocrit 28.6 % (42.0-52.0); Hemoglobin 9.1 g/dl (14.0-18.0); Mean Corpuscular HGB Conc 31.8 g/dl (31.0-36.0); Mean Corpuscular Hemoglobin 26.5 pg (27.0-33.0); Mean Corpuscular Volume 83.4 fL (80.0-98.0); Mean Platelet Volume 9.8 fL (9.4-12.4); Platelet Count 209 X10*3/uL (160-400); Red Blood Count 3.43 X10*6/uL (4.60-5.80); White Blood Count 5.7 X10*3/uL (4.8-10.8)
[2022-01-14] MEDS: 0.9 % Sodium Chloride Flush 3 ML SYRINGE IVFLUSH (09:15)
[2022-01-14] MEDS: Chlorhexidine Gluc Oral Rinse 15 ML MOUTHWASH BUCCAL (09:15)
[2022-01-14] MEDS: Escitalopram Oxalate 5 MG TABLET PO (09:16)
[2022-01-14] MEDS: calcium polycarbophiL TABLET 1 TAB PO (09:16)
[2022-01-14] MEDS: Docusate Sodium 100 MG CAPSULE PO (09:16)
[2022-01-14] MEDS: Pyridoxine HCl (Vitamin B6) 50 MG TABLET 100 MG PO (09:16)
[2022-01-14] MEDS: Acetaminophen 325 MG TABLET 650 MG PO ×2 (09:16→20:30)
[2022-01-14] MEDS: Loratadine 10 MG TABLET PO (09:16)
[2022-01-14] MEDS: Cholecalciferol (Vitamin D3) 25 MCG TABLET PO (09:16)
--- NOTE | 2022-01-14 10:50 | MHC.CM.PN ---
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, IT HAS BEEN DANNY HICKEY SHE REPORTS PT IS COVID-19 VACCINATED PT HAS A HCP, MOLST AND POA ON FILE IMM REVIEWED VIA T/C, JUSTO DECLINES OFFER TO RECEIVE A COPY CURRENT DC PLAN IS RETURN TO [facility] VIA BLS
--- NOTE | 2022-01-14 11:18 | PM.GIPN ---
Subjective Subjective Date of Service: 01/14/22 Interval History: Nursing reports no bleeding He is resting comfortably and denies pain Critical Care Time (minutes): 0 Physical Exam Vital Signs: Vital Signs: Last Vital Signs Temp 98.8 F 01/14/22 07:50 Pulse 85 01/14/22 08:08 Resp 16 01/14/22 08:08 BP 129/60 01/14/22 07:50 Pulse Ox 95 01/14/22 07:50 O2 Del Method 01/14/22 07:50 BMI result Body Mass Index 26.6 GI: Other: abdomen is soft and nontender Objective Data Labs CBC & Chem 7: 01/14/22 08:15 01/13/22 05:52 Procedures Date of Service Date of Service: 01/14/22 Progress Note: A&P Assessment and plan (1) Upper gastrointestinal hemorrhage: Status: Acute Assessment and Plan: Hematocrit is stable (reading of 35 yesterday PM was likely inaccurate) No signs of active bleeding Continue PPI. Time Spent With Patient Time: Total time spent is greater than 50% in coordination of care (as documented) at patient's floor/unit and/or counseling patient: Quality Stroke Does the patient have a stroke diagnosis?: No VTE Prior VTE?: No VTE Risk Level:: Medical - moderate - high VTE Device Contraindication: N/A - Device Ordered VTE Drug Contraindication: Treatment Not Tolerated
[2022-01-14] MEDS: Ipratropium Bromide Nas 0.06 % 15 ML SPRAY 1 SPRAY NOSTRIL-B ×2 (11:28→20:38)
--- NOTE | 2022-01-14 12:55 | P.PNIM_ITS ---
Subjective Subjective Date of Service: 01/14/22 Interval History: f/u on gib:Nursing reports no bleeding, H/H stable Review of Systems Gen: no fever Resp: no sob, no cough CV: no chest, no CARR, no leg edema GI: No n/v, no abd pain, no melana Neuro: No confusion Physical Exam Vital Signs: Vital Signs: Last Vital Signs Temp 98.8 F 01/14/22 07:50 Pulse 85 01/14/22 08:08 Resp 16 01/14/22 08:08 BP 129/60 01/14/22 07:50 Pulse Ox 95 01/14/22 07:50 O2 Del Method 01/14/22 07:50 BMI result Body Mass Index 26.6 Objective Data Active Medications Acetaminophen (Acetaminophen 325 Mg Tablet) 650 mg PO Q6H PRN PRN Reason: Pain, Mild (Pain Scale 1-3) Acetaminophen (Acetaminophen 325 Mg Tablet) 650 mg PO BID [facility] Last Admin: 01/14/22 09:16 Dose: 650 mg Documented By: SANJIV Albuterol Sulfate (Albuterol Sulfate 90 Mcg 8 Gm Inhaler) 2 puff INHALE Q4H PRN PRN Reason: Shortness Of Breath Or Wheezing Calcium Polycarbophil (Calcium Polycarbophil Tablet) 1 tab PO DAILY [facility] Last Admin: 01/14/22 09:16 Dose: 1 tab Documented By: SANJIV Chlorhexidine Gluconate (Chlorhexidine Gluc Oral Rinse 15 Ml Mouthwash) 15 ml BUCCAL BID [facility] Last Admin: 01/14/22 09:15 Dose: 15 ml Documented By: SANJIV Docusate Sodium (Docusate Sodium 100 Mg Capsule) 100 mg PO DAILY [facility] Last Admin: 01/14/22 09:16 Dose: 100 mg Documented By: SANJIV Escitalopram Oxalate (Escitalopram Oxalate 5 Mg Tablet) 5 mg PO DAILY [facility] Last Admin: 01/14/22 09:16 Dose: 5 mg Documented By: SANJIV Fluticasone/Vilanterol (Fluticasone/Vilanterol 100/25 Blst.W.Dev) 1 puff INHALE RDAILY [facility] Last Admin: 01/14/22 08:07 Dose: 1 puff Documented By: AMANDEEP Pantoprazole Sodium 80 mg/ (Sodium Chloride) 100 mls @ 10 mls/hr IV .Q10H [facility] Last Admin: 01/14/22 12:15 Dose: 8 mg/hr, 10 mls/hr Documented By: SANJIV Sodium Chloride (Ns) 1,000 mls @ 80 mls/hr IVCONT .[id number] [facility] Last Admin: 01/14/22 04:13 Dose: 80 mls/hr Documented By: CHRIS Ipratropium [place] (Ipratropium [place] Yahir 0.06 % 15 Ml [place]) 1 spray NOSTRIL-B BID [facility] Last Admin: 01/14/22 11:28 Dose: 1 spray Documented By: SANJIV Loratadine (Loratadine 10 Mg Tablet) 10 mg PO DAILY [facility] Last Admin: 01/14/22 09:16 Dose: 10 mg Documented By: SANJIV Melatonin (Melatonin 3 Mg Tablet) 3 mg PO BEDTIME [facility] Last Admin: 01/13/22 23:16 Dose: 3 mg Documented By: CHRIS Pyridoxine HCl (Pyridoxine Hcl (Vitamin B6) 50 Mg Tablet) 100 mg PO DAILY [facility] Last Admin: 01/14/22 09:16 Dose: 100 mg Documented By: SANJIV Senna (Sennosides 8.6 Mg Tablet) 8.6 mg PO BEDTIME [facility] Last Admin: 01/13/22 23:16 Dose: 8.6 mg Documented By: CHRIS Sodium Chloride (0.9 % Sodium Chloride Flush 3 Ml Syringe) 3 ml IVFLUSH QSHIFT [facility] Last Admin: 01/14/22 09:15 Dose: 3 ml Documented By: SANJIV Trazodone HCl (Trazodone Hcl 25 Mg Halftab) 37.5 mg PO DAILY@1400 [facility] Vitamin D (Cholecalciferol (Vitamin D3) 25 Mcg Tablet) 25 mcg PO DAILY [facility] Last Admin: 01/14/22 09:16 Dose: 25 mcg Documented By: SANJIV Labs CBC & Chem 7: 01/14/22 08:15 01/13/22 05:52 Labs: Laboratory Results - last 24 hr 01/13/22 01/13/22 01/13/22 17:19 18:20 18:20 MCV 85.5 MCH 26.5 L MCHC 31.0 RDW 15.0 Plt Count 243 MPV 9.7 Absolute Nucleated RBC 0.000 Nucleated RBC % (auto) 0.0 Urine Color YELLOW Urine Appearance CLEAR Urine pH 5.5 Ur Specific [place] 1.025 Urine Protein NEG Urine Glucose (UA) NEG Urine Ketones NEG Urine Blood NEG Urine Nitrite NEG Ur Leukocyte Esterase NEG Urine Opiates Screen Not Detected Urine Fentanyl Screen Not Detected Ur Barbiturates Screen Not Detected Ur Phencyclidine Scrn Not Detected Ur Amphetamines Screen Not Detected U Benzodiazepines Scrn Not Detected Urine Cocaine Screen Not Detected U Marijuana (THC) Screen Not Detected 01/14/22 08:15 MCV 83.4 MCH 26.5 L MCHC 31.8 RDW 15.0 Plt Count 209 MPV 9.8 Absolute Nucleated RBC 0.000 Nucleated RBC % (auto) 0.0 Urine Color Urine Appearance Urine pH Ur Specific [place] Urine Protein Urine Glucose (UA) Urine Ketones Urine Blood Urine Nitrite Ur Leukocyte Esterase Urine Opiates Screen Urine Fentanyl Screen Ur Barbiturates Screen Ur Phencyclidine Scrn Ur Amphetamines Screen U Benzodiazepines Scrn Urine Cocaine Screen U Marijuana (THC) Screen Assessment and Plan (1) Upper gastrointestinal hemorrhage: Status: Acute (2) Acute blood loss anemia: Status: Acute Plan 86/m with coffee ground emesis and acute blood blood loss anemia DDx: PUD, malignancy, MWT, gastritis plan: stable without active bleed, continue PPI, no intervention at this time. Continue chronic meds. advance diet Admission to [facility] at least 2 midnights for management of upper GIB with acute blood loss anemia, need IV PPI and RBC DNR/DNI confirmed with [facility] Quality Stroke Does the patient have a stroke diagnosis?: No VTE Prior VTE?: No VTE Risk Level:: Medical - moderate - high VTE Device Contraindication: N/A - Device Ordered VTE Drug Contraindication: Treatment Not Tolerated
[2022-01-14] MEDS: traZODone HCL 25 MG HALFTAB 37.5 MG PO (15:39)
[2022-01-14 16:00] VITALS: BP 125/70; PULSE 99; RESP 17; TEMP 36.4; O2SAT 100
[2022-01-14 19:31] VITALS: BP 121/72; PULSE 67; RESP 18; TEMP 36.4; O2SAT 95
[2022-01-14] MEDS: Melatonin 3 MG TABLET PO (20:31)
[2022-01-14] MEDS: Sennosides 8.6 MG TABLET PO (20:31)
[2022-01-14 23:18] VITALS: BP 122/64; PULSE 60; RESP 18; TEMP 36.6; O2SAT 95
[2022-01-15] MEDS: 0.9 % Sodium Chloride 1,000 ML 80 ML IVCONT (02:53)
[2022-01-15] MEDS: Fluticasone/Vilanterol 100/25 BLST.W.DEV 1 PUFF INHALE (07:36)
[2022-01-15 07:37] VITALS: PULSE 86; RESP 16; O2SAT 97
[2022-01-15 08:00] VITALS: BP 136/79; PULSE 63; RESP 16; TEMP 36.8; O2SAT 97
[2022-01-15] MEDS: Escitalopram Oxalate 5 MG TABLET PO (08:21)
[2022-01-15] MEDS: Chlorhexidine Gluc Oral Rinse 15 ML MOUTHWASH BUCCAL (08:22)
[2022-01-15] MEDS: Loratadine 10 MG TABLET PO (08:22)
[2022-01-15] MEDS: Pyridoxine HCl (Vitamin B6) 50 MG TABLET 100 MG PO (08:22)
[2022-01-15] MEDS: Cholecalciferol (Vitamin D3) 25 MCG TABLET PO (08:22)
[2022-01-15] MEDS: calcium polycarbophiL TABLET 1 TAB PO (08:22)
[2022-01-15] MEDS: Docusate Sodium 100 MG CAPSULE PO (08:22)
[2022-01-15] MEDS: Acetaminophen 325 MG TABLET 650 MG PO (08:22)
--- NOTE | 2022-01-15 09:03 | P.DS_ITS ---
DS: Providers Provider Date of Service: 01/15/22 Date of admission: 01/13/22 12:45 Primary care physician: Unknown Physician DS: Diagnosis Discharge Diagnosis (1) Upper gastrointestinal hemorrhage: Status: Acute (2) Acute blood loss anemia: Status: Acute DS: Summary Hospital Course Hospital Course: Chief Complaint: coffee ground emesis ? 86 -year-old male with past medical history of COPD that is stable,, nephrolithiasis, dementia that appear stable ,? and depression? with SI who presents? to the hospital from [facility] with fever with coffee ground emesis? and hemoglobin of 8, last documented hemoglobin in May last year was 13--he is not blood thiners and not actively bleeding, and is hemodynamically stable with? and no tachycardia. Given IV PPI in ED and is being admitted for further evalution and treatement . Spoke to son who is HCP at bedside and he doesn't want EGD at this time. Patient given 1 unit of RBC Hospital course: He presented with coffee ground emesis and found to have 8.1 and was given 1 unit of RBC and started on IV protonix drip, he was evaluated by Dr. Donohue (GI doc) and no intervention recommended and in fact son who is health care proxy does not want invasive managment. Hemoglobin has stabilized around 9, there is no sings of active bleed. Diet has been advaced to usual puree and nectar thick liquid with no issues. To avoid, NSAID.. Cause of bleed could be ulcer, gastirits, malignancy.. Will discharge with oral Protonix. Time Spent with Patient Time attestation: Total time spent providing and/or coordinating discharge services: Discharge coordination time: Greater than 30 minutes Quality: Safe Use of Opioids Does Pt have an Active Cancer Diagnosis on the Problem List?: No Quality: Stroke Does the patient have a stroke diagnosis?: No Physical Exam Vital Signs: Vital Signs: Last Vital Signs Temp 98.2 F 01/15/22 08:00 Pulse 63 01/15/22 08:00 Resp 16 01/15/22 08:00 BP 136/79 01/15/22 08:00 Pulse Ox 97 01/15/22 08:00 O2 Del Method 01/15/22 08:00 BMI result Body Mass Index 26.6 DS: Data Data Completed and Pending Completed studies during hospitalization [Text1]: Procedures Dilation of Left Ureter with Intraluminal Device, Via Natural or Artificial Opening Endoscopic (07/07/20) Extirpation of Matter from Left Ureter, Via Natural or Artificial Opening Endoscopic (07/07/20) Fluoroscopy of Left Kidney, Ureter and Bladder (07/07/20) Discharge Plan Discharge Anticipated Discharge Date/Time: 01/15/22 08:57 Patient Disposition: Xfer SNF Discharge Diagnosis: Upper GI Bleeding, acute blood loss anemia Referrals: [facility] [Outside] - 1 Week Physician,Unknown J [Primary Care Provider] - 1 Week Discharge Medications: New pantoprazole [Protonix] 40 mg tablet,delayed release (DR/EC) 40 mg PO DAILY Qty: 30 0RF Continued fluticasone propion-salmeterol [Advair Diskus] 250-50 mcg/dose Blister With Device 1 inh INHALATION BID sennosides [senna] 8.6 mg Tablet 8.6 mg PO BEDTIME acetaminophen 325 mg Tablet 650 mg PO BID trazodone 50 mg Tablet 37.5 mg PO DAILY@1400 alendronate [Fosamax] 70 mg Tablet 70 mg PO WE@0630 docusate sodium [Colace] 100 mg Capsule 100 mg PO DAILY ipratropium bromide 42 mcg (0.06 %) [place],Non-Aerosol 1 spray INTRANASAL BID loratadine [Claritin] 10 mg Tablet 10 mg PO DAILY escitalopram oxalate [Lexapro] 5 mg Tablet 5 mg PO DAILY levalbuterol tartrate 45 mcg/actuation Hfa Aerosol Inhaler 2 puff INHALATION Q4H PRN (Reason: Shortness Of Breath Or Wheezing) cholecalciferol (vitamin D3) [Vitamin D3] 25 mcg (1,000 unit) Tablet 25 mcg PO DAILY melatonin 3 mg Tablet 3 mg PO BEDTIME calcium polycarbophil 625 mg Tablet 625 mg PO DAILY chlorhexidine gluconate [Periogard] 0.12 % Mouthwash 15 ml BUCCAL BID pyridoxine (vitamin B6) 100 mg tablet 100 mg PO DAILY 90 Days Qty: 90 1RF Discharge Orders: Discharge Order (Routine); Ordered 01/15/22 Ordered By: Lavell Barclay Diet: puree, nectar thick liqui Activity on Discharge: As tolerated Stand Alone Forms: Patient Portal Discharge page Care Plan Goals: prevent rehospitalization Health Concerns: upper gi bleeding acute blood loss anemia Plan of Treatment: take protonix as directed, avoid motrin, advil, aspirin follow up with your Doctor in a week Assessment: as above Discharge Date/Time: 01/15/22 15:18
[2022-01-15 09:16] LABS: Hematocrit 28.2 % (42.0-52.0); Hemoglobin 8.8 g/dl (14.0-18.0); Mean Corpuscular HGB Conc 31.2 g/dl (31.0-36.0); Mean Corpuscular Volume 83.4 fL (80.0-98.0); Platelet Count 198 X10*3/uL (160-400); Red Blood Count 3.38 X10*6/uL (4.60-5.80); White Blood Count 6.8 X10*3/uL (4.8-10.8)
[2022-01-15] MEDS: Ipratropium Bromide Nas 0.06 % 15 ML SPRAY 1 SPRAY NOSTRIL-B (11:16)
--- NOTE | 2022-01-15 11:18 | PM.GIPN ---
Subjective Subjective Date of Service: 01/15/22 Interval History: confused, denies pain Critical Care Time (minutes): 0 Physical Exam Vital Signs: Vital Signs: Last Vital Signs Temp 98.2 F 01/15/22 08:00 Pulse 63 01/15/22 08:00 Resp 16 01/15/22 08:00 BP 136/79 01/15/22 08:00 Pulse Ox 97 01/15/22 08:00 O2 Del Method 01/15/22 08:00 BMI result Body Mass Index 26.6 GI: Other: abdomen is soft and nontender Objective Data Labs CBC & Chem 7: 01/15/22 09:02 01/13/22 05:52 Labs: Laboratory Results - last 24 hr 01/15/22 09:02 WBC 6.8 RBC 3.38 L Hgb 8.8 L Hct 28.2 L MCV 83.4 MCH 26.0 L MCHC 31.2 RDW 15.0 Plt Count 198 MPV 10.0 Absolute Nucleated RBC 0.000 Nucleated RBC % (auto) 0.0 Procedures Date of Service Date of Service: 01/15/22 Progress Note: A&P Assessment and plan (1) Upper gastrointestinal hemorrhage: Status: Acute Assessment and Plan: bleeding appears to have stopped ppi should probably be continued indefinitely. Time Spent With Patient Time: Total time spent is greater than 50% in coordination of care (as documented) at patient's floor/unit and/or counseling patient: Quality Stroke Does the patient have a stroke diagnosis?: No VTE Prior VTE?: No VTE Risk Level:: Medical - moderate - high VTE Device Contraindication: N/A - Device Ordered VTE Drug Contraindication: Treatment Not Tolerated
--- NOTE | 2022-01-15 13:02 | MHC.CM.PN ---
PT WILL DC BACK TO [facility] TODAY VIA BLS YULISSA CALLED PTS DAUGHTER/HCP, JUSTO ([phone]) AND INFORMED HER OF PLAN TO DC. SHE REQUESTED A RETURN CALL WHEN DC TIME WAS KNOWN CM CALLED THE NURSING INSTITUTIONAL CUSTODIAN AT [facility] AND INFORMED HER OF INTENT TO DC AND NEW MEDS DC SUMMARY FAXED TO [phone] PER [facility], THEY ARE ABLE TO TRANSPORT AT 1430 HOURS VM LEFT FOR JUSTO WITH TIME OF TRANSPORT
[2022-01-15] MEDS: traZODone HCL 25 MG HALFTAB 37.5 MG PO (13:08)
== END 2022-01-15 15:18 | disposition skilled nursing facility (03) | DRG 378 ==
LOC: HO.ED 09:04 → HO.EDOVER 13:03 → HO.S3 19:48
PROVIDERS: Student in an Organized Health Care Education/Training Program; Admitting Provider Internal Medicine; Emergency Provider Emergency Medicine; Visit Provider Internal Medicine
DX: K92.0 Hematemesis (principal); D62 Acute posthemorrhagic anemia; J44.9 Chronic obstructive pulmonary disease, unspecified; F03.90 Unspecified dementia, unspecified severity, without behavioral disturbance, psychotic disturbance, mood disturbance, and anxiety; Z66 Do not resuscitate; F32.A Depression, unspecified; Z87.01 Personal history of pneumonia (recurrent); Z87.442 Personal history of urinary calculi; Z20.822 Contact with and (suspected) exposure to COVID-19; Z79.51 Long term (current) use of inhaled steroids; Z79.899 Other long term (current) drug therapy
CPT/HCPCS: 36415; 36430; 71045; 80053; 80307; 81003; 82272; 83605; 85025; 85027; 85610; 86850; 86900; 86901; 86923; 87635; 93005; 94640; 96361; 96365; 96366; 96375; 99285; J2405; P9016

== ENCOUNTER 2022-01-20 14:16 | Outpatient (REF) | payer MEDICARE, OTHER, SELFPAY ==
[2022-01-20 07:42] LABS: Basophils Percent Auto 0.4 % (0-2); Eosinophils Absolute Auto 0.5 X10*3/uL (0.0-0.4); Eosinophils Percent Auto 6.7 % (0-4); Hematocrit 31.7 % (42.0-52.0); Hemoglobin 9.9 g/dl (14.0-18.0); Imm Gran Abs Auto 0.03 X10*3/uL (0.00-0.03); Imm Gran Pct Auto 0.4 % (0.0-0.4); Lymphocytes Absolute Auto 1.4 X10*3/uL (1.2-4.9); Lymphocytes Percent Auto 17.8 % (20-40); MANUAL DIFF FLAG NO; Mean Corpuscular HGB Conc 31.2 g/dl (31.0-36.0); Mean Corpuscular Hemoglobin 25.9 pg (27.0-33.0); Mean Platelet Volume 9.8 fL (9.4-12.4); Monocytes Absolute Auto 0.9 X10*3/uL (0.1-1.2); Monocytes Percent Auto 11.3 % (2-11); Neutrophils Absolute Auto 5.1 x10*3/uL (2.0-8.3); Neutrophils Percent Auto 63.4 % (45-73); Platelet Count 243 X10*3/uL (160-400); Red Blood Count 3.82 X10*6/uL (4.60-5.80); Red Cell Distribution Width 15.9 % (11.0-16.0)
== END 2022-01-20 14:17 | disposition home or self-care (01) ==
LOC: HO.HSH3N 14:16
PROVIDERS: Visit Provider Nurse Practitioner
DX: D64.9 Anemia, unspecified (principal)
CPT/HCPCS: 36415; 85025

== ENCOUNTER 2022-01-30 05:59 | Outpatient (REF) | payer MEDICARE, OTHER, SELFPAY ==
[2022-01-30 08:05] LABS: MANUAL DIFF FLAG NO
[2022-01-30 08:08] LABS: Basophils Absolute Auto 0.1 X10*3/uL (0.0-0.2); Basophils Percent Auto 0.7 % (0-2); Eosinophils Absolute Auto 0.7 X10*3/uL (0.0-0.4); Eosinophils Percent Auto 9.4 % (0-4); Hematocrit 32.7 % (42.0-52.0); Imm Gran Abs Auto 0.02 X10*3/uL (0.00-0.03); Imm Gran Pct Auto 0.3 % (0.0-0.4); Lymphocytes Absolute Auto 1.5 X10*3/uL (1.2-4.9); Lymphocytes Percent Auto 21.4 % (20-40); Mean Corpuscular HGB Conc 30.6 g/dl (31.0-36.0); Mean Corpuscular Hemoglobin 25.5 pg (27.0-33.0); Mean Corpuscular Volume 83.4 fL (80.0-98.0); Mean Platelet Volume 9.5 fL (9.4-12.4); Monocytes Absolute Auto 0.8 X10*3/uL (0.1-1.2); Monocytes Percent Auto 11.7 % (2-11); Neutrophils Percent Auto 56.5 % (45-73); Platelet Count 281 X10*3/uL (160-400); Red Blood Count 3.92 X10*6/uL (4.60-5.80); Red Cell Distribution Width 15.6 % (11.0-16.0); White Blood Count 7.1 X10*3/uL (4.8-10.8)
[2022-01-30 08:35] LABS: Alanine Aminotransferase 15 U/L (0-40); Albumin Level 3.5 g/dL (3.5-5.0); Alkaline Phosphatase 70 U/L (39-117); Anion Gap 12 (12-20); Aspartate Amino Transferase 15 U/L (5-37); Bilirubin Total 0.4 mg/dL (0.0-1.0); Blood Urea Nitrogen 16 mg/dL (9-16); Calcium 9.4 mg/dL (8.4-10.2); Carbon Dioxide 28 mmol/L (22-29); Chloride 106 mmol/L (96-108); Estimated Glomerular Filt Rate > 60; Glucose Fasting 82 mg/dL (60-99); Potassium 4.8 mmol/L (3.3-5.1); Sodium 141 mmol/L (135-145); Total Protein 7.4 g/dL (6.5-8.0)
== END 2022-01-30 06:00 | disposition home or self-care (01) ==
LOC: HO.HSH3N 05:59
PROVIDERS: Visit Provider Nurse Practitioner Acute Care
DX: K92.2 Gastrointestinal hemorrhage, unspecified (principal)
CPT/HCPCS: 36415; 80053; 85025

== ENCOUNTER 2022-06-10 20:54 | Inpatient (IN) | payer MEDICARE, OTHER, SELFPAY ==
--- NOTE | ~2022-06-10 | XR_ITS ---
EXAMINATION: XR CHEST CLINICAL INFORMATION: Chest pain COMPARISON: 01/13/2022 TECHNIQUE: Frontal view of the chest was obtained. FINDINGS: Lung volumes are symmetric. Central vasculature appears increasingly prominent compared to prior. No definite focal consolidation is seen. Small right pleural effusion is present. No evidence of pneumothorax. Cardiac size is within normal limits. Calcification is present at the aortic arch. No acute osseous findings are seen. XR/XR chest 1V IMPRESSION: Increasing prominence of the central vasculature suggesting congestion and developing interstitial edema. Small right pleural effusion.
[2022-06-10 20:59] VITALS: BP 104/65; BP 160/62; PULSE 116; PULSE 125; RESP 30; O2SAT 71; O2SAT 98; BMI 27.8
[2022-06-10 21:00] VITALS: RESP 31; O2SAT 98
--- NOTE | 2022-06-10 21:01 | ECG_ITS ---
Test Reason : SOB Blood Pressure : / mmHG Vent. Rate : 116 BPM Atrial Rate : 116 BPM P-R Int : 178 ms QRS Dur : 072 ms QT Int : 314 ms P-R-T Axes : 081 026 061 degrees QTc Int : 436 ms Sinus tachycardia Otherwise normal ECG When compared with ECG of 13-JAN-2022 06:22, No significant change was found Referred By: Lizette Gabriel Electronically Signed By:Larry Gutiérrez
--- NOTE | 2022-06-10 21:10 | ED.SOB ---
HPI - SOB/Dyspnea General Chief Complaint: Dyspnea Stated Complaint: sob Time Seen by Provider: 06/10/22 20:56 History of Present Illness HPI Narrative: Patient is a 86-year-old male with a history of COPD history dementia presents today with coughing upper respiratory symptoms at the [facility] for 2 days. Decreased mental status. Respiratory distress. Patient is sent in for further evaluation by family. Patient is a do not resuscitate. Do not intubate. Family okay with BiPAP. Related Data Home Medications Medication Instructions Recorded Confirmed acetaminophen 325 mg tablet 650 mg PO BID 07/07/20 01/13/22 alendronate 70 mg tablet (Fosamax) 70 mg PO WE@0630 07/07/20 01/13/22 cholecalciferol (vitamin D3) 25 25 mcg PO DAILY 07/07/20 01/13/22 mcg (1,000 unit) tablet (Vitamin D3) docusate sodium 100 mg capsule 100 mg PO DAILY 07/07/20 01/13/22 (Colace) escitalopram oxalate 5 mg tablet 5 mg PO DAILY 07/07/20 01/13/22 (Lexapro) fluticasone 250 mcg-salmeterol 50 1 inh inhalation BID 07/07/20 01/13/22 mcg/dose blistr powdr for inhalation (Advair Diskus) ipratropium bromide 42 mcg (0.06 1 spray intranasal BID 07/07/20 01/13/22 %) nasal spray levalbuterol tartrate 45 2 puff inhalation Q4H PRN 07/07/20 01/13/22 mcg/actuation aerosol inhaler Shortness Of Breath Or Wheezing loratadine 10 mg tablet (Claritin) 10 mg PO DAILY 07/07/20 01/13/22 sennosides 8.6 mg tablet (senna) 8.6 mg PO BEDTIME 07/07/20 01/13/22 trazodone 50 mg tablet 37.5 mg PO DAILY@1400 07/07/20 01/13/22 calcium polycarbophil 625 mg tablet 625 mg PO DAILY 01/13/22 01/13/22 chlorhexidine gluconate 0.12 % 15 ml buccal BID 01/13/22 01/13/22 mouthwash (Periogard) melatonin 3 mg tablet 3 mg PO BEDTIME 01/13/22 01/13/22 Previous Rx's Medication Instructions Recorded pyridoxine (vitamin B6) 100 mg 100 mg PO DAILY 90 days #90 tabs 05/03/21 tablet pantoprazole 40 mg tablet,delayed 40 mg PO DAILY #30 tabs 01/15/22 release (Protonix) Allergies Allergy/AdvReac Type Severity Reaction Status Date / Time diazepam Allergy Unknown Verified 05/03/21 11:05 lidocaine Allergy Unknown Verified 05/03/21 11:05 lisinopril Allergy Unknown Verified 05/03/21 11:05 Review of Systems Review of Systems: Unable to obtain review systems secondary to patient's condition [facility]LY [facility] Past Medical History Medical History COPD (chronic obstructive pulmonary disease) Dementia Encephalopathy Hydronephrosis Leukocytosis Major depressive disorder Nephrolithiasis Pneumonia Renal colic on left side Social History Social History Household Members: None and Other Household Members Other:: snf Housing: Assisted Housing 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 Do you presently have visiting nurse or other home services: No Unable to assess alcohol history related to: Unknown Patient Tobacco Use Status: Tobacco use Unknown Advance Directives: Yes Advance Directives on File: Yes Advance Directives Date on File: 07/08/20 service: Yes Current occupational status: retired Physical Exam Vital Signs: Vital Signs: Last Vital Signs Temp 100 F 06/10/22 22:17 Pulse 108 H 06/10/22 22:17 Resp 35 H 06/10/22 22:17 BP 138/79 06/10/22 22:17 Pulse Ox 94 06/10/22 22:17 O2 Del Method 06/10/22 22:17 BMI result Body Mass Index 27.8 Appearance: Toxic appearing short of breath on BiPAP Eyes: Pupils equal, round and reactive to light. ENT: Pharynx normal. Neck: Normal inspection. Neck supple. No lymph nodes noted. No crepitus CVS: Normal heart rate and rhythm. Pulses normal. Normal S1 and S2 Respiratory: Diminished breath sounds bilaterally Abdomen: Soft and nontender. No rigidity. No distention. good BS x4 Skin: Skin warm and dry. Normal skin color. Normal skin turgor. Extremities: No lower extremity edema. Neurovascular intact to all extremities. No Lacerations. No Rash Neuro: Oriented X 0. Lethargic Medications Administered Discontinued Medications Generic Name Dose Route Start Last Admin Trade Name Zahida PRN Reason Stop Dose Admin Albuterol Sulfate 2.5 mg 06/10/22 21:00 06/10/22 22:21 Albuterol Sulfate (0.083%) 2.5 Mg/3 Ml Vial.Neb INHALE 06/10/22 21:01 2.5 mg ONCE ONE Administration Albuterol/Ipratropium 3 ml 06/10/22 21:00 06/10/22 22:21 Albuterol/Iprat 2.5/0.5mg 3 Ml Ampul.Neb INHALE 06/10/22 21:01 3 ml ONCE ONE Administration Magnesium Sulfate 2 gm in 50 mls @ 25 mls/hr 06/10/22 21:00 06/10/22 21:23 Magnesium Sulfate/H2o IV 06/10/22 22:59 25 mls/hr ONCE ONE Administration Cefepime HCl 1 gm/ Sodium 50 mls @ 100 mls/hr 06/10/22 21:00 06/10/22 21:54 Chloride IV 06/10/22 21:29 Infused ONCE ONE Infusion Acetaminophen 1,000 mg in 100 mls @ 400 mls/hr 06/10/22 21:55 06/10/22 22:05 Ofirmev IV 06/10/22 22:09 400 mls/hr ONCE ONE Administration Ketorolac Tromethamine 15 mg 06/10/22 21:56 06/10/22 22:05 Ketorolac Tromethamine 15 Mg/Ml Vial IVPUSH 06/10/22 21:57 15 mg ONCE ONE Administration Methylprednisolone Sodium Succinate 125 mg 06/10/22 21:00 06/10/22 21:24 Methylprednisolone Sod Succ 125 Mg/2 Ml Vial IVPUSH 06/10/22 21:01 125 mg ONCE ONE Administration MDM - SOB/Dyspnea MDM Narrative Medical decision making narrative: Positive coughing upper respiratory symptoms. 86 years old from an [facility]. Question flu RSV COVID. Question exacerbation of COPD. Will get x-ray labs. Cultures obtained. Will start patient on steroid and albuterol. Antibiotic to be started. Flu RSV COVID sent. Placed on BiPAP Patient's ABG showed no CO2 retention. PH was 7.39 pCO2 is 34 PO2 148. Taken off BiPAP. Discussed with family. Antibiotic initially was started as patient had fever coughing upper respiratory symptoms. Patient's chest x-ray showed bilateral infiltrate question CHF. BNP was 300 with the setting of fever coughing upper respiratory symptoms more likely secondary to infection. Patient's COVID test came back positive. Patient's has no signs of sepsis his lactate is 1.9. Case discussed with family patient is to be admitted to the hospital. Steroid given for COPD as well as COVID hypoxia. Patient is in guarded condition awaiting admission. Differential Diagnosis Differential diagnosis: Likely acute exacerbation of chronic obstructive airways disease, congestive heart failure, pneumonia, asthma with exacerbation, pulmonary embolism and pleural effusion Medical Records Attestation: I reviewed the patient's medical records. Lab Data Attestation: I reviewed the patient's lab results. Result diagrams: 06/10/22 21:00 06/10/22 21:00 Labs: Lab Results 06/10/22 06/10/22 06/10/22 Range/Units 21:00 21:00 21:00 WBC 11.8 H (4.8-10.8) X10*3/uL RBC 4.08 L (4.60-5.80) X10*6/uL Hgb 10.4 L (14.0-18.0) g/dl Hct 33.4 L (42.0-52.0) % MCV 81.9 (80.0-98.0) fL MCH 25.5 L (27.0-33.0) pg MCHC 31.1 (31.0-36.0) g/dl RDW 16.9 H (11.0-16.0) % Plt Count 362 D (160-400) X10*3/uL MPV 9.3 L (9.4-12.4) fL Absolute Nucleated RBC 0.000 (0.0-0.012) X10*3/uL Nucleated RBC % (auto) 0.0 (0.0-0.2) /100WBC O2 Saturation % ABG pH at Pt Temp (7.35-7.45) ABG pCO2 at Pt Temp (32-45) mmHg ABG pO2 at Pt Temp (83-108) mmHg ABG HCO3 (22-26) mmol/L ABG Base Excess (Actual) mmol/L Sodium 137 (135-145) mmol/L Potassium 4.5 (3.3-5.1) mmol/L Chloride 103 (96-108) mmol/L Carbon Dioxide 21 L (22-29) mmol/L Anion Gap 18 (12-20) BUN 20 H (9-16) mg/dL Creatinine 1.02 (0.5-1.4) mg/dL Estim Creat Clear Calc 62.1 Estimated GFR > 60 Random Glucose 146 H D (60-115) mg/dL Lactic Acid (0.5-2.0) mmol/L Calcium 8.6 D (8.4-10.2) mg/dL Direct Bilirubin 0.2 (0.0-0.5) mg/dL AST 53 H (5-37) U/L ALT 71 H (0-40) U/L Alkaline Phosphatase 105 D (39-117) U/L Troponin I High Sens (<3.5-35.0) ng/L B-Natriuretic Peptide 316 H (<100) pg/mL Total Protein 7.1 (6.5-8.0) g/dL Albumin 3.2 L (3.5-5.0) g/dL Influenza Type A (PCR) (Negative) Influenza Type B (PCR) (Negative) RSV RNA Qual (PCR) (Negative) SARS-CoV-2 RNA (RT-PCR) (Negative) 06/10/22 06/10/22 06/10/22 Range/Units 21:00 21:00 21:50 WBC (4.8-10.8) X10*3/uL RBC (4.60-5.80) X10*6/uL Hgb (14.0-18.0) g/dl Hct (42.0-52.0) % MCV (80.0-98.0) fL MCH (27.0-33.0) pg MCHC (31.0-36.0) g/dl RDW (11.0-16.0) % Plt Count (160-400) X10*3/uL MPV (9.4-12.4) fL Absolute Nucleated RBC (0.0-0.012) X10*3/uL Nucleated RBC % (auto) (0.0-0.2) /100WBC O2 Saturation 100.0 % ABG pH at Pt Temp 7.39 (7.35-7.45) ABG pCO2 at Pt Temp 34 (32-45) mmHg ABG pO2 at Pt Temp 148 H (83-108) mmHg ABG HCO3 21 L (22-26) mmol/L ABG Base Excess (Actual) -2.9 mmol/L Sodium (135-145) mmol/L Potassium (3.3-5.1) mmol/L Chloride (96-108) mmol/L Carbon Dioxide (22-29) mmol/L Anion Gap (12-20) BUN (9-16) mg/dL Creatinine (0.5-1.4) mg/dL Estim Creat Clear Calc Estimated GFR Random Glucose (60-115) mg/dL Lactic Acid 1.9 (0.5-2.0) mmol/L Calcium (8.4-10.2) mg/dL Direct Bilirubin (0.0-0.5) mg/dL AST (5-37) U/L ALT (0-40) U/L Alkaline Phosphatase (39-117) U/L Troponin I High Sens 9.3 (<3.5-35.0) ng/L B-Natriuretic Peptide (<100) pg/mL Total Protein (6.5-8.0) g/dL Albumin (3.5-5.0) g/dL Influenza Type A (PCR) (Negative) Influenza Type B (PCR) (Negative) RSV RNA Qual (PCR) (Negative) SARS-CoV-2 RNA (RT-PCR) (Negative) 06/10/22 Range/Units 21:53 WBC (4.8-10.8) X10*3/uL RBC (4.60-5.80) X10*6/uL Hgb (14.0-18.0) g/dl Hct (42.0-52.0) % MCV (80.0-98.0) fL MCH (27.0-33.0) pg MCHC (31.0-36.0) g/dl RDW (11.0-16.0) % Plt Count (160-400) X10*3/uL MPV (9.4-12.4) fL Absolute Nucleated RBC (0.0-0.012) X10*3/uL Nucleated RBC % (auto) (0.0-0.2) /100WBC O2 Saturation % ABG pH at Pt Temp (7.35-7.45) ABG pCO2 at Pt Temp (32-45) mmHg ABG pO2 at Pt Temp (83-108) mmHg ABG HCO3 (22-26) mmol/L ABG Base Excess (Actual) mmol/L Sodium (135-145) mmol/L Potassium (3.3-5.1) mmol/L Chloride (96-108) mmol/L Carbon Dioxide (22-29) mmol/L Anion Gap (12-20) BUN (9-16) mg/dL Creatinine (0.5-1.4) mg/dL Estim Creat Clear Calc Estimated GFR Random Glucose (60-115) mg/dL Lactic Acid (0.5-2.0) mmol/L Calcium (8.4-10.2) mg/dL Direct Bilirubin (0.0-0.5) mg/dL AST (5-37) U/L ALT (0-40) U/L Alkaline Phosphatase (39-117) U/L Troponin I High Sens (<3.5-35.0) ng/L B-Natriuretic Peptide (<100) pg/mL Total Protein (6.5-8.0) g/dL Albumin (3.5-5.0) g/dL Influenza Type A (PCR) NEGATIVE (Negative) Influenza Type B (PCR) NEGATIVE (Negative) RSV RNA Qual (PCR) NEGATIVE (Negative) SARS-CoV-2 RNA (RT-PCR) POSITIVE A (Negative) Critical Care Time Critical Care Time Critical Care Time: Yes Total Critical Care Time: 40 Attestation: I have personally provided 40 minutes of critical care time exclusive of time spent on separately billable procedures. Time includes review of lab data, radiology results, discussion with consultants, and monitoring for potential decompensation. Interventions were performed as documented above Discharge Plan Discharge Clinical Impression: Pneumonia, Acute exacerbation of chronic obstructive airways disease Patient Disposition: Admitted As Inpatient Prescriptions: No Action fluticasone propion-salmeterol [Advair Diskus] 250-50 mcg/dose Blister With Device 1 inh INHALATION BID sennosides [senna] 8.6 mg Tablet 8.6 mg PO BEDTIME acetaminophen 325 mg Tablet 650 mg PO BID trazodone 50 mg Tablet 37.5 mg PO DAILY@1400 alendronate [Fosamax] 70 mg Tablet 70 mg PO WE@0630 docusate sodium [Colace] 100 mg Capsule 100 mg PO DAILY ipratropium bromide 42 mcg (0.06 %) Avella,Non-Aerosol 1 spray INTRANASAL BID loratadine [Claritin] 10 mg Tablet 10 mg PO DAILY escitalopram oxalate [Lexapro] 5 mg Tablet 5 mg PO DAILY levalbuterol tartrate 45 mcg/actuation Hfa Aerosol Inhaler 2 puff INHALATION Q4H PRN (Reason: Shortness Of Breath Or Wheezing) cholecalciferol (vitamin D3) [Vitamin D3] 25 mcg (1,000 unit) Tablet 25 mcg PO DAILY melatonin 3 mg Tablet 3 mg PO BEDTIME calcium polycarbophil 625 mg Tablet 625 mg PO DAILY chlorhexidine gluconate [Periogard] 0.12 % Mouthwash 15 ml BUCCAL BID pantoprazole [Protonix] 40 mg tablet,delayed release (DR/EC) 40 mg PO DAILY Qty: 30 0RF pyridoxine (vitamin B6) 100 mg tablet 100 mg PO DAILY 90 Days Qty: 90 1RF
[2022-06-10] MEDS: Magnesium Sulfate/H2O 2 GM/50 ML PIGGYBACK IV (21:23)
[2022-06-10 21:24] LABS: Hematocrit 33.4 % (42.0-52.0); Hemoglobin 10.4 g/dl (14.0-18.0); Mean Corpuscular HGB Conc 31.1 g/dl (31.0-36.0); Mean Corpuscular Hemoglobin 25.5 pg (27.0-33.0); Mean Corpuscular Volume 81.9 fL (80.0-98.0); Mean Platelet Volume 9.3 fL (9.4-12.4); Platelet Count 362 X10*3/uL (160-400); Red Blood Count 4.08 X10*6/uL (4.60-5.80); Red Cell Distribution Width 16.9 % (11.0-16.0); White Blood Count 11.8 X10*3/uL (4.8-10.8)
[2022-06-10] MEDS: cefEPime HCl 1 GM in 0.9 % Sodium Chloride 50 ML IV (21:24)
[2022-06-10] MEDS: methylPREDNISolone Sod Succ 125 MG/2 ML VIAL IVPUSH (21:24)
[2022-06-10 21:34] VITALS: BP 117/65; PULSE 108; PULSE 110; RESP 30; RESP 36; TEMP 38.4; O2SAT 97
[2022-06-10 21:34] LABS: Lactic Acid 1.9 mmol/L (0.5-2.0)
[2022-06-10 21:41] LABS: Alanine Aminotransferase 71 U/L (0-40); Albumin Level 3.2 g/dL (3.5-5.0); Alkaline Phosphatase 105 U/L (39-117); Anion Gap 18 (12-20); Aspartate Amino Transferase 53 U/L (5-37); Bilirubin Direct 0.2 mg/dL (0.0-0.5); Blood Urea Nitrogen 20 mg/dL (9-16); Calcium 8.6 mg/dL (8.4-10.2); Carbon Dioxide 21 mmol/L (22-29); Chloride 103 mmol/L (96-108); Creatinine Clr Calc Pharmacy 62.1; Estimated Glomerular Filt Rate > 60; Glucose Random 146 mg/dL (60-115); Potassium 4.5 mmol/L (3.3-5.1); Sodium 137 mmol/L (135-145); Total Protein 7.1 g/dL (6.5-8.0)
[2022-06-10 21:44] LABS: Troponin-I High Sensitivity 9.3 ng/L (<3.5-35.0)
[2022-06-10 21:49] LABS: B Type Natriuretic Peptide 316 pg/mL (<100)
[2022-06-10 21:56] LABS: ABG Base Excess -2.9 mmol/L; ABG HCO3 21 mmol/L (22-26); ABG pCO2 34 mmHg (32-45); ABG pH 7.39 (7.35-7.45); ABG pO2 148 mmHg (83-108)
[2022-06-10] MEDS: Ketorolac Tromethamine 15 MG/ML VIAL IVPUSH (22:05)
[2022-06-10] MEDS: Acetaminophen 1,000 MG/100 ML PIGGYBACK 400 MG IV (22:05)
[2022-06-10 22:17] VITALS: BP 138/79; PULSE 108; RESP 35; TEMP 37.7; O2SAT 94
[2022-06-10 22:20] VITALS: O2SAT 97
[2022-06-10] MEDS: Albuterol Sulfate (0.083%) 2.5 MG/3 ML VIAL.NEB INHALE (22:21)
[2022-06-10] MEDS: Albuterol/Iprat 2.5/0.5MG 3 ML AMPUL.NEB INHALE (22:21)
[2022-06-10 22:24] LABS: ABG Refer to POC result
[2022-06-10 22:37] LABS: Influenza A PCR NEGATIVE (Negative); Influenza B PCR NEGATIVE (Negative); Resp Syncy Virus RNA Qual PCR NEGATIVE (Negative); SARS COV2 PCR INHOUSE POSITIVE (Negative)
--- NOTE | 2022-06-10 23:45 | PC.NURSE ---
Pt's BP was stable, Pt's was saturating in the 70%, RT was called and had pt on the CPAP, o2 went up to 96%. Pt was febrile, sinus tachy on the monitor and CO2 35. Pt had 2 IV access RAC and L forearm both 20g. Pt was given abx, soulumedrol 2ml, Duoneb, IVF running at 100/hr, taradol and acetaminophen IV. Pt labs were drawn and ABG. Pt has diminished lung sound throughout the the lungs bilaterally. No edema, + skin turgor, < 2 capillary refills, Pupils reactive PERRLA. will continue to monitor.
[2022-06-10 23:53] LABS: Bilirubin Total 0.3 mg/dL (0.0-1.0)
[2022-06-11 00:13] VITALS: BP 123/69; PULSE 93; RESP 29; TEMP 37.4; O2SAT 93
--- NOTE | 2022-06-11 00:50 | P.HPHOSP_ITS ---
History of Present Illness Date of Service: 06/11/22 Chief Complaint: Dyspnea This is a 86-year-old male with pertinent history of dementia, COPD, mood disorder who was sent to the emergency department for evaluation of dyspnea. Patient is a poor historian and unable to obtain any history from the patient. As per chart review, patient with upper respiratory symptoms, cough and dyspnea for the last 2 days. Also with associated decreased mentation. At the time of my evaluation, patient unable to provide any history. Unable to obtain review of systems. In the emergency department, patient requiring 3 6 L supplemental oxygen. 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 Do you presently have visiting nurse or other home services: No Unable to assess alcohol history related to: Unknown Patient Tobacco Use Status: Tobacco use Unknown Advance Directives: Yes Advance Directives on File: Yes Advance Directives Date on File: 07/08/20 service: Yes Current occupational status: retired Meds Allergies Allergy/AdvReac Type Severity Reaction Status Date / Time diazepam Allergy Unknown Verified 05/03/21 11:05 lidocaine Allergy Unknown Verified 05/03/21 11:05 lisinopril Allergy Unknown Verified 05/03/21 11:05 Active Medications: Current Medications Acetaminophen (Acetaminophen 325 Mg Tablet) 650 mg PO Q6H PRN PRN Reason: Pain, Mild (Pain Scale 1-3) Acetaminophen (Acetaminophen Supp 650 Mg Supp.Rect) 650 mg GA Q6H PRN PRN Reason: Pain, Mild (Pain Scale 1-3) Dexamethasone Sodium Phosphate (Dexamethasone Sod Phosphate 4 Mg/Ml Vial) 6 mg IVPUSH DAILY GERALDO Enoxaparin Sodium (Enoxaparin Sodium 40 Mg/0.4 Ml Syringe) 40 mg SUBCUT Q24H GERALDO Melatonin (Melatonin 3 Mg Tablet) 6 mg PO BEDTIME PRN PRN Reason: Insomnia Ondansetron HCl (Ondansetron Hcl 4 Mg/2 Ml Vial) 4 mg IVPUSH Q8H PRN PRN Reason: Nausea and Vomiting Sodium Chloride (0.9 % Sodium Chloride Flush 3 Ml Syringe) 3 ml IVFLUSH QSHIFT [facility] Home Medications Medication Instructions Recorded Confirmed Last Taken Type acetaminophen 325 mg tablet 650 mg PO BID 07/07/20 01/13/22 12/13/21 History alendronate 70 mg tablet (Fosamax) 70 mg PO WE@0630 07/07/20 01/13/22 01/11/22 History cholecalciferol (vitamin D3) 25 25 mcg PO DAILY 07/07/20 01/13/22 01/12/22 History mcg (1,000 unit) tablet (Vitamin D3) docusate sodium 100 mg capsule 100 mg PO DAILY 07/07/20 01/13/22 01/12/22 History (Colace) escitalopram oxalate 5 mg tablet 5 mg PO DAILY 07/07/20 01/13/22 01/12/22 History (Lexapro) fluticasone 250 mcg-salmeterol 50 1 inh inhalation BID 07/07/20 01/13/22 01/12/22 History mcg/dose blistr powdr for inhalation (Advair Diskus) ipratropium bromide 42 mcg (0.06 1 spray intranasal BID 07/07/20 01/13/22 01/12/22 History %) nasal spray levalbuterol tartrate 45 2 puff inhalation Q4H PRN 07/07/20 01/13/22 Unknown History mcg/actuation aerosol inhaler Shortness Of Breath Or Wheezing loratadine 10 mg tablet (Claritin) 10 mg PO DAILY 07/07/20 01/13/22 01/12/22 History sennosides 8.6 mg tablet (senna) 8.6 mg PO BEDTIME 07/07/20 01/13/22 01/12/22 History trazodone 50 mg tablet 37.5 mg PO DAILY@1400 07/07/20 01/13/22 01/12/22 History calcium polycarbophil 625 mg tablet 625 mg PO DAILY 01/13/22 01/13/22 01/12/22 History chlorhexidine gluconate 0.12 % 15 ml buccal BID 01/13/22 01/13/22 01/12/22 History mouthwash (Periogard) melatonin 3 mg tablet 3 mg PO BEDTIME 01/13/22 01/13/22 01/12/22 History Physical Exam Vital Signs and Narrative: Vital Signs: Last Vital Signs Temp 99.4 F 06/11/22 00:13 Pulse 93 06/11/22 00:13 Resp 29 H 06/11/22 00:13 BP 123/69 06/11/22 00:13 Pulse Ox 93 06/11/22 00:13 O2 Del Method 06/11/22 00:13 O2 Flow Rate 6 06/11/22 00:13 BMI result Body Mass Index 27.8 Elderly male lying in bed on 6 L supplemental oxygen Neck supple, no JVD Regular rate and rhythm, S1-S2 heard Bilateral crackles without wheezing Abdomen soft nontender, no guarding, no rigidity Patient is drowsy and unable to take part in conversation No pedal edema Results Labs CBC and Chem 7: 06/10/22 21:00 06/10/22 21:00 Labs: Laboratory Results - last 24 hr 06/10/22 06/10/22 06/10/22 21:00 21:00 21:00 MCV 81.9 MCH 25.5 L MCHC 31.1 RDW 16.9 H Plt Count 362 D MPV 9.3 L Absolute Nucleated RBC 0.000 Nucleated RBC % (auto) 0.0 O2 Saturation ABG pH at Pt Temp ABG pCO2 at Pt Temp ABG pO2 at Pt Temp ABG HCO3 ABG Base Excess (Actual) Anion Gap 18 Estim Creat Clear Calc 62.1 Estimated GFR > 60 Random Glucose 146 H D Lactic Acid Calcium 8.6 D Total Bilirubin 0.3 Direct Bilirubin 0.2 AST 53 H ALT 71 H Alkaline Phosphatase 105 D Troponin I High Sens B-Natriuretic Peptide 316 H Total Protein 7.1 Albumin 3.2 L Influenza Type A (PCR) Influenza Type B (PCR) RSV RNA Qual (PCR) SARS-CoV-2 RNA (RT-PCR) 06/10/22 06/10/22 06/10/22 21:00 21:00 21:50 MCV MCH MCHC RDW Plt Count MPV Absolute Nucleated RBC Nucleated RBC % (auto) O2 Saturation 100.0 ABG pH at Pt Temp 7.39 ABG pCO2 at Pt Temp 34 ABG pO2 at Pt Temp 148 H ABG HCO3 21 L ABG Base Excess (Actual) -2.9 Anion Gap Estim Creat Clear Calc Estimated GFR Random Glucose Lactic Acid 1.9 Calcium Total Bilirubin Direct Bilirubin AST ALT Alkaline Phosphatase Troponin I High Sens 9.3 B-Natriuretic Peptide Total Protein Albumin Influenza Type A (PCR) Influenza Type B (PCR) RSV RNA Qual (PCR) SARS-CoV-2 RNA (RT-PCR) 06/10/22 21:53 MCV MCH MCHC RDW Plt Count MPV Absolute Nucleated RBC Nucleated RBC % (auto) O2 Saturation ABG pH at Pt Temp ABG pCO2 at Pt Temp ABG pO2 at Pt Temp ABG HCO3 ABG Base Excess (Actual) Anion Gap Estim Creat Clear Calc Estimated GFR Random Glucose Lactic Acid Calcium Total Bilirubin Direct Bilirubin AST ALT Alkaline Phosphatase Troponin I High Sens B-Natriuretic Peptide Total Protein Albumin Influenza Type A (PCR) NEGATIVE Influenza Type B (PCR) NEGATIVE RSV RNA Qual (PCR) NEGATIVE SARS-CoV-2 RNA (RT-PCR) POSITIVE A Imaging Radiologist's Impressions: Impressions Chest X-Ray 06/10/22 22:20 IMPRESSION: Increasing prominence of the central vasculature suggesting congestion and developing interstitial edema. Small right pleural effusion. Assessment and Plan (1) Hypoxia: Status: Acute (2) COVID-19: Status: Acute (3) Dementia: Status: Acute (4) Encephalopathy: Status: Acute (5) Major depressive disorder: Status: Acute Plan This is a 86-year-old male with pertinent history of dementia, COPD, mood disorder who was sent to the emergency department for evaluation of dyspnea. #. Acute hypoxemic respiratory failure due to COVID-19 pneumonia -will admit patient with supplemental oxygen. Currently on 6 L, monitor and wean as tolerated. Maintain oxygen saturation greater than 90-92% -initiating Decadron 6 mg daily. Consulting infectious disease to evaluate the need for remdesivir, defer antibiotics. #. Acute metabolic encephalopathy due to above -monitor mentation #. Major depressive disorder: Continue home medication #. COPD: Continue home inhaler. No evidence of exacerbation at the time of admission. Griselda p.r.n. Med rec pending DVT prophylaxis: Lovenox 40 mg daily Diet: NPO until mentation improves DNR/DNI Admit as inpatient and will require two night minimum hospital stay for supplemental oxygen. Quality Stroke Does the patient have a stroke diagnosis?: No VTE Prior VTE?: No VTE Risk Level:: Medical - moderate - high VTE Device Contraindication: Treatment Not Indicated VTE Drug Contraindication: N/A - Med Ordered
[2022-06-11] MEDS: Enoxaparin Sodium 40 MG/0.4 ML SYRINGE SUBCUT (03:12)
[2022-06-11 04:04] VITALS: BP 111/61; PULSE 80; RESP 18; O2SAT 95
[2022-06-11 04:36] VITALS: BP 96/59; PULSE 86; RESP 24; O2SAT 93
--- NOTE | 2022-06-11 04:36 | PC.NURSE ---
assumed care of patient at this time. Placed on residential monitor. [place] catheter applied for incontinence. VS stable at this time. Covid [address] will continue to do hourly rounding for patient safety.
[2022-06-11 05:59] VITALS: BP 96/59; PULSE 78; RESP 24; TEMP 36.1; O2SAT 92
--- NOTE | 2022-06-11 06:44 | PC.NURSE ---
Pt soiled when arrived with urine. Pt given flaco care and bed linen changed. Pt setup on [place] but has not voided to collect urine sample. Cindi Aguero made aware
[2022-06-11 07:01] LABS: Basophils Absolute Auto 0.1 X10*3/uL (0.0-0.2); Basophils Percent Auto 0.3 % (0-2); Eosinophils Percent Auto 0.2 % (0-4); Imm Gran Abs Auto 0.08 X10*3/uL (0.00-0.03); Imm Gran Pct Auto 0.5 % (0.0-0.4); Lymphocytes Absolute Auto 0.6 X10*3/uL (1.2-4.9); Lymphocytes Percent Auto 3.5 % (20-40); MANUAL DIFF FLAG SCAN; Mean Corpuscular HGB Conc 31.4 g/dl (31.0-36.0); Mean Corpuscular Volume 79.5 fL (80.0-98.0); Mean Platelet Volume 9.5 fL (9.4-12.4); Monocytes Absolute Auto 0.6 X10*3/uL (0.1-1.2); Monocytes Percent Auto 3.4 % (2-11); Neutrophils Absolute Auto 15.6 x10*3/uL (2.0-8.3); Neutrophils Percent Auto 92.1 % (45-73); Platelet Count 307 X10*3/uL (160-400); Red Cell Distribution Width 16.7 % (11.0-16.0); SCAN SMEAR FLAG 1
[2022-06-11] MEDS: 0.9 % Sodium Chloride Flush 3 ML SYRINGE IVFLUSH (07:15)
[2022-06-11 07:41] LABS: SLIDE REVIEW VERIFIED
[2022-06-11 07:47] LABS: Anion Gap 10 (12-20); Blood Urea Nitrogen 21 mg/dL (9-16); Calcium 8.9 mg/dL (8.4-10.2); Carbon Dioxide 22 mmol/L (22-29); Chloride 105 mmol/L (96-108); Creatinine Clr Calc Pharmacy 68.8; Estimated Glomerular Filt Rate > 60; Glucose Random 136 mg/dL (60-115); Potassium 4.8 mmol/L (3.3-5.1); Sodium 132 mmol/L (135-145)
[2022-06-11 08:48] VITALS: BP 124/64; PULSE 82; RESP 16; TEMP 36.3; O2SAT 95
--- NOTE | 2022-06-11 10:39 | PM.EVENT ---
Event Note Date of Service: 06/11/22 Event Note: patient seen examined patient is resting comfortably on bed on 6 L of oxygen finger oximetry 95% does not appear to be in acute distress patient not verbalizing, eyes are open, no dyspnea no use of accessory muscles patient admitted with a diagnosis of COVID-1 chest x-ray showed increasing prominence of central vasculature suggesting congestion and developing interstitial edema small right pleural effusion elevated BNP patient clinically appears euvolemic continue IV steroids and supportive care noted to have bump in a WBC likely due to use of steroids case discussed with patient's daughter healthcare proxy updated her about patient's clinical condition she does not wish any heroic measures patient is DNR DNI family do not wish G-tube placement if patient unable to tolerate diet
[2022-06-11 15:46] VITALS: BP 108/55; PULSE 83; RESP 19; TEMP 36.5; O2SAT 96
[2022-06-11] MEDS: dexAMETHasone sod phosphate 4 MG/ML VIAL 6 MG IVPUSH (21:23)
--- NOTE | 2022-06-11 23:06 | PC.NURSE ---
Bipap support objective not complete, pt is no longer on bipap at this time
--- NOTE | 2022-06-11 23:26 | PC.NURSE ---
Pt currently resting on bed at this time. Respirations are even and unlabored on 5L humidified O2 via mask for comfort. Pt has two Iv access points, previously document. Pt has patent [place] catheter draining urine
[2022-06-12] VITALS (12 sets, daily range): BP systolic 121–158; BP diastolic 53–77; PULSE 72–113; RESP 18–25; TEMP 36.1–37.1; O2SAT 92–98
[2022-06-12] MEDS: Enoxaparin Sodium 40 MG/0.4 ML SYRINGE SUBCUT (02:48)
--- NOTE | 2022-06-12 03:47 | PC.NURSE ---
Care of patient assumed at 0300. Patient found resting in stretcher with eyes closed. Breathing is tachypnic, but patient appears comfortable. Patient awakens and states how are you honey? then begins mumbling incoherently. He remains confused, doesn't answer questions appropriately, and mostly mumbles incoherently. He closes his eyes and continues to rest. He appears comfortable. +wet gurgling with weak cough noted. O2 saturations >96% on 5L humidified face mask. Patient repositioned for comfort.
--- NOTE | 2022-06-12 07:37 | PC.NURSE ---
report taken from tata cruz pt here for covid r/t disease process, dnr/dni. conservative/comfort measures for pt per previous shift rn. pt alert to self only, mumbling incoherently. maintaining 95% on 6l oxy max. no noted incontinence on first contact. droplet precautions in place at this time. daughter jennifer updated via phone by this rn, agreeable to care plan at this time.
--- NOTE | 2022-06-12 09:08 | MHC.CM.PN ---
Patient has a diagnosis of Dementia and is Covid (+); CM spoke with Daughter/HCP/Ruthie @ [phone] and addressed IMM with her, original will be mailed certified letter to Ruthie and a copy to be placed on the chart. Patient is a LTC Resident of the [facility] and the plan is to return there once medically cleared for dc. CM has initiated and will follow for dc planning. Patient has received Covid vax x5.
[2022-06-12] MEDS: Escitalopram Oxalate 5 MG TABLET PO (09:10)
[2022-06-12] MEDS: Docusate Sodium 100 MG CAPSULE PO (09:10)
--- NOTE | 2022-06-12 11:33 | HO.PM.IMPN ---
Subjective Subjective Date of Service: 06/12/22 Interval History: patient awake alert unable to provide meaningful history due to underlying dementia Review of Systems Review of Systems: Yes Unobtainable due to mental status Physical Exam Vital Signs: Vital Signs: Last Vital Signs Temp 98.6 F 06/12/22 09:22 Pulse 113 H 06/12/22 09:22 Resp 20 06/12/22 09:22 BP 132/53 L 06/12/22 09:22 Pulse Ox 93 06/12/22 09:22 O2 Del Method 06/12/22 09:22 O2 Flow Rate 2 06/12/22 09:22 BMI result Body Mass Index 27.8 Const: Other: General? frail Elderly male lying in bed no acute distress Neck supple, no JVD CVS Regular rate and rhythm, S1-S2 heard Respiratory Bilateral coarse rhonchorous breath sounds, no use of accessory muscles, no wheeze Abdomen soft nontender, no guarding, no rigidity, bowel sounds audible neuro speech clear, face symmetrical extremity No pedal edema Objective Data Active Medications Acetaminophen (Acetaminophen 325 Mg Tablet) 650 mg PO Q6H PRN PRN Reason: Pain, Mild (Pain Scale 1-3) Acetaminophen (Acetaminophen Supp 650 Mg Supp.Rect) 650 mg [place] Q6H PRN PRN Reason: Pain, Mild (Pain Scale 1-3) Albuterol/Ipratropium (Albuterol/Iprat 2.5/0.5mg 3 Ml Ampul.Neb) 3 ml INHALE RQ4H PRN PRN Reason: wheezing Calcium Polycarbophil (Calcium Polycarbophil Tablet) 1 tab PO DAILY [facility] Last Admin: 06/12/22 07:42 Dose: Not Given Documented By: DEANNA Non-Admin Reason: See Note Dexamethasone Sodium Phosphate (Dexamethasone Sod Phosphate 4 Mg/Ml Vial) 6 mg IVPUSH Q24H [facility] Last Admin: 06/11/22 21:23 Dose: 6 mg Documented By: VIRGINIA Docusate Sodium (Docusate Sodium 100 Mg Capsule) 100 mg PO DAILY [facility] Last Admin: 06/12/22 09:10 Dose: 100 mg Documented By: DEANNA Enoxaparin Sodium (Enoxaparin Sodium 40 Mg/0.4 Ml Syringe) 40 mg SUBCUT Q24H [facility] Last Admin: 06/12/22 02:48 Dose: 40 mg Documented By: GIRISH Escitalopram Oxalate (Escitalopram Oxalate 5 Mg Tablet) 5 mg PO DAILY [facility] Last Admin: 06/12/22 09:10 Dose: 5 mg Documented By: DEANNA Levalbuterol HCl (Levalbuterol Hcl 1.25 Mg/0.5 Ml Vial.Neb) 1.25 mg INHALE RTID [facility] Loratadine (Loratadine 10 Mg Tablet) 10 mg PO DAILY [facility] Last Admin: 06/12/22 07:42 Dose: Not Given Documented By: DEANNA Non-Admin Reason: See Note Melatonin (Melatonin 3 Mg Tablet) 6 mg PO BEDTIME PRN PRN Reason: Insomnia Omeprazole (Omeprazole 20 Mg/10 Ml Susp.Recon) 20 mg PO BID@0630,1630 [facility] Ondansetron HCl (Ondansetron Hcl 4 Mg/2 Ml Vial) 4 mg IVPUSH Q8H PRN PRN Reason: Nausea and Vomiting Senna (Sennosides 8.6 Mg Tablet) 17.2 mg PO BEDTIME [facility] Sodium Chloride (0.9 % Sodium Chloride Flush 3 Ml Syringe) 3 ml IVFLUSH QSHIFT [facility] Last Admin: 06/12/22 10:25 Dose: Not Given Documented By: DEANNA Non-Admin Reason: Med Not Available Trazodone HCl (Trazodone Hcl 50 Mg Tablet) 37.5 mg PO DAILY@1400 [facility] Vitamin D (Cholecalciferol (Vitamin D3) 25 Mcg Tablet) 25 mcg PO DAILY [facility] Last Admin: 06/12/22 07:42 Dose: Not Given Documented By: DEANNA Non-Admin Reason: See Note Labs CBC & Chem 7: 06/11/22 06:27 06/11/22 06:28 Microbiology Microbiology Results: Microbiology 06/10/22 21:00 Blood Culture - Preliminary Blood - Venous Prelim: GPC Gram Stain only 06/10/22 21:00 Blood Culture - Preliminary Blood - Venous No growth after 24 hours. Assessment and Plan (1) COVID-19: Status: Acute (2) Hypoxia: Status: Acute (3) Dementia: Status: Acute Plan 86-year-old male with pertinent history of dementia unspecified, COPD, mood disorder who was sent to the emergency department for evaluation of dyspnea. #.? Acute hypoxemic respiratory failure due to COVID-19 pneumonia no acute distress continue oxygen therapy monitor and wean as tolerated.? Maintain oxygen saturation greater than 90-92% currently on face mask iv Decadron 6 mg daily day08/18.? supportive care with analgesics antiemetics and cough medications Dr. Nava did not recommend remdesivir due to elevated LFTs patient is NPO will obtain speech therapy evaluation, during previous hospitalization patient was on pureed and nectar thick liqs # WBC bumped from 11.8-17,000 likely due to steroids, no recurrent fevers stable oxygenation #.? Acute metabolic encephalopathy due to above, patient awake saying few words likely his baseline with underlying dementia #.? Major depressive disorder and unspecified dementia: resumed trazodone and lexapro #.? COPD: no acute exacerbation will place on Xopenex 1.25 mg t.i.d., at home use Advair b.i.d. on IV Decadron for COVID cont. DuoNebs p.r.n. DVT prophylaxis: Lovenox 40 mg daily DNR/DNI updated patient's daughter about his clinical condition. spoke [facility] also updated her need continued hospital stay for supplemental oxygen and encephalopathy currently NPO.? Quality Stroke Does the patient have a stroke diagnosis?: No VTE Prior VTE?: No VTE Risk Level:: Medical - moderate - high VTE Device Contraindication: Treatment Not Indicated VTE Drug Contraindication: N/A - Med Ordered
--- NOTE | 2022-06-12 16:12 | P.CNID_ITS ---
History of Present Illness Data of Consult Service Date: 06/12/22 Requesting physician: Benny Pastrana Primary Care Provider: Jorge Orosco MD HPI Reason for consult: cough He present from [facility] with two days cough and shortness of breath. He is positive for COVID and has elevated LFTs He is on oxygen 3 liters now. Review of Systems Review of Systems: Yes Unobtainable due to mental condition PMFSH Past Medical History Medical History COPD (chronic obstructive pulmonary disease) Dementia Encephalopathy Hydronephrosis Leukocytosis Major depressive disorder Nephrolithiasis Pneumonia Renal colic on left side Family History Family history: reviewed and not pertinent Social History Social History Household Members: None and Other Household Members Other:: snf Housing: [facility] Housing 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 Do you presently have visiting nurse or other home services: No Unable to assess alcohol history related to: Unknown Patient Tobacco Use Status: Tobacco use Unknown Advance Directives: Yes Advance Directives on File: Yes Advance Directives Date on File: 07/08/20 service: Yes Current occupational status: retired Meds Allergies Allergy/AdvReac Type Severity Reaction Status Date / Time diazepam Allergy Unknown Verified 05/03/21 11:05 lidocaine Allergy Unknown Verified 05/03/21 11:05 lisinopril Allergy Unknown Verified 05/03/21 11:05 Active Medications: Current Medications Acetaminophen (Acetaminophen 325 Mg Tablet) 650 mg PO Q6H PRN PRN Reason: Pain, Mild (Pain Scale 1-3) Acetaminophen (Acetaminophen Supp 650 Mg Supp.Rect) 650 mg [place] Q6H PRN PRN Reason: Pain, Mild (Pain Scale 1-3) Albuterol/Ipratropium (Albuterol/Iprat 2.5/0.5mg 3 Ml Ampul.Neb) 3 ml INHALE RQ4H PRN PRN Reason: wheezing Calcium Polycarbophil (Calcium Polycarbophil Tablet) 1 tab PO DAILY [facility] Last Admin: 06/12/22 07:42 Dose: Not Given Dexamethasone Sodium Phosphate (Dexamethasone Sod Phosphate 4 Mg/Ml Vial) 6 mg IVPUSH Q24H [facility] Last Admin: 06/11/22 21:23 Dose: 6 mg Docusate Sodium (Docusate Sodium 100 Mg Capsule) 100 mg PO DAILY [facility] Last Admin: 06/12/22 09:10 Dose: 100 mg Enoxaparin Sodium (Enoxaparin Sodium 40 Mg/0.4 Ml Syringe) 40 mg SUBCUT Q24H [facility] Last Admin: 06/12/22 02:48 Dose: 40 mg Escitalopram Oxalate (Escitalopram Oxalate 5 Mg Tablet) 5 mg PO DAILY [facility] Last Admin: 06/12/22 09:10 Dose: 5 mg Guaifenesin/Dextromethorphan (Guaifenesin Dm 100/10/5 Ml 5 Ml Syrup) 10 ml PO Q6H PRN PRN Reason: cough Levalbuterol HCl (Levalbuterol Hcl 1.25 Mg/0.5 Ml Vial.Neb) 1.25 mg INHALE RTID [facility] Last Admin: 06/12/22 14:34 Dose: 1.25 mg Loratadine (Loratadine 10 Mg Tablet) 10 mg PO DAILY [facility] Last Admin: 06/12/22 07:42 Dose: Not Given Melatonin (Melatonin 3 Mg Tablet) 6 mg PO BEDTIME PRN PRN Reason: Insomnia Omeprazole (Omeprazole 20 Mg/10 Ml Susp.Recon) 20 mg PO BID@0630,1630 [facility] Ondansetron HCl (Ondansetron Hcl 4 Mg/2 Ml Vial) 4 mg IVPUSH Q8H PRN PRN Reason: Nausea and Vomiting Senna (Sennosides 8.6 Mg Tablet) 17.2 mg PO BEDTIME [facility] Sodium Chloride (0.9 % Sodium Chloride Flush 3 Ml Syringe) 3 ml IVFLUSH QSHIFT [facility] Last Admin: 06/12/22 10:25 Dose: Not Given Trazodone HCl (Trazodone Hcl 50 Mg Tablet) 37.5 mg PO DAILY@1400 [facility] Vitamin D (Cholecalciferol (Vitamin D3) 25 Mcg Tablet) 25 mcg PO DAILY [facility] Last Admin: 06/12/22 07:42 Dose: Not Given Home Medications Medication Instructions Recorded Confirmed Last Taken Type acetaminophen 325 mg tablet 650 mg PO TID 07/07/20 06/12/22 12/13/21 History cholecalciferol (vitamin D3) 25 25 mcg PO DAILY 07/07/20 06/11/22 01/12/22 History mcg (1,000 unit) tablet (Vitamin D3) docusate sodium 100 mg capsule 100 mg PO DAILY 07/07/20 06/11/22 01/12/22 History (Colace) escitalopram oxalate 5 mg tablet 5 mg PO DAILY 07/07/20 06/11/22 01/12/22 History (Lexapro) fluticasone 250 mcg-salmeterol 50 1 inh inhalation BID 07/07/20 06/11/22 01/12/22 History mcg/dose blistr powdr for inhalation (Advair Diskus) ipratropium bromide 42 mcg (0.06 1 spray intranasal BID 07/07/20 06/11/22 01/12/22 History %) nasal spray levalbuterol tartrate 45 2 puff inhalation Q4H PRN 07/07/20 06/11/22 Unknown History mcg/actuation aerosol inhaler Shortness Of Breath Or Wheezing loratadine 10 mg tablet (Claritin) 10 mg PO DAILY 07/07/20 06/11/22 01/12/22 History sennosides 8.6 mg tablet (senna) 17.2 mg PO BEDTIME 07/07/20 06/12/22 01/12/22 History trazodone 50 mg tablet 37.5 mg PO DAILY@1400 07/07/20 06/12/22 01/12/22 History calcium polycarbophil 625 mg tablet 625 mg PO DAILY 01/13/22 06/11/22 01/12/22 History melatonin 3 mg tablet 3 mg PO BEDTIME 01/13/22 06/11/22 01/12/22 History omeprazole magnesium 10 mg oral 20 mg PO BID@0630,1630 06/12/22 06/12/22 Unknown History suspension,delayed release Physical Exam Vital Signs: Vital Signs: Last Vital Signs Temp 98.6 F 06/12/22 09:22 Pulse 113 H 06/12/22 09:22 Resp 20 06/12/22 14:36 BP 132/53 L 06/12/22 09:22 Pulse Ox 93 06/12/22 09:22 O2 Del Method 06/12/22 09:22 O2 Flow Rate 2 06/12/22 09:22 BMI result Body Mass Index 27.8 Const: General: cooperative HEENT: Head: Yes normal to inspection Face and sinus: Yes normal facial exam Mouth: Normal oral and palatal mucosa present Teeth and gingiva: dentition normal Eyes: General: appearance normal, both eyes and all related structures Pupils: Equal, round and reactive pupils present Resp: Effort & Inspection: decreased respiratory effort Cardio: Rate: regular rate Rhythm: regular rhythm GI: Palpation (GI): Soft to palpation and nontender : General: Yes no CVA tenderness Back/Spine/Pelvis: Back: no CVA tenderness Skin: General skin exam: no rashes or lesions noted Neuro: General: moves all extremities Cranial nerves: Yes Equal, round and reactive pupils present Extrem: General: Yes normal to inspection Psych: Appearance: grossly normal Results Labs CBC & Chem 7: 06/11/22 06:27 06/11/22 06:28 Microbiology Microbiology Results: Microbiology 06/10/22 21:00 Blood - Venous Blood Culture - Preliminary Prelim: GPC Gram Stain only 06/10/22 21:00 Blood - Venous Blood Culture - Preliminary No growth after 24 hours. Assessment and Plan (1) COVID-19: Status: Acute He has COVID recent onset presumably symptoms last two days. He has some hypoxia. He also has elevated LFTs so Remdesivir more risk and less likely benefit particularly in vaccinated. (2) Hypoxia: Status: Acute Plan Oxygen as needed. Dexamethasone. No Remdesivir. Baricitinib if needs high flow oxygen
[2022-06-12] MEDS: traZODone HCL 50 MG TABLET 37.5 MG PO (16:17)
[2022-06-12] MEDS: dexAMETHasone sod phosphate 4 MG/ML VIAL 6 MG IVPUSH (21:06)
[2022-06-12] MEDS: Sennosides 8.6 MG TABLET 17.2 MG PO (21:06)
[2022-06-13] VITALS (7 sets, daily range): BP systolic 132–152; BP diastolic 67–78; PULSE 63–78; RESP 14–20; TEMP 36.3–37; O2SAT 92–98
[2022-06-13] MEDS: Enoxaparin Sodium 40 MG/0.4 ML SYRINGE SUBCUT (03:25)
[2022-06-13] MEDS: 0.9 % Sodium Chloride Flush 3 ML SYRINGE IVFLUSH ×4 (03:25→22:26)
[2022-06-13] MEDS: calcium polycarbophiL TABLET 1 TAB PO (10:31)
[2022-06-13] MEDS: Docusate Sodium 100 MG CAPSULE PO (10:31)
[2022-06-13] MEDS: Cholecalciferol (Vitamin D3) 25 MCG TABLET PO (10:31)
[2022-06-13] MEDS: Escitalopram Oxalate 5 MG TABLET PO (10:31)
[2022-06-13] MEDS: Loratadine 10 MG TABLET PO (10:32)
[2022-06-13 14:15] LABS: Anion Gap 14 (12-20); Blood Urea Nitrogen 31 mg/dL (9-16); Calcium 8.9 mg/dL (8.4-10.2); Carbon Dioxide 25 mmol/L (22-29); Chloride 103 mmol/L (96-108); Creatinine Clr Calc Pharmacy 78.2; Estimated Glomerular Filt Rate > 60; Glucose Random 92 mg/dL (60-115); Potassium 4.4 mmol/L (3.3-5.1); Sodium 138 mmol/L (135-145)
[2022-06-13] MEDS: traZODone HCL 50 MG TABLET 37.5 MG PO (15:45)
--- NOTE | 2022-06-13 16:32 | HO.PM.IMPN ---
Subjective Subjective Date of Service: 06/13/22 Interval History: patient awake alert unable to provide meaningful history due to underlying dementia Review of Systems no fever or chilss, no hypoxia Physical Exam Vital Signs: Vital Signs: Last Vital Signs Temp 97.6 F 06/13/22 15:37 Pulse 78 06/13/22 14:37 Resp 18 06/13/22 14:37 BP 152/78 H 06/13/22 07:51 Pulse Ox 97 06/13/22 07:51 O2 Del Method 06/13/22 07:51 O2 Flow Rate 3 06/13/22 07:51 BMI result Body Mass Index 27.8 Const: Other: General? frail Elderly male lying in bed no acute distress Neck supple, no JVD CVS Regular rate and rhythm, S1-S2 heard Respiratory Bilateral coarse rhonchorous breath sounds, no use of accessory muscles, no wheeze Abdomen soft nontender, no guarding, no rigidity, bowel sounds audible neuro speech clear, face symmetrical extremity No pedal edema Objective Data Active Medications Acetaminophen (Acetaminophen 325 Mg Tablet) 650 mg PO Q6H PRN PRN Reason: Pain, Mild (Pain Scale 1-3) Acetaminophen (Acetaminophen Supp 650 Mg Supp.Rect) 650 mg [place] Q6H PRN PRN Reason: Pain, Mild (Pain Scale 1-3) Albuterol/Ipratropium (Albuterol/Iprat 2.5/0.5mg 3 Ml Ampul.Neb) 3 ml INHALE RQ4H PRN PRN Reason: wheezing Calcium Polycarbophil (Calcium Polycarbophil Tablet) 1 tab PO DAILY [facility] Last Admin: 06/13/22 10:31 Dose: 1 tab Documented By: MELI Dexamethasone Sodium Phosphate (Dexamethasone Sod Phosphate 4 Mg/Ml Vial) 6 mg IVPUSH Q24H [facility] Last Admin: 06/12/22 21:06 Dose: 6 mg Documented By: SRI Docusate Sodium (Docusate Sodium 100 Mg Capsule) 100 mg PO DAILY [facility] Last Admin: 06/13/22 10:31 Dose: 100 mg Documented By: MELI Enoxaparin Sodium (Enoxaparin Sodium 40 Mg/0.4 Ml Syringe) 40 mg SUBCUT Q24H [facility] Last Admin: 06/13/22 03:25 Dose: 40 mg Documented By: SRI Escitalopram Oxalate (Escitalopram Oxalate 5 Mg Tablet) 5 mg PO DAILY [facility] Last Admin: 06/13/22 10:31 Dose: 5 mg Documented By: MELI Guaifenesin/Dextromethorphan (Guaifenesin Dm 100/10/5 Ml 5 Ml Syrup) 10 ml PO Q6H PRN PRN Reason: cough Levalbuterol HCl (Levalbuterol Hcl 1.25 Mg/0.5 Ml Vial.Neb) 1.25 mg INHALE RTID [facility] Last Admin: 06/13/22 14:31 Dose: 1.25 mg Documented By: KEIKO Loratadine (Loratadine 10 Mg Tablet) 10 mg PO DAILY [facility] Last Admin: 06/13/22 10:32 Dose: 10 mg Documented By: MELI Melatonin (Melatonin 3 Mg Tablet) 6 mg PO BEDTIME PRN PRN Reason: Insomnia Omeprazole (Omeprazole 20 Mg/10 Ml Susp.Recon) 20 mg PO BID@0630,1630 [facility] Last Admin: 06/13/22 15:45 Dose: 20 mg Documented By: ELBERT Ondansetron HCl (Ondansetron Hcl 4 Mg/2 Ml Vial) 4 mg IVPUSH Q8H PRN PRN Reason: Nausea and Vomiting Senna (Sennosides 8.6 Mg Tablet) 17.2 mg PO BEDTIME [facility] Last Admin: 06/12/22 21:06 Dose: 17.2 mg Documented By: SANTIAGOLM Sodium Chloride (0.9 % Sodium Chloride Flush 3 Ml Syringe) 3 ml IVFLUSH QSHIFT [facility] Last Admin: 06/13/22 15:46 Dose: 3 ml Documented By: ELBERT Trazodone HCl (Trazodone Hcl 50 Mg Tablet) 37.5 mg PO DAILY@1400 [facility] Last Admin: 06/13/22 15:45 Dose: 37.5 mg Documented By: ELBERT Vitamin D (Cholecalciferol (Vitamin D3) 25 Mcg Tablet) 25 mcg PO DAILY [facility] Last Admin: 06/13/22 10:31 Dose: 25 mcg Documented By: MELI Labs CBC & Chem 7: 06/11/22 06:27 06/13/22 13:45 Labs: Laboratory Results - last 24 hr 06/13/22 13:45 Anion Gap 14 Estim Creat Clear Calc 78.2 Estimated GFR > 60 Random Glucose 92 D Calcium 8.9 Microbiology Microbiology Results: Microbiology 06/10/22 21:00 Blood Culture - Preliminary Blood - Venous Gram positive cocci 06/10/22 21:00 Blood Culture - Preliminary Blood - Venous No growth after 48 hours. Assessment and Plan (1) COVID-19: Status: Acute (2) Hypoxia: Status: Acute Plan 86-year-old male with pertinent history of dementia unspecified, COPD, mood disorder who was sent to the emergency department for evaluation of dyspnea. #.? Acute hypoxemic respiratory failure due to COVID-19 pneumonia no acute distress continue oxygen therapy monitor and wean as tolerated.? Maintain oxygen saturation greater than 90-92% currently on face mask iv Decadron 6 mg daily day08/18.? supportive care with analgesics antiemetics and cough medications Dr. Nava did not recommend remdesivir due to elevated LFTs, but continue decadron # WBC bumped from 11.8-17,000 likely due to steroids, no recurrent fevers stable oxygenation #.? Acute metabolic encephalopathy due to above, patient awake saying few words likely his baseline with underlying dementia #.? Major depressive disorder and unspecified dementia: resumed trazodone and lexapro #.? COPD: no acute exacerbation will place on Xopenex 1.25 mg t.i.d., at home use Advair b.i.d. on IV Decadron for COVID cont. DuoNebs p.r.n. #Dypshagia, aspiration risk DVT prophylaxis: Lovenox 40 mg daily DNR/DNI updated patient's daughter about his clinical condition. spoke with [facility] nurse also updated her need continued treatement for covid, monitoring of respiratory status and disharge tomorrown if tolerates diet Quality Stroke Does the patient have a stroke diagnosis?: No VTE Prior VTE?: No VTE Risk Level:: Medical - moderate - high VTE Device Contraindication: Treatment Not Indicated VTE Drug Contraindication: N/A - Med Ordered
--- NOTE | 2022-06-13 17:27 | MHC.SL.SWA ---
Speech Pathologist Impression: Risk of Aspiration Due to: History of Pneumonia Reduced Cognition Dysphasia Diet Status: Liquid Consistency and Strategies for Safe Swallow: Liquid Intake Recommendation: Gandy Thick Liquid Intake Strategies: Small Sips No Straws Double Swallow Liquids by Teaspoon Only Solid Food Consistency: Dietary Recommendations: Grnd/Mech Altered (NDD2) Additional Modifications to Solid Foods: Patient will require a one to one feed, with close monitor for swallow before presenting more food or liquid, strict aspiration precautions. Discontinue presenting food or liquid if patient is not well engaged in eating, evidences upper airway congestion, coughing (aspiration signs) or is pocketing or delaying swallow. Oral Medication Intake: Crushed with Puree Please contact the pharmacy regarding appropriate crushable or liquid drug formulations that are available whenever modified delivery is recommended. Compensatory Strategies and Precautions to be Taken for Safe Swallow: Sitting Upright (90 deg) Double Swallow No Straw Liquids from Spoon Small Bites and Sips Alternate Liquids/Solids Rate of Ingestion Change Oral Check Supervision While Eating and Drinking for Safe Swallow: Total Assistance (1:1) Foods to Avoid: Hard, difficult to chew solids, mixed consistencies. Swallowing Recommended Treatments: Compens. Strategy Educat. Recommendation for Speech: Inpatient Speech Therapy Comment: Patient presents with episodic, maladaptive behaviors when swallowing putting him at risk for aspiration (e.g. patient has disorganized oral pattern on solid foods, episodically held/pocketed thin liquids without initiating swallow). Recommend START diet of Ground/Mechanical/Altered with NECTAR THICK liquids, pills crushed in puree. Patient will require a one to one feed with close/strict monitor for aspirations signs. Assure that patient is engaged in meal, discontinue if patient exhibits pocketing or neglecting food or liquid presented. Discontinue if aspiration signs of upper airway congestion, coughing are evident. Patient will require close monitor for these behaviors/aspiration signs. Frequency/Duration: Date Range for Service Req: Timeline to reassess: Client Advisor Clinican/Clinical Fellow: No Supervisory Statement: I have reviewed and agree with the student/clinical fellow's documentation: N/A Speech Language Pathologist: Marcelle Lake M.A., CCC-LABORATORY ANIMAL CARE VETERINARIAN
[2022-06-13] MEDS: dexAMETHasone sod phosphate 4 MG/ML VIAL 6 MG IVPUSH (22:22)
[2022-06-13] MEDS: Sennosides 8.6 MG TABLET 17.2 MG PO (22:23)
[2022-06-14] MEDS: Enoxaparin Sodium 40 MG/0.4 ML SYRINGE SUBCUT (03:39)
[2022-06-14 04:00] VITALS: BP 137/72; PULSE 63; RESP 18; TEMP 37.1; O2SAT 93
[2022-06-14 07:53] VITALS: BP 142/63; PULSE 57; RESP 12; TEMP 36.4; O2SAT 93
[2022-06-14 08:40] VITALS: PULSE 61; RESP 16; O2SAT 92
--- NOTE | 2022-06-14 09:18 | MHC.CM.PN ---
Addendum entered by Esther Hernandez 06/14/22 11:10: All discharge information has been faxed to [facility]. Transportation is provided by BLS. They are presently here for Pt warp picker Original Note: IMM 06/13/22 Patient is discharged today. He will return to [facility] today. Transportation is booked for 11am warp picker. The nurse will call report to the unit prior to transfer.
--- NOTE | 2022-06-14 09:39 | P.DS_ITS ---
DS: Providers Provider Date of Service: 06/14/22 Date of admission: 06/11/22 00:46 Primary care physician: Jorge Orosco MD Consults: 06/11/22 00:48 Consult to Infectious Diseases Routine Consulting Provider: Ashia Nava Reason for consultation: covid pna DS: Diagnosis Discharge Diagnosis (1) COVID-19: Status: Acute (2) Hypoxia: Status: Acute DS: Summary Hospital Course Hospital Course: Chief Complaint: Dyspnea This is a 86-year-old male with pertinent history of dementia, COPD, mood disorder who was sent to the emergency department for evaluation of dyspnea.? Patient is a poor historian and unable to obtain any history from the patient.? As per chart review, patient with upper respiratory symptoms, cough and dyspnea for the last 2 days.? Also with associated decreased mentation.? At the time of my evaluation, patient unable to provide any history.? Unable to obtain review of systems. In the emergency department, patient requiring 3 6 L supplemental oxygen.? COVID-19 test positive Hospital course: # Acute hypoxemic respiratory failure due to COVID-19 pneumonia--initially with hypoxia and has been treated with IV decadron with good effect, and presently O2 saturation of 92 to 93. He was seen by Dr. Nava from infectious disease and there is no indication for remdesevir due to elevated LFTS as well. Will treat with Decadron for total of 10 days. ? ? #? ? WBC bumped from 11.8-17,000 likely due to steroids, no recurrent fevers stable oxygenation #.? Acute metabolic encephalopathy due to above on top of underlying advanced dementia. ? #.? Major depressive disorder and unspecified dementia: continue trazodone and lexapro #.? COPD:?resume usual inhalers #Dypshagia, aspiration risk. He was assess by Speech thereapy with the following recommendation Dysphasia Diet Status: Liquid Consistency and Strategies for Safe Swallow: Liquid Intake Recommendation: [place] Thick Liquid Intake Strategies: Small SipsNo Straws Double Swallow Liquids by Teaspoon Only Solid Food Consistency: Dietary Recommendations: Grnd/Mech Altered (NDD2) Additional Modifications to Solid Foods: Patient will require a one to one feed, with close monitor for swallow before presenting more food or liquid, strict aspiration precautions.? Discontinue presenting food or liquid if patient is not well engaged in eating, evidences upper airway congestion, coughing (aspiration signs) or is pocketing or delaying swallow. Oral Medication Intake: Crushed with Puree Time Spent with Patient Time attestation: Total time spent providing and/or coordinating discharge services: Discharge coordination time: Greater than 30 minutes Quality: Safe Use of Opioids Does Pt have an Active Cancer Diagnosis on the Problem List?: No Quality: Stroke Does the patient have a stroke diagnosis?: No Physical Exam Vital Signs: Vital Signs: Last Vital Signs Temp 97.5 F 06/14/22 07:53 Pulse 61 06/14/22 08:40 Resp 16 06/14/22 08:40 BP 142/63 H 06/14/22 07:53 Pulse Ox 93 06/14/22 07:53 O2 Del Method 06/14/22 07:53 O2 Flow Rate 2 06/13/22 19:51 BMI result Body Mass Index 27.8 DS: Data Data Completed and Pending Completed studies during hospitalization [Text1]: Procedures Dilation of Left Ureter with Intraluminal Device, Via Natural or Artificial Opening Endoscopic (07/07/20) Extirpation of Matter from Left Ureter, Via Natural or Artificial Opening Endoscopic (07/07/20) Fluoroscopy of Left Kidney, Ureter and Bladder (07/07/20) Transfusion of Nonautologous Red Blood Cells into Peripheral Vein, Percutaneous Approach (01/13/22) Labs on day of discharge: Laboratory Results - last 24 hr 06/13/22 13:45 Sodium 138 Potassium 4.4 Chloride 103 Carbon Dioxide 25 Anion Gap 14 BUN 31 H D Creatinine 0.81 Estim Creat Clear Calc 78.2 Estimated GFR > 60 Random Glucose 92 D Calcium 8.9 Preliminary micro results at discharge 06/10/22 21:00 Blood Culture - Preliminary Blood - Venous No growth after 48 hours. Discharge Plan Discharge Anticipated Discharge Date/Time: 06/14/22 09:27 Patient Disposition: Xfer LTC Discharge Diagnosis: Corvid pneumonia, hypoxia Referrals: [facility] [Outside] - 1 Week Jorge Orosco MD [Primary Care Provider] - 1 Week Discharge Medications: New dexamethasone 6 mg tablet 6 mg PO DAILY Qty: 6 0RF Continued fluticasone propion-salmeterol [Advair Diskus] 250-50 mcg/dose Blister With Device 1 inh INHALATION BID sennosides [senna] 8.6 mg Tablet 17.2 mg PO BEDTIME acetaminophen 325 mg Tablet 650 mg PO TID trazodone 50 mg Tablet 37.5 mg PO DAILY@1400 docusate sodium [Colace] 100 mg Capsule 100 mg PO DAILY ipratropium bromide 42 mcg (0.06 %) Colony,Non-Aerosol 1 spray INTRANASAL BID loratadine [Claritin] 10 mg Tablet 10 mg PO DAILY escitalopram oxalate [Lexapro] 5 mg Tablet 5 mg PO DAILY levalbuterol tartrate 45 mcg/actuation Hfa Aerosol Inhaler 2 puff INHALATION Q4H PRN (Reason: Shortness Of Breath Or Wheezing) cholecalciferol (vitamin D3) [Vitamin D3] 25 mcg (1,000 unit) Tablet 25 mcg PO DAILY omeprazole magnesium 10 mg Susp,Delayed Release For Recon 20 mg PO BID@0630,1630 melatonin 3 mg Tablet 3 mg PO BEDTIME calcium polycarbophil 625 mg Tablet 625 mg PO DAILY pyridoxine (vitamin B6) 100 mg tablet 100 mg PO DAILY 90 Days Qty: 90 1RF Discharge Orders: Discharge Order (Routine); Ordered 06/14/22 Ordered By: Lavell Barclay Diet: See below Activity on Discharge: As tolerated Stand Alone Forms: Patient Portal Discharge page Care Plan Goals: Full recovery from covid pneumonia Health Concerns: covid, advanced dementia, risk of aspiration Plan of Treatment: Take Decadron as tolerated and follow up with your Doctor in a wee Diet recommendation by Speech: Dysphasia Diet Status: Liquid Consistency and Strategies for Safe Swallow: Liquid Intake Recommendation: [place] Thick Liquid Intake Strategies: Small SipsNo Straws Double Swallow Liquids by Teaspoon Only Solid Food Consistency: Dietary Recommendations: Grnd/Mech Altered (NDD2) Additional Modifications to Solid Foods: Patient will require a one to one feed, with close monitor for swallow before presenting more food or liquid, stri ct aspiration precautions.? Discontinue presenting food or liquid if patient is not well engaged in eating, evidences upper airway congestion, coughing (aspiration signs) or is pocketing or delaying swallow. Oral Medication Intake: Crushed with Puree Please contact the pharmacy regarding appropriate crushable or liquid drug formulations that are available whenever modified delivery is recommended. Assessment: As above
[2022-06-14] MEDS: Loratadine 10 MG TABLET PO (09:49)
[2022-06-14] MEDS: Escitalopram Oxalate 5 MG TABLET PO (09:49)
[2022-06-14] MEDS: calcium polycarbophiL TABLET 1 TAB PO (09:49)
[2022-06-14] MEDS: 0.9 % Sodium Chloride Flush 3 ML SYRINGE IVFLUSH (09:50)
[2022-06-14] MEDS: Docusate Sodium 100 MG CAPSULE PO (09:50)
[2022-06-14] MEDS: Cholecalciferol (Vitamin D3) 25 MCG TABLET PO (09:50)
== END 2022-06-14 11:47 | disposition home or self-care (01) | DRG 177 ==
LOC: HO.ED 23:29 → HO.EDOVER 06-11 00:50 → HO.IMC 06-12 16:54
PROVIDERS: Admitting Provider Student in an Organized Health Care Education/Training Program; Emergency Provider Emergency Medicine Emergency Medical Services; PCP Internal Medicine; Visit Provider Internal Medicine
DX: U07.1 COVID-19 (principal); G93.41 Metabolic encephalopathy; J12.82 Pneumonia due to coronavirus disease 2019; J96.01 Acute respiratory failure with hypoxia; J44.0 Chronic obstructive pulmonary disease with (acute) lower respiratory infection; R13.10 Dysphagia, unspecified; F32.9 Major depressive disorder, single episode, unspecified; Z66 Do not resuscitate; F03.90 Unspecified dementia, unspecified severity, without behavioral disturbance, psychotic disturbance, mood disturbance, and anxiety; Z88.8 Allergy status to other drugs, medicaments and biological substances; Z79.51 Long term (current) use of inhaled steroids; Z79.899 Other long term (current) drug therapy
CPT/HCPCS: 0241U; 36415; 71045; 80048; 80076; 82803; 83605; 83880; 84484; 85025; 85027; 87040; 87077; 87186; 87205; 92610; 93005; 94640; 94660; 99285; J0131; J0692; J1100; J1650; J1885; J2930; J3475

== ENCOUNTER 2022-06-15 06:49 | Outpatient (REF) | payer MEDICARE, OTHER, SELFPAY ==
[2022-06-15 08:14] LABS: MANUAL DIFF FLAG NO
[2022-06-15 08:20] LABS: Basophils Percent Auto 0.1 % (0-2); Eosinophils Absolute Auto 0.1 X10*3/uL (0.0-0.4); Eosinophils Percent Auto 0.8 % (0-4); Hematocrit 34.5 % (42.0-52.0); Hemoglobin 10.7 g/dl (14.0-18.0); Imm Gran Abs Auto 0.12 X10*3/uL (0.00-0.03); Imm Gran Pct Auto 1.3 % (0.0-0.4); Lymphocytes Absolute Auto 1.6 X10*3/uL (1.2-4.9); Mean Corpuscular Hemoglobin 24.6 pg (27.0-33.0); Mean Corpuscular Volume 79.3 fL (80.0-98.0); Mean Platelet Volume 9.2 fL (9.4-12.4); Monocytes Absolute Auto 0.7 X10*3/uL (0.1-1.2); Monocytes Percent Auto 7.8 % (2-11); Neutrophils Absolute Auto 6.9 x10*3/uL (2.0-8.3); Platelet Count 408 X10*3/uL (160-400); Red Blood Count 4.35 X10*6/uL (4.60-5.80); Red Cell Distribution Width 16.5 % (11.0-16.0); White Blood Count 9.4 X10*3/uL (4.8-10.8)
[2022-06-15 09:33] LABS: Alanine Aminotransferase 87 U/L (0-40); Albumin Level 3.1 g/dL (3.5-5.0); Alkaline Phosphatase 81 U/L (39-117); Anion Gap 13 (12-20); Aspartate Amino Transferase 61 U/L (5-37); Bilirubin Direct 0.2 mg/dL (0.0-0.5); Bilirubin Total 0.5 mg/dL (0.0-1.0); Blood Urea Nitrogen 29 mg/dL (9-16); Calcium 8.8 mg/dL (8.4-10.2); Carbon Dioxide 27 mmol/L (22-29); Chloride 107 mmol/L (96-108); Estimated Glomerular Filt Rate > 60; Glucose Random 89 mg/dL (60-115); Potassium 4.1 mmol/L (3.3-5.1); Sodium 143 mmol/L (135-145); Total Protein 6.8 g/dL (6.5-8.0)
== END 2022-06-15 06:50 | disposition home or self-care (01) ==
LOC: HO.HSH1N 06:49
PROVIDERS: Visit Provider Internal Medicine Interventional Cardiology
DX: R79.89 Other specified abnormal findings of blood chemistry (principal); U07.1 COVID-19; J18.9 Pneumonia, unspecified organism
CPT/HCPCS: 36415; 80048; 80076; 85025

== ENCOUNTER 2023-09-28 08:29 | Outpatient (REF) | payer OTHER, MEDICARE, SELFPAY ==
[2023-09-28 09:07] LABS: Anion Gap 11 (12-20); Blood Urea Nitrogen 15 mg/dL (9-16); Calcium 8.8 mg/dL (8.4-10.2); Carbon Dioxide 26 mmol/L (22-29); Chloride 105 mmol/L (96-108); Estimated Glomerular Filt Rate > 60; Glucose Fasting 76 mg/dL (60-99); Potassium 4.2 mmol/L (3.3-5.1); Sodium 138 mmol/L (135-145)
[2023-09-28 15:09] LABS: Adenovirus PCR Not Detected (Not Detect.); Bordetella parapertussis PCR Not Detected (Not Detect.); Bordetella pertussis PCR Not Detected (Not Detect.); Chlamydia pneumoniae PCR Not Detected (Not Detect.); Coronavirus 229E PCR Not Detected (Not Detect.); Coronavirus HKU1 PCR Not Detected (Not Detect.); Coronavirus NL63 PCR Not Detected (Not Detect.); Coronavirus OC43 PCR Not Detected (Not Detect.); Human metapneumovirus PCR Not Detected (Not Detect.); Influenza A PCR Not Detected (Not Detect.); Influenza B PCR Not Detected (Not Detect.); Mycoplasma pneumoniae PCR Not Detected (Not Detect.); Parainfluenza 1 PCR Not Detected (Not Detect.); Parainfluenza 2 PCR Not Detected (Not Detect.); Parainfluenza 3 PCR Not Detected (Not Detect.); Parainfluenza 4 PCR Not Detected (Not Detect.); RSV PCR Not Detected (Not Detect.); Rhino/Enterovirus PCR Not Detected (Not Detect.); SARS-CoV-2 PCR Not Detected (Not Detect.)
[2023-09-28 19:01] LABS: Alanine Aminotransferase 8 U/L (0-40); Albumin Level 3.1 g/dL (3.5-5.0); Alkaline Phosphatase 65 U/L (39-117); Aspartate Amino Transferase 10 U/L (5-37); Bilirubin Direct 0.1 mg/dL (0.0-0.5); Bilirubin Total 0.3 mg/dL (0.0-1.0); Total Protein 6.5 g/dL (6.5-8.0)
== END 2023-09-28 08:30 | disposition home or self-care (01) ==
LOC: HO.HSH3N 08:29
PROVIDERS: Visit Provider Nurse Practitioner Acute Care
DX: U07.1 COVID-19 (principal); J44.9 Chronic obstructive pulmonary disease, unspecified; F03.C0 Unspecified dementia, severe, without behavioral disturbance, psychotic disturbance, mood disturbance, and anxiety
CPT/HCPCS: 36415; 80048; 80076; 87633

== ENCOUNTER 2023-09-29 07:28 | Outpatient (REF) | payer OTHER, MEDICARE, SELFPAY ==
[2023-09-29 08:55] LABS: Influenza A PCR NEGATIVE (Negative); Influenza B PCR NEGATIVE (Negative); Resp Syncy Virus RNA Qual PCR NEGATIVE (Negative); SARS COV2 PCR INHOUSE NEGATIVE (Negative)
== END 2023-09-29 07:29 | disposition home or self-care (01) ==
LOC: HO.HSH3N 07:28
PROVIDERS: Visit Provider Nurse Practitioner Acute Care
DX: J11.1 Influenza due to unidentified influenza virus with other respiratory manifestations (principal)
CPT/HCPCS: 0241U